=== PATIENT | female | born 1945 | race Caucasian/White ===

== ENCOUNTER 2017-01-10 06:51 | Inpatient (IN) ==
--- NOTE | 2017-01-10 08:32 | Emergency Department Note ---
Disposition Clinical Impression: Altered mental status, Hypoxia, Dyspnea Disposition: Admitted As Inpatient Condition: Fair General Adult HPI - General Chief complaint: ED General Medical Stated complaint: ECF RN sent pt back Source: patient, EMS Nursing Notes Reviewed: Yes Vital Signs Reviewed: Yes - History of Present Illness Pain Scale: 0 - Related Data Home Medications Medication Instructions Recorded Confirmed Albuterol Neb [Proventil Neb] 2.5 mg IH Q6H PRN 04/30/15 01/10/17 Atorvastatin [Lipitor] 10 mg PO HS 04/30/15 01/10/17 Docusate [Colace] 100 mg PO BID 04/30/15 01/10/17 Ferrous Sulfate 325 mg PO DAILY 04/30/15 01/10/17 Insulin ASPART [NovoLOG] 0 - 4 unit SQ QID 04/30/15 01/10/17 Loratadine [Claritin] 10 mg PO DAILY 04/30/15 01/10/17 Meclizine [Antivert] 25 mg PO BID 04/30/15 01/10/17 Montelukast [Singulair] 10 mg PO DAILY 04/30/15 01/10/17 Omeprazole [PriLOSEC] 20 mg PO BID 04/30/15 01/10/17 Potassium Chloride [K-Tab ER] 20 meq PO DAILY 04/30/15 01/10/17 Roflumilast [Daliresp] 500 mcg PO DAILY 04/30/15 01/10/17 Sodium Chloride [Shobha-128] 1 drop BOTH EYES BID 04/30/15 01/10/17 Furosemide [Lasix] 20 mg PO DAILY 09/15/15 01/10/17 Insulin DETEMIR [Levemir] 12 unit SQ DAILY 11/18/15 01/10/17 Alendronate Sodium [Fosamax] 70 mg PO QWEEK 10/27/16 01/10/17 Amiodarone HCl [Pacerone] 200 mg PO DAILY 10/27/16 01/10/17 Benzonatate [Tessalon] 100 mg PO TID 10/27/16 01/10/17 Ondansetron HCl [Zofran] 4 mg PO Q4H PRN 10/27/16 01/10/17 Sennosides [Senna] 8.6 mg PO BID PRN 10/27/16 01/10/17 Calcium Carbonate/Vitamin D3 1 each PO BID 11/17/16 01/10/17 [Calcium 600-Vit D3 400 Tablet] Metoprolol XL (24 HR) Succ [Toprol 75 mg PO DAILY 11/17/16 01/10/17 Xl] Umeclidinium Brm/Vilanterol Tr 1 each IH DAILY 11/17/16 01/10/17 [Anoro Ellipta 62.5-25 Mcg INH] DiphenhydraMINE [Benadryl] 25 mg PO Q6HR PRN 01/10/17 01/10/17 Melatonin 6 mg PO HS 01/10/17 01/10/17 Tobramycin/Dex Opth DROPS 2 drop RIGHT EYE Q6H 01/10/17 01/10/17 [Tobradex Opth Drops] Venlafaxine XR (24 HR) [Effexor XR] 75 mg PO DAILY 01/10/17 01/10/17 Warfarin [Coumadin] 4 mg PO DAILY 01/10/17 01/10/17 Previous Rx's Medication Instructions Recorded HYDROcodone/Acet 10/325 mg [[place] 1 tab PO Q6HR PRN #10 tablet 01/12/16 10-325 mg] Allergies Allergy/AdvReac Type Severity Reaction Status Date / Time codeine Allergy Hives Verified 01/10/17 06:58 latex Allergy Hives Verified 01/10/17 06:58 Penicillins Allergy Hives Verified 01/10/17 06:58 propoxyphene [From Darvon] Allergy Hives Verified 01/10/17 06:58 shellfish derived Allergy Hives Verified 01/10/17 06:58 Past Medical History - Past Medical History Medical history: Reports: asthma, atrial fibrillation, cancer, COPD, diabetes, hypertension Surgical history: Reports: appendectomy, cancer surgery, cholecystectomy, hysterectomy, knee replacement Psychiatric history: Reports: anxiety SUPERVISOR 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: Reports: no SUPERVISOR 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 - Social History Smoking Status: Former smoker Smokeless Tobacco Status: No Alcohol use: Reports: none Drug use: Reports: none Physical Exam - General General appearance: alert, in no apparent distress Course Vital Signs Temperature 98.3 F 01/10/17 06:53 Pulse Rate 91 01/10/17 06:53 Respiratory Rate 20 01/10/17 06:53 Blood Pressure 114/52 01/10/17 06:53 O2 Sat by Pulse Oximetry 97 01/10/17 06:53 Temperature 98.9 F 01/10/17 13:09 Pulse Rate 88 01/10/17 13:09 Respiratory Rate 18 01/10/17 13:09 Blood Pressure 124/71 01/10/17 13:09 O2 Sat by Pulse Oximetry 100 01/10/17 13:09 Oxygen Delivery Oxygen Delivery Nasal Cannula Medical Decision Making - MDM Narrative Medical decision making narrative: I examined this patient and my medical decision-making was reviewed with the Resident Physician. I agree with the documented findings, disposition and treatment plan as described except to the extent set forth below. Patient was seen and evaluated this evening and discharged home in good [place] status she had a normal head CT chest x-ray which showed the unremarkable number previous urinalysis was negative however her she did have an elevated white count 14,000 up from 10,000 that she had been 20s previously. She does have recurrent cervical her lung cancer by history. She has no complaints. She is alert to person place not to time she does state that she was preparing for her wedding then later tells me she is not getting . Read through her ER chart. group home was concerned because she has not altered mental status at hard to tell from them what her normal baseline is. In repeating labs this time. I am going to have social media campaign manager talk to the nursing facility since today shift to tearing what her baseline mental status is. And then reassess her. With her low sodium we may need to admit her if that mental status changes new. 0840 hrs.: She does have some crackles in the base of her lung has an aortic murmur. We checked her previous echo which shows that she had a EF of 57%. A BMP repeated chest x-ray and then admit her. 1030 hrs.: Patient's labs are back her BMP is elevated. She does have some crackles in the lungs. She is probably another echocardiogram and cardiology consult. Our social media marketing specialist followed up at the assisted and they sent her normal mental status is normal she is alert oriented and infiltrate which is not today. So we will go and bring her in the hospital impressions acute mental status change, hypokalemia, leukocytosis, elevated BNP rule out CHF. Patient admitted at this time. - Lab Data Lab Results 01/10/17 Range/Units 08:56 B-Natriuretic Peptide 979 H (0-100) pg/mL
--- NOTE | 2017-01-10 11:11 | Emergency Department Note ---
Disposition Clinical Impression: Hypoxia Altered mental status Qualifiers: Altered mental status type: unspecified Qualified Code(s): R41.82 - Altered mental status, unspecified Dyspnea Qualifiers: Dyspnea type: unspecified Qualified Code(s): R06.00 - Dyspnea, unspecified Disposition: Admitted As Inpatient Condition: Fair Referrals: Valente Rosa MD [Primary Care Provider] - Forms: ED Satisfaction Letter, Work/School Release General Adult HPI - General Chief complaint: ED General Medical Stated complaint: ECF RN sent pt back Time Seen by Provider: 01/10/17 08:32 Source: patient, EMS Limitations: no limitations Nursing Notes Reviewed: Yes Vital Signs Reviewed: Yes - History of Present Illness HPI Narrative: 71-year-old female who is currently living at a nursing facility due to difficulty controlling her diabetes. She is normally alert and oriented 3. She was evaluated last night in her emergency Department due to confusion and was sent back to the nursing facility. She was then sent back to our emergency department due to continued confusion. She states that she has some shortness of breath. She has a past medical history of right-sided lung cancer but most recent biopsy shows benign mass. This or been October of this year. She additionally has atrial fibrillation, COPD, hypertension, diabetes. She does not have a known history of CHF. In the emergency department her SPO2 was in the high 80s on room air. She does not usually wear oxygen. She additionally had some coarse rhonchi. Pain Scale: 0 Consistency: constant Improves with: nothing Worsens with: nothing Associated symptoms: Reports: denies other symptoms Treatments Prior to Arrival: none - Related Data Home Medications Medication Instructions Recorded Confirmed Albuterol Neb [Proventil Neb] 2.5 mg IH Q6H PRN 04/30/15 01/10/17 Atorvastatin [Lipitor] 10 mg PO HS 04/30/15 01/10/17 Docusate [Colace] 100 mg PO BID 04/30/15 01/10/17 Ferrous Sulfate 325 mg PO DAILY 04/30/15 01/10/17 Insulin ASPART [NovoLOG] 0 - 4 unit SQ QID 04/30/15 01/10/17 Loratadine [Claritin] 10 mg PO DAILY 04/30/15 01/10/17 Meclizine [Antivert] 25 mg PO BID 04/30/15 01/10/17 Montelukast [Singulair] 10 mg PO DAILY 04/30/15 01/10/17 Omeprazole [PriLOSEC] 20 mg PO BID 04/30/15 01/10/17 Potassium Chloride [K-Tab ER] 20 meq PO DAILY 04/30/15 01/10/17 Roflumilast [Daliresp] 500 mcg PO DAILY 04/30/15 01/10/17 Sodium Chloride [Shobha-128] 1 drop BOTH EYES BID 04/30/15 01/10/17 Furosemide [Lasix] 20 mg PO DAILY 09/15/15 01/10/17 Insulin DETEMIR [Levemir] 12 unit SQ DAILY 11/18/15 01/10/17 Alendronate Sodium [Fosamax] 70 mg PO QWEEK 10/27/16 01/10/17 Amiodarone HCl [Pacerone] 200 mg PO DAILY 10/27/16 01/10/17 Benzonatate [Tessalon] 100 mg PO TID 10/27/16 01/10/17 Ondansetron HCl [Zofran] 4 mg PO Q4H PRN 10/27/16 01/10/17 Sennosides [Senna] 8.6 mg PO BID PRN 10/27/16 01/10/17 Calcium Carbonate/Vitamin D3 1 each PO BID 11/17/16 01/10/17 [Calcium 600-Vit D3 400 Tablet] Metoprolol XL (24 HR) Succ [Toprol 75 mg PO DAILY 11/17/16 01/10/17 Xl] Umeclidinium Brm/Vilanterol Tr 1 each IH DAILY 11/17/16 01/10/17 [Anoro Ellipta 62.5-25 Mcg INH] DiphenhydraMINE [Benadryl] 25 mg PO Q6HR PRN 01/10/17 01/10/17 Melatonin 6 mg PO HS 01/10/17 01/10/17 Tobramycin/Dex Opth DROPS 2 drop RIGHT EYE Q6H 01/10/17 01/10/17 [Tobradex Opth Drops] Venlafaxine XR (24 HR) [Effexor XR] 75 mg PO DAILY 01/10/17 01/10/17 Warfarin [Coumadin] 4 mg PO DAILY 01/10/17 01/10/17 Previous Rx's Medication Instructions Recorded HYDROcodone/Acet 10/325 mg [[place] 1 tab PO Q6HR PRN #10 tablet 01/12/16 10-325 mg] Allergies Allergy/AdvReac Type Severity Reaction Status Date / Time codeine Allergy Hives Verified 01/10/17 06:58 latex Allergy Hives Verified 01/10/17 06:58 Penicillins Allergy Hives Verified 01/10/17 06:58 propoxyphene [From Darvon] Allergy Hives Verified 01/10/17 06:58 shellfish derived Allergy Hives Verified 01/10/17 06:58 All systems ED: reviewed and negative except as stated. Constitutional: Denies: fever ENT ED: Denies: throat pain Cardiovascular: Denies: chest pain Respiratory: Reports: dyspnea Gastrointestinal: Denies: abdominal pain Musculoskeletal: Denies: back pain Integumentary: Denies: rash Neurological: Denies: headache Endocrine: Denies: fatigue Past Medical History - Past Medical History Medical history: Reports: asthma, atrial fibrillation, cancer, COPD, diabetes, hypertension Surgical history: Reports: appendectomy, cancer surgery, cholecystectomy, hysterectomy, knee replacement Psychiatric history: Reports: anxiety PHYSICAL THERAPY MANAGER history: Reports: no PHYSICAL THERAPY MANAGER history - Social History Smoking Status: Former smoker Smokeless Tobacco Status: No Alcohol use: Reports: none Drug use: Reports: none Physical Exam - General Limitations: no limitations General appearance: alert, in no apparent distress - Head Head exam: atraumatic - Eye Eye exam: Present: normal appearance - ENT ENT exam: normal exam - Neck Neck exam: Present: normal inspection - Chest Chest inspection: Present: normal inspection - Respiratory Respiratory exam: Present: other (Course lung sounds throughout). Absent: respiratory distress - Cardiovascular Cardiovascular exam: Present: regular rate, normal rhythm - Abdominal Exam Abdominal exam: Present: soft, Non-Tender - Extremities Exam Extremities exam: Present: normal inspection - Neurological Exam Neurological exam: Present: alert, other - Skin Skin exam: Present: warm, dry Course Course Narrative: In the emergency department she did become mildly hypoxic with SPO2 in the high 80s on room air. In addition on my physical exam she has significant aortic ejection murmur which is concerning for aortic stenosis. She does not have lower extremity edema but I do have concern that she could possibly be developing congestive heart failure from the aortic stenosis. In reviewing past echocardiogram she does have aortic calcifications but they are unable to classify the amount of stenosis. In addition she has mild hyponatremia and continued confusion. I believe that she needs to be admitted for further workup for congestive heart failure namely for an echocardiogram. In addition she will likely need additional imaging of her head due to continued new-onset confusion. Vital Signs Temperature 98.3 F 01/10/17 06:53 Pulse Rate 91 01/10/17 06:53 Respiratory Rate 20 01/10/17 06:53 Blood Pressure 114/52 01/10/17 06:53 O2 Sat by Pulse Oximetry 97 01/10/17 06:53 Temperature 98.3 F 01/10/17 06:53 Pulse Rate 90 01/10/17 10:53 Respiratory Rate 16 01/10/17 10:53 Blood Pressure 141/69 01/10/17 10:53 O2 Sat by Pulse Oximetry 97 01/10/17 10:53 Oxygen Delivery Oxygen Delivery Room Air Medical Decision Making - Lab Data Lab Results 01/10/17 Range/Units 08:56 B-Natriuretic Peptide 979 H (0-100) pg/mL
--- NOTE | 2017-01-10 12:56 | Internal Med History&Physical ---
Date of Encounter: 01/10/17 Time of Encounter: 12:55 Assessment and Plan (1) Acute on chronic diastolic heart failure Current visit: Yes Status: Acute BNP is elevated from her baseline. On auscultation there are both wheezes and rales. Patient is hypoxic on room air and mid 80s. We will treat with slow diuresis with Lasix while assessing aortic valve for possible stenosis. We will avoid aggressive diuresis to prevent sudden drop in preload which could exacerbate the gradient of aortic stenosis. We will obtain echocardiogram to assess LVEF and aortic function. (2) Acute respiratory failure with hypoxia Current visit: Yes Status: Acute Secondary to COPD and CHF exacerbation. We will treat with oxygen by nasal cannula. We will obtain an ABG. (3) COPD exacerbation Current visit: Yes Status: Acute On exam she has expiratory wheezing and is tachypneic. We will treat with inhaled albuterol and Atrovent and IV Solu-Medrol. Check ABG to rule out CO2 retention as a possible cause for her confusion. (4) Type 2 diabetes mellitus treated with insulin Current visit: Yes Status: Acute Diabetic diet. Insulin sliding scale and Levemir. (5) Aortic stenosis Current visit: No Status: Acute We will obtain echocardiogram with contrast. Review of her prior echocardiograms there was demonstration of aortic valve calcification but there was no assessment of aortic stenosis. Qualifiers: Cardiac valve disease etiology: etiology unspecified Qualified Code(s): I35.0 - Nonrheumatic aortic (valve) stenosis Internal Medicine - H&P: HPI Chief complaint: altered menal statuss Admitted From: Emergency Dept Plans for Post Hospital Care: Home History of present illness: Ms. Baird is a 71 year old female with past medical history significant for type 2 diabetes, COPD, atrial fibrillation, lung cancer status post resection, essential hypertension who was brought to the hospital from the alf for evaluation of confusion. History is limited by confusion. Additionally a history obtained from the ED states that the patient was evaluated last night for same and initial workup was negative and she was sent back to the alf. This morning she was sent again for reevaluation. She was found to be hypoxic with oxygen saturation in the high 80s on room air. Her chest x-ray showed no acute findings. She was referred for admission and further care. Past medical history, family history social history and review of systems per review of records only. Patient cannot provide history due to confusion. Past Med Surg Social Fam HX - Past Medical History Medical history: asthma, atrial fibrillation, cancer, COPD, diabetes, hypertension Psychiatric history: anxiety - Past Surgical History Surgical History: appendectomy, cancer surgery, cholecystectomy, hysterectomy, knee replacement - Social History Smoking Status: Former smoker Smokeless Tobacco Status: No Alcohol use: none Drug use: none - Family History Mother Living Status: Hx Family Cardiac Disorders: Yes (HEART DISEASE) Hx Family Endocrine Disorder: Yes (DIABETES) Internal Medicine - H&P: Meds Albuterol Neb [Proventil Neb] 2.5 mg IH Q6H PRN 04/30/15 [History] Atorvastatin [Lipitor] 10 mg PO HS 04/30/15 [History] Docusate [Colace] 100 mg PO BID 04/30/15 [History] Ferrous Sulfate 325 mg PO DAILY 04/30/15 [History] Insulin ASPART [NovoLOG] 0 - 4 unit SQ QID 04/30/15 [History] Loratadine [Claritin] 10 mg PO DAILY 04/30/15 [History] Meclizine [Antivert] 25 mg PO BID 04/30/15 [History] Montelukast [Singulair] 10 mg PO DAILY 04/30/15 [History] Omeprazole [PriLOSEC] 20 mg PO BID 04/30/15 [History] Potassium Chloride [K-Tab ER] 20 meq PO DAILY 04/30/15 [History] Roflumilast [Daliresp] 500 mcg PO DAILY 04/30/15 [History] Sodium Chloride [Shobha-128] 1 drop BOTH EYES BID 04/30/15 [History] Furosemide [Lasix] 20 mg PO DAILY 09/15/15 [History] Insulin DETEMIR [Levemir] 12 unit SQ DAILY 11/18/15 [History] HYDROcodone/Acet 10/325 mg [[place] 10-325 mg] 1 tab PO Q6HR PRN #10 tablet [Rx] Alendronate Sodium [Fosamax] 70 mg PO QWEEK 10/27/16 [History] Amiodarone HCl [Pacerone] 200 mg PO DAILY 10/27/16 [History] Benzonatate [Tessalon] 100 mg PO TID 10/27/16 [History] Ondansetron HCl [Zofran] 4 mg PO Q4H PRN 10/27/16 [History] Sennosides [Senna] 8.6 mg PO BID PRN 10/27/16 [History] Calcium Carbonate/Vitamin D3 [Calcium 600-Vit D3 400 Tablet] 1 each PO BID 11/17 [History] Metoprolol XL (24 HR) Succ [Toprol Xl] 75 mg PO DAILY 11/17/16 [History] Umeclidinium Brm/Vilanterol Tr [Anoro Ellipta 62.5-25 Mcg INH] 1 each IH DAILY 11/17/16 [History] DiphenhydraMINE [Benadryl] 25 mg PO Q6HR PRN 01/10/17 [History] Melatonin 6 mg PO HS 01/10/17 [History] Tobramycin/Dex Opth DROPS [Tobradex Opth Drops] 2 drop RIGHT EYE Q6H 01/10/17 [ History] Venlafaxine XR (24 HR) [Effexor XR] 75 mg PO DAILY 01/10/17 [History] Warfarin [Coumadin] 4 mg PO DAILY 01/10/17 [History] 3 Allergy/AdvReac Type Severity Reaction Status Date / Time codeine Allergy Hives Verified 01/10/17 06:58 latex Allergy Hives Verified 01/10/17 06:58 Penicillins Allergy Hives Verified 01/10/17 06:58 propoxyphene [From Darvon] Allergy Hives Verified 01/10/17 06:58 shellfish derived Allergy Hives Verified 01/10/17 06:58 All Systems PM: A 10-system review of systems was performed and is negative for pertinent findings except as documented above in the HPI. - Constitutional Vitals: Temp Pulse Resp BP Pulse Ox 98.3 F 94 16 142/69 98 01/10/17 06:53 01/10/17 11:49 01/10/17 12:36 01/10/17 12:36 01/10/17 11:49 General appearance: Present: A&O X 1, no acute distress - Eye Eye exam: Present: PERRL, conjuntiva pink, sclera anicteric Pupils: Present: PERRL - Neck Neck exam general surgery: Present: supple, trachea midline. Absent: lymphadenopathy - Respiratory Respiratory exam: Present: CTAB, prolonged expiratory phase, rales, wheezes. Absent: accessory muscle use, rhonchi - Cardiovascular Cardiovascular exam: Present: RRR, +S1, +S2, systolic murmur (Loud systolic ejection murmur at the right upper sternal border). Absent: diastolic murmur, gallop, rubs - GI/Abdominal GI/Abdominal exam: Present: normal bowel sounds, soft, no peritoneal signs. Absent: distended, tenderness - Extremities Exam Extremities exam: Present: warm, radial pulses palpable and symmetrical. Absent : calf tenderness, cyanotic, pedal edema - Skin Skin exam: Present: dry, intact Internal Med - H&P Results - Labs Labs: Blood work from early this morning on a prior ED visit showed white blood cell count of 14.2, hemoglobin 11.7, platelets 269. INR 4.0 Sodium 129 potassium 3.9 BUN 12 creatinine 0.79, glucose 241. Urinalysis positive for glucose negative for nitrite and leukocyte esterase. BMP from this morning was 979. - EKG Data -: EKG Interpreted by Myself EKG shows normal: sinus rhythm - Impressions Chest x-ray shows stable right base opacities with no acute findings. EKG personally reviewed shows normal sinus rhythm 70 bpm, normal axis and intervals, no acute changes.
[2017-01-10] MEDS ORDERED: Sennosides 8.6 MG TABLET PO PRN (13:51)
[2017-01-10] MEDS ORDERED: NON-FORMULARY MEDICATION 1 EACH EACH (Insulin Detemir 12 UNIT) SQ SCH (14:00)
[2017-01-10] MEDS ORDERED: Dextrose Gel 15 GM PO PRN ×2 (14:00)
[2017-01-10] MEDS ORDERED: D5% in Water 1,000 ML IVC PRN (14:00)
[2017-01-10] MEDS ORDERED: *HR* Dextrose 50 % in Water (Syg) 50 ML SYRINGE IVP PRN (14:00)
[2017-01-10] MEDS ORDERED: Ondansetron 4 MG/2 ML VIAL IVP PRN (14:01)
[2017-01-10] MEDS ORDERED: Naloxone 0.4 MG/ML INJ IVP PRN (14:01)
[2017-01-10] MEDS ORDERED: Acetaminophen 325 MG TABLET PO PRN (14:01)
[2017-01-10] MEDS ORDERED: Albuterol 2.5 MG/3 ML NEBULIZER IH PRN (14:05)
[2017-01-10 14:22] LABS: Hemoglobin A1C 8.5 %
[2017-01-10] MEDS: Furosemide 20 MG/2 ML VIAL IVP SCH (14:39)
[2017-01-10] MEDS: Metoprolol XL (24 HR) Succ 25 MG TAB.ER.24H PO SCH (14:40)
[2017-01-10] MEDS: Tobramycin/Dex Opth DROPS 2.5 ML BOTTLE RIGHT EYE SCH ×2 (14:40→21:11)
[2017-01-10] MEDS: Ipratropium/Albuterol Neb 3 ML IH SCH ×3 (16:13→23:00)
[2017-01-10] MEDS: Insulin LISPRO 300 UNITS/3 ML VIAL SQ SCH ×2 (16:24→16:26)
[2017-01-10 16:47] LABS: ABG Base Excess -7 mEq/L (-2 to 3); ABG HCO3 16 mEq/L (21-27); ABG Oxygen Saturation 97 % (95-98); ABG PCO2 29 mmHg (35-45); ABG PH 7.37 pH Units (7.32-7.45); ABG PO2 92 mmHg (85-104); ABG TCO2 17 mEq/L (20-26)
[2017-01-10] MEDS: Insulin DETEMIR 100 UNIT/ML X5UNITS SQ SCH (17:21)
[2017-01-10] MEDS ORDERED: Warfarin perPT PO PRN (18:00)
[2017-01-10 18:37] LABS: Adenovirus Not Detected (Not Detect); Bordetella Pertussis Not Detected (Not Detect); Chlamydophila pneumoniae Not Detected (Not Detect); Coronavirus 229E Not Detected (Not Detect); Coronavirus HKU1 Not Detected (Not Detect); Coronavirus NL63 Not Detected (Not Detect); Coronavirus OC43 Not Detected (Not Detect); Human Metapneumovirus Not Detected (Not Detect); Human Rhinovirus/Enterovirus Not Detected (Not Detect); Influenza A Subtype 2009 H1 Not Detected (Not Detect); Influenza A Untypeable Not Detected (Not Detect); Influenza B Not Detected (Not Detect); Mycoplasma pneumoniae Not Detected (Not Detect); Parainfluenza Virus 1 Not Detected (Not Detect); Parainfluenza Virus 2 Not Detected (Not Detect); Parainfluenza Virus 3 Not Detected (Not Detect); Parainfluenza Virus 4 Not Detected (Not Detect); Respiratory Syncytial Virus Not Detected (Not Detect)
[2017-01-10] MEDS: methylPREDNISolone 125 MG/2 ML VIAL IVP SCH (18:52)
--- NOTE | 2017-01-10 19:51 | Event Note ---
Date of Encounter: 01/10/17 Time of Encounter: 19:49 CT of the chest with IV contrast shows no evidence of PE. However it does revealed multiple areas of consolidation, compatible with multifocal pneumonia. Viral swab PCR is negative for flu and common respiratory viruses. Patient was initially hypoxic and does have an elevated white blood cell count as well as bilateral areas of consolidation and therefore I suspect bilateral multifocal pneumonia for which we will start treatment with cefepime.
[2017-01-10] MEDS: Cefepime HCl 2,000 MG in D5% in Water (Mini-Bag+) 100 ML IVPB SCH (21:04)
[2017-01-10] MEDS: *HR* HYDROcodone/Acet 5/325 mg TABLET PO PRN (21:06)
[2017-01-10] MEDS: Melatonin 3 MG TABLET PO SCH (21:10)
[2017-01-10] MEDS: Artificial Tears SOLN 15 ML BOTTLE BOTH EYES SCH (21:11)
[2017-01-11] MEDS: methylPREDNISolone 125 MG/2 ML VIAL IVP SCH ×5 (00:50→23:31)
[2017-01-11] MEDS: Tobramycin/Dex Opth DROPS 2.5 ML BOTTLE RIGHT EYE SCH ×4 (01:57→20:46)
[2017-01-11 03:58] LABS: Basophils % 0.1 %; Hemoglobin 12.1 g/dL (11.5-15.4); Immature Granulocytes % 0.5 % (0-4); Lymphocytes # 0.5 K/mcL (0.6-4.6); Lymphocytes % 3.1 %; Mean Corpuscular HGB Conc 34.6 g/dL (31.6-35.5); Mean Corpuscular Hemoglobin 30.4 pg (28.0-33.3); Mean Corpuscular Volume 87.9 fL (83.0-100.0); Mean Platelet Volume 9.6 fL (9.4-12.4); Monocytes # 0.4 K/mcL (0.0-1.3); Monocytes % 2.4 %; Neutrophils # 13.6 K/mcL (1.6-8.9); Platelet Count 296 K/mcL (140-400); Red Blood Count 3.98 M/mcL (3.82-4.97); Red Cell Distribution Width 14.2 % (11.5-14.5); Segmented Neutrophils % 93.9 %
[2017-01-11] MEDS: Ipratropium/Albuterol Neb 3 ML IH SCH ×5 (04:04→20:53)
[2017-01-11 04:12] LABS: BUN/Creatinine Ratio 15 (6-26); Blood Urea Nitrogen 12 mg/dL (7-20); Calcium 9.3 mg/dL (8.6-10.8); Carbon Dioxide 21 mEq/L (19-29); Chloride 93 mEq/L (98-109); Glucose 250 mg/dL (70-99); Magnesium 1.5 mg/dL (1.6-2.6); Osmolality,Calculated 274 (280-300); Potassium 3.7 mEq/L (3.5-4.5); Sodium 128 mEq/L (136-145); eGFR For African Americans > 60 (> 60); eGFR For Non-African Americans > 60 (> 60)
[2017-01-11 04:14] LABS: Prothrombin Time 67.1 Seconds (9.4-12.1)
[2017-01-11] MEDS: Cefepime HCl 2,000 MG in D5% in Water (Mini-Bag+) 100 ML IVPB SCH ×2 (06:36→17:10)
[2017-01-11] MEDS: Metoprolol XL (24 HR) Succ 25 MG TAB.ER.24H PO SCH (08:10)
[2017-01-11] MEDS: Furosemide 20 MG/2 ML VIAL IVP SCH (08:11)
[2017-01-11] MEDS: Venlafaxine XR (24 HR) 75 MG CAP.ER.24H PO SCH (08:11)
[2017-01-11] MEDS: Loratadine 10 MG TABLET PO SCH (08:11)
[2017-01-11] MEDS: *HR* Amiodarone 200 MG TABLET PO SCH (08:11)
[2017-01-11] MEDS: Artificial Tears SOLN 15 ML BOTTLE BOTH EYES SCH ×2 (08:12→20:46)
[2017-01-11] MEDS: Insulin LISPRO 300 UNITS/3 ML VIAL SQ SCH ×6 (08:16→17:13)
[2017-01-11] MEDS: (Anoro Ellipta 62.5-2) IH SCH (09:11)
[2017-01-11] MEDS: (Roflumilast [Daliresp] 500 MCG) PO SCH (10:56)
[2017-01-11] MEDS: Insulin DETEMIR 100 UNIT/ML X5UNITS SQ SCH (11:19)
[2017-01-11] MEDS: *HR* HYDROcodone/Acet 5/325 mg TABLET PO PRN (15:37)
--- NOTE | 2017-01-11 19:22 | Internal Med Progress Note ---
Date of Encounter: 01/11/17 Time of Encounter: 08:55 - Assessment and plan (1) Aortic stenosis Current Visit: No Status: Acute Assessment and plan: Echocardiogram shows severe aortic stenosis. Patient has been seen for this before, she was referred to [facility] for TAVR, it appears that she did not follow-up. I spoke with cardiology [employer], she states that she will follow up with the office staff to see how the referral went and patient will also follow-up in the office for further recommendations and evaluation. Patient has 3/6 systolic murmur at left sternal border. She denies chest pain. Qualifiers: Cardiac valve disease etiology: etiology unspecified Qualified Code(s): I35.0 - Nonrheumatic aortic (valve) stenosis (2) DVT prophylaxis Current Visit: No Status: Acute Assessment and plan: Patient is on Coumadin. Pharmacy to dose. (3) Acute on chronic diastolic heart failure Current Visit: Yes Status: Acute Assessment and plan: BNP is elevated from her baseline. Today, lung sounds are diminished and clear. Patient is requiring 3 L instead of her normal 2 L. Room air sats are in the 80s. We will continue to diuresis slowly to avoid dropping preload and exacerbating aortic stenosis. Continue telemetry Continue daily weights Continue I&O. (4) Acute respiratory failure with hypoxia Current Visit: Yes Status: Acute Assessment and plan: Patient is requiring 3 L instead of her normal baseline 2 L to maintain her sats greater than 92%. Continue to titrate oxygen as needed to maintain sats above 92%. Pulse ox with vitals. Continuous pulse ox. (5) COPD exacerbation Current Visit: Yes Status: Acute Assessment and plan: Patient with sometimes productive cough. It does sound moist. No acute exacerbation at this time. Will continue with IV steroids and inhalers, as well as nebulizer treatments. Lungs are clear and diminished. Patient is requiring submental oxygen above her normal baseline need. Continue telemetry and pulse ox. - Time Spent With Patient less than 15 minutes - Subjective Interval history: Patient was seen and assessed the bedside at 8:55 AM. Patient is requiring additional oxygen above her normal knee. She is currently 3 L by nasal cannula here, normally wears 2 L at home. She does state that she feels as if her breathing is improved today. She also reports that she had lung cancer with a right sided lobectomy. She is a resident at [facility]. Patient has an obvious murmur and known aortic stenosis. She reports that sometimes she has a productive cough, cough does sound moist. She has no peripheral edema. - Constitutional Vitals: Temp Pulse Resp BP Pulse Ox 98.1 F 69 16 95/54 94 01/11/17 18:44 01/11/17 18:44 01/11/17 18:44 01/11/17 18:44 01/11/17 18:44 General appearance: Present: A&O X 1, mild distress, pleasant, no acute distress , answers questions appropriately - Head Head exam: Present: atraumatic, normal inspection, normocephalic - Eye Eye exam: Present: normal appearance, conjuntiva pink, sclera anicteric - Neck Neck exam general surgery: Present: supple, trachea midline. Absent: lymphadenopathy - Respiratory Respiratory exam: Present: decreased breath sounds, CTAB. Absent: accessory muscle use, chest wall tenderness, rales, respiratory distress, rhonchi, wheezes - Cardiovascular Cardiovascular exam: Present: RRR. Absent: gallop, rubs - Expanded Cardiovascular Exam Type of murmur: Present: systolic Location: Present: LUSB Intensity: 3/6 - GI/Abdominal GI/Abdominal exam: Present: normal bowel sounds, soft, no peritoneal signs. Absent: distended, tenderness - Extremities Exam Extremities exam: Present: warm, radial pulses palpable and symmetrical. Absent : calf tenderness, cyanotic, pedal edema - Neurological Exam Neurological exam: Present: alert, oriented X3, no focal deficits. Absent: facial droop, speech deficit - Skin Skin exam: Present: dry, intact, normal color, warm. Absent: rash Internal Medicine: Result - Labs CBC & Chem 7: 01/11/17 03:20 01/11/17 03:20 Labs: Short CBC 01/11/17 Range/Units 03:20 WBC 14.5 H (4.3-11.1) K/mcL Hgb 12.1 (11.5-15.4) g/dL Hct 35.0 L (35.3-44.9) % Plt Count 296 (140-400) K/mcL Neutrophils # 13.6 H (1.6-8.9) K/mcL BMP 01/11/17 03:20 Sodium 128 L Potassium 3.7 Chloride 93 L Carbon Dioxide 21 BUN 12 Creatinine 0.78 Glucose 250 H Calcium 9.3 Cardiac Enzymes 01/10/17 01/11/17 Range/Units 20:46 03:20 Troponin I 0.06 H* 0.05 H* (0-0.03) ng/mL - ABG Interpretation ABG results: ABG ABG pH 7.37 pH Units (7.32-7.45) 01/10/17 16:41 ABG pCO2 29 mmHg (35-45) L 01/10/17 16:41 ABG pO2 92 mmHg (85-104) 01/10/17 16:41 ABG O2 Saturation 97 % (95-98) 01/10/17 16:41 PT/INR, D-dimer PT 67.1 Seconds (9.4-12.1) H* D 01/11/17 03:20 D-Dimer 1218 ng/mLFEU (0-500) H 01/10/17 13:25 Consult Discharge Plan - Plan Referrals: Valente Rosa MD [Primary Care Provider] -
[2017-01-11] MEDS: Melatonin 3 MG TABLET PO SCH (20:46)
[2017-01-11] MEDS ORDERED: Insulin LISPRO 300 UNITS/3 ML VIAL SQ SCH (21:15)
[2017-01-12] MEDS: Ipratropium/Albuterol Neb 3 ML IH SCH ×7 (00:17→23:44)
[2017-01-12 04:15] LABS: Basophils % 0.2 %; Hematocrit 30.9 % (35.3-44.9); Hemoglobin 10.9 g/dL (11.5-15.4); Lymphocytes # 0.5 K/mcL (0.6-4.6); Lymphocytes % 2.9 %; Mean Corpuscular HGB Conc 35.3 g/dL (31.6-35.5); Mean Corpuscular Hemoglobin 30.2 pg (28.0-33.3); Mean Corpuscular Volume 85.6 fL (83.0-100.0); Mean Platelet Volume 9.6 fL (9.4-12.4); Monocytes # 0.5 K/mcL (0.0-1.3); Monocytes % 3.4 %; Neutrophils # 14.3 K/mcL (1.6-8.9); Platelet Count 295 K/mcL (140-400); Red Blood Count 3.61 M/mcL (3.82-4.97); Red Cell Distribution Width 14.5 % (11.5-14.5); Segmented Neutrophils % 92.5 %
[2017-01-12 04:17] LABS: INR 3.8; Prothrombin Time 42.3 Seconds (9.4-12.1)
[2017-01-12 04:28] LABS: BUN/Creatinine Ratio 27 (6-26); Calcium 8.7 mg/dL (8.6-10.8); Carbon Dioxide 22 mEq/L (19-29); Chloride 92 mEq/L (98-109); Glucose 407 mg/dL (70-99); Osmolality,Calculated 285 (280-300); Sodium 127 mEq/L (136-145); eGFR For African Americans > 60 (> 60); eGFR For Non-African Americans > 60 (> 60)
[2017-01-12 04:42] LABS: Blood Urea Nitrogen 23 mg/dL (7-20)
[2017-01-12 04:43] LABS: Potassium 3.6 mEq/L (3.5-4.5)
[2017-01-12] MEDS: Tobramycin/Dex Opth DROPS 2.5 ML BOTTLE RIGHT EYE SCH ×4 (05:38→21:12)
[2017-01-12] MEDS: Cefepime HCl 2,000 MG in D5% in Water (Mini-Bag+) 100 ML IVPB SCH ×2 (06:05→18:57)
[2017-01-12] MEDS: methylPREDNISolone 125 MG/2 ML VIAL IVP SCH ×3 (06:05→18:33)
[2017-01-12] MEDS: (Anoro Ellipta 62.5-2) IH SCH (07:58)
[2017-01-12] MEDS: Insulin LISPRO 300 UNITS/3 ML VIAL SQ SCH ×9 (08:55→23:21)
[2017-01-12] MEDS: Loratadine 10 MG TABLET PO SCH (08:57)
[2017-01-12] MEDS: Artificial Tears SOLN 15 ML BOTTLE BOTH EYES SCH ×2 (08:57→21:12)
[2017-01-12] MEDS: Venlafaxine XR (24 HR) 75 MG CAP.ER.24H PO SCH (08:59)
[2017-01-12] MEDS: Furosemide 20 MG/2 ML VIAL IVP SCH (09:11)
[2017-01-12] MEDS: Insulin DETEMIR 100 UNIT/ML X5UNITS SQ SCH (09:11)
[2017-01-12] MEDS: *HR* Amiodarone 200 MG TABLET PO SCH (09:11)
[2017-01-12] MEDS: (Roflumilast [Daliresp] 500 MCG) PO SCH (09:12)
[2017-01-12] MEDS: Metoprolol XL (24 HR) Succ 25 MG TAB.ER.24H PO SCH (11:10)
[2017-01-12] MEDS ORDERED: Insulin LISPRO 300 UNITS/3 ML VIAL SQ ONE (13:46)
[2017-01-12 15:02] LABS: Bilirubin,Urine Negative (Negative); Blood,Urine Negative (Negative); Clarity,Urine Clear (Clear); Color,Urine Yellow (Yellow); Glucose,Urine (UA) 500 mg/dL (Normal); Ketones,Urine 15 mg/dL (Negative); Leukocyte Esterase,Urine Negative (Negative); Nitrite,Urine Negative (Negative); PH,Urine 6.5 pH Units (5.0-8.0); Protein,Urine Negative (Neg-Trace); Specific Gravity,Urine 1.015 (1.010-1.025); Urobilinogen,Urine Normal (Normal)
[2017-01-12 15:11] LABS: Potassium 2.9 mEq/L (3.5-4.5)
[2017-01-12] MEDS: 0.9 % Sodium Chloride 1,000 ML IVC SCH ×2 (16:26→21:03)
--- NOTE | 2017-01-12 17:14 | Electrocardiograph Report ---
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
--- NOTE | 2017-01-12 17:40 | Oncology Inp Consult Note ---
Date of Encounter: 01/12/17 Time of Encounter: 12:00 Assessment and Plan (1) Lung cancer Status: Acute Assessment and plan: Squamous cell ca--s/p neoadj SENIOR TECHNICAL RECRUITER and surgery RULobectomy, pT3 N0, with imaging suspicious for recurrence. Reimaging 11/04 reviewed PET not able to be done due to hyperglycemia. CT guided bx---benign. Additional RUFINA nodule needs evaluation. Imaging from 01/04 reviewed consistent with multifocal pneumonia--on abx. She has had multiple episodes in the past So far she does not have clearly documented recurrence and some of the imaging findings are chronic. After treatment for pneumonia, she should be evaluated for cardiac procedure if she is symptomatic from and candidate for such procedure/valve surgery. DM uncontrolled. COPD/ O2 dependant. Multiple episodes of pneumonia in the past. Consider bronch procedure if patient does not improve clinically. She is a candidate for and should be able to receive SBRT to left apical nodule at later date after bx/immunotherapy if she has evidence of discease progression in lymph nodes or elsewhere that could keep her disease undercontrol hopefully for longer term. I will follow her up in clinic for evaluation after discharge from hospital stay. Plan was discussed bed side with patient who has stated understanding of above recommendations. Qualifiers: Laterality: right Lung location: unspecified part of lung Qualified Code( s): C34.91 - Malignant neoplasm of unspecified part of right bronchus or lung - Data of Consult Requesting Physician: Evelyn Escobar CNP Primary Care Provider: Valente Rosa MD - Consult Narrative Reason for consult: lung cancer, severe needing procedural intervention History of present illness: Bella Baird is a 71 year old female history of squamous cell carcinoma of the right upper lobe who had undergone neoadjuvant chemoradiation with weekly CarboTaxol and radiation therapy, status post right upper lobe resection at [facility] in October 2012. Hospitalized since then multiple times with pneumonia. She resides at [facility], O2 dependant, requiring some assistance with ADLs. Her final pathological staging was pT3 N0 fully resected right upper lobectomy, clear margins, less than 10% of viable tumor cells noted in the surgical specimen itself. () She had lost follow-up, was referred back to us from [facility] due to hx lung cancer from [facility] where she had been seen for atrial fibrillation, w/u with ? Ablative treatment/Ct angio and required valvular procedure in 09/04. CT imaging in June 2016 showed posterior right chest wall lesion involving soft tissues deep to the scapula measuring 5.0 x 3.6 x 3.3 cm concerning for malignant involvement of the chest wall. She underwent CT guided bx lung/soft tissue mass that showed benign tissue She underwent reimaging 11/04 that showed stable rt pleural based mass, new 1.3cm lt apical nodule, improvement in rt and left lung infectious/inflammatory findings. Patient was scheduled for PET imaging for further evaluation of the left apical nodule, patient could not completed due to uncontrolled sugars. She was discussed in multidisciplinary conference at that time follow-up imaging with PET scan was suggested. Due to inability to complete a PET scan, which short-term follow-up CT imaging was obtained and patient had a date 2016. Recent imaging findings discussed concerning for interval increase in size of irregular nodule in the left apex measuring 1.5-1.9 cm in size, groundglass attenuation has been stable nonspecific adenopathy. CTA 01/10/17-- multifocal areas of lung consolidation in the left and rt lower lobes concerning for multifocal pneumonia. Patient is slightly more SOB on exam today. She denies any pain She had had dizziness on and off. Rpt echo shows severe , nl EF CT abd negative for metastatic disease ON cefipime for multifocal pneumonia Past Med Surg Social Fam HX - Past Medical History Medical history: asthma, atrial fibrillation, cancer, COPD, diabetes, hypertension Psychiatric history: anxiety - Past Surgical History Surgical History: appendectomy, cancer surgery, cholecystectomy, hysterectomy, knee replacement - Social History Smoking Status: Former smoker Smokeless Tobacco Status: No Alcohol use: none Drug use: none - Family History Mother Living Status: Hx Family Cardiac Disorders: Yes (HEART DISEASE) Hx Family Endocrine Disorder: Yes (DIABETES) Medications and Allergies Albuterol Neb [Proventil Neb] 2.5 mg IH Q6H PRN 04/30/15 [History] Atorvastatin [Lipitor] 10 mg PO HS 04/30/15 [History] Docusate [Colace] 100 mg PO BID 04/30/15 [History] Ferrous Sulfate 325 mg PO DAILY 04/30/15 [History] Insulin ASPART [NovoLOG] 0 - 4 unit SQ QID 04/30/15 [History] Loratadine [Claritin] 10 mg PO DAILY 04/30/15 [History] Meclizine [Antivert] 25 mg PO BID 04/30/15 [History] Montelukast [Singulair] 10 mg PO DAILY 04/30/15 [History] Omeprazole [PriLOSEC] 20 mg PO BID 04/30/15 [History] Potassium Chloride [K-Tab ER] 20 meq PO DAILY 04/30/15 [History] Roflumilast [Daliresp] 500 mcg PO DAILY 04/30/15 [History] Sodium Chloride [Shobha-128] 1 drop BOTH EYES BID 04/30/15 [History] Furosemide [Lasix] 20 mg PO DAILY 09/15/15 [History] Insulin DETEMIR [Levemir] 12 unit SQ DAILY 11/18/15 [History] HYDROcodone/Acet 10/325 mg [Melvin 10-325 mg] 1 tab PO Q6HR PRN #10 tablet [Rx] Alendronate Sodium [Fosamax] 70 mg PO QWEEK 10/27/16 [History] Amiodarone HCl [Pacerone] 200 mg PO DAILY 10/27/16 [History] Benzonatate [Tessalon] 100 mg PO TID 10/27/16 [History] Ondansetron HCl [Zofran] 4 mg PO Q4H PRN 10/27/16 [History] Sennosides [Senna] 8.6 mg PO BID PRN 10/27/16 [History] Calcium Carbonate/Vitamin D3 [Calcium 600-Vit D3 400 Tablet] 1 each PO BID 11/17 [History] Metoprolol XL (24 HR) Succ [Toprol Xl] 75 mg PO DAILY 11/17/16 [History] Umeclidinium Brm/Vilanterol Tr [Anoro Ellipta 62.5-25 Mcg INH] 1 each IH DAILY 11/17/16 [History] DiphenhydraMINE [Benadryl] 25 mg PO Q6HR PRN 01/10/17 [History] Melatonin 6 mg PO HS 01/10/17 [History] Tobramycin/Dex Opth DROPS [Tobradex Opth Drops] 2 drop RIGHT EYE Q6H 01/10/17 [ History] Venlafaxine XR (24 HR) [Effexor XR] 75 mg PO DAILY 01/10/17 [History] Warfarin [Coumadin] 4 mg PO DAILY 01/10/17 [History] 3 Allergy/AdvReac Type Severity Reaction Status Date / Time codeine Allergy Hives Verified 01/10/17 06:58 latex Allergy Hives Verified 01/10/17 06:58 Penicillins Allergy Hives Verified 01/10/17 06:58 propoxyphene [From Darvon] Allergy Hives Verified 01/10/17 06:58 shellfish derived Allergy Hives Verified 01/10/17 06:58 Review of systems: as in HPI Oncology - Exam - Constitutional Vitals: Temp Pulse Resp BP Pulse Ox 98.0 F 76 16 97/62 95 01/12/17 15:33 01/12/17 15:33 01/12/17 15:33 01/12/17 15:33 01/12/17 15:33 General appearance: mild distress - Head Head exam: Present: atraumatic, normal inspection - Eye Eye exam: Present: EOMI - Neck Neck exam: Present: full ROM - Respiratory Respiratory exam: Present: decreased breath sounds - Cardiovascular Cardiovascular exam: Present: irregular rhythm, +S1, +S2 - Extremities Exam Extremities exam: Present: full ROM - Neurological Exam Neurological exam: Present: alert, CN II-XII intact, oriented X3, no focal deficits - Psychiatric Psychiatric exam: Present: normal mood Oncology - Results Labs: Short CBC 01/12/17 Range/Units 03:12 WBC 15.5 H (4.3-11.1) K/mcL Hgb 10.9 L (11.5-15.4) g/dL Hct 30.9 L (35.3-44.9) % Plt Count 295 (140-400) K/mcL Neutrophils # 14.3 H (1.6-8.9) K/mcL BMP 01/12/17 01/12/17 01/12/17 03:12 07:37 11:35 Sodium 127 L Potassium 3.6 Chloride 92 L Carbon Dioxide 22 BUN 23 H D Creatinine 0.85 Glucose 407 H 554 H* 624 H* Calcium 8.7 01/12/17 14:21 Sodium 129 L Potassium 2.9 L Chloride 92 L Carbon Dioxide 21 BUN 27 H Creatinine 1.13 H Glucose 355 H Calcium 9.0 Cardiac Enzymes 01/12/17 Range/Units 07:35 Troponin I 0.02 (0-0.03) ng/mL Urine 01/12/17 Range/Units 14:04 Urine Color Yellow (Yellow) Urine Clarity Clear (Clear) Urine pH 6.5 (5.0-8.0) pH Units Ur Specific [place] 1.015 (1.010-1.025) Urine Protein Negative (Neg-Trace) mg/dL Urine Glucose (UA) 500 H (Normal) mg/dL CT scans reviewed Consult Discharge Plan - Plan Referrals: Valente Rosa MD [Primary Care Provider] -
[2017-01-12 17:59] LABS: BUN/Creatinine Ratio 36 (6-26); Blood Urea Nitrogen 30 mg/dL (7-20); Calcium 8.8 mg/dL (8.6-10.8); Carbon Dioxide 24 mEq/L (19-29); Chloride 95 mEq/L (98-109); Glucose 53 mg/dL (70-99); Osmolality,Calculated 276 (280-300); Sodium 131 mEq/L (136-145); eGFR For African Americans > 60 (> 60); eGFR For Non-African Americans > 60 (> 60)
--- NOTE | 2017-01-12 19:02 | Internal Med Progress Note ---
Date of Encounter: 01/12/17 Time of Encounter: 08:30 - Assessment and plan (1) Aortic stenosis Current Visit: No Status: Acute Assessment and plan: Echocardiogram shows severe aortic stenosis. Patient has been seen for this before, she was referred to [facility] for TAVR, it appears that she did not follow-up. I spoke with cardiology [employer], she states that she will follow up with the office staff to see how the referral went and patient will also follow-up in the office for further recommendations and evaluation. Patient has 3/6 systolic murmur at left sternal border. She denies chest pain. Qualifiers: Cardiac valve disease etiology: etiology unspecified Qualified Code(s): I35.0 - Nonrheumatic aortic (valve) stenosis (2) DVT prophylaxis Current Visit: No Status: Acute Assessment and plan: Patient is on Coumadin. Pharmacy to dose. INR is supratherapeutic today at 3.8 , which is improved from 6.0 yesterday.. (3) Acute on chronic diastolic heart failure Current Visit: Yes Status: Acute Assessment and plan: BNP is elevated from her baseline. Lung sounds are diminished and clear. We will continue to diurese slowly to avoid dropping preload and exacerbating aortic stenosis. BNP has decreased by about 50%. According to daily weights, patient has gained almost 2 kg, although I feel strongly that these are not accurate weights and patent has had output of about 2400 mL's. Continue telemetry Continue daily weights Continue I&O. (4) Acute respiratory failure with hypoxia Current Visit: Yes Status: Acute Assessment and plan: Patient is requiring 2 L to maintain her sats greater than 92%. Continue to titrate oxygen as needed to maintain sats above 92%. Pulse ox with vitals. Continuous pulse ox. (5) COPD exacerbation Current Visit: Yes Status: Acute Assessment and plan: Patient with sometimes productive cough. No acute exacerbation at this time. Will continue inhalers, as well as nebulizer treatments. IV steroids and been held due to hyperglycemia. Lungs are clear and diminished. Patient is not requiring submental oxygen above her normal baseline need. Continue telemetry and pulse ox. (6) Hyperglycemia Current Visit: Yes Status: Acute Assessment and plan: Patient refused left Tita last night, due to steroids, patient's blood sugar was elevated today. She was treated with sliding scale insulin coverage as well as IV fluids. Initially patient's gap was 12 and her creatinine had risen to 1.31. After being treated with insulin and IV fluids, patient's labs have normalized. I am holding off on correcting hypokalemia at this time until blood sugars more normalized. At this time is 12. Creatinine has returned to baseline. Beta hydroxybutyric acid is 0.26. We will continue to monitor patient overnight, continue gentle IV fluid hydration. Labs and patient condition remained stable, patient will be discharged in the morning. - Subjective Interval history: Patient was seen and assessed the bedside at 8:30 AM. Patient is not requiring additional oxygen above her normal need. She does state that she feels as if her breathing is improved today and is ready to go home.. She is a resident at [facility] and will return there on discharge. Patient has an obvious murmur and known aortic stenosis. She reports that sometimes she has a productive cough, cough does sound moist. She has no peripheral edema. - Constitutional Vitals: Temp Pulse Resp BP Pulse Ox 99.3 F 75 16 119/53 94 01/12/17 18:33 01/12/17 18:33 01/12/17 18:33 01/12/17 18:33 01/12/17 18:33 General appearance: Present: A&O X 1, mild distress, pleasant, no acute distress , answers questions appropriately - Head Head exam: Present: atraumatic, normal inspection, normocephalic - Eye Eye exam: Present: normal appearance, conjuntiva pink, sclera anicteric - Neck Neck exam general surgery: Present: supple, trachea midline - Respiratory Respiratory exam: Present: decreased breath sounds, CTAB. Absent: accessory muscle use, chest wall tenderness, rales, respiratory distress, rhonchi, wheezes - Cardiovascular Cardiovascular exam: Absent: bradycardia, diastolic murmur, gallop, rubs, systolic murmur Additional comments: Murmur - GI/Abdominal GI/Abdominal exam: Present: normal bowel sounds, soft, no peritoneal signs. Absent: distended, hepatomegaly, tenderness - Extremities Exam Extremities exam: Present: normal capillary refill, normal inspection, warm, radial pulses palpable and symmetrical. Absent: calf tenderness, cyanotic, pedal edema - Neurological Exam Neurological exam: Present: alert, oriented X3, no focal deficits. Absent: facial droop, speech deficit - Skin Skin exam: Present: dry, intact, normal color, warm. Absent: rash Internal Medicine: Result - Labs CBC & Chem 7: 01/12/17 03:12 01/12/17 17:45 Labs: Short CBC 01/12/17 Range/Units 03:12 WBC 15.5 H (4.3-11.1) K/mcL Hgb 10.9 L (11.5-15.4) g/dL Hct 30.9 L (35.3-44.9) % Plt Count 295 (140-400) K/mcL Neutrophils # 14.3 H (1.6-8.9) K/mcL BMP 01/12/17 01/12/17 01/12/17 03:12 07:37 11:35 Sodium 127 L Potassium 3.6 Chloride 92 L Carbon Dioxide 22 BUN 23 H D Creatinine 0.85 Glucose 407 H 554 H* 624 H* Calcium 8.7 01/12/17 01/12/17 14:21 17:45 Sodium 129 L 131 L Potassium 2.9 L 3.0 L Chloride 92 L 95 L Carbon Dioxide 21 24 BUN 27 H 30 H Creatinine 1.13 H 0.83 Glucose 355 H 53 L Calcium 9.0 8.8 Cardiac Enzymes 01/12/17 Range/Units 07:35 Troponin I 0.02 (0-0.03) ng/mL Urine 01/12/17 Range/Units 14:04 Urine Color Yellow (Yellow) Urine Clarity Clear (Clear) Urine pH 6.5 (5.0-8.0) pH Units Ur Specific [place] 1.015 (1.010-1.025) Urine Protein Negative (Neg-Trace) mg/dL Urine Glucose (UA) 500 H (Normal) mg/dL - ABG Interpretation ABG results: ABG ABG pH 7.37 pH Units (7.32-7.45) 01/10/17 16:41 ABG pCO2 29 mmHg (35-45) L 01/10/17 16:41 ABG pO2 92 mmHg (85-104) 01/10/17 16:41 ABG O2 Saturation 97 % (95-98) 01/10/17 16:41 PT/INR, D-dimer PT 42.3 Seconds (9.4-12.1) H 01/12/17 03:12 D-Dimer 1218 ng/mLFEU (0-500) H 01/10/17 13:25 Consult Discharge Plan - Plan Referrals: Valente Rosa MD [Primary Care Provider] -
[2017-01-12] MEDS ORDERED: 0.9 % Sodium Chloride 1,000 ML IVC SCH (19:15)
[2017-01-12] MEDS ORDERED: Dextrose Gel 15 GM PO PRN ×2 (19:34)
[2017-01-12] MEDS ORDERED: Insulin LISPRO 300 UNITS/3 ML VIAL SQ SCH (21:00)
[2017-01-12] MEDS: Melatonin 3 MG TABLET PO SCH (21:13)
[2017-01-13] MEDS: Ipratropium/Albuterol Neb 3 ML IH SCH ×5 (04:11→20:07)
[2017-01-13] MEDS: Insulin LISPRO 300 UNITS/3 ML VIAL SQ SCH ×11 (04:23→23:55)
[2017-01-13] MEDS: Tobramycin/Dex Opth DROPS 2.5 ML BOTTLE RIGHT EYE SCH ×4 (04:24→20:52)
[2017-01-13] MEDS: Cefepime HCl 2,000 MG in D5% in Water (Mini-Bag+) 100 ML IVPB SCH ×2 (05:41→18:04)
[2017-01-13 05:56] LABS: INR 2.6; Prothrombin Time 28.3 Seconds (9.4-12.1)
[2017-01-13] MEDS: (Anoro Ellipta 62.5-2) IH SCH (08:09)
[2017-01-13 08:13] LABS: BUN/Creatinine Ratio 33 (6-26); Blood Urea Nitrogen 27 mg/dL (7-20); Calcium 8.6 mg/dL (8.6-10.8); Carbon Dioxide 25 mEq/L (19-29); Chloride 97 mEq/L (98-109); Glucose 214 mg/dL (70-99); Osmolality,Calculated 284 (280-300); Potassium 2.9 mEq/L (3.5-4.5); Sodium 131 mEq/L (136-145); eGFR For African Americans > 60 (> 60); eGFR For Non-African Americans > 60 (> 60)
[2017-01-13] MEDS: Metoprolol XL (24 HR) Succ 25 MG TAB.ER.24H PO SCH (09:27)
[2017-01-13] MEDS: Venlafaxine XR (24 HR) 75 MG CAP.ER.24H PO SCH (09:27)
[2017-01-13] MEDS: Artificial Tears SOLN 15 ML BOTTLE BOTH EYES SCH ×2 (09:28→20:53)
[2017-01-13] MEDS: Loratadine 10 MG TABLET PO SCH (09:28)
[2017-01-13] MEDS: *HR* Amiodarone 200 MG TABLET PO SCH (09:28)
[2017-01-13] MEDS: (Roflumilast [Daliresp] 500 MCG) PO SCH (09:29)
[2017-01-13] MEDS ORDERED: Furosemide 20 MG TABLET PO PRN (10:40)
[2017-01-13] MEDS ORDERED: hydrOXYzine pamoate 25 MG CAPSULE PO PRN (10:40)
[2017-01-13] MEDS: Acetylcysteine 10% 2 ML INHSOL IH SCH ×3 (15:21→20:07)
[2017-01-13] MEDS ORDERED: *HR* Warfarin 3 MG TABLET PO ONE (18:00)
--- NOTE | 2017-01-13 18:09 | Internal Med Progress Note ---
Date of Encounter: 01/13/17 Time of Encounter: 09:45 - Assessment and plan (1) Aortic stenosis Current Visit: No Status: Acute Assessment and plan: Echocardiogram shows severe aortic stenosis. Patient has been seen for this before, she was referred to [facility] for TAVR, it appears that she did not follow-up. 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 Today patient states she does not want to go to [facility], I will discuss this with cardiology, perhaps they can refer her to another facility. Patient has 3/6 systolic murmur at left sternal border. She denies chest pain. Qualifiers: Cardiac valve disease etiology: etiology unspecified Qualified Code(s): I35.0 - Nonrheumatic aortic (valve) stenosis (2) DVT prophylaxis Current Visit: No Status: Acute Assessment and plan: Patient is on Coumadin. Pharmacy to dose. INR is therapeutic at 2.6. Coumadin had been stopped, will be restarted tonight. (3) Acute on chronic diastolic heart failure Current Visit: Yes Status: Acute Assessment and plan: BNP is elevated from her baseline, though has decreased significantly since arrival. Today, patient has coarse rhonchi and moist sounding cough. We will continue to diurese slowly to avoid dropping preload and exacerbating aortic stenosis. BNP has decreased by about 50%. According to daily weights, patient has lost about 3.7 kg . Continue telemetry Continue daily weights Continue I&O. (4) Acute respiratory failure with hypoxia Current Visit: Yes Status: Acute Assessment and plan: Patient is requiring 2 L to maintain her sats greater than 92%. Continue to titrate oxygen as needed to maintain sats above 92%. Pulse ox with vitals. Continuous pulse ox. (5) COPD exacerbation Current Visit: Yes Status: Acute Assessment and plan: Patient with sometimes productive, moist sounding cough. No acute exacerbation at this time. Will continue inhalers, as well as nebulizer treatments. IV steroids and been held due to hyperglycemia. I added Mucomyst inhalers today, as well as Mucinex. Lungs with coarse rhonchi throughout post florian. Patient is not requiring supplemental oxygen above her normal baseline need. Continue telemetry and pulse ox. Consult to pulmonology. Patient states that she is not feeling any better and that her breathing has worsened today. (6) Hyperglycemia Current Visit: Yes Status: Acute Assessment and plan: Patient refused Levemir, had episodes of hyperglycemia. She was treated with sliding scale insulin coverage as well as IV fluids. Initially patient's gap was 12 and her creatinine had risen to 1.31. After being treated with insulin and IV fluids, patient's labs have normalized. I am holding off on correcting hypokalemia at this time until blood sugars more normalized. At this time is 12. Creatinine has returned to baseline. Beta hydroxybutyric acid is 0.26. We will continue to monitor patient overnight, continue gentle IV fluid hydration. - Time Spent With Patient less than 15 minutes - Subjective Interval history: Patient was seen and assessed the bedside at 0945 AM. Patient is not requiring additional oxygen above her normal need. She does state that she feels as if her breathing is worse today and had noticeable conversational dyspnea. She is a resident at [facility] and will return there on discharge. Patient has an obvious murmur and known aortic stenosis. She reports that sometimes she has a productive cough, cough does sound moist. She has no peripheral edema. I change breathing treatments and Mucomyst, gave patient Vistaril for anxiety, guaifenesin for cough. Pulmonology is consulted. Patient will be discharged tomorrow. - Constitutional Vitals: Temp Pulse Resp BP Pulse Ox 98.1 F 59 16 146/62 100 01/13/17 15:14 01/13/17 15:14 01/13/17 15:42 01/13/17 15:14 01/13/17 15:42 General appearance: Present: A&O X 1, mild distress, pleasant, no acute distress , answers questions appropriately - Head Head exam: Present: atraumatic, normal inspection, normocephalic - Eye Eye exam: Present: normal appearance, conjuntiva pink, sclera anicteric - Neck Neck exam general surgery: Present: supple, trachea midline - Respiratory Respiratory exam: Present: CTAB. Absent: accessory muscle use, chest wall tenderness, rales, rhonchi, wheezes - Cardiovascular Cardiovascular exam: Present: RRR, +S1, +S2. Absent: diastolic murmur, gallop, rubs, systolic murmur - GI/Abdominal GI/Abdominal exam: Present: normal bowel sounds, soft, no peritoneal signs. Absent: distended, hepatomegaly, tenderness - Extremities Exam Extremities exam: Present: normal capillary refill, normal inspection, warm, radial pulses palpable and symmetrical. Absent: calf tenderness, cyanotic, pedal edema, tenderness - Neurological Exam Neurological exam: Present: alert, oriented X3, no focal deficits. Absent: facial droop, speech deficit - Skin Skin exam: Present: dry, intact, normal color, warm. Absent: rash Internal Medicine: Result - Labs CBC & Chem 7: 01/12/17 03:12 01/13/17 07:44 Labs: BMP 01/13/17 07:44 Sodium 131 L Potassium 2.9 L Chloride 97 L Carbon Dioxide 25 BUN 27 H Creatinine 0.81 Glucose 214 H Calcium 8.6 - ABG Interpretation ABG results: ABG ABG pH 7.37 pH Units (7.32-7.45) 01/10/17 16:41 ABG pCO2 29 mmHg (35-45) L 01/10/17 16:41 ABG pO2 92 mmHg (85-104) 01/10/17 16:41 ABG O2 Saturation 97 % (95-98) 01/10/17 16:41 PT/INR, D-dimer PT 28.3 Seconds (9.4-12.1) H 01/13/17 05:30 D-Dimer 1218 ng/mLFEU (0-500) H 01/10/17 13:25 Consult Discharge Plan - Plan Referrals: Valente Rosa MD [Primary Care Provider] -
[2017-01-13] MEDS: Melatonin 3 MG TABLET PO SCH (20:52)
[2017-01-14] MEDS: Ipratropium/Albuterol Neb 3 ML IH SCH ×5 (00:03→15:41)
[2017-01-14] MEDS: Insulin LISPRO 300 UNITS/3 ML VIAL SQ SCH ×7 (02:00→15:06)
[2017-01-14] MEDS: Tobramycin/Dex Opth DROPS 2.5 ML BOTTLE RIGHT EYE SCH ×3 (02:01→16:00)
[2017-01-14 02:20] LABS: INR 2.4; Prothrombin Time 25.9 Seconds (9.4-12.1)
[2017-01-14] MEDS: Acetylcysteine 10% 2 ML INHSOL IH SCH ×3 (04:39→15:41)
[2017-01-14] MEDS: Cefepime HCl 2,000 MG in D5% in Water (Mini-Bag+) 100 ML IVPB SCH (05:57)
[2017-01-14] MEDS: (Anoro Ellipta 62.5-2) IH SCH (07:54)
--- NOTE | 2017-01-14 10:37 | Pulmonology Consult Note ---
<Pasquale Tamayo - Last Filed: 01/14/17 13:07> Date of Encounter: 01/14/17 Time of Encounter: 11:00 Assessment and Plan (1) COPD (chronic obstructive pulmonary disease) Current Visit: No Status: Chronic COPD with Acute exacerbation, Sensation of dyspnea Patient is on home O2 of 2-3L chronically, patient at [facility] Apparently failed oral steroids due to poorly controlled blood glucose Sensation of breathlessness not supported by clinical findings, likely anxiety is contributory Recommend de-escalating antibiotics to oral doxycycline Recommend starting QVAR 40mg BID, Start Theophylline 100mg daily Follow up in office Qualifiers: COPD type: emphysema Emphysema type: unspecified Qualified Code(s): J43.9 - Emphysema, unspecified History of Present Illness Consult date: 01/14/17 Requesting physician: Evelyn Escobar Reason for consult: COPD, pneumonia Chief complaint: Can't breathe History of present illness: Ms. Baird is a 71yo woman with history of COPD, AFib, IDDM2, Lung cancer s/p resection who presented to the ED from [facility] due to confusion and hypoxia. She was found by staff to be confused on Tuesday, and was brought to the ED for workup. She is incapable of giving detailed history due to mild confusion associated with poor memory, but she states that she's been having difficulty breathing for several years. She has an occasional productive cough, which she says is currently at baseline. On arrival she was treated for bibasilar pneumonias with cefepime. According to primary team, she has improved over her stay and appears to be at baseline. Medications and Allergies Albuterol Neb [Proventil Neb] 2.5 mg IH Q6H PRN 04/30/15 [History] Atorvastatin [Lipitor] 10 mg PO HS 04/30/15 [History] Docusate [Colace] 100 mg PO BID 04/30/15 [History] Ferrous Sulfate 325 mg PO DAILY 04/30/15 [History] Insulin ASPART [NovoLOG] 0 - 4 unit SQ QID 04/30/15 [History] Loratadine [Claritin] 10 mg PO DAILY 04/30/15 [History] Meclizine [Antivert] 25 mg PO BID 04/30/15 [History] Montelukast [Singulair] 10 mg PO DAILY 04/30/15 [History] Omeprazole [PriLOSEC] 20 mg PO BID 04/30/15 [History] Potassium Chloride [K-Tab ER] 20 meq PO DAILY 04/30/15 [History] Roflumilast [Daliresp] 500 mcg PO DAILY 04/30/15 [History] Sodium Chloride [Shobha-128] 1 drop BOTH EYES BID 04/30/15 [History] Furosemide [Lasix] 20 mg PO DAILY 09/15/15 [History] Insulin DETEMIR [Levemir] 12 unit SQ DAILY 11/18/15 [History] HYDROcodone/Acet 10/325 mg [Dubberly 10-325 mg] 1 tab PO Q6HR PRN #10 tablet [Rx] Alendronate Sodium [Fosamax] 70 mg PO QWEEK 10/27/16 [History] Amiodarone HCl [Pacerone] 200 mg PO DAILY 10/27/16 [History] Benzonatate [Tessalon] 100 mg PO TID 10/27/16 [History] Ondansetron HCl [Zofran] 4 mg PO Q4H PRN 10/27/16 [History] Sennosides [Senna] 8.6 mg PO BID PRN 10/27/16 [History] Calcium Carbonate/Vitamin D3 [Calcium 600-Vit D3 400 Tablet] 1 each PO BID 11/17 [History] Metoprolol XL (24 HR) Succ [Toprol Xl] 75 mg PO DAILY 11/17/16 [History] Umeclidinium Brm/Vilanterol Tr [Anoro Ellipta 62.5-25 Mcg INH] 1 each IH DAILY 11/17/16 [History] DiphenhydraMINE [Benadryl] 25 mg PO Q6HR PRN 01/10/17 [History] Melatonin 6 mg PO HS 01/10/17 [History] Tobramycin/Dex Opth DROPS [Tobradex Opth Drops] 2 drop RIGHT EYE Q6H 01/10/17 [ History] Venlafaxine XR (24 HR) [Effexor XR] 75 mg PO DAILY 01/10/17 [History] Warfarin [Coumadin] 4 mg PO DAILY 01/10/17 [History] 3 Allergy/AdvReac Type Severity Reaction Status Date / Time codeine Allergy Hives Verified 01/10/17 06:58 latex Allergy Hives Verified 01/10/17 06:58 Penicillins Allergy Hives Verified 01/10/17 06:58 propoxyphene [From Darvon] Allergy Hives Verified 01/10/17 06:58 shellfish derived Allergy Hives Verified 01/10/17 06:58 All Systems: A 10-system review of systems was performed and is negative for pertinent findings except as documented above in the HPI. - Constitutional Constitutional: fatigue, lethargy, weakness, no chills, no excessive sweating - EENT Eyes: no loss of vision Ears: no decreased hearing Nose, mouth and throat: no change in voice, no nasal congestion, no sinus pain - Cardiovascular Cardiovascular: no chest pain, no chest pain at rest, no edema, no rapid heart rate - Respiratory Respiratory: cough, dyspnea, chest congestion, change in phlegm color - Gastrointestinal Gastrointestinal: no hematemesis, no hematochezia - Musculoskeletal Musculoskeletal: myalgias, no arthralgias, no muscle weakness - Integumentary Integumentary: no erythema, no rash - Neurological Neurological: confusion, weakness - Psychiatric Psychiatric: anxiety - Endocrine Endocrine: no excessive sweating, no fatigue, no palpitations - Hematologic/Lymphatic Hematologic/Lymphatic: no lymphadenopathy Physical Examination Vital Signs: Vital Signs, Last 4 Hours Temp Pulse Resp BP Pulse Ox 01/14/17 11:21 18 97 01/14/17 08:08 98.2 F 68 18 128/60 97 01/14/17 07:52 16 94 General appearance: asleep, appears uncomfortable Eyes: nonicteric ENT: oropharynx moist Neck: supple Effort: normal Inspection: normal Auscultation: bilateral: diminished breath sounds (R>L), wheezes (Diffuse) Cardiovascular: regular rate and rhythm Gastrointestinal: normoactive bowel sounds, soft, non-tender, non-distended Integumentary: normal Extremities: no cyanosis, no edema, no clubbing Musculoskeletal: no deformities, ROM normal normal mental status, non-focal exam mood appropriate, anxious Results - Laboratory Findings CBC and BMP: 01/12/17 03:12 01/13/17 07:44 ABG ABG pH 7.37 pH Units (7.32-7.45) 01/10/17 16:41 ABG pCO2 29 mmHg (35-45) L 01/10/17 16:41 ABG pO2 92 mmHg (85-104) 01/10/17 16:41 ABG O2 Saturation 97 % (95-98) 01/10/17 16:41 PT/INR, D-dimer PT 25.9 Seconds (9.4-12.1) H 01/14/17 02:00 D-Dimer 1218 ng/mLFEU (0-500) H 01/10/17 13:25 Abnormal lab findings: Abnormal lab results WBC 15.5 K/mcL (4.3-11.1) H 01/12/17 03:12 RBC 3.61 M/mcL (3.82-4.97) L 01/12/17 03:12 Hgb 10.9 g/dL (11.5-15.4) L 01/12/17 03:12 Hct 30.9 % (35.3-44.9) L 01/12/17 03:12 Neutrophils # 14.3 K/mcL (1.6-8.9) H 01/12/17 03:12 Lymphocytes # 0.5 K/mcL (0.6-4.6) L 01/12/17 03:12 PT 25.9 Seconds (9.4-12.1) H 01/14/17 02:00 D-Dimer 1218 ng/mLFEU (0-500) H 01/10/17 13:25 ABG pCO2 29 mmHg (35-45) L 01/10/17 16:41 ABG HCO3 16 mEq/L (21-27) L 01/10/17 16:41 ABG Total CO2 17 mEq/L (20-26) L 01/10/17 16:41 ABG Base Excess -7 mEq/L (-2 to 3) L 01/10/17 16:41 Sodium 131 mEq/L (136-145) L 01/13/17 07:44 Potassium 2.9 mEq/L (3.5-4.5) L 01/13/17 07:44 Chloride 97 mEq/L (98-109) L 01/13/17 07:44 BUN 27 mg/dL (7-20) H 01/13/17 07:44 BUN/Creatinine Ratio 33 (6-26) H 01/13/17 07:44 Glucose 214 mg/dL (70-99) H 01/13/17 07:44 POC Glucose 190 (58-89) H 01/14/17 03:47 Hemoglobin A1c 8.5 % (-5.6) H 01/10/17 13:25 Magnesium 1.5 mg/dL (1.6-2.6) L 01/11/17 03:20 B-Natriuretic Peptide 492 pg/mL (0-100) H 01/12/17 07:35 Urine Glucose (UA) 500 mg/dL (Normal) H 01/12/17 14:04 Urine Ketones 15 mg/dL (Negative) H 01/12/17 14:04 Nasal Screen MRSA (PCR) Positive (Negative) A 01/13/17 19:30 - Clinical Findings Intake & Output: Intake & Output 01/13/17 01/14/17 01/14/17 23:59 07:59 15:59 Intake Total 100 / 100 100 / 100 Output Total 350 / 350 Balance 100 / 100 100 / 100 -350 / -350 Weight 63.957 kg Consult Discharge Plan - Plan Referrals: Valente Rosa MD [Primary Care Provider] - <Reina Garcia - Last Filed: 01/14/17 14:27> Date of Encounter: 01/14/17 Past Med Surg Social Fam HX - Past Medical History Medical history: asthma, atrial fibrillation, cancer, COPD, diabetes, hypertension Psychiatric history: anxiety - Past Surgical History Surgical History: appendectomy, cancer surgery, cholecystectomy, hysterectomy, knee replacement - Social History Smoking Status: Former smoker Smokeless Tobacco Status: No Alcohol use: none Drug use: none - Family History Mother Living Status: Hx Family Cardiac Disorders: Yes (HEART DISEASE) Hx Family Endocrine Disorder: Yes (DIABETES) All Systems: A 10-system review of systems was performed and is negative for pertinent findings except as documented above in the HPI. Physical Examination Vital Signs: Vital Signs, Last 4 Hours Temp Pulse Resp BP Pulse Ox 01/14/17 08:08 98.2 F 68 18 128/60 97 01/14/17 07:52 16 94 Results - Laboratory Findings CBC and BMP: 01/12/17 03:12 01/13/17 07:44 ABG ABG pH 7.37 pH Units (7.32-7.45) 01/10/17 16:41 ABG pCO2 29 mmHg (35-45) L 01/10/17 16:41 ABG pO2 92 mmHg (85-104) 01/10/17 16:41 ABG O2 Saturation 97 % (95-98) 01/10/17 16:41 PT/INR, D-dimer PT 25.9 Seconds (9.4-12.1) H 01/14/17 02:00 D-Dimer 1218 ng/mLFEU (0-500) H 01/10/17 13:25 Abnormal lab findings: Abnormal lab results WBC 15.5 K/mcL (4.3-11.1) H 01/12/17 03:12 RBC 3.61 M/mcL (3.82-4.97) L 01/12/17 03:12 Hgb 10.9 g/dL (11.5-15.4) L 01/12/17 03:12 Hct 30.9 % (35.3-44.9) L 01/12/17 03:12 Neutrophils # 14.3 K/mcL (1.6-8.9) H 01/12/17 03:12 Lymphocytes # 0.5 K/mcL (0.6-4.6) L 01/12/17 03:12 PT 25.9 Seconds (9.4-12.1) H 01/14/17 02:00 D-Dimer 1218 ng/mLFEU (0-500) H 01/10/17 13:25 ABG pCO2 29 mmHg (35-45) L 01/10/17 16:41 ABG HCO3 16 mEq/L (21-27) L 01/10/17 16:41 ABG Total CO2 17 mEq/L (20-26) L 01/10/17 16:41 ABG Base Excess -7 mEq/L (-2 to 3) L 01/10/17 16:41 Sodium 131 mEq/L (136-145) L 01/13/17 07:44 Potassium 2.9 mEq/L (3.5-4.5) L 01/13/17 07:44 Chloride 97 mEq/L (98-109) L 01/13/17 07:44 BUN 27 mg/dL (7-20) H 01/13/17 07:44 BUN/Creatinine Ratio 33 (6-26) H 01/13/17 07:44 Glucose 214 mg/dL (70-99) H 01/13/17 07:44 POC Glucose 190 (58-89) H 01/14/17 03:47 Hemoglobin A1c 8.5 % (-5.6) H 01/10/17 13:25 Magnesium 1.5 mg/dL (1.6-2.6) L 01/11/17 03:20 B-Natriuretic Peptide 492 pg/mL (0-100) H 01/12/17 07:35 Urine Glucose (UA) 500 mg/dL (Normal) H 01/12/17 14:04 Urine Ketones 15 mg/dL (Negative) H 01/12/17 14:04 Nasal Screen MRSA (PCR) Positive (Negative) A 01/13/17 19:30 - Clinical Findings Intake & Output: Intake & Output 01/13/17 01/14/17 01/14/17 23:59 07:59 15:59 Intake Total 100 / 100 100 / 100 Output Total 350 / 350 Balance 100 / 100 100 / 100 -350 / -350 Weight 63.957 kg - Attending Attestation I examined this patient and my medical decision-making was reviewed with the Resident Physician. I agree with the documented findings, disposition and treatment plan as described except to the extent set forth below. Patient seen and examined. Labs, radiology, chart personally reviewed. Agree with resident's history and physical, assessment, plan with following comments: SAND CARRIER: Patient follows commands, Pulmonary: Acceptable oxygenation and ventilation. Patient with COPD and suspect combination of pneumonia as well as progression of her underlying COPD is a reason for her feeling having dyspnea. Patient was seen while she was relaxed and sleep without any acute distress. I do not feel strongly COPD exacerbation is the diagnosis here. With the abnormal CT chest evaluation for aspiration is reasonable and with adenopathy possibly some reactive and adding low dose theophylline as well as oral antibiotics such as Levaquin or tetracycline is reasonable. Short-term interval CT chest in about 6-8 weeks and then follow-up as outpatient and if there is no improvement then she will need to bronchoscopy. Discussed with primary team and thank you for consultation. I will check sputum for microorganism. Cardiovascular: stable
[2017-01-14] MEDS: Loratadine 10 MG TABLET PO SCH (10:41)
[2017-01-14] MEDS: *HR* Amiodarone 200 MG TABLET PO SCH (10:41)
[2017-01-14] MEDS: Artificial Tears SOLN 15 ML BOTTLE BOTH EYES SCH (10:41)
[2017-01-14] MEDS: Venlafaxine XR (24 HR) 75 MG CAP.ER.24H PO SCH (10:41)
[2017-01-14] MEDS: (Roflumilast [Daliresp] 500 MCG) PO SCH (10:42)
[2017-01-14] MEDS: Metoprolol XL (24 HR) Succ 25 MG TAB.ER.24H PO SCH (10:42)
[2017-01-14] MEDS ORDERED: Beclomethasone 40mcg MDI IH SCH (11:45)
[2017-01-14 14:47] VITALS: BP 96/64
--- NOTE | 2017-01-14 14:54 | Discharge Summary ---
Date of Encounter: 01/14/17 Time of Encounter: 08:40 - Discharge Diagnosis (1) COPD exacerbation Priority: Primary Status: Acute Comments: Patient with sometimes productive, moist sounding cough. No acute exacerbation at this time. Will continue inhalers, as well as nebulizer treatments. Lungs with coarse rhonchi throughout post florian. Patient is not requiring supplemental oxygen above her normal baseline need. Pt was seen by pulmonology today, they added Qvar 40 mg twice a day, start theophylline 100 mg daily. Patient will be switched to oral doxycycline 100 mg. Patient will follow-up in the office with pulmonology. (2) Aortic stenosis Priority: Secondary Status: Chronic Comments: Echocardiogram shows severe aortic stenosis. Patient has been seen for this before, she was referred to [facility] for TAVR, it appears that she did not follow-up. 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 Today patient states she does not want to go to [facility], I will discuss this with cardiology, perhaps they can refer her to another facility. Patient has 3/6 systolic murmur at left sternal border. She denies chest pain. Follow up outpatient for evaluation and further testing. Qualifiers: Cardiac valve disease etiology: etiology unspecified Qualified Code(s): I35.0 - Nonrheumatic aortic (valve) stenosis (3) Acute on chronic diastolic heart failure Priority: Secondary Status: Chronic Comments: BNP is elevated from her baseline, though has decreased significantly since arrival. Today, patient has coarse rhonchi and moist sounding cough. We will continue to diurese slowly to avoid dropping preload and exacerbating aortic stenosis. BNP has decreased by about 50%. According to daily weights, patient has lost about 3.7 kg, diuresis about 4 L. Continue home dose of Lasix. (4) Acute respiratory failure with hypoxia Priority: Secondary Status: Chronic Comments: Continue home O2. (5) Hyperglycemia Priority: Secondary Status: Acute Comments: Patient refused Levemir, had episodes of hyperglycemia. She was treated with sliding scale insulin coverage as well as IV fluids. Initially patient's gap was 12 and her creatinine had risen to 1.31. After being treated with insulin and IV fluids, patient's labs normalized. Creatinine has returned to baseline. Beta hydroxybutyric acid was 0.26. Continue to treat hyperglycemia at [facility] with SSI, frequent accuchecks. (6) DVT prophylaxis Priority: Secondary Status: Acute Comments: Pt is on Coumadin. INR is therapeutic 2.4. Continue at home with frequent lab draws. - Discharge Medications Prescriptions: HYDROcodone/Acet 10/325 mg [Gaylord 10-325 mg] 1 tab PO Q6HR PRN #4 tablet PRN Reason: Pain Beclomethasone Diprop 40mcg [QVAR 40 mcg] 1 puff IH BIDR #1 puff Doxycycline 100 mg PO BID #14 capsule GuaiFENesin ER [Mucinex] 600 mg PO BID PRN #60 tbbp.12hr PRN Reason: Cough hydrOXYzine pamoate [HydrOXYzine Pamoate] 25 mg PO BID PRN #14 capsule PRN Reason: Anxiety Theophylline Anhydrous [Femi-24] 100 mg PO DAILY #30 cap.er.24h Home Medications: Albuterol Neb [Proventil Neb] 2.5 mg IH Q6H PRN 04/30/15 [History] Atorvastatin [Lipitor] 10 mg PO HS 04/30/15 [History] Docusate [Colace] 100 mg PO BID 04/30/15 [History] Ferrous Sulfate 325 mg PO DAILY 04/30/15 [History] Insulin ASPART [NovoLOG] 0 - 4 unit SQ QID 04/30/15 [History] Loratadine [Claritin] 10 mg PO DAILY 04/30/15 [History] Meclizine [Antivert] 25 mg PO BID 04/30/15 [History] Montelukast [Singulair] 10 mg PO DAILY 04/30/15 [History] Omeprazole [PriLOSEC] 20 mg PO BID 04/30/15 [History] Potassium Chloride [K-Tab ER] 20 meq PO DAILY 04/30/15 [History] Roflumilast [Daliresp] 500 mcg PO DAILY 04/30/15 [History] Sodium Chloride [Shobha-128] 1 drop BOTH EYES BID 04/30/15 [History] Furosemide [Lasix] 20 mg PO DAILY 09/15/15 [History] Insulin DETEMIR [Levemir] 12 unit SQ DAILY 11/18/15 [History] Alendronate Sodium [Fosamax] 70 mg PO QWEEK 10/27/16 [History] Amiodarone HCl [Pacerone] 200 mg PO DAILY 10/27/16 [History] Benzonatate [Tessalon] 100 mg PO TID 10/27/16 [History] Ondansetron HCl [Zofran] 4 mg PO Q4H PRN 10/27/16 [History] Sennosides [Senna] 8.6 mg PO BID PRN 10/27/16 [History] Calcium Carbonate/Vitamin D3 [Calcium 600-Vit D3 400 Tablet] 1 each PO BID 11/17 [History] Metoprolol XL (24 HR) Succ [Toprol Xl] 75 mg PO DAILY 11/17/16 [History] Umeclidinium Brm/Vilanterol Tr [Anoro Ellipta 62.5-25 Mcg INH] 1 each IH DAILY 11/17/16 [History] DiphenhydraMINE [Benadryl] 25 mg PO Q6HR PRN 01/10/17 [History] Melatonin 6 mg PO HS 01/10/17 [History] Tobramycin/Dex Opth DROPS [Tobradex Opth Drops] 2 drop RIGHT EYE Q6H 01/10/17 [ History] Venlafaxine XR (24 HR) [Effexor XR] 75 mg PO DAILY 01/10/17 [History] Warfarin [Coumadin] 4 mg PO DAILY 01/10/17 [History] Beclomethasone Diprop 40mcg [QVAR 40 mcg] 1 puff IH BIDR #1 puff 01/14/17 [Rx] Doxycycline 100 mg PO BID #14 capsule 01/14/17 [Rx] GuaiFENesin ER [Mucinex] 600 mg PO BID PRN #60 tbbp.12hr 01/14/17 [Rx] HYDROcodone/Acet 10/325 mg [Gaylord 10-325 mg] 1 tab PO Q6HR PRN #4 tablet [Rx] Theophylline Anhydrous [Femi-24] 100 mg PO DAILY #30 cap.er.24h 01/14/17 [Rx] hydrOXYzine pamoate [HydrOXYzine Pamoate] 25 mg PO BID PRN #14 capsule 01/14/17 [Rx] Allergies/Adverse Reactions: 3 Allergy/AdvReac Type Severity Reaction Status Date / Time codeine Allergy Hives Verified 01/10/17 06:58 latex Allergy Hives Verified 01/10/17 06:58 Penicillins Allergy Hives Verified 01/10/17 06:58 propoxyphene [From Darvon] Allergy Hives Verified 01/10/17 06:58 shellfish derived Allergy Hives Verified 01/10/17 06:58 Date of admission: 01/10/17 17:53 Primary care physician: Valente Rosa MD Consults: 01/12/17 16:22 Consult to Invasive Line Access Team [CONS] Routine Reason for Consult: Limited access Line Type: EPIV 01/13/17 18:06 Consult to Pulmonology [CONS] Routine Consulting Provider: [facility] Reason for Consult: diff breathing, worsening Time Notified: 18:06 Call Completed: No Discharging clinician: Evelyn Escobar Anticipated date of discharge: 01/14/17 - Patient Status Disposition: Home, Self-Care Condition: Good Functional capacity at discharge: independent ambulation Overall status at discharge: patient is progressing back to baseline - Discharge Instructions Follow Up With: Valente Rosa MD [Primary Care Provider] - - Diet and Activity Activity: resume usual activities as tolerated Diet: diabetic diet Hospital course: Pt is a resident at [facility]. See assessment and plan for hospital course. She has had flu vacccine and is UTD on pna vaccine. - Time Spent with Patient Total time spent providing and/or coordinating discharge services: Less than 30 minutes - Constitutional Vitals: Temp Pulse Resp BP Pulse Ox 97.8 F 69 17 96/64 96 01/14/17 14:46 01/14/17 14:46 01/14/17 14:46 01/14/17 14:46 01/14/17 14:46 General appearance: Present: A&O X 1, mild distress, pleasant, no acute distress , answers questions appropriately - Head Head exam: Present: atraumatic, normal inspection, normocephalic - Eye Eye exam: Present: normal appearance, conjuntiva pink, sclera anicteric - Neck Neck exam general surgery: Present: supple, trachea midline. Absent: lymphadenopathy - Respiratory Respiratory exam: Present: respiratory distress, rhonchi, wheezes. Absent: accessory muscle use, chest wall tenderness, rales - Cardiovascular Cardiovascular exam: Present: diastolic murmur, systolic murmur. Absent: gallop , rubs - Expanded Cardiovascular Exam Location: Present: LLSB, LUSB Intensity: 3/6 - GI/Abdominal GI/Abdominal exam: Present: normal bowel sounds, soft. Absent: distended, hepatomegaly, tenderness - Extremities Exam Extremities exam: Present: normal capillary refill, normal inspection, warm, radial pulses palpable and symmetrical. Absent: calf tenderness, cyanotic, pedal edema, tenderness - Neurological Exam Neurological exam: Present: alert, oriented X3, no focal deficits. Absent: facial droop, speech deficit - Skin Skin exam: Present: dry, intact, normal color, warm. Absent: rash
--- NOTE | 2017-01-14 15:23 | Physician Discharge Referral ---
ExtendedCare Referral Info Transfer To: [facility] Provider in Charge after Transfer: PCP Institutional Level of Care: Intermediate - Diagnosis (1) COPD exacerbation Priority: Primary Status: Acute (2) Aortic stenosis Priority: Secondary Status: Chronic (3) Acute on chronic diastolic heart failure Priority: Secondary Status: Chronic (4) Acute respiratory failure with hypoxia Priority: Secondary Status: Chronic (5) Hyperglycemia Priority: Secondary Status: Acute (6) DVT prophylaxis Priority: Secondary Status: Acute Prognosis: Fair Aware of Diagnosis: Patient Aware of Prognosis: Family - Transfer Medications Prescriptions: HYDROcodone/Acet 10/325 mg [Alto 10-325 mg] 1 tab PO Q6HR PRN #4 tablet PRN Reason: Pain Beclomethasone Diprop 40mcg [QVAR 40 mcg] 1 puff IH BIDR #1 puff Doxycycline 100 mg PO BID #14 capsule GuaiFENesin ER [Mucinex] 600 mg PO BID PRN #60 tbbp.12hr PRN Reason: Cough hydrOXYzine pamoate [HydrOXYzine Pamoate] 25 mg PO BID PRN #14 capsule PRN Reason: Anxiety Theophylline Anhydrous [Femi-24] 100 mg PO DAILY #30 cap.er.24h Home Medications: Albuterol Neb [Proventil Neb] 2.5 mg IH Q6H PRN 04/30/15 [History] Atorvastatin [Lipitor] 10 mg PO HS 04/30/15 [History] Docusate [Colace] 100 mg PO BID 04/30/15 [History] Ferrous Sulfate 325 mg PO DAILY 04/30/15 [History] Insulin ASPART [NovoLOG] 0 - 4 unit SQ QID 04/30/15 [History] Loratadine [Claritin] 10 mg PO DAILY 04/30/15 [History] Meclizine [Antivert] 25 mg PO BID 04/30/15 [History] Montelukast [Singulair] 10 mg PO DAILY 04/30/15 [History] Omeprazole [PriLOSEC] 20 mg PO BID 04/30/15 [History] Potassium Chloride [K-Tab ER] 20 meq PO DAILY 04/30/15 [History] Roflumilast [Daliresp] 500 mcg PO DAILY 04/30/15 [History] Sodium Chloride [Shobha-128] 1 drop BOTH EYES BID 04/30/15 [History] Furosemide [Lasix] 20 mg PO DAILY 09/15/15 [History] Insulin DETEMIR [Levemir] 12 unit SQ DAILY 11/18/15 [History] Alendronate Sodium [Fosamax] 70 mg PO QWEEK 10/27/16 [History] Amiodarone HCl [Pacerone] 200 mg PO DAILY 10/27/16 [History] Benzonatate [Tessalon] 100 mg PO TID 10/27/16 [History] Ondansetron HCl [Zofran] 4 mg PO Q4H PRN 10/27/16 [History] Sennosides [Senna] 8.6 mg PO BID PRN 10/27/16 [History] Calcium Carbonate/Vitamin D3 [Calcium 600-Vit D3 400 Tablet] 1 each PO BID 11/17 [History] Metoprolol XL (24 HR) Succ [Toprol Xl] 75 mg PO DAILY 11/17/16 [History] Umeclidinium Brm/Vilanterol Tr [Anoro Ellipta 62.5-25 Mcg INH] 1 each IH DAILY 11/17/16 [History] DiphenhydraMINE [Benadryl] 25 mg PO Q6HR PRN 01/10/17 [History] Melatonin 6 mg PO HS 01/10/17 [History] Tobramycin/Dex Opth DROPS [Tobradex Opth Drops] 2 drop RIGHT EYE Q6H 01/10/17 [ History] Venlafaxine XR (24 HR) [Effexor XR] 75 mg PO DAILY 01/10/17 [History] Warfarin [Coumadin] 4 mg PO DAILY 01/10/17 [History] Beclomethasone Diprop 40mcg [QVAR 40 mcg] 1 puff IH BIDR #1 puff 01/14/17 [Rx] Doxycycline 100 mg PO BID #14 capsule 01/14/17 [Rx] GuaiFENesin ER [Mucinex] 600 mg PO BID PRN #60 tbbp.12hr 01/14/17 [Rx] HYDROcodone/Acet 10/325 mg [Alto 10-325 mg] 1 tab PO Q6HR PRN #4 tablet [Rx] Theophylline Anhydrous [Femi-24] 100 mg PO DAILY #30 cap.er.24h 01/14/17 [Rx] hydrOXYzine pamoate [HydrOXYzine Pamoate] 25 mg PO BID PRN #14 capsule 01/14/17 [Rx] Allergies/Adverse Reactions: 3 Allergy/AdvReac Type Severity Reaction Status Date / Time codeine Allergy Hives Verified 01/10/17 06:58 latex Allergy Hives Verified 01/10/17 06:58 Penicillins Allergy Hives Verified 01/10/17 06:58 propoxyphene [From Darvon] Allergy Hives Verified 01/10/17 06:58 shellfish derived Allergy Hives Verified 01/10/17 06:58 - Respiratory Orders Oxygen / L per min (Titrate 02 to maintain sats > 92%) Smoking Cessation: Smoking cessation has been advised. For more information, call the [place] Tobacco Quit Line at 2-041-OTKJ-NOW. - Lab Orders Lab Orders: 2 Step Mantoux Test per State regulation, CBC, U/A, Myles 17, CXR yearly, Other (include drug levels w/frequency) (Theophylline level weekly for 4 weeks) - Advance Directives Code Status: Full Code - Rehabiliation Orders Rehab Orders: Sternal Precautions, ROM Exercises, Evaluation for Physical Therapy, Evaluation for Occupational Therapy - Treatments Skin tear care topically daily PRN per policy, May check for fecal impaction rectally daily PRN - Diet Orders No Concentrated Sweets CERTIFICATION: I certify that the transfer of the above named patient to an Extended Care Facility is necessary for the continuing treatment of the diagnosis listed. The above information is true and accurate reflection of patient's current condition. Confidential - Redisclosure prohibited without a patient's written consent.
[2017-01-14] MEDS ORDERED: *HR* Warfarin 3 MG TABLET PO ONE (18:00)
[2017-01-14] MEDS ORDERED: Cefepime HCl 2,000 MG in Water for inj. (sterile) 10 ML IVP SCH (18:00)
[2017-01-14] MEDS ORDERED: Doxycycline 100 MG CAPSULE PO SCH (21:00)
== END 2017-01-14 18:10 | DRG 291 ==
LOC: 3BNU 06:51 → EMEROO 06:51 → 3BNU 12:50
PROVIDERS: ADMIT Registered Nurse; ATTEND Registered Nurse

== ENCOUNTER 2017-03-22 15:09 | Inpatient (IN) ==
[~2017-03-22 15:09] MED LIST: *HR* Etomidate 40 MG/20 ML VIAL IVP ONE; *HR* Rocuronium Bromide 50 MG/5 ML VIAL IVC ONE
[2017-03-22] MEDS ORDERED: Ipratropium/Albuterol Neb 3 ML IH ONE (15:19)
[2017-03-22] MEDS ORDERED: methylPREDNISolone 125 MG/2 ML VIAL IVP ONE (15:19)
--- NOTE | 2017-03-22 15:22 | Emergency Department Note ---
Disposition Clinical Impression: Severe sepsis, Chronic hyponatremia, HCAP (healthcare-associated pneumonia), Elevated troponin, Abnormal EKG Hypotension Qualifiers: Hypotension type: unspecified hypotension type Qualified Code(s): I95.9 - Hypotension, unspecified Respiratory failure Qualifiers: Chronicity: acute Respiratory failure complication: unspecified whether with hypoxia or hypercapnia Qualified Code(s): J96.00 - Acute respiratory failure, unspecified whether with hypoxia or hypercapnia Acute congestive heart failure Qualifiers: Congestive heart failure type: unspecified congestive heart failure type Qualified Code(s): I50.9 - Heart failure, unspecified Disposition: Admitted As Inpatient Condition: Critical SOB HPI - General Chief Complaint: ED Shortness of Breath/Dyspnea Stated Complaint: difficulty in breathing Time Seen by Provider: 03/22/17 15:18 Source: patient, EMS Mode of arrival: EMS Limitations: no limitations Nursing Notes Reviewed: Yes Vital Signs Reviewed: Yes - History of Present Illness 71-year-old female history of COPD on 2 L home oxygen supplementation, atrial fibrillation on warfarin, and lung cancer s/p resection presents to the ED via EMS from [place] for difficulty in breathing. Symptoms started earlier this morning gradually worsened, reports hard time catching breath. She reports a productive cough. She was given a breathing treatment by squad with improvement. Oxygen saturation 97%. States she is on antibiotics for recently diagnosed pneumonia yesterday. She is unsure of what antibiotics she is on. She has been using her inhalers. She denies any chest pain. She is unsure if she has had any fevers. Denies any chills. She feels weak. Denies history of cardiac ischemic disease. Denies any other symptoms or complaints such as nausea, vomiting, abdominal pain. Denies history of DVT/PE. Pt Subjective Complaint: shortness of breath, cough - Related Data Home Medications Medication Instructions Recorded Confirmed Albuterol Neb [Proventil Neb] 2.5 mg IH Q6H PRN 04/30/15 03/22/17 Atorvastatin [Lipitor] 10 mg PO HS 04/30/15 03/22/17 Docusate [Colace] 100 mg PO BID 04/30/15 03/22/17 Ferrous Sulfate 325 mg PO DAILY 04/30/15 03/22/17 Insulin ASPART [NovoLOG] 0 - 5 unit SQ QID 04/30/15 03/22/17 Loratadine [Claritin] 10 mg PO DAILY 04/30/15 03/22/17 Meclizine [Antivert] 25 mg PO BID 04/30/15 03/22/17 Montelukast [Singulair] 10 mg PO DAILY 04/30/15 03/22/17 Omeprazole [PriLOSEC] 20 mg PO BID 04/30/15 03/22/17 Potassium Chloride [K-Tab ER] 20 meq PO DAILY 04/30/15 03/22/17 Roflumilast [Daliresp] 500 mcg PO DAILY 04/30/15 03/22/17 Furosemide [Lasix] 20 mg PO DAILY 09/15/15 03/22/17 Alendronate Sodium [Fosamax] 70 mg PO QWEEK 10/27/16 03/22/17 Amiodarone HCl [Pacerone] 200 mg PO DAILY 10/27/16 03/22/17 Ondansetron HCl [Zofran] 4 mg PO Q4H PRN 10/27/16 03/22/17 Sennosides [Senna] 8.6 mg PO BID PRN 10/27/16 03/22/17 Calcium Carbonate/Vitamin D3 1 each PO BID 11/17/16 03/22/17 [Calcium 600-Vit D3 400 Tablet] Metoprolol XL (24 HR) Succ [Toprol 75 mg PO DAILY 11/17/16 03/22/17 Xl] Umeclidinium Brm/Vilanterol Tr 1 each IH DAILY 11/17/16 03/22/17 [Anoro Ellipta 62.5-25 Mcg INH] Venlafaxine XR (24 HR) [Effexor XR] 75 mg PO DAILY 01/10/17 03/22/17 Warfarin [Coumadin] 4.5 mg PO DAILY 01/10/17 03/22/17 Beclomethasone Diprop 40mcg [Qvar 1 puff IH BID 02/21/17 03/22/17 40 mcg] Nitroglycerin [Nitrostat] 0.4 mg SL PRN PRN 02/21/17 03/22/17 Azelastine 0.1% Nasal [place] 2 spray NS BID 03/10/17 03/22/17 [Astelin] Previous Rx's Medication Instructions Recorded GuaiFENesin ER [Mucinex] 600 mg PO BID PRN #60 tbbp.12hr 01/14/17 HYDROcodone/Acet 10/325 mg [[place] 1 tab PO Q6HR PRN #4 tablet 01/14/17 10-325 mg] Theophylline Anhydrous [Femi-24] 100 mg PO DAILY #30 cap.er.24h 01/14/17 hydrOXYzine pamoate [HydrOXYzine 25 mg PO BID PRN #14 capsule 01/14/17 Pamoate] Allergies Allergy/AdvReac Type Severity Reaction Status Date / Time codeine Allergy Hives Verified 03/22/17 18:37 latex Allergy Hives Verified 03/22/17 18:37 Penicillins Allergy Hives Verified 03/22/17 18:37 propoxyphene [From Darvon] Allergy Hives Verified 03/22/17 18:37 shellfish derived Allergy Hives Verified 03/22/17 18:37 All systems ED: reviewed and negative except as stated. Review of Systems: As Per HPI Constitutional: Reports: weakness. Denies: fever, chills ENT ED: Reports: congestion. Denies: throat pain Cardiovascular: Reports: dyspnea on exertion. Denies: chest pain Respiratory: Reports: cough, dyspnea Gastrointestinal: Denies: abdominal pain, nausea, vomiting Genitourinary: Denies: urgency, dysuria Musculoskeletal: Denies: back pain, neck pain Integumentary: Denies: rash, abrasion Neurological: Denies: headache Past Medical History - Past Medical History Attestation: Yes The following information was validated with the patient. Source: patient Medical history: Reports: asthma, atrial fibrillation, cancer, COPD, diabetes, hypertension Surgical history: Reports: appendectomy, cancer surgery, cholecystectomy, hysterectomy, knee replacement Psychiatric history: Reports: anxiety GRISTMILL OPERATOR history: Reports: no GRISTMILL OPERATOR history - Social History Smoking Status: Former smoker Smokeless Tobacco Status: No Alcohol use: Reports: none Drug use: Reports: none Physical Exam - General Limitations: no limitations General appearance: alert, in no apparent distress, other (APPEARS WEAK AND ILL) - Head Head exam: atraumatic, normocephalic, normal inspection - Eye Eye exam: Present: normal appearance, PERRL, EOMI. Absent: scleral icterus - ENT ENT exam: normal exam, normal oropharynx, mucous membranes moist - Neck Neck exam: Present: normal inspection, full ROM, trachea midline. Absent: tenderness - Chest Chest inspection: Present: normal inspection, symmetric chest wall rise. Absent : tenderness - Expanded Chest Exam Trauma: Present: surgical incision (prior lobe resection), other (chest wall deformity) - Respiratory Respiratory exam: Absent: respiratory distress - Expanded Respiratory Exam Location: wheezes: Right, Left, rales: Lower, rhonchi: Lower - Cardiovascular Cardiovascular exam: Present: regular rate, normal rhythm, normal heart sounds, systolic murmur (aortic stenosis, known) - Abdominal Exam Abdominal exam: Present: soft, Non-Tender. Absent: tenderness, distention, guarding, rebound, rigidity - Extremities Exam Extremities exam: Present: normal inspection, full ROM, normal capillary refill. Absent: tenderness, pedal edema, calf tenderness - Back Exam Back exam: Present: normal inspection, full ROM. Absent: tenderness - Neurological Exam Neurological exam: Present: alert, oriented X3 - Psychiatric Psychiatric exam: Present: normal affect, normal mood - Skin Skin exam: Present: warm, dry, intact, normal color. Absent: rash, cyanosis, diaphoresis Course Course Narrative: 71-year-old female history of COPD presents with difficulty breathing. Recent diagnosis of pneumonia per patient report. She appears in no respiratory distress. Wheezes and rhonchi bilaterally. She is tachycardic and tachypneic meeting 2 of 4 SIRS, sepsis workup initiated. She reports history of congestive heart failure, she is not hypotensive and does not require aggressive fluid resuscitation at this time. Suspect likely COPD exacerbation versus pneumonia. Breathing treatment ordered and steroids. Disposition pending workup. Patient may require admission for failed outpatient therapy. - Reevaluation(s) Reevaluation #1: Leukocytosis of 16. Patient will be treated with cefepime and vancomycin for suspected pneumonia. She is improved with breathing treatments. CT of the chess to evaluate for possible pulmonary embolism. She is now low hypotensive systolic 80. Will cautiously fluid resuscitate 30 mL/kg as she has history of CHF. Rhonchi on lung auscultation suspect pneumonia. Time: 16:19 Reevaluation #2: Patient has a significant elevation troponin 0.78. Higher than prior. She denies any chest pain. Repeat EKG ordered. Will speak with the supervisor asphalt paving pending workup. Her INR is 3.4. Patient has been ordered 324 mg aspirin. Review for prior echo performed December 2016 shows EF of 65% with severe aortic stenosis. Time: 16:50 Reevaluation #3: Patient was more tachypneic with labored breathing. More rhonchorous than prior on lung auscultation. Acute respiratory failure likely secondary to her pneumonia and severe sepsis. Small contribution from fluid resuscitation for her elevated lactate and sepsis, suspect in acute heart failure. Not amendable to BiPAP, discussed intubation give patient's code status of [id number]. She is agreeable to intubation. RSI 20 mg Etomidate and 50 mg Jeevan. Successful intubation on first attempt with 7.5 ETT. Her blood pressure continues to the elevated them prior likely from a catecholamine surge. Suspect she could benefit from diuresis but given her current state will defer to inpatient team regarding fluid balance. Fentanyl drip and versed as needed for sedation. Time: 18:46 Additional Reevaluation(s): Repeat ABG reveals respiratory acidosis 7.2 with CO2 50s, O2 is 254, will increase rate and keep low lung protective tidal volume 450 cc. repeat lactate continues to be elevated 2.8. However given her respiratory status at this time fluid balances difficult. Her blood pressure to remain high, placed on small amount of Nitro for preload reduction. Fentanyl drip for sedation and Versed as needed. 2100 REPEAT TROP 0.84, as discussed with supervisor asphalt paving, no further intervention, suspected due to clinical condition and sepsis. - Consultations Consultation #1: Repeat EKG performed [address] elevations still in V1 and now in V3 that appears new. Spoke with Shank Skinner Dr. Nieto, recommend to contact interventionalist. Spoke with interventionalist Dr. Campbell regarding elevated trop and ST elevations in V1 which appears same to prior but now ST elevation in V3. EKG images sent and reviewed by supervisor asphalt paving. No further intervention at this time. Do not recommend heart cath at this time. Repeat troponin, suspect likely contributed to sepsis for demand ischemia. Patient is in on warfarin, INR 3.4, no heparin. Ok with nitro for suspected acute pulm edema from heart failure. Time: 18:50 Consultation #2: Spoke with on-call hospitalist Dr. Callaway, ok to admit to intensive care unit for respiratory failure, CHF exacerbation, dyspnea, HCAP, elevated trop, severe sepsis, hypotension.. No further orders at this time Chest X-Ray 03/22/17 18:54 IMPRESSION: Stable chest. Left pulmonary infiltrate may be related to CHF or pneumonia. Satisfactory position of endotracheal tube. D/ / Joseph Albarran MD / Joseph Albarran MD Interpreting Provider: Joseph Albarran MD Time: 20:11 Vital Signs Temperature 97.6 F 03/22/17 15:10 Pulse Rate 106 03/22/17 15:10 Respiratory Rate 22 03/22/17 15:10 Blood Pressure 127/62 03/22/17 15:10 O2 Sat by Pulse Oximetry 99 03/22/17 15:10 Temperature 97.6 F 03/22/17 15:10 Pulse Rate 103 03/22/17 20:29 Respiratory Rate 15 03/22/17 21:15 Blood Pressure 178/85 03/22/17 20:29 O2 Sat by Pulse Oximetry 100 03/22/17 21:15 Oxygen Delivery Oxygen Delivery Ventilator Procedures - Intubation Time out performed: Yes sedative: Etomidate Mg Given: 20 paralytic: Rocuronium Mg Given: 50 Laryngoscope: Ut ET Tube Size: 7.5 ET Tube Uncuffed: No Tube Secured Depth (cm): 22 Tube Secured Location: lips Tube Placement Confirmation: visualized tube passing through cords, equal breath sounds bilaterally, no breath sounds over epigastrium, confirmation by capnometry Patient Tolerated Procedure: well, no complications Intubation Complications: none Shortness of Breath/Dyspnea - MDM Narrative Medical decision making narrative: Patient was discussed with my attending physician who agrees with ED management and final disposition. They independently evaluated the patient. Please refer to their attestation to this encounter for additional information. This note was generated by Eve voice recognition software and as a result grammatical or spelling errors may occur using this program. - Medical Records Medical records reviewed: Yes I reviewed the patient's medical records. - Lab Data Lab results reviewed: Yes I reviewed the patient's lab results. Result diagrams: 03/22/17 15:52 03/22/17 15:52 Lab Results 03/22/17 03/22/17 03/22/17 Range/Units 15:52 15:52 15:52 WBC 16.0 H (4.3-11.1) K/mcL RBC 3.89 (3.82-4.97) M/mcL Hgb 11.8 (11.5-15.4) g/dL Hct 35.4 (35.3-44.9) % MCV 91.0 (83.0-100.0) fL MCH 30.3 (28.0-33.3) pg MCHC 33.3 (31.6-35.5) g/dL RDW 15.0 H (11.5-14.5) % Plt Count 313 (140-400) K/mcL MPV 9.6 (9.4-12.4) fL Seg Neutrophils % 84.0 % Band Neutrophils % 10.0 H (0-4) % Lymphocytes % 4.0 % Monocytes % 2.0 % Neutrophils # 15.0 H (1.6-8.9) K/mcL Lymphocytes # 0.6 (0.6-4.6) K/mcL Monocytes # 0.3 (0.0-1.3) K/mcL Platelet Estimate Normal (Normal) Immature Plt Fraction 3.3 (1.1-6.1) % PT (9.4-12.1) Seconds INR APTT (26.0-36.0) Seconds Sample Site ABG pH (7.32-7.45) pH Units ABG pCO2 (35-45) mmHg ABG pO2 (85-104) mmHg ABG HCO3 (21-27) mEq/L ABG Total CO2 (20-26) mEq/L ABG O2 Saturation (95-98) % ABG Base Excess (-2 to 3) mEq/L Howie Test O2 Delivery Device Blood Gas Modality Inspired O2 (1-15=lpm [id number]=%) PEEP cm H2O Sodium 129 L (136-145) mEq/L Potassium 3.5 (3.5-5.1) mEq/L Chloride 90 L (98-107) mEq/L Carbon Dioxide 22 L (23-29) mEq/L BUN 24 H (8-23) mg/dL Creatinine 1.03 (0.60-1.20) mg/dL Est GFR ( Amer) > 60 (> 60) Est GFR (Non-Af Amer) 53 L (> 60) BUN/Creatinine Ratio 23 (6-26) Glucose 463 H (70-105) mg/dL Calculated Osmolality 292 (280-300) Lactic Acid 2.9 H (0.5-2.2) mmol/L Calcium 9.2 (8.6-10.3) mg/dL Troponin I (< 0.04) ng/mL B-Natriuretic Peptide (Less than 100) pg/mL 03/22/17 03/22/17 03/22/17 Range/Units 15:52 15:52 15:52 WBC (4.3-11.1) K/mcL RBC (3.82-4.97) M/mcL Hgb (11.5-15.4) g/dL Hct (35.3-44.9) % MCV (83.0-100.0) fL MCH (28.0-33.3) pg MCHC (31.6-35.5) g/dL RDW (11.5-14.5) % Plt Count (140-400) K/mcL MPV (9.4-12.4) fL Seg Neutrophils % % Band Neutrophils % (0-4) % Lymphocytes % % Monocytes % % Neutrophils # (1.6-8.9) K/mcL Lymphocytes # (0.6-4.6) K/mcL Monocytes # (0.0-1.3) K/mcL Platelet Estimate (Normal) Immature Plt Fraction (1.1-6.1) % PT 38.1 H (9.4-12.1) Seconds INR 3.4 APTT 38.3 H (26.0-36.0) Seconds Sample Site ABG pH (7.32-7.45) pH Units ABG pCO2 (35-45) mmHg ABG pO2 (85-104) mmHg ABG HCO3 (21-27) mEq/L ABG Total CO2 (20-26) mEq/L ABG O2 Saturation (95-98) % ABG Base Excess (-2 to 3) mEq/L Howie Test O2 Delivery Device Blood Gas Modality Inspired O2 (1-15=lpm os62-135=%) PEEP cm H2O Sodium (136-145) mEq/L Potassium (3.5-5.1) mEq/L Chloride (98-107) mEq/L Carbon Dioxide (23-29) mEq/L BUN (8-23) mg/dL Creatinine (0.60-1.20) mg/dL Est GFR ( Amer) (> 60) Est GFR (Non-Af Amer) (> 60) BUN/Creatinine Ratio (6-26) Glucose (70-105) mg/dL Calculated Osmolality (280-300) Lactic Acid (0.5-2.2) mmol/L Calcium (8.6-10.3) mg/dL Troponin I 0.78 H* (< 0.04) ng/mL B-Natriuretic Peptide 789 H (Less than 100) pg/mL 03/22/17 03/22/17 03/22/17 Range/Units 17:33 17:54 19:23 WBC (4.3-11.1) K/mcL RBC (3.82-4.97) M/mcL Hgb (11.5-15.4) g/dL Hct (35.3-44.9) % MCV (83.0-100.0) fL MCH (28.0-33.3) pg MCHC (31.6-35.5) g/dL RDW (11.5-14.5) % Plt Count (140-400) K/mcL MPV (9.4-12.4) fL Seg Neutrophils % % Band Neutrophils % (0-4) % Lymphocytes % % Monocytes % % Neutrophils # (1.6-8.9) K/mcL Lymphocytes # (0.6-4.6) K/mcL Monocytes # (0.0-1.3) K/mcL Platelet Estimate (Normal) Immature Plt Fraction (1.1-6.1) % PT (9.4-12.1) Seconds INR APTT (26.0-36.0) Seconds Sample Site ABG pH 7.42 (7.32-7.45) pH Units ABG pCO2 33 L (35-45) mmHg ABG pO2 81 L (85-104) mmHg ABG HCO3 22 (21-27) mEq/L ABG Total CO2 23 (20-26) mEq/L ABG O2 Saturation 96 (95-98) % ABG Base Excess -2 (-2 to 3) mEq/L Howie Test O2 Delivery Device Cannula Blood Gas Modality Inspired O2 28.0 (1-15=lpm da92-496=%) PEEP cm H2O Sodium (136-145) mEq/L Potassium (3.5-5.1) mEq/L Chloride (98-107) mEq/L Carbon Dioxide (23-29) mEq/L BUN (8-23) mg/dL Creatinine (0.60-1.20) mg/dL Est GFR ( Amer) (> 60) Est GFR (Non-Af Amer) (> 60) BUN/Creatinine Ratio (6-26) Glucose (70-105) mg/dL Calculated Osmolality (280-300) Lactic Acid 2.8 H (0.5-2.2) mmol/L Calcium (8.6-10.3) mg/dL Troponin I 0.84 H* (< 0.04) ng/mL B-Natriuretic Peptide (Less than 100) pg/mL 03/22/17 Range/Units 19:24 WBC (4.3-11.1) K/mcL RBC (3.82-4.97) M/mcL Hgb (11.5-15.4) g/dL Hct (35.3-44.9) % MCV (83.0-100.0) fL MCH (28.0-33.3) pg MCHC (31.6-35.5) g/dL RDW (11.5-14.5) % Plt Count (140-400) K/mcL MPV (9.4-12.4) fL Seg Neutrophils % % Band Neutrophils % (0-4) % Lymphocytes % % Monocytes % % Neutrophils # (1.6-8.9) K/mcL Lymphocytes # (0.6-4.6) K/mcL Monocytes # (0.0-1.3) K/mcL Platelet Estimate (Normal) Immature Plt Fraction (1.1-6.1) % PT (9.4-12.1) Seconds INR APTT (26.0-36.0) Seconds Sample Site R Radial ABG pH 7.21 L D (7.32-7.45) pH Units ABG pCO2 58 H D (35-45) mmHg ABG pO2 254 H D (85-104) mmHg ABG HCO3 23 (21-27) mEq/L ABG Total CO2 25 (20-26) mEq/L ABG O2 Saturation 100 H (95-98) % ABG Base Excess -6 L (-2 to 3) mEq/L Howie Test N/A O2 Delivery Device Adult Vent Blood Gas Modality PRVC Inspired O2 100.0 (1-15=lpm [id number]=%) PEEP 5 cm H2O Sodium (136-145) mEq/L Potassium (3.5-5.1) mEq/L Chloride (98-107) mEq/L Carbon Dioxide (23-29) mEq/L BUN (8-23) mg/dL Creatinine (0.60-1.20) mg/dL Est GFR ( Amer) (> 60) Est GFR (Non-Af Amer) (> 60) BUN/Creatinine Ratio (6-26) Glucose (70-105) mg/dL Calculated Osmolality (280-300) Lactic Acid (0.5-2.2) mmol/L Calcium (8.6-10.3) mg/dL Troponin I (< 0.04) ng/mL B-Natriuretic Peptide (Less than 100) pg/mL - Radiology Data Radiology results reviewed: Yes I reviewed the patient's radiology results. Chest CTA 03/22/17 16:12 IMPRESSION: 1. No evidence of pulmonary embolism or aortic dissection. 2. Continued evidence of a left apical mass which is increased in size when compared to the previous exam. 3. Continued evidence of mediastinal and hilar lymphadenopathy, similar when compared to the previous exam. 4. Patchy alveolar consolidation and ground-glass opacity noted within the lungs bilaterally, greatest in the left lower lung, compatible with multifocal pneumonia. 5. Continued bronchial wall thickening, compatible with acute and/or chronic bronchitis. 6. Continued chronic deformity of the right chest wall. D/ / Hitesh Tan MD / Hitesh Tan MD Interpreting Provider: Hitesh Tan MD Chest X-Ray 03/22/17 18:54 IMPRESSION: Stable chest. Left pulmonary infiltrate may be related to CHF or pneumonia. Satisfactory position of endotracheal tube. D/ / Joseph Albarran MD / Joseph Albarran MD Interpreting Provider: Joseph Albarran MD - EKG Data EKG attestation: Yes I reviewed and interpreted this EKG. EKG results narrative: EKG performed 1528, interpreted by myself without cardiology assistance, normal sinus rhythm 99 beats per minute left atrial enlargement, minimal ST depression in lead II and lead V5, appears changed from prior EKG 01/10/2017, ST elevations seen in V1 and aVR similar to prior EKG, not in contiguous leads. Patient denies any chest pain. This is an abnormal EKG. Attestation Statement - Attestation Attestation: I examined this patient and my medical decision-making was reviewed with the Resident Physician. I agree with the documented findings, disposition and treatment plan as described except to the extent set forth below. 71-year-old female presents with concern for dyspnea. She did have findings of systemic inflammatory response syndrome. She was started on broad-spectrum antibiotics. She did have episodes of hypotension and responded to intravenous fluids. After 1 L of fluid she had complete respiratory failure requiring emergent intubation. She was not amendable to BiPAP as her respiratory status was too poor to attempt BiPAP. She was intubated with first pass excess. She did respond to positive pressure ventilations. Repeat EKG shows ST segment elevation in V1 and V3. I discussed with the on-call interventional S Dr. Campbell who believes this is rate induced change. She also has evidence of elevated cardiac biomarkers. This is likely a component of pulmonary edema. She is therapeutic with her Coumadin. She was given aspirin therapy. She is now having hypertension which is possibly related to a sympathetic surge following intubation but also could be a component of pulmonary edema. She will be started on low-dose nitroglycerin infusion. Propofol and Mirela for sedation. She is improving with positive pressure ventilation. Patient be admitted to intensive carrying her for ongoing monitoring. Discussed case with on-call hospitalist. I spent greater than 120 minutes of critical care time resuscitating this acutely ill patient requiring intubation and management of multiple drips due to pulmonary edema, pneumonia. This was excluding billable procedures.
[2017-03-22 16:02] LABS: Hematocrit 35.4 % (35.3-44.9); Hemoglobin 11.8 g/dL (11.5-15.4); Immature Platelets 3.3 % (1.1-6.1); Mean Corpuscular HGB Conc 33.3 g/dL (31.6-35.5); Mean Corpuscular Hemoglobin 30.3 pg (28.0-33.3); Mean Platelet Volume 9.6 fL (9.4-12.4); Platelet Count 313 K/mcL (140-400); Red Blood Count 3.89 M/mcL (3.82-4.97)
[2017-03-22 16:09] LABS: INR 3.4; Prothrombin Time 38.1 Seconds (9.4-12.1)
[2017-03-22] MEDS ORDERED: 0.9 % Sodium Chloride 1,000 ML IVC ONE ×2 (16:11→16:21)
[2017-03-22 16:12] LABS: Activated Partial Thrombo Time 38.3 Seconds (26.0-36.0)
[2017-03-22] MEDS ORDERED: Cefepime HCl 2,000 MG in Water for inj. (sterile) 20 ML IVP ONE ×2 (16:18→22:18)
[2017-03-22] MEDS ORDERED: Vancomycin 1,000 MG in D5% in Water 250 ML IVPB ONE (16:18)
[2017-03-22 16:30] LABS: BUN/Creatinine Ratio 23 (6-26); Blood Urea Nitrogen 24 mg/dL (8-23); Calcium 9.2 mg/dL (8.6-10.3); Carbon Dioxide 22 mEq/L (23-29); Chloride 90 mEq/L (98-107); Glucose 463 mg/dL (70-105); Osmolality,Calculated 292 (280-300); Potassium 3.5 mEq/L (3.5-5.1); Sodium 129 mEq/L (136-145); eGFR For African Americans > 60 (> 60); eGFR For Non-African Americans 53 (> 60)
[2017-03-22 16:47] LABS: Lymphocytes # 0.6 K/mcL (0.6-4.6); Monocytes # 0.3 K/mcL (0.0-1.3); Platelet Estimate Normal (Normal)
[2017-03-22] MEDS ORDERED: Aspirin 81 MG TAB.CHEW PO STA (16:47)
[2017-03-22 17:38] LABS: ABG Base Excess -2 mEq/L (-2 to 3); ABG HCO3 22 mEq/L (21-27); ABG Oxygen Saturation 96 % (95-98); ABG PCO2 33 mmHg (35-45); ABG PH 7.42 pH Units (7.32-7.45); ABG PO2 81 mmHg (85-104); ABG TCO2 23 mEq/L (20-26)
[2017-03-22] MEDS ORDERED: *HR* Rocuronium Bromide 50 MG/5 ML VIAL IVP ONE (18:25)
[2017-03-22] MEDS ORDERED: *HR* Etomidate 20 MG/10 ML AMPUL IVP ONE (18:25)
[2017-03-22] MEDS ORDERED: Lacri-Lube 3.5 GM TUBE BOTH EYES PRN (18:52)
[2017-03-22 19:36] LABS: ABG Base Excess -6 mEq/L (-2 to 3); ABG HCO3 23 mEq/L (21-27); ABG Oxygen Saturation 100 % (95-98); ABG PCO2 58 mmHg (35-45); ABG PH 7.21 pH Units (7.32-7.45); ABG PO2 254 mmHg (85-104); ABG TCO2 25 mEq/L (20-26); Blood Gas Modality PRVC; Blood Gas PEEP 5 cm H2O
[2017-03-22] MEDS: FentaNYL (PF) 1,000 MCG in 0.9 % Sodium Chloride 80 ML IVC SCH (19:59)
[2017-03-22] MEDS ORDERED: Propofol 500 MG/50 ML INFUS..BTL ONE (21:57)
[2017-03-22] MEDS ORDERED: Cefepime HCl 2,000 MG in Water for inj. (sterile) 20 ML 10 ML IVP ONE (23:00)
[2017-03-22] MEDS: Lacri-Lube 3.5 GM TUBE BOTH EYES SCH (23:36)
[2017-03-22] MEDS: Chlorhexidine Rinse 15 ML MOUTHWASH MM SCH (23:36)
[2017-03-23 00:19] LABS: ABG Base Excess -8 mEq/L (-2 to 3); ABG HCO3 18 mEq/L (21-27); ABG Oxygen Saturation 98 % (95-98); ABG PCO2 35 mmHg (35-45); ABG PH 7.31 pH Units (7.32-7.45); ABG PO2 123 mmHg (85-104); ABG TCO2 19 mEq/L (20-26); Blood Gas Modality ASSIST CONTROL; Blood Gas PEEP 5 cm H2O; Blood Gas Respiration Rate 14; Blood Gas VT 450 cc
[2017-03-23] MEDS ORDERED: *HR* Dextrose 50 % in Water (Syg) 50 ML SYRINGE IVP PRN ×3 (01:03→11:46)
[2017-03-23] MEDS ORDERED: Insulin Human Regular 100 UNIT in 0.9 % Sodium Chloride 100 ML IVC SCH (01:15)
[2017-03-23] MEDS ORDERED: Insulin Regular, Human 100 UNIT/ML IV PRN (01:22)
[2017-03-23] MEDS ORDERED: 0.45 % Sodium Chloride w/KCl 20 MEQ/1,000 ML MLS IVC SCH (01:30)
[2017-03-23] MEDS ORDERED: Acetaminophen 325 MG TABLET PO PRN (01:34)
--- NOTE | 2017-03-23 01:47 | Internal Med History&Physical ---
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 in the past CT scan shows multifocal groundglass opacities Continue vancomycin and cefepime started in the ER, at [facility] Consider colistin if Acinetobacter grows in sputum culture, order blood cultures Continue Solu-Medrol, mechanical intubation Consider Carl-Synephrine for hypotension (2) Acute exacerbation of chronic obstructive pulmonary disease (COPD) Current visit: Yes Status: Acute CT scan shows multifocal groundglass opacities Continue vancomycin and cefepime started in the ER, at [facility] Consider colistin if Acinetobacter grows in sputum culture, order blood cultures Continue Solu-Medrol, mechanical intubation Consider Carl-Synephrine for hypotension (3) Acute and chronic respiratory failure ([id number]) Current visit: Yes Status: Acute Continue vancomycin and cefepime started in the ER, at [facility] Consider colistin if Acinetobacter grows in sputum culture, order blood cultures Continue Solu-Medrol, mechanical intubation Consider Carl-Synephrine for hypotension Qualifiers: Qualified Code(s): J96.20 - Acute and chronic respiratory failure, unspecified whether with hypoxia or hypercapnia (4) DKA (diabetic ketoacidoses) Current visit: Yes Status: Acute Possible DKA with an anion gap of 17 Start insulin drip, IV fluids with caution, add half normal saline with 20 male : Some potassium at 75 mL/h May switch to D5 and half-normal saline with potassium once glucose goes below 300 Check Hydroxy B acid Qualifiers: Diabetes mellitus type: type 2 Diabetes mellitus complication detail: without coma Qualified Code(s): E13.10 - Other specified diabetes mellitus with ketoacidosis without coma (5) A-fib Current visit: No Status: Acute A. fib on Coumadin Protonix 40 GI prophylaxes including for DVT prophylaxis. The patient will be admitted as inpatient, expected to stay more than 2 midnights. Full code. Time spent in this critical care assessment 45 minutes. 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 in the past CT scan shows multifocal groundglass opacities Continue vancomycin and cefepime started in the ER, at [facility] Consider colistin if Acinetobacter grows in sputum culture, order blood cultures Continue Solu-Medrol, mechanical intubation Consider Carl-Synephrine for hypotension (8) Severe sepsis Current visit: Yes Status: Acute Hypotension likely secondary to severe sepsis Start IV fluids with caution due to history of severe aortic stenosis (9) Chronic hyponatremia Current visit: Yes Status: Acute (10) Elevated troponin Current visit: Yes Status: Acute Elevated troponins, possible demand ischemia, consider non-STEMI Cartilage was consulted, continue aspirin, no heparin as the INR is 3.4 Hold metoprolol due to hypotension Internal Medicine - H&P: HPI Chief complaint: difficulty in breathing Admitted From: Emergency Dept History of present illness: Ms. Baird is a 71 year old female with a PMHx of COPD, Afib, lung cancer, CHF , HTN, and DM who presented to the ED for difficulty breathing. Per ER note, the patient has a history of COPD and is on 2L of oxygen at home. Patient stated that she began having difficulty in breathing that started this morning and gradually worsened throughout the day. She admits productive cough but denied any fever. Per note, the patient was diagnosed with pneumonia yesterday and was started on antibiotics. She is unsure of the name of antibiotics. Patient denies any chest pain, headaches, vision changes, abdominal pain, numbness or tingling, or any weaknesses. Past Med Surg Social Fam HX - Past Medical History Medical history: asthma, atrial fibrillation, cancer, COPD, diabetes, hypertension Psychiatric history: anxiety - Past Surgical History Surgical History: appendectomy, cancer surgery, cholecystectomy, hysterectomy, knee replacement - Social History Smoking Status: Former smoker Smokeless Tobacco Status: No Alcohol use: none Drug use: none - Family History Mother Living Status: Hx Family Cardiac Disorders: Yes (HEART DISEASE) Hx Family Endocrine Disorder: Yes (DIABETES) Internal Medicine - H&P: Meds Albuterol Neb [Proventil Neb] 2.5 mg IH Q6H PRN 04/30/15 [History] Atorvastatin [Lipitor] 10 mg PO HS 04/30/15 [History] Docusate [Colace] 100 mg PO BID 04/30/15 [History] Ferrous Sulfate 325 mg PO DAILY 04/30/15 [History] Insulin ASPART [NovoLOG] 0 - 5 unit SQ QID 04/30/15 [History] Loratadine [Claritin] 10 mg PO DAILY 04/30/15 [History] Meclizine [Antivert] 25 mg PO BID 04/30/15 [History] Montelukast [Singulair] 10 mg PO DAILY 04/30/15 [History] Omeprazole [PriLOSEC] 20 mg PO BID 04/30/15 [History] Potassium Chloride [K-Tab ER] 20 meq PO DAILY 04/30/15 [History] Roflumilast [Daliresp] 500 mcg PO DAILY 04/30/15 [History] Furosemide [Lasix] 20 mg PO DAILY 09/15/15 [History] Alendronate Sodium [Fosamax] 70 mg PO QWEEK 10/27/16 [History] Amiodarone HCl [Pacerone] 200 mg PO DAILY 10/27/16 [History] Ondansetron HCl [Zofran] 4 mg PO Q4H PRN 10/27/16 [History] Sennosides [Senna] 8.6 mg PO BID PRN 10/27/16 [History] Calcium Carbonate/Vitamin D3 [Calcium 600-Vit D3 400 Tablet] 1 each PO BID 11/17 [History] Metoprolol XL (24 HR) Succ [Toprol Xl] 75 mg PO DAILY 11/17/16 [History] Umeclidinium Brm/Vilanterol Tr [Anoro Ellipta 62.5-25 Mcg INH] 1 each IH DAILY 11/17/16 [History] Venlafaxine XR (24 HR) [Effexor XR] 75 mg PO DAILY 01/10/17 [History] Warfarin [Coumadin] 4.5 mg PO DAILY 01/10/17 [History] GuaiFENesin ER [Mucinex] 600 mg PO BID PRN #60 tbbp.12hr 01/14/17 [Rx] HYDROcodone/Acet 10/325 mg [[place] 10-325 mg] 1 tab PO Q6HR PRN #4 tablet [Rx] Theophylline Anhydrous [Femi-24] 100 mg PO DAILY #30 cap.er.24h 01/14/17 [Rx] hydrOXYzine pamoate [HydrOXYzine Pamoate] 25 mg PO BID PRN #14 capsule 01/14/17 [Rx] Beclomethasone Diprop 40mcg [Qvar 40 mcg] 1 puff IH BID 02/21/17 [History] Nitroglycerin [Nitrostat] 0.4 mg SL PRN PRN 02/21/17 [History] Azelastine 0.1% Nasal Momence [Astelin] 2 spray NS BID 03/10/17 [History] 3 Allergy/AdvReac Type Severity Reaction Status Date / Time codeine Allergy Hives Verified 03/22/17 18:37 latex Allergy Hives Verified 03/22/17 18:37 Penicillins Allergy Hives Verified 03/22/17 18:37 propoxyphene [From Darvon] Allergy Hives Verified 03/22/17 18:37 shellfish derived Allergy Hives Verified 03/22/17 18:37 All Systems PM: A 10-system review of systems was performed and is negative for pertinent findings except as documented above in the HPI. - Constitutional Vitals: Temp Pulse Resp BP Pulse Ox 98.5 F 114 26 103/58 99 03/22/17 23:00 03/23/17 01:00 03/23/17 01:26 03/23/17 01:00 03/23/17 01:26 Exam: Patient is intubated. - Head Head exam: Present: atraumatic, normocephalic - Eye Eye exam: Present: PERRL, conjuntiva pink, sclera anicteric Pupils: Present: PERRL - Neck Neck exam general surgery: Present: supple, trachea midline. Absent: lymphadenopathy - Respiratory Respiratory exam: Present: decreased breath sounds, CTAB, rhonchi, wheezes. Absent: rales - Expanded Respiratory Exam Location: decreased breath sounds: Right, Lower, rales: Left, Right, Lower, rhonchi: Left, Right, Upper, Lower, wheezes: Left, Right, Upper, Lower - Cardiovascular Cardiovascular exam: Present: +S1, +S2, tachycardia. Absent: diastolic murmur, gallop, rubs, systolic murmur - GI/Abdominal GI/Abdominal exam: Present: normal bowel sounds, soft, no peritoneal signs. Absent: distended, tenderness - Extremities Exam Extremities exam: Present: warm, radial pulses palpable and symmetrical. Absent : calf tenderness, cyanotic, pedal edema - Neurological Exam Neurological exam: Present: altered, no focal deficits. Absent: pronater drift , facial droop, speech deficit - Skin Skin exam: Present: dry, intact Internal Med - H&P Results - Labs CBC & Chem 7: 03/22/17 15:52 03/22/17 15:52 - ABG Interpretation ABG results: 03/23/17 00:14 ABG pH 7.31 L ABG pCO2 35 D ABG pO2 123 H D ABG HCO3 18 L ABG Total CO2 19 L ABG O2 Saturation 98 ABG Base Excess -8 L <Rolando Butler H - Last Filed: 03/23/17 02:10> Date of Encounter: 03/23/17 Internal Medicine - H&P: HPI History of present illness: Ms. Baird is a 71 year old female All Systems PM: A 10-system review of systems was performed and is negative for pertinent findings except as documented above in the HPI. - Constitutional Vitals: Temp Pulse Resp BP Pulse Ox 98.5 F 114 26 103/58 99 03/22/17 23:00 03/23/17 01:00 03/23/17 01:26 03/23/17 01:00 03/23/17 01:26 Internal Med - H&P Results - Labs CBC & Chem 7: 03/23/17 01:50 03/22/17 15:52 Labs: Short CBC 03/23/17 Range/Units 01:50 WBC 18.8 H (4.3-11.1) K/mcL Hgb 11.9 (11.5-15.4) g/dL Hct 35.9 (35.3-44.9) % Plt Count 322 (140-400) K/mcL Neutrophils # 17.4 H (1.6-8.9) K/mcL - ABG Interpretation ABG results: 03/23/17 00:14 ABG pH 7.31 L ABG pCO2 35 D ABG pO2 123 H D ABG HCO3 18 L ABG Total CO2 19 L ABG O2 Saturation 98 ABG Base Excess -8 L - Attending Attestation additional PMH: Chronic hyponatremia, , depression COPD O 2 dep, GERD, DM Insulin dep, , osteoporosis, a fib on coumadin, lung cancer s/p right lobectomy , diastolic CHF, asevere aortic stenosis DAY 0.7 1. 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 Hypotension likely secondary to severe sepsis Start IV fluids with caution due to history of severe aortic stenosis 3. Elevated troponins, possible demand ischemia, consider non-STEMI Cartilage was consulted, continue aspirin, no heparin as the INR is 3.4 Hold metoprolol due to hypotension 4. Possible DKA with an anion gap of 17 Start insulin drip, IV fluids with caution, add half normal saline with 20 male : Some potassium at 75 mL/h May switch to D5 and half-normal saline with potassium once glucose goes below 300 Check Hydroxy B acid 5. Chronic hyponatremia 6. A. fib on Coumadin Protonix 40 GI prophylaxes including for DVT prophylaxis. The patient will be admitted as inpatient, expected to stay more than 2 midnights. Full code. Time spent in this critical care assessment 45 minutes. High risk patient I examined this patient and my medical decision-making was reviewed with the Resident Physician. I agree with the documented findings, disposition and treatment plan as described except to the extent set forth below.
[2017-03-23] MEDS ORDERED: Ondansetron 4 MG/2 ML VIAL IVP PRN (01:49)
[2017-03-23] MEDS ORDERED: *HR* Morphine 2 MG/ML SYRINGE IVP PRN (01:49)
[2017-03-23] MEDS ORDERED: Naloxone 0.4 MG/ML INJ IVP PRN (01:49)
[2017-03-23] MEDS ORDERED: Vancomycin 1,000 MG in D5% in Water 250 ML IVPB SCH (02:00)
[2017-03-23 02:02] LABS: Basophils % 0.2 %; Hematocrit 35.9 % (35.3-44.9); Hemoglobin 11.9 g/dL (11.5-15.4); Immature Granulocytes % 0.6 % (0-4); Immature Platelets 3.7 % (1.1-6.1); Lymphocytes # 0.3 K/mcL (0.6-4.6); Lymphocytes % 1.4 %; Mean Corpuscular HGB Conc 33.1 g/dL (31.6-35.5); Mean Corpuscular Hemoglobin 30.7 pg (28.0-33.3); Mean Corpuscular Volume 92.5 fL (83.0-100.0); Mean Platelet Volume 9.7 fL (9.4-12.4); Monocytes % 5.3 %; Neutrophils # 17.4 K/mcL (1.6-8.9); Platelet Count 322 K/mcL (140-400); Red Blood Count 3.88 M/mcL (3.82-4.97); Red Cell Distribution Width 15.1 % (11.5-14.5); Segmented Neutrophils % 92.5 %
[2017-03-23 02:28] LABS: BUN/Creatinine Ratio 26 (6-26); Blood Urea Nitrogen 26 mg/dL (8-23); Calcium 9.2 mg/dL (8.6-10.3); Carbon Dioxide 15 mEq/L (23-29); Chloride 93 mEq/L (98-107); Chol/HDL Ratio 2.4 (0-4.9); Cholesterol 234 mg/dL (< 200); Glucose 574 mg/dL (70-105); HDL Cholesterol 97 mg/dL (40-59); LDL Cholesterol,Calculated 114 mg/dL (0-99); Osmolality,Calculated 301 (280-300); Potassium 4.5 mEq/L (3.5-5.1); Sodium 130 mEq/L (136-145); Triglycerides 117 mg/dL (< 150); eGFR For African Americans > 60 (> 60); eGFR For Non-African Americans 54 (> 60)
[2017-03-23] MEDS: Lacri-Lube 3.5 GM TUBE BOTH EYES SCH ×7 (02:46→23:24)
[2017-03-23] MEDS: Levofloxacin 750 MG/150 ML 750 MG/150 ML BAG IVPB SCH (02:48)
[2017-03-23 05:02] LABS: ABG Base Excess -6 mEq/L (-2 to 3); ABG HCO3 18 mEq/L (21-27); ABG Oxygen Saturation 95 % (95-98); ABG PCO2 31 mmHg (35-45); ABG PH 7.38 pH Units (7.32-7.45); ABG PO2 78 mmHg (85-104); ABG TCO2 19 mEq/L (20-26); Blood Gas Modality VC; Blood Gas PEEP 5 cm H2O; Blood Gas Respiration Rate 14; Blood Gas VT 450 cc
[2017-03-23 05:31] LABS: Beta-Hydroxybutyric Acid > 2.00 mmol/L (0.02-0.27)
[2017-03-23] MEDS: Pantoprazole 40 MG VIAL IVP SCH (06:20)
[2017-03-23 08:00] LABS: BUN/Creatinine Ratio 27 (6-26); Blood Urea Nitrogen 26 mg/dL (8-23); Calcium 7.9 mg/dL (8.6-10.3); Carbon Dioxide 16 mEq/L (23-29); Chloride 98 mEq/L (98-107); Glucose 313 mg/dL (70-105); Osmolality,Calculated 285 (280-300); Sodium 129 mEq/L (136-145); eGFR For African Americans > 60 (> 60); eGFR For Non-African Americans 57 (> 60)
[2017-03-23] MEDS ORDERED: Potassium Chloride 40 MEQ in D5% in 0.45% NACL 1,000 ML IVC SCH (08:00)
[2017-03-23] MEDS ORDERED: MethylPREDNISolone 40 MG/ML VIAL IVP SCH (08:00)
[2017-03-23] MEDS ORDERED: D5% in 0.45% NACL 1,000 ML IVC SCH (08:00)
[2017-03-23] MEDS ORDERED: D5% in 0.45% NACL w KCl 20 MEQ/1,000 ML MLS IVC ONE (08:01)
[2017-03-23] MEDS: Nitroglycerin 25 MG/250 ML INFUS..BTL IVC SCH ×2 (08:15→20:41)
[2017-03-23] MEDS ORDERED: D5% in 0.45% NACL w KCl 20 MEQ/1,000 ML MLS IVC SCH (08:15)
[2017-03-23] MEDS ORDERED: Levofloxacin 750 MG/150 ML 750 MG/150 ML BAG IVPB SCH (09:00)
--- NOTE | 2017-03-23 09:11 | Pulmonology Consult Note ---
<Kelton Guardado - Last Filed: 03/23/17 13:04> Date of Encounter: 03/23/17 Time of Encounter: 08:00 Assessment and Plan (1) Acute and chronic respiratory failure ([id number]) Current Visit: Yes Status: Acute Pt with Hx of COPD on home O2 patient refused BiPAP and prefered intubation instead due to worsenign respiratory status Patient started on Q8H solumedrol patient started on vanc, cefepime, and levaquin Plan: reduced steroids to BID continue abx added duonebs and symbicort continue mechanical ventilation ween as able. Qualifiers: Respiratory failure complication: hypercapnia Qualified Code(s): J96.22 - Acute and chronic respiratory failure with hypercapnia (2) Acute exacerbation of chronic obstructive pulmonary disease (COPD) Current Visit: Yes Status: Acute Pt with Hx of COPD patient reported change in sputum productiona nd increased SOB Patient started on Q8H solumedrol patient started on abx Plan: reduced steroids to BID continue abx added duonebs and symbicort continue mechanical ventilation ween as able. (3) DKA (diabetic ketoacidoses) Current Visit: Yes Status: Acute Patient with Hx of DM Patient presented with Glucose of 584 Gap of 17 Gap widened up to 22 then closed to 15 followed by 10 DKA protocol initiated with alteration in fluid resucitation to limit fluid overload Plan: switch to SSI turn off insulin drip Continue to monitor given 15 of levemir continue accuchecks nutrition consulted for tube feeds to properly do DKA protocol with patietn intubated. Qualifiers: Diabetes mellitus type: type 2 Diabetes mellitus complication detail: without coma Qualified Code(s): E11.10 - Type 2 diabetes mellitus with ketoacidosis without coma (4) Severe sepsis Current Visit: Yes Status: Acute Pt met criteria for severe sepsis 2/2 to LA 2.9, WBC 16, tacycardia, tachypnea, hypotension Likely 2/2 to PNA and respiratory failure Started on Steroids, vanc, cefepime, and levaquin bcx pending Plan: continue to monitor checking viral respiratory panel continue abx (5) HCAP (healthcare-associated pneumonia) Current Visit: Yes Status: Acute Patient Dx with PNA and started on abx at an outside facilty per chart review Pt a senior care patient. 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 (7) Aortic stenosis Current Visit: No Status: Chronic Hx of Patient received limited fluid resuscitation as a result. Plan: continue to be conscious with giving any fluids. Qualifiers: Cardiac valve disease etiology: etiology unspecified Qualified Code(s): I35.0 - Nonrheumatic aortic (valve) stenosis (8) Chronic hyponatremia Current Visit: Yes Status: Acute Based on chart review patient has hx of hyponatremia based on prior admissions. Plan: continue to monitor daily BMP after DKA protocol complete. (9) A-fib Current Visit: No Status: Acute Patient on door framer coumadin use for a fib holding while super therapeutic. Plan: Started Coumadin dosed by pharmacy. continue to monitor pt/inr Qualifiers: Atrial fibrillation type: chronic Qualified Code(s): I48.2 - Chronic atrial fibrillation (10) DM2 (diabetes mellitus, type 2) Current Visit: Yes Status: Chronic Hx of DM on door framer insulin use. See DKA for management. Qualifiers: Diabetes mellitus complication status: with unspecified complications Diabetes mellitus group home insulin use: unspecified door framer insulin use status Qualified Code(s): E11.8 - Type 2 diabetes mellitus with unspecified complications (11) Lung cancer Current Visit: No Status: Acute Hx of Lung CA s/p resection Qualifiers: Laterality: right Lung location: unspecified part of lung Qualified Code( s): C34.91 - Malignant neoplasm of unspecified part of right bronchus or lung (12) Diastolic heart failure Current Visit: Yes Status: Acute Patient with hx of d CHF plan: exercise caution with fluid resuscitation. Qualifiers: Heart failure chronicity: chronic Qualified Code(s): I50.32 - Chronic diastolic (congestive) heart failure (13) DVT prophylaxis Current Visit: No Status: Acute Holding DVT PPx secondary to elevated INR 3.4 Plan: ordered coumadin pharmacy to dose. Will start once INR no longer super therapeutic. History of Present Illness Consult date: 03/23/17 Requesting physician: Clara Brennan Reason for consult: COPD Chief complaint: Acute on chronic respiratory failure 2/2 COPD exacerbation 2/2 PNA History of present illness: 71 yo F c PMHx of COPD on 2L home O2, Lung CA s/p resection, CHF, HTN, Afib, DM , Aortic Stenosis reports to [facility] c/o SOB x 1 day. Per chart review patient was diagnosed with Pneumonia yesterday at an outside facility and started on antibiotics. Patient had productive cough but no fever. In the ED patient became progressively more short of breath. Patient was offered BiPAP but refused and was offered intubation instead which she consented to. Patient was also found to be in DKA and was started on a modified DKA protocol. Patient's fluid resuscitation was modified by the hospitalist team due to her severs and CHF. Patient was admitted to the ICU for further management. Past Med Surg Social Fam HX - Past Medical History Medical history: asthma, atrial fibrillation, cancer, COPD, diabetes, hypertension Psychiatric history: anxiety - Past Surgical History Surgical History: appendectomy, cancer surgery, cholecystectomy, hysterectomy, knee replacement - Social History Smoking Status: Former smoker Smokeless Tobacco Status: No Alcohol use: none Drug use: none - Family History Mother Living Status: Hx Family Cardiac Disorders: Yes (HEART DISEASE) Hx Family Endocrine Disorder: Yes (DIABETES) Medications and Allergies Albuterol Neb [Proventil Neb] 2.5 mg IH Q6H PRN 04/30/15 [History] Atorvastatin [Lipitor] 10 mg PO HS 04/30/15 [History] Docusate [Colace] 100 mg PO BID 04/30/15 [History] Ferrous Sulfate 325 mg PO DAILY 04/30/15 [History] Insulin ASPART [NovoLOG] 0 - 5 unit SQ QID 04/30/15 [History] Loratadine [Claritin] 10 mg PO DAILY 04/30/15 [History] Meclizine [Antivert] 25 mg PO BID 04/30/15 [History] Montelukast [Singulair] 10 mg PO DAILY 04/30/15 [History] Omeprazole [PriLOSEC] 20 mg PO BID 04/30/15 [History] Potassium Chloride [K-Tab ER] 20 meq PO DAILY 04/30/15 [History] Roflumilast [Daliresp] 500 mcg PO DAILY 04/30/15 [History] Furosemide [Lasix] 20 mg PO DAILY 09/15/15 [History] Alendronate Sodium [Fosamax] 70 mg PO QWEEK 10/27/16 [History] Amiodarone HCl [Pacerone] 200 mg PO DAILY 10/27/16 [History] Ondansetron HCl [Zofran] 4 mg PO Q4H PRN 10/27/16 [History] Sennosides [Senna] 8.6 mg PO BID PRN 10/27/16 [History] Calcium Carbonate/Vitamin D3 [Calcium 600-Vit D3 400 Tablet] 1 each PO BID 11/17 [History] Metoprolol XL (24 HR) Succ [Toprol Xl] 75 mg PO DAILY 11/17/16 [History] Umeclidinium Brm/Vilanterol Tr [Anoro Ellipta 62.5-25 Mcg INH] 1 each IH DAILY 11/17/16 [History] Venlafaxine XR (24 HR) [Effexor XR] 75 mg PO DAILY 01/10/17 [History] Warfarin [Coumadin] 4.5 mg PO DAILY 01/10/17 [History] GuaiFENesin ER [Mucinex] 600 mg PO BID PRN #60 tbbp.12hr 01/14/17 [Rx] HYDROcodone/Acet 10/325 mg [Convent 10-325 mg] 1 tab PO Q6HR PRN #4 tablet [Rx] Theophylline Anhydrous [Femi-24] 100 mg PO DAILY #30 cap.er.24h 01/14/17 [Rx] hydrOXYzine pamoate [HydrOXYzine Pamoate] 25 mg PO BID PRN #14 capsule 01/14/17 [Rx] Beclomethasone Diprop 40mcg [Qvar 40 mcg] 1 puff IH BID 02/21/17 [History] Nitroglycerin [Nitrostat] 0.4 mg SL PRN PRN 02/21/17 [History] Azelastine 0.1% Nasal [place] [Astelin] 2 spray NS BID 03/10/17 [History] 3 Allergy/AdvReac Type Severity Reaction Status Date / Time codeine Allergy Hives Verified 03/22/17 18:37 latex Allergy Hives Verified 03/22/17 18:37 Penicillins Allergy Hives Verified 03/22/17 18:37 propoxyphene [From Darvon] Allergy Hives Verified 03/22/17 18:37 shellfish derived Allergy Hives Verified 03/22/17 18:37 ROS unobtainable: due to endotracheal tube All Systems: A 10-system review of systems was performed and is negative for pertinent findings except as documented above in the HPI. Physical Examination Vital Signs: Vital Signs, Last 4 Hours Temp Pulse Resp BP Pulse Ox 03/23/17 08:00 98.2 F 103 21 94/54 98 03/23/17 07:00 98.2 F 103 22 81/49 96 03/23/17 06:07 20 99 03/23/17 06:00 98 20 74/45 99 General appearance: other (sedated on vent. ) Eyes: nonicteric ENT: oropharynx moist Neck: supple Effort: mildly labored Auscultation: bilateral: wheezes, rhonchi Cardiovascular: other (sinus tachycardia) Gastrointestinal: hypoactive bowel sounds, soft, non-distended Integumentary: normal Extremities: no cyanosis Musculoskeletal: no deformities unable to assess due to mental status Ventilator Settings Ventilator Settings: Ventilator Settings, Last 8 Hours Ventilator Mode VC+ Ventilator Mode VC+ Ventilator Mode VC+ Ventilator Mode VC+ Ventilator Mode VC+ Ventilator Mode VC+ Ventilator Mode VC+ Ventilator Mode VC+ Ventilator Mode VC+ Ventilator Tidal Volume 450 Setting Ventilator Tidal Volume 450 Setting Ventilator Tidal Volume 450 Setting Ventilator Tidal Volume 450 Setting Ventilator Tidal Volume 450 Setting Ventilator Tidal Volume 450 Setting Ventilator Tidal Volume 450 Setting Ventilator Tidal Volume 450 Setting Ventilator Tidal Volume 450 Setting Ventilator Respiratory Rate 14 Setting Ventilator Respiratory Rate 14 Setting Ventilator Respiratory Rate 14 Setting Ventilator Respiratory Rate 14 Setting Ventilator Respiratory Rate 14 Setting Ventilator Respiratory Rate 14 Setting Ventilator Respiratory Rate 14 Setting Ventilator Respiratory Rate 14 Setting Ventilator Respiratory Rate 14 Setting Actual Respiratory Rate 22 Actual Respiratory Rate 22 Actual Respiratory Rate 19 Actual Respiratory Rate 25 Actual Respiratory Rate 25 Actual Respiratory Rate 26 Actual Respiratory Rate 26 Actual Respiratory Rate 26 Positive End Expiratory 5 Pressure Positive End Expiratory 5 Pressure Positive End Expiratory 5 Pressure Positive End Expiratory 5 Pressure Positive End Expiratory 5 Pressure Positive End Expiratory 5 Pressure Positive End Expiratory 5 Pressure Positive End Expiratory 5 Pressure Positive End Expiratory 5 Pressure Positive End Expiratory 5 Pressure Positive End Expiratory 5 Pressure Peak Inspiratory Airway 12 Pressure Peak Inspiratory Airway 12 Pressure Peak Inspiratory Airway 13 Pressure Peak Inspiratory Airway 11 Pressure Peak Inspiratory Airway 12 Pressure Peak Inspiratory Airway 14 Pressure Peak Inspiratory Airway 14 Pressure Peak Inspiratory Airway 16 Pressure Peak Inspiratory Airway 16 Pressure Peak Inspiratory Airway 16 Pressure Results - Laboratory Findings CBC and BMP: 03/23/17 01:50 03/23/17 10:54 ABG ABG pH 7.38 pH Units (7.32-7.45) 03/23/17 04:58 ABG pCO2 31 mmHg (35-45) L 03/23/17 04:58 ABG pO2 78 mmHg (85-104) L D 03/23/17 04:58 ABG O2 Saturation 95 % (95-98) 03/23/17 04:58 PT/INR, D-dimer PT 38.1 Seconds (9.4-12.1) H 03/22/17 15:52 Abnormal lab findings: Abnormal lab results WBC 18.8 K/mcL (4.3-11.1) H 03/23/17 01:50 RDW 15.1 % (11.5-14.5) H 03/23/17 01:50 Band Neutrophils % 10.0 % (0-4) H 03/22/17 15:52 Neutrophils # 17.4 K/mcL (1.6-8.9) H 03/23/17 01:50 Lymphocytes # 0.3 K/mcL (0.6-4.6) L 03/23/17 01:50 PT 38.1 Seconds (9.4-12.1) H 03/22/17 15:52 APTT 38.3 Seconds (26.0-36.0) H 03/22/17 15:52 ABG pCO2 31 mmHg (35-45) L 03/23/17 04:58 ABG pO2 78 mmHg (85-104) L D 03/23/17 04:58 ABG HCO3 18 mEq/L (21-27) L 03/23/17 04:58 ABG Total CO2 19 mEq/L (20-26) L 03/23/17 04:58 ABG Base Excess -6 mEq/L (-2 to 3) L 03/23/17 04:58 Sodium 129 mEq/L (136-145) L 03/23/17 05:18 Carbon Dioxide 16 mEq/L (23-29) L 03/23/17 05:18 BUN 26 mg/dL (8-23) H 03/23/17 05:18 Est GFR (Non-Af Amer) 57 (> 60) L 03/23/17 05:18 BUN/Creatinine Ratio 27 (6-26) H 03/23/17 05:18 Glucose 313 mg/dL (70-105) H 03/23/17 05:18 POC Glucose 118 (58-89) H 03/23/17 09:04 Hemoglobin A1c 10.0 % (-5.6) H 03/23/17 01:50 Lactic Acid 2.8 mmol/L (0.5-2.2) H 03/22/17 17:54 Calcium 7.9 mg/dL (8.6-10.3) L 03/23/17 05:18 Troponin I 0.97 ng/mL (< 0.04) H* 03/23/17 05:18 B-Natriuretic Peptide 789 pg/mL (Less than 100) H 03/22/17 15:52 Cholesterol 234 mg/dL (< 200) H 03/23/17 01:50 LDL Cholesterol, Calc 114 mg/dL (0-99) H 03/23/17 01:50 HDL Cholesterol 97 mg/dL (40-59) H 03/23/17 01:50 Beta-Hydroxybutyric Acd > 2.00 mmol/L (0.02-0.27) H 03/23/17 05:18 - Microbiology Findings Microbiology Findings: Microbiology, Last 48 Hours 03/23/17 03:00 Legionella Antigen - Final Urine,[place] Streptococcus pneumoniae Antigen (M - Final - Clinical Findings Intake & Output: Intake & Output 03/22/17 03/23/17 03/23/17 23:59 07:59 15:59 Intake Total 75.7 / 1325.7 95 / 95 Output Total 600 / 600 775 / 775 Balance -524.3 / 725.7 -680 / -680 Consult Discharge Plan - Plan Referrals: Valente Rosa MD [Primary Care Provider] - <Reina Garcia M - Last Filed: 03/23/17 16:19> Date of Encounter: 03/23/17 All Systems: A 10-system review of systems was performed and is negative for pertinent findings except as documented above in the HPI. Physical Examination Vital Signs: Vital Signs, Last 4 Hours Temp Pulse Resp BP Pulse Ox 03/23/17 15:22 100.0 F H 03/23/17 14:00 123 25 85/54 95 03/23/17 13:30 26 92/65 96 03/23/17 13:00 112 23 102/64 96 Ventilator Settings Ventilator Settings: Ventilator Settings, Last 8 Hours Ventilator Mode VC+ Ventilator Mode VC+ Ventilator Mode VC+ Ventilator Mode VC+ Ventilator Tidal Volume 450 Setting Ventilator Tidal Volume 450 Setting Ventilator Tidal Volume 450 Setting Ventilator Tidal Volume 450 Setting Ventilator Respiratory Rate 14 Setting Ventilator Respiratory Rate 14 Setting Ventilator Respiratory Rate 14 Setting Ventilator Respiratory Rate 14 Setting Actual Respiratory Rate 25 Actual Respiratory Rate 26 Actual Respiratory Rate 27 Actual Respiratory Rate 25 Actual Respiratory Rate 22 Actual Respiratory Rate 20 Actual Respiratory Rate 21 Actual Respiratory Rate 20 Actual Respiratory Rate 19 Actual Respiratory Rate 22 Positive End Expiratory 5 Pressure Positive End Expiratory 5 Pressure Positive End Expiratory 5 Pressure Positive End Expiratory 5 Pressure Positive End Expiratory 5 Pressure Positive End Expiratory 5 Pressure Positive End Expiratory 5 Pressure Peak Inspiratory Airway 15 Pressure Peak Inspiratory Airway 12 Pressure Peak Inspiratory Airway 15 Pressure Peak Inspiratory Airway 19 Pressure Peak Inspiratory Airway 13 Pressure Results - Laboratory Findings CBC and BMP: 03/23/17 01:50 03/23/17 13:46 ABG ABG pH 7.38 pH Units (7.32-7.45) 03/23/17 04:58 ABG pCO2 31 mmHg (35-45) L 03/23/17 04:58 ABG pO2 78 mmHg (85-104) L D 03/23/17 04:58 ABG O2 Saturation 95 % (95-98) 03/23/17 04:58 PT/INR, D-dimer PT 38.1 Seconds (9.4-12.1) H 03/23/17 14:25 Abnormal lab findings: Abnormal lab results WBC 18.8 K/mcL (4.3-11.1) H 03/23/17 01:50 RDW 15.1 % (11.5-14.5) H 03/23/17 01:50 Band Neutrophils % 10.0 % (0-4) H 03/22/17 15:52 Neutrophils # 17.4 K/mcL (1.6-8.9) H 03/23/17 01:50 Lymphocytes # 0.3 K/mcL (0.6-4.6) L 03/23/17 01:50 PT 38.1 Seconds (9.4-12.1) H 03/23/17 14:25 APTT 38.3 Seconds (26.0-36.0) H 03/22/17 15:52 ABG pCO2 31 mmHg (35-45) L 03/23/17 04:58 ABG pO2 78 mmHg (85-104) L D 03/23/17 04:58 ABG HCO3 18 mEq/L (21-27) L 03/23/17 04:58 ABG Total CO2 19 mEq/L (20-26) L 03/23/17 04:58 ABG Base Excess -6 mEq/L (-2 to 3) L 03/23/17 04:58 Sodium 132 mEq/L (136-145) L 03/23/17 13:46 Carbon Dioxide 18 mEq/L (23-29) L 03/23/17 13:46 BUN 26 mg/dL (8-23) H 03/23/17 13:46 Est GFR (Non-Af Amer) 59 (> 60) L 03/23/17 13:46 BUN/Creatinine Ratio 28 (6-26) H 03/23/17 13:46 Glucose 298 mg/dL (70-105) H 03/23/17 13:46 POC Glucose 240 (58-89) H 03/23/17 14:57 Hemoglobin A1c 10.0 % (-5.6) H 03/23/17 01:50 Lactic Acid 2.8 mmol/L (0.5-2.2) H 03/22/17 17:54 Troponin I 0.97 ng/mL (< 0.04) H* 03/23/17 05:18 B-Natriuretic Peptide 789 pg/mL (Less than 100) H 03/22/17 15:52 Cholesterol 234 mg/dL (< 200) H 03/23/17 01:50 LDL Cholesterol, Calc 114 mg/dL (0-99) H 03/23/17 01:50 HDL Cholesterol 97 mg/dL (40-59) H 03/23/17 01:50 Beta-Hydroxybutyric Acd > 2.00 mmol/L (0.02-0.27) H 03/23/17 05:18 - Microbiology Findings Microbiology Findings: Microbiology, Last 48 Hours 03/23/17 14:35 Sputum Culture - Preliminary Sputum 03/23/17 03:00 Legionella Antigen - Final Urine,[place] Streptococcus pneumoniae Antigen (M - Final - Clinical Findings Intake & Output: Intake & Output 03/23/17 03/23/17 03/23/17 07:59 15:59 23:59 Intake Total 95 / 95 Output Total 775 / 775 350 / 350 Balance -680 / -680 -350 / -350 - Attending Attestation I examined this patient and my medical decision-making was reviewed with the Resident Physician. I agree with the documented findings, disposition and treatment plan as described except to the extent set forth below. Patient seen and examined. Labs, radiology, chart personally reviewed. Agree with resident's history and physical, assessment, plan with following comments: OPTOMETRY ASSISTANT: Patient follows simple commands, patient is on sedation for the vent synchrony and comfort. Pulmonary: Patient with significant underlying COPD with history of recurrent pneumonia and presenting with acute on chronic respiratory failure and patient is on broad-spectrum antibiotics with evidence of pulmonary edema. Patient needs to be on a ventilator for now. Will adjust her ventilator setting based on her oxygen saturation and ABG result. Cardiovascular: This is a very complicated situation with evidence of pulmonary edema on the chest x-ray and patient has evidence of diabetic ketoacidosis which requires fluid treatment and we will carefully treat both conditions and appreciate the laborer aquatic life's input. GI: Nutrition per dietary and GI prophylaxis per routine. Once DKA under control to start to feed. Heme: DVT prophylaxis per routine. Patient already has a therapeutic INR for her underlying cardiac disease. ID: Continue antibiotics and plan to de-escalation Renal; urine out put and renal funtion reviewed Endorcine: blood glucose is monitored. Patient to be treated according to DKA protocol. Lines: all lines checked and no evidence of infections Skin: skin care to prevent pressure ulcers per nursing routine care Prognosis is poor. I spent 35 min of Critical Care time with this patient. It involved decision making of high complexity to assess, manipulate, and support vital organ system failure and/or to prevent further life threatening deterioration of the patient' s condition. The time involved in the performance of separately reportable procedures was not counted toward critical care time.
[2017-03-23] MEDS: *HR* Amiodarone 200 MG TABLET PO SCH (09:27)
[2017-03-23] MEDS: Aspirin Enteric Coated 81 MG Tablet PO SCH (09:27)
[2017-03-23] MEDS: Chlorhexidine Rinse 15 ML MOUTHWASH MM SCH ×2 (09:27→20:45)
--- NOTE | 2017-03-23 09:27 | Cardiology Consult Note ---
Date of Encounter: 03/23/17 Time of Encounter: 09:30 Assessment and Plan (1) Elevated troponin Current Visit: Yes Status: Acute Troponin levels were as follows; 0.78, 0.84, 0.97. Patient was not started on heparin; patient is on warfarin with an INR of 3.4. Plan: -Continuous cardiac monitoring. -ASA 81 mg PO QD -Lipitor 10 mg PO HS -Obtain ECHO Discussion w patient/family: The assessment and plan as outlined above was discussed with the patient and/or family members who expressed understanding and agreement. All questions were answered. Thank you for involving us in the care of your patient. Please call with any questions. History of Present Illness Consult date: 03/23/17 Chief complaint: shortness of breath History of present illness: Ms. Baird is a 71 year old female with a PMHx of COPD, Afib, lung cancer, CHF , HTN, and DM who presented to the ED for difficulty breathing. Known history of COPD and is on 2L of oxygen at home. Patient stated that she began having difficulty with breathing that started in the morning and gradually worsened throughout the day. Had productive cough without fever. Patient had previously been diagnosed with pneumonia; was started on antibiotics. Patient denied any chest pain, headaches, vision changes, abdominal pain, numbness or tingling, or weakness. Laboratory examination demonstrated leukocytosis with 16. Started on cefepime and vancomycin for suspected pneumonia. Patient's troponin level was elevated at 0.78. Patient denied having any chest pains. EKG demonstrated ST elevations in V1 and V3. Patient's CODE STATUS is DNR CCA. Heparin was not started; patient is already on warfarin, INR 3.4. Patient was intubated due to tachypnea with labored breathing. Acute respiratory failure was likely secondary to pneumonia and severe sepsis. Patient was seen and examined at bedside this morning; unable to obtain history , as patient is currently intubated and sedated. Past Med Surg Social Fam HX - Past Medical History Medical history: asthma, atrial fibrillation, cancer, COPD, diabetes, hypertension Psychiatric history: anxiety - Past Surgical History Surgical History: appendectomy, cancer surgery, cholecystectomy, hysterectomy, knee replacement - Social History Smoking Status: Former smoker Smokeless Tobacco Status: No Alcohol use: none Drug use: none - Family History Mother Living Status: Hx Family Cardiac Disorders: Yes (HEART DISEASE) Hx Family Endocrine Disorder: Yes (DIABETES) Medications and Allergies Albuterol Neb [Proventil Neb] 2.5 mg IH Q6H PRN 04/30/15 [History] Atorvastatin [Lipitor] 10 mg PO HS 04/30/15 [History] Docusate [Colace] 100 mg PO BID 04/30/15 [History] Ferrous Sulfate 325 mg PO DAILY 04/30/15 [History] Insulin ASPART [NovoLOG] 0 - 5 unit SQ QID 04/30/15 [History] Loratadine [Claritin] 10 mg PO DAILY 04/30/15 [History] Meclizine [Antivert] 25 mg PO BID 04/30/15 [History] Montelukast [Singulair] 10 mg PO DAILY 04/30/15 [History] Omeprazole [PriLOSEC] 20 mg PO BID 04/30/15 [History] Potassium Chloride [K-Tab ER] 20 meq PO DAILY 04/30/15 [History] Roflumilast [Daliresp] 500 mcg PO DAILY 04/30/15 [History] Furosemide [Lasix] 20 mg PO DAILY 09/15/15 [History] Alendronate Sodium [Fosamax] 70 mg PO QWEEK 10/27/16 [History] Amiodarone HCl [Pacerone] 200 mg PO DAILY 10/27/16 [History] Ondansetron HCl [Zofran] 4 mg PO Q4H PRN 10/27/16 [History] Sennosides [Senna] 8.6 mg PO BID PRN 10/27/16 [History] Calcium Carbonate/Vitamin D3 [Calcium 600-Vit D3 400 Tablet] 1 each PO BID 11/17 [History] Metoprolol XL (24 HR) Succ [Toprol Xl] 75 mg PO DAILY 11/17/16 [History] Umeclidinium Brm/Vilanterol Tr [Anoro Ellipta 62.5-25 Mcg INH] 1 each IH DAILY 11/17/16 [History] Venlafaxine XR (24 HR) [Effexor XR] 75 mg PO DAILY 01/10/17 [History] Warfarin [Coumadin] 4.5 mg PO DAILY 01/10/17 [History] GuaiFENesin ER [Mucinex] 600 mg PO BID PRN #60 tbbp.12hr 01/14/17 [Rx] HYDROcodone/Acet 10/325 mg [[place] 10-325 mg] 1 tab PO Q6HR PRN #4 tablet [Rx] Theophylline Anhydrous [Femi-24] 100 mg PO DAILY #30 cap.er.24h 01/14/17 [Rx] hydrOXYzine pamoate [HydrOXYzine Pamoate] 25 mg PO BID PRN #14 capsule 01/14/17 [Rx] Beclomethasone Diprop 40mcg [Qvar 40 mcg] 1 puff IH BID 02/21/17 [History] Nitroglycerin [Nitrostat] 0.4 mg SL PRN PRN 02/21/17 [History] Azelastine 0.1% Nasal [place] [Astelin] 2 spray NS BID 03/10/17 [History] 3 Allergy/AdvReac Type Severity Reaction Status Date / Time codeine Allergy Hives Verified 03/22/17 18:37 latex Allergy Hives Verified 03/22/17 18:37 Penicillins Allergy Hives Verified 03/22/17 18:37 propoxyphene [From Darvon] Allergy Hives Verified 03/22/17 18:37 shellfish derived Allergy Hives Verified 03/22/17 18:37 ROS unobtainable: due to endotracheal tube, due to mental status All Systems Review: A 10-system review of systems was performed and is negative for pertinent findings except as documented above in the HPI. Physical Examination Vital Signs, Last 4 Hours Temp Pulse Resp BP Pulse Ox 03/23/17 08:00 98.2 F 103 21 94/54 98 03/23/17 07:00 98.2 F 103 22 81/49 96 03/23/17 06:07 20 99 03/23/17 06:00 98 20 74/45 99 General: Other (intubated and sedated) Cardiac: Reg Rate and Rhythm, Normal S1 and S2, No Murmur Lungs: Other (diffuse crackles) Extremities: No Clubbing, No Edema, Normal Pulses Results 03/23/17 01:50 03/23/17 10:54 Lab Results 03/23/17 03/23/17 03/23/17 01:50 01:50 05:18 WBC 18.8 H Hgb 11.9 Hct 35.9 Plt Count 322 Sodium 130 L Potassium 4.5 D Chloride 93 L Carbon Dioxide 15 L BUN 26 H Creatinine 1.00 Glucose 574 H* Calcium 9.2 Troponin I 0.97 H* 03/23/17 05:18 WBC Hgb Hct Plt Count Sodium 129 L Potassium 5.0 Chloride 98 Carbon Dioxide 16 L BUN 26 H Creatinine 0.96 Glucose 313 H Calcium 7.9 L Troponin I Consult Discharge Plan - Plan Referrals: Valente Rosa MD [Primary Care Provider] -
[2017-03-23] MEDS: Budesonide/Formoterol 160/4.5 MDI IH SCH ×2 (09:45→21:44)
[2017-03-23] MEDS: Ipratropium/Albuterol Neb 3 ML IH SCH ×3 (09:45→21:44)
[2017-03-23 11:30] LABS: BUN/Creatinine Ratio 27 (6-26); Blood Urea Nitrogen 26 mg/dL (8-23); Calcium 8.9 mg/dL (8.6-10.3); Carbon Dioxide 24 mEq/L (23-29); Chloride 100 mEq/L (98-107); Glucose 168 mg/dL (70-105); Osmolality,Calculated 287 (280-300); Potassium 3.8 mEq/L (3.5-5.1); Sodium 134 mEq/L (136-145); eGFR For African Americans > 60 (> 60); eGFR For Non-African Americans 56 (> 60)
[2017-03-23] MEDS ORDERED: Potassium Chloride Elixir 20 MEQ/15 ML UDC GTUBE ONE (11:45)
[2017-03-23] MEDS ORDERED: Dextrose Gel 15 GM/37.5 ML TUBE PO PRN ×2 (11:46)
[2017-03-23] MEDS ORDERED: D5% in Water 1,000 ML IVC PRN (11:46)
[2017-03-23] MEDS: Cefepime HCl 1,000 MG in Water for inj. (sterile) 20 ML 10 ML IVPB SCH ×2 (12:07→23:24)
[2017-03-23] MEDS: Vancomycin 1,000 MG in D5% in Water 250 ML IVPB SCH (12:08)
[2017-03-23] MEDS: Insulin LISPRO 300 UNITS/3 ML VIAL SQ SCH ×4 (13:02→23:23)
[2017-03-23] MEDS: Insulin DETEMIR 100 UNIT/ML X5UNITS SQ SCH (13:30)
[2017-03-23 14:39] LABS: INR 3.4; Prothrombin Time 38.1 Seconds (9.4-12.1)
[2017-03-23 14:43] LABS: BUN/Creatinine Ratio 28 (6-26); Blood Urea Nitrogen 26 mg/dL (8-23); Calcium 8.9 mg/dL (8.6-10.3); Carbon Dioxide 18 mEq/L (23-29); Chloride 98 mEq/L (98-107); Glucose 298 mg/dL (70-105); Osmolality,Calculated 290 (280-300); Potassium 3.8 mEq/L (3.5-5.1); Sodium 132 mEq/L (136-145); eGFR For African Americans > 60 (> 60); eGFR For Non-African Americans 59 (> 60)
[2017-03-23] MEDS ORDERED: Vancomycin 750 MG in D5% in Water 250 ML IVPB SCH (16:00)
--- NOTE | 2017-03-23 16:27 | Electrocardiograph Report ---
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
--- NOTE | 2017-03-23 16:39 | Electrocardiograph Report ---
[place] [address] Test Date: 2017-03-22 Pat Name: Bella Baird Department: 104 Room: 11 Gender: F Tooth Clerk: : 1945 Requested By: Jose R Kee Order Number: [id number] Reading MD: Kira Nieto Measurements Intervals [place] Rate: 99 P: 54 HI: 204 QRS: 3 QRSD: 102 T: 48 QT: 362 QTc: 419 Interpretive Statements SINUS RHYTHM LEFT ATRIAL ENLARGEMENT [-0.15mV P WAVE IN V1/V2] INCOMPLETE RIGHT BUNDLE BRANCH BLOCK [90+ ms QRS DURATION, TERMINAL R IN V1/V2, 40+ ms S IN I/aVL/V4/V5/V6] POSSIBLE OLD SEPTAL ND NONSPECIFIC ST & T-WAVE ABNORMALITY Electronically Signed On 03-23-2017 16:37:22 EST by Kira Nieto
[2017-03-23] MEDS: MethylPREDNISolone 40 MG/ML VIAL IVP SCH (16:54)
[2017-03-23] MEDS ORDERED: Warfarin perPT PO PRN (18:00)
[2017-03-23 18:28] LABS: BUN/Creatinine Ratio 26 (6-26); Blood Urea Nitrogen 24 mg/dL (8-23); Carbon Dioxide 26 mEq/L (23-29); Chloride 100 mEq/L (98-107); Glucose 202 mg/dL (70-105); Osmolality,Calculated 288 (280-300); Potassium 3.9 mEq/L (3.5-5.1); Sodium 134 mEq/L (136-145); eGFR For African Americans > 60 (> 60); eGFR For Non-African Americans 59 (> 60)
[2017-03-23] MEDS: FentaNYL (PF) 1,000 MCG in 0.9 % Sodium Chloride 80 ML IVC SCH (20:41)
[2017-03-23 21:43] LABS: BUN/Creatinine Ratio 27 (6-26); Blood Urea Nitrogen 25 mg/dL (8-23); Calcium 8.9 mg/dL (8.6-10.3); Carbon Dioxide 24 mEq/L (23-29); Chloride 103 mEq/L (98-107); Glucose 144 mg/dL (70-105); Osmolality,Calculated 285 (280-300); Potassium 4.1 mEq/L (3.5-5.1); Sodium 134 mEq/L (136-145); eGFR For African Americans > 60 (> 60); eGFR For Non-African Americans > 60 (> 60)
[2017-03-23] MEDS ORDERED: 0.9 % Sodium Chloride 250 ML IVC ONE (22:18)
[2017-03-23] MEDS ORDERED: 0.9 % Sodium Chloride 250 ML ONE (22:20)
[2017-03-24] MEDS: Levofloxacin 750 MG/150 ML 750 MG/150 ML BAG IVPB SCH (02:11)
[2017-03-24] MEDS: Ipratropium/Albuterol Neb 3 ML IH SCH ×4 (03:51→22:04)
[2017-03-24] MEDS: Insulin LISPRO 300 UNITS/3 ML VIAL SQ SCH ×6 (03:57→23:42)
[2017-03-24] MEDS: Lacri-Lube 3.5 GM TUBE BOTH EYES SCH ×6 (03:57→23:26)
[2017-03-24 04:12] LABS: Basophils % 0.2 %; Hematocrit 33.2 % (35.3-44.9); Hemoglobin 10.9 g/dL (11.5-15.4); Immature Granulocytes % 1.1 % (0-4); Lymphocytes # 0.3 K/mcL (0.6-4.6); Lymphocytes % 2.6 %; Mean Corpuscular HGB Conc 32.8 g/dL (31.6-35.5); Mean Corpuscular Hemoglobin 29.9 pg (28.0-33.3); Mean Corpuscular Volume 91.2 fL (83.0-100.0); Mean Platelet Volume 9.7 fL (9.4-12.4); Monocytes # 0.4 K/mcL (0.0-1.3); Monocytes % 3.4 %; Neutrophils # 11.4 K/mcL (1.6-8.9); Platelet Count 244 K/mcL (140-400); Red Blood Count 3.64 M/mcL (3.82-4.97); Red Cell Distribution Width 15.4 % (11.5-14.5); Segmented Neutrophils % 92.7 %
[2017-03-24 04:27] LABS: BUN/Creatinine Ratio 31 (6-26); Blood Urea Nitrogen 26 mg/dL (8-23); Calcium 8.7 mg/dL (8.6-10.3); Carbon Dioxide 25 mEq/L (23-29); Chloride 103 mEq/L (98-107); Glucose 199 mg/dL (70-105); Osmolality,Calculated 290 (280-300); Potassium 4.1 mEq/L (3.5-5.1); Sodium 135 mEq/L (136-145); eGFR For African Americans > 60 (> 60); eGFR For Non-African Americans > 60 (> 60)
[2017-03-24 04:30] LABS: INR 5.5
[2017-03-24] MEDS: MethylPREDNISolone 40 MG/ML VIAL IVP SCH ×2 (04:49→17:06)
[2017-03-24] MEDS: Pantoprazole 40 MG VIAL IVP SCH (04:49)
[2017-03-24 05:21] LABS: ABG Base Excess 1 mEq/L (-2 to 3); ABG HCO3 23 mEq/L (21-27); ABG Oxygen Saturation 99 % (95-98); ABG PCO2 29 mmHg (35-45); ABG PH 7.51 pH Units (7.32-7.45); ABG PO2 105 mmHg (85-104); ABG TCO2 24 mEq/L (20-26); Blood Gas Modality PRVC; Blood Gas PEEP 5 cm H2O; Blood Gas Respiration Rate 14; Blood Gas VT 450 cc
[2017-03-24] MEDS: Chlorhexidine Rinse 15 ML MOUTHWASH MM SCH ×2 (08:43→19:48)
[2017-03-24] MEDS: Aspirin Enteric Coated 81 MG Tablet PO SCH (08:43)
[2017-03-24] MEDS: *HR* Amiodarone 200 MG TABLET PO SCH (08:44)
[2017-03-24] MEDS: Insulin DETEMIR 100 UNIT/ML X5UNITS SQ SCH (08:48)
--- NOTE | 2017-03-24 09:32 | Pulmonology Progress Note ---
<Kelton Guardado - Last Filed: 03/24/17 11:49> Date of Encounter: 03/24/17 Time of Encounter: 09:32 Assessment and Plan (1) Acute and chronic respiratory failure ([id number]) Current Visit: Yes Status: Acute Pt with Hx of COPD on home O2 patient refused BiPAP and prefered intubation instead due to worsenign respiratory status Patient started on Q8H solumedrol reduced steroids to BID patient started on vanc, cefepime, and levaquin added duonebs and symbicort Patient successfully extubated this morning. Transitioned to bipap and then to NC. Plan: Stop levaquin continue other abx continue duonebs and symbicort continue NC Qualifiers: Respiratory failure complication: hypercapnia Qualified Code(s): J96.22 - Acute and chronic respiratory failure with hypercapnia (2) Acute exacerbation of chronic obstructive pulmonary disease (COPD) Current Visit: Yes Status: Acute Pt with Hx of COPD patient reported change in sputum productiona nd increased SOB Patient started on Q8H solumedrol patient started on vanc, cefepime, levaquin reduced steroids to BID added duonebs and symbicort Plan: Stopped levaquin continue abx continue O2 supplementation (3) DKA (diabetic ketoacidoses) Current Visit: Yes Status: Acute Patient with Hx of DM Patient presented with Glucose of 584 Gap of 17 DKA protocol initiated with alteration in fluid resucitation to limit fluid overload Gap widened up to 22 then closed to 15 followed by 10 switch to SSI turn off insulin drip started on 15 of levemir yesterday Plan: Continue to monitor continue accuchecks clear liquid diet started, will progress as tolerated. Qualifiers: Diabetes mellitus type: type 2 Diabetes mellitus complication detail: without coma Qualified Code(s): E11.10 - Type 2 diabetes mellitus with ketoacidosis without coma (4) Severe sepsis Current Visit: Yes Status: Acute Pt met criteria for severe sepsis 2/2 to LA 2.9, WBC 16, tacycardia, tachypnea, hypotension Likely 2/2 to PNA and respiratory failure Started on Steroids, vanc, cefepime, and levaquin bcx pending Plan: continue to monitor checking viral respiratory panel continue abx as above (5) HCAP (healthcare-associated pneumonia) Current Visit: Yes Status: Acute Patient Dx with PNA and started on abx at an outside facilty per chart review Pt a alf patient. 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 Sinus tachycardia. LVEF >70%. Normal LV chamber size and function. Moderate concentric left ventricular hypertrophy. Mild left ventricular diastolic dysfunction. Grossly, normal right ventricular structure and function. Grossly, moderately dilated left atrium. Severe mitral annular calcification as well as calcification of the subvalvular apparatus. Mildly thickened and calcified mitral valve leaflets. Severe mitral stenosis. Mean gradient 12 mmHg (HR 119 bpm). Moderate pulmonary hypertension. Estimated RVSP is 49 mmHg." Plan: rechecking top to make sure has peaked continue to monitor cardiology on board will appreciate any recs. (7) Aortic stenosis Current Visit: No Status: Chronic Hx of Patient received limited fluid resuscitation as a result. per recordas and Echo also has Mitral Stenosis as well Plan: continue to be conscious with giving any fluids Qualifiers: Cardiac valve disease etiology: etiology unspecified Qualified Code(s): I35.0 - Nonrheumatic aortic (valve) stenosis (8) Chronic hyponatremia Current Visit: Yes Status: Acute Based on chart review patient has hx of hyponatremia based on prior admissions. Plan: continue to monitor daily BMP (9) A-fib Current Visit: No Status: Acute Patient on middle or intermediate [employer] principal coumadin use for a fib holding while super therapeutic. INR went up to 5.5 despite not receiveing any doses likely 2/2 to levaquin and steroids Plan: Started Coumadin dosed by pharmacy. continue to monitor pt/inr stopped levaquin Qualifiers: Atrial fibrillation type: chronic Qualified Code(s): I48.2 - Chronic atrial fibrillation (10) DM2 (diabetes mellitus, type 2) Current Visit: Yes Status: Chronic Hx of DM on correction insulin use. See DKA for management. Qualifiers: Diabetes mellitus complication status: with unspecified complications Diabetes mellitus correction insulin use: unspecified middle or intermediate school principal insulin use status Qualified Code(s): E11.8 - Type 2 diabetes mellitus with unspecified complications (11) Lung cancer Current Visit: No Status: Acute Hx of Lung CA s/p resection Qualifiers: Laterality: right Lung location: unspecified part of lung Qualified Code( s): C34.91 - Malignant neoplasm of unspecified part of right bronchus or lung (12) Diastolic heart failure Current Visit: Yes Status: Acute Patient with hx of d CHF plan: exercise caution with fluid resuscitation. Qualifiers: Heart failure chronicity: chronic Qualified Code(s): I50.32 - Chronic diastolic (congestive) heart failure (13) DVT prophylaxis Current Visit: No Status: Acute Holding DVT PPx secondary to elevated INR 5.5 Plan: ordered coumadin pharmacy to dose. Will start once INR no longer super therapeutic. Subjective Principal diagnosis: Acute Respiratory Failure 2/2 COPD exacerbation 2/2 PNA Interval history: Patient extubated successfully today. Patient sating well on NC. Objective PUL Vital signs: Last Vital Signs Temp 99.8 F H 03/24/17 08:25 Pulse 104 03/24/17 08:00 Resp 20 03/24/17 08:00 BP 77/45 03/24/17 08:00 Pulse Ox 98 03/24/17 08:00 General appearance: no acute distress, lethargic Eyes: nonicteric ENT: oropharynx moist Neck: supple Effort: mildly labored Auscultation: bilateral: wheezes Cardiovascular: regular rate and rhythm Gastrointestinal: normoactive bowel sounds, soft, non-tender, non-distended Integumentary: normal Extremities: no cyanosis Musculoskeletal: no deformities non-focal exam Ventilator Settings Ventilator Settings: Ventilator Settings, Last 8 Hours Ventilator Mode VC+ Ventilator Mode VC+ Ventilator Mode VC+ Ventilator Mode VC+ Ventilator Mode VC+ Ventilator Mode VC+ Ventilator Mode VC+ Ventilator Mode VC+ Ventilator Mode VC+ Ventilator Mode VC+ Ventilator Tidal Volume 450 Setting Ventilator Tidal Volume 450 Setting Ventilator Tidal Volume 450 Setting Ventilator Tidal Volume 450 Setting Ventilator Tidal Volume 450 Setting Ventilator Tidal Volume 450 Setting Ventilator Tidal Volume 450 Setting Ventilator Tidal Volume 450 Setting Ventilator Tidal Volume 450 Setting Ventilator Tidal Volume 450 Setting Ventilator Respiratory Rate 14 Setting Ventilator Respiratory Rate 14 Setting Ventilator Respiratory Rate 14 Setting Ventilator Respiratory Rate 14 Setting Ventilator Respiratory Rate 14 Setting Ventilator Respiratory Rate 14 Setting Ventilator Respiratory Rate 14 Setting Ventilator Respiratory Rate 14 Setting Ventilator Respiratory Rate 14 Setting Ventilator Respiratory Rate 14 Setting Actual Respiratory Rate 20 Actual Respiratory Rate 20 Actual Respiratory Rate 25 Actual Respiratory Rate 20 Actual Respiratory Rate 22 Actual Respiratory Rate 18 Actual Respiratory Rate 22 Actual Respiratory Rate 19 Actual Respiratory Rate 18 Positive End Expiratory 0 Pressure Positive End Expiratory 0 Pressure Positive End Expiratory 0 Pressure Positive End Expiratory 0 Pressure Positive End Expiratory 5 Pressure Positive End Expiratory 0 Pressure Positive End Expiratory 0 Pressure Positive End Expiratory 0 Pressure Positive End Expiratory 0 Pressure Positive End Expiratory 0 Pressure Peak Inspiratory Airway 17 Pressure Peak Inspiratory Airway 8.5 Pressure Peak Inspiratory Airway 14 Pressure Peak Inspiratory Airway 23 Pressure Peak Inspiratory Airway 10 Pressure Peak Inspiratory Airway 8.2 Pressure Peak Inspiratory Airway 14 Pressure Results - Laboratory Findings CBC and BMP: 03/24/17 03:55 03/24/17 03:55 ABG ABG pH 7.51 pH Units (7.32-7.45) H 03/24/17 05:17 ABG pCO2 29 mmHg (35-45) L 03/24/17 05:17 ABG pO2 105 mmHg (85-104) H 03/24/17 05:17 ABG O2 Saturation 99 % (95-98) H 03/24/17 05:17 PT/INR, D-dimer PT 61.0 Seconds (9.4-12.1) H* D 03/24/17 03:55 Abnormal lab findings: Abnormal lab results WBC 12.3 K/mcL (4.3-11.1) H 03/24/17 03:55 RBC 3.64 M/mcL (3.82-4.97) L 03/24/17 03:55 Hgb 10.9 g/dL (11.5-15.4) L 03/24/17 03:55 Hct 33.2 % (35.3-44.9) L 03/24/17 03:55 RDW 15.4 % (11.5-14.5) H 03/24/17 03:55 Band Neutrophils % 10.0 % (0-4) H 03/22/17 15:52 Neutrophils # 11.4 K/mcL (1.6-8.9) H 03/24/17 03:55 Lymphocytes # 0.3 K/mcL (0.6-4.6) L 03/24/17 03:55 PT 61.0 Seconds (9.4-12.1) H* D 03/24/17 03:55 INR 5.5 H* D 03/24/17 03:55 APTT 38.3 Seconds (26.0-36.0) H 03/22/17 15:52 ABG pH 7.51 pH Units (7.32-7.45) H 03/24/17 05:17 ABG pCO2 29 mmHg (35-45) L 03/24/17 05:17 ABG pO2 105 mmHg (85-104) H 03/24/17 05:17 ABG O2 Saturation 99 % (95-98) H 03/24/17 05:17 Sodium 135 mEq/L (136-145) L 03/24/17 03:55 BUN 26 mg/dL (8-23) H 03/24/17 03:55 BUN/Creatinine Ratio 31 (6-26) H 03/24/17 03:55 Glucose 199 mg/dL (70-105) H 03/24/17 03:55 POC Glucose 208 (58-89) H 03/24/17 08:14 Hemoglobin A1c 10.0 % (-5.6) H 03/23/17 01:50 Troponin I 0.97 ng/mL (< 0.04) H* 03/23/17 05:18 B-Natriuretic Peptide 789 pg/mL (Less than 100) H 03/22/17 15:52 Cholesterol 234 mg/dL (< 200) H 03/23/17 01:50 LDL Cholesterol, Calc 114 mg/dL (0-99) H 03/23/17 01:50 HDL Cholesterol 97 mg/dL (40-59) H 03/23/17 01:50 Beta-Hydroxybutyric Acd > 2.00 mmol/L (0.02-0.27) H 03/23/17 05:18 - Microbiology Findings Microbiology Findings: Microbiology, Last 48 Hours 03/23/17 05:18 Blood Culture - Preliminary Peripheral Venipuncture No growth. 03/23/17 14:35 Sputum Culture - Preliminary Sputum 03/23/17 03:00 Legionella Antigen - Final Urine,[place] Streptococcus pneumoniae Antigen (M - Final - Clinical Findings Intake & Output: Intake & Output 03/23/17 03/24/17 03/24/17 23:59 07:59 15:59 Intake Total 448 / 448 252.2 / 252.2 Output Total 275 / 275 100 / 100 150 / 150 Balance 173 / 173 152.2 / 152.2 -150 / -150 Weight 60.6 kg Consult Discharge Plan - Plan Referrals: Valente Rosa MD [Primary Care Provider] - <Reina Garcia - Last Filed: 03/24/17 17:20> Date of Encounter: 03/24/17 Objective PUL Vital signs: Last Vital Signs Temp 98.3 F 03/24/17 15:48 Pulse 89 03/24/17 17:00 Resp 18 03/24/17 17:00 BP 81/52 03/24/17 17:00 Pulse Ox 98 03/24/17 17:00 Results - Laboratory Findings CBC and BMP: 03/24/17 03:55 03/24/17 03:55 ABG ABG pH 7.51 pH Units (7.32-7.45) H 03/24/17 05:17 ABG pCO2 29 mmHg (35-45) L 03/24/17 05:17 ABG pO2 105 mmHg (85-104) H 03/24/17 05:17 ABG O2 Saturation 99 % (95-98) H 03/24/17 05:17 PT/INR, D-dimer PT 61.0 Seconds (9.4-12.1) H* D 03/24/17 03:55 Abnormal lab findings: Abnormal lab results WBC 12.3 K/mcL (4.3-11.1) H 03/24/17 03:55 RBC 3.64 M/mcL (3.82-4.97) L 03/24/17 03:55 Hgb 10.9 g/dL (11.5-15.4) L 03/24/17 03:55 Hct 33.2 % (35.3-44.9) L 03/24/17 03:55 RDW 15.4 % (11.5-14.5) H 03/24/17 03:55 Band Neutrophils % 10.0 % (0-4) H 03/22/17 15:52 Neutrophils # 11.4 K/mcL (1.6-8.9) H 03/24/17 03:55 Lymphocytes # 0.3 K/mcL (0.6-4.6) L 03/24/17 03:55 PT 61.0 Seconds (9.4-12.1) H* D 03/24/17 03:55 INR 5.5 H* D 03/24/17 03:55 APTT 38.3 Seconds (26.0-36.0) H 03/22/17 15:52 ABG pH 7.51 pH Units (7.32-7.45) H 03/24/17 05:17 ABG pCO2 29 mmHg (35-45) L 03/24/17 05:17 ABG pO2 105 mmHg (85-104) H 03/24/17 05:17 ABG O2 Saturation 99 % (95-98) H 03/24/17 05:17 Sodium 135 mEq/L (136-145) L 03/24/17 03:55 BUN 26 mg/dL (8-23) H 03/24/17 03:55 BUN/Creatinine Ratio 31 (6-26) H 03/24/17 03:55 Glucose 199 mg/dL (70-105) H 03/24/17 03:55 POC Glucose 91 (58-89) H 03/24/17 15:26 Hemoglobin A1c 10.0 % (-5.6) H 03/23/17 01:50 Troponin I 0.97 ng/mL (< 0.04) H* 03/24/17 14:30 B-Natriuretic Peptide 789 pg/mL (Less than 100) H 03/22/17 15:52 Cholesterol 234 mg/dL (< 200) H 03/23/17 01:50 LDL Cholesterol, Calc 114 mg/dL (0-99) H 03/23/17 01:50 HDL Cholesterol 97 mg/dL (40-59) H 03/23/17 01:50 Beta-Hydroxybutyric Acd > 2.00 mmol/L (0.02-0.27) H 03/23/17 05:18 - Microbiology Findings Microbiology Findings: Microbiology, Last 48 Hours 03/23/17 14:35 Sputum Culture - Preliminary Sputum 03/23/17 05:18 Blood Culture - Preliminary Peripheral Venipuncture No growth. 03/23/17 03:00 Legionella Antigen - Final Urine,[place] [place] Streptococcus pneumoniae Antigen (M - Final - Clinical Findings Intake & Output: Intake & Output 03/24/17 03/24/17 03/24/17 07:59 15:59 23:59 Intake Total 252.2 / 252.2 416 / 416 260 / 260 Output Total 100 / 100 400 / 400 Balance 152.2 / 152.2 16 / 16 260 / 260 Weight 60.6 kg - Attending Attestation I examined this patient and my medical decision-making was reviewed with the Resident Physician. I agree with the documented findings, disposition and treatment plan as described except to the extent set forth below. Patient seen and examined. Labs, radiology, chart personally reviewed. Agree with resident's history and physical, assessment, plan with following comments: EXPLOSIVE EXPERT: Patient follows commands, Pulmonary: Acceptable oxygenation and ventilation and she passed her spontaneous breathing trial and successfully was extubated Cardiovascular: stable after extubation GI: Nutrition per dietary and GI prophylaxis per routine Heme: DVT prophylaxis per routine ID: Continue antibiotics and plan to de-escalation Renal; urine out put and renal funtion reviewed Endorcine: blood glucose is monitored Lines: all lines checked and no evidence of infections Skin: skin care to prevent pressure ulcers per nursing routine care Patient currently stable and possible transfer to the floor in the next 1-2 days.
[2017-03-24] MEDS: Budesonide/Formoterol 160/4.5 MDI IH SCH ×2 (10:00→22:04)
--- NOTE | 2017-03-24 10:54 | Cardiology Progress Note ---
Date of Encounter: 03/24/17 Time of Encounter: 09:45 Assessment and Plan (1) Elevated troponin Current Visit: Yes Status: Acute Troponin levels were as follows; 0.78, 0.84, 0.97. Patient was not started on heparin; patient is on warfarin with an INR of 3.4. Plan: -Continue to trend troponin until it peaks. -Start heparin or lovenox once INR <3 for possible ACS if hemoglobin stable. -Continuous cardiac monitoring. -ASA 81 mg PO QD -Lipitor 10 mg PO HS -TTE Pending Discussion w patient/family: The assessment and plan as outlined above was discussed with the patient and/or family members who expressed understanding and agreement. All questions were answered. Thank you for involving us in the care of your patient. Please call with any questions. Subjective Interval history: Patient seen and examined at bedside this morning. Patient is currently on BiPAP; no longer sedated. Reports some respiratory distress bur denies having any chest discomfort. Has no additional complaints at this time. Objective Vital Signs, Last 4 Hours Temp Pulse Resp BP Pulse Ox 03/24/17 10:02 20 100 03/24/17 09:00 101 23 96/58 99 03/24/17 08:34 19 100 03/24/17 08:30 100 03/24/17 08:29 24 97 03/24/17 08:25 99.8 F H 03/24/17 08:15 104 03/24/17 08:00 104 20 77/45 98 03/24/17 07:00 105 20 83/55 98 Results 03/24/17 03:55 03/24/17 03:55 Lab Results 03/23/17 03/23/17 03/23/17 10:54 13:46 14:25 WBC Hgb Hct Plt Count INR 3.4 Sodium 134 L 132 L Potassium 3.8 3.8 Chloride 100 98 Carbon Dioxide 24 18 L BUN 26 H 26 H Creatinine 0.97 0.93 Glucose 168 H 298 H Calcium 8.9 8.9 03/23/17 03/23/17 03/24/17 17:45 21:18 03:55 WBC Hgb Hct Plt Count INR 5.5 H* D Sodium 134 L 134 L Potassium 3.9 4.1 Chloride 100 103 Carbon Dioxide 26 24 BUN 24 H 25 H Creatinine 0.93 0.91 Glucose 202 H 144 H Calcium 9.0 8.9 03/24/17 03/24/17 03:55 03:55 WBC 12.3 H Hgb 10.9 L Hct 33.2 L Plt Count 244 INR Sodium 135 L Potassium 4.1 Chloride 103 Carbon Dioxide 25 BUN 26 H Creatinine 0.83 Glucose 199 H Calcium 8.7 Consult Discharge Plan - Plan Referrals: Valente Rosa MD [Primary Care Provider] -
[2017-03-24] MEDS: Vancomycin 1,000 MG in D5% in Water 250 ML IVPB SCH (11:23)
[2017-03-24] MEDS: Cefepime HCl 1,000 MG in Water for inj. (sterile) 20 ML 10 ML IVPB SCH ×2 (11:23→23:25)
[2017-03-24] MEDS: Nitroglycerin 25 MG/250 ML INFUS..BTL IVC SCH (19:48)
[2017-03-24] MEDS: FentaNYL (PF) 1,000 MCG in 0.9 % Sodium Chloride 80 ML IVC SCH (19:48)
[2017-03-25] MEDS: Ipratropium/Albuterol Neb 3 ML IH SCH ×4 (03:37→22:49)
[2017-03-25 03:46] LABS: Basophils % 0.2 %; Hematocrit 32.2 % (35.3-44.9); Hemoglobin 10.9 g/dL (11.5-15.4); Lymphocytes # 0.4 K/mcL (0.6-4.6); Lymphocytes % 3.8 %; Mean Corpuscular HGB Conc 33.9 g/dL (31.6-35.5); Mean Corpuscular Hemoglobin 30.3 pg (28.0-33.3); Mean Corpuscular Volume 89.4 fL (83.0-100.0); Mean Platelet Volume 10.3 fL (9.4-12.4); Monocytes # 0.4 K/mcL (0.0-1.3); Monocytes % 3.2 %; Neutrophils # 10.1 K/mcL (1.6-8.9); Platelet Count 247 K/mcL (140-400); Red Cell Distribution Width 15.9 % (11.5-14.5); Segmented Neutrophils % 91.8 %
[2017-03-25 03:53] LABS: Prothrombin Time 25.4 Seconds (9.4-12.1)
[2017-03-25 03:54] LABS: INR 2.3
[2017-03-25 04:30] LABS: BUN/Creatinine Ratio 35 (6-26); Blood Urea Nitrogen 22 mg/dL (8-23); Calcium 8.3 mg/dL (8.6-10.3); Carbon Dioxide 26 mEq/L (23-29); Chloride 102 mEq/L (98-107); Glucose 243 mg/dL (70-105); Osmolality,Calculated 289 (280-300); Potassium 4.7 mEq/L (3.5-5.1); Sodium 134 mEq/L (136-145); eGFR For African Americans > 60 (> 60); eGFR For Non-African Americans > 60 (> 60)
[2017-03-25] MEDS: MethylPREDNISolone 40 MG/ML VIAL IVP SCH (04:53)
[2017-03-25] MEDS: Pantoprazole 40 MG VIAL IVP SCH (04:54)
[2017-03-25] MEDS: Lacri-Lube 3.5 GM TUBE BOTH EYES SCH ×2 (04:54→07:33)
[2017-03-25] MEDS: Insulin LISPRO 300 UNITS/3 ML VIAL SQ SCH ×6 (04:56→23:44)
[2017-03-25] MEDS: Chlorhexidine Rinse 15 ML MOUTHWASH MM SCH (07:33)
--- NOTE | 2017-03-25 07:36 | Pulmonology Progress Note ---
<Kelton Guardado - Last Filed: 03/25/17 10:55> Date of Encounter: 03/25/17 Time of Encounter: 07:36 Assessment and Plan (1) Acute and chronic respiratory failure ([id number]) Current Visit: Yes Status: Acute Pt with Hx of COPD on home O2 patient refused BiPAP and prefered intubation instead due to worsenign respiratory status Patient started on Q8H solumedrol reduced steroids to BID patient started on vanc, cefepime, and levaquin added duonebs and symbicort Patient successfully extubated this morning. Transitioned to bipap and then to NC. Stopped levaquin Plan: continue abx continue duonebs and symbicort continue NC Qualifiers: Respiratory failure complication: hypercapnia Qualified Code(s): J96.22 - Acute and chronic respiratory failure with hypercapnia (2) Acute exacerbation of chronic obstructive pulmonary disease (COPD) Current Visit: Yes Status: Acute Pt with Hx of COPD patient reported change in sputum productiona nd increased SOB Patient started on Q8H solumedrol patient started on vanc, cefepime, levaquin reduced steroids to BID added duonebs and symbicort Stopped levaquin Plan: continue abx switch steroids to prednisone oral continue duonebs and symbicort continue O2 supplementation (3) DKA (diabetic ketoacidoses) Current Visit: Yes Status: Acute Patient with Hx of DM Patient presented with Glucose of 584 Gap of 17 DKA protocol initiated with alteration in fluid resucitation to limit fluid overload Gap widened up to 22 then closed to 15 followed by 10 switched to SSI turned off insulin drip started on 15 of levemir yesterday progressed to diabetic diet Plan: Patient refused levemir today otherwise would have increased Continue to monitor continue accuchecks continue high SSI Qualifiers: Diabetes mellitus type: type 2 Diabetes mellitus complication detail: without coma Qualified Code(s): E11.10 - Type 2 diabetes mellitus with ketoacidosis without coma (4) Severe sepsis Current Visit: Yes Status: Acute Pt met criteria for severe sepsis 2/2 to LA 2.9, WBC 16, tacycardia, tachypnea, hypotension Likely 2/2 to PNA and respiratory failure Started on Steroids, vanc, cefepime, and levaquin bcx NGTD levaquin stopped Plan: continue to monitor checking viral respiratory panel continue abx (5) HCAP (healthcare-associated pneumonia) Current Visit: Yes Status: Acute Patient Dx with PNA and started on abx at an outside facilty per chart review Pt a alf patient. 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 Sinus tachycardia. LVEF >70%. Normal LV chamber size and function. Moderate concentric left ventricular hypertrophy. Mild left ventricular diastolic dysfunction. Grossly, normal right ventricular structure and function. Grossly, moderately dilated left atrium. Severe mitral annular calcification as well as calcification of the subvalvular apparatus. Mildly thickened and calcified mitral valve leaflets. Severe mitral stenosis. Mean gradient 12 mmHg (HR 119 bpm). Moderate pulmonary hypertension. Estimated RVSP is 49 mmHg." Plan: continue to monitor cardiology on board will appreciate any recs. restart patient's home coumadin (7) Aortic stenosis Current Visit: No Status: Chronic Hx of Patient received limited fluid resuscitation as a result. per records and Echo also has Mitral Stenosis as well Plan: continue to be conscious with giving any fluids cardiology will evaluated for possible replacements as an out patient. Qualifiers: Cardiac valve disease etiology: etiology unspecified Qualified Code(s): I35.0 - Nonrheumatic aortic (valve) stenosis (8) Chronic hyponatremia Current Visit: Yes Status: Acute Based on chart review patient has hx of hyponatremia based on prior admissions. Plan: continue to monitor daily BMP (9) A-fib Current Visit: No Status: Acute Patient on fci coumadin use for a fib holding while super therapeutic. INR went up to 5.5 despite not receiveing any doses likely 2/2 to levaquin and steroids levaquin stopped INR 2.3 today Plan: continue Coumadin dosed by pharmacy. continue to monitor pt/inr Qualifiers: Atrial fibrillation type: chronic Qualified Code(s): I48.2 - Chronic atrial fibrillation (10) DM2 (diabetes mellitus, type 2) Current Visit: Yes Status: Chronic Hx of DM on buttermaker insulin use. See DKA for management. Qualifiers: Diabetes mellitus complication status: with unspecified complications Diabetes mellitus fci insulin use: unspecified fci insulin use status Qualified Code(s): E11.8 - Type 2 diabetes mellitus with unspecified complications (11) Lung cancer Current Visit: No Status: Acute Hx of Lung CA s/p resection Qualifiers: Laterality: right Lung location: unspecified part of lung Qualified Code( s): C34.91 - Malignant neoplasm of unspecified part of right bronchus or lung (12) Diastolic heart failure Current Visit: Yes Status: Acute Patient with hx of d CHF plan: exercise caution with fluid resuscitation. Qualifiers: Heart failure chronicity: chronic Qualified Code(s): I50.32 - Chronic diastolic (congestive) heart failure (13) DVT prophylaxis Current Visit: No Status: Acute Were Holding DVT PPx secondary to elevated INR Will start once INR no longer super therapeutic. Plan: ordered coumadin pharmacy to dose. Subjective Principal diagnosis: Acute Respiratory Failure 2/2 COPD exacerbation 2/2 PNA Interval history: Patient extubated successfully yesterday. Patient sating well on NC. patient reports feeling much better and having no complaints at this time. Objective PUL Vital signs: Last Vital Signs Temp 97.6 F 03/25/17 03:20 Pulse 98 03/25/17 07:00 Resp 20 03/25/17 07:00 BP 102/56 03/25/17 07:00 Pulse Ox 99 03/25/17 07:00 General appearance: no acute distress Eyes: nonicteric ENT: oropharynx moist Neck: supple Effort: normal Auscultation: bilateral: clear Cardiovascular: regular rate and rhythm Gastrointestinal: normoactive bowel sounds Integumentary: normal Extremities: no cyanosis Musculoskeletal: no deformities normal mental status, non-focal exam mood appropriate, affect normal Results - Laboratory Findings CBC and BMP: 03/25/17 03:35 03/25/17 03:35 ABG ABG pH 7.51 pH Units (7.32-7.45) H 03/24/17 05:17 ABG pCO2 29 mmHg (35-45) L 03/24/17 05:17 ABG pO2 105 mmHg (85-104) H 03/24/17 05:17 ABG O2 Saturation 99 % (95-98) H 03/24/17 05:17 PT/INR, D-dimer PT 25.4 Seconds (9.4-12.1) H D 03/25/17 03:35 Abnormal lab findings: Abnormal lab results RBC 3.60 M/mcL (3.82-4.97) L 03/25/17 03:35 Hgb 10.9 g/dL (11.5-15.4) L 03/25/17 03:35 Hct 32.2 % (35.3-44.9) L 03/25/17 03:35 RDW 15.9 % (11.5-14.5) H 03/25/17 03:35 Band Neutrophils % 10.0 % (0-4) H 03/22/17 15:52 Neutrophils # 10.1 K/mcL (1.6-8.9) H 03/25/17 03:35 Lymphocytes # 0.4 K/mcL (0.6-4.6) L 03/25/17 03:35 PT 25.4 Seconds (9.4-12.1) H D 03/25/17 03:35 APTT 38.3 Seconds (26.0-36.0) H 03/22/17 15:52 ABG pH 7.51 pH Units (7.32-7.45) H 03/24/17 05:17 ABG pCO2 29 mmHg (35-45) L 03/24/17 05:17 ABG pO2 105 mmHg (85-104) H 03/24/17 05:17 ABG O2 Saturation 99 % (95-98) H 03/24/17 05:17 Sodium 134 mEq/L (136-145) L 03/25/17 03:35 BUN/Creatinine Ratio 35 (6-26) H 03/25/17 03:35 Glucose 243 mg/dL (70-105) H 03/25/17 03:35 POC Glucose 266 (58-89) H 03/25/17 07:11 Hemoglobin A1c 10.0 % (-5.6) H 03/23/17 01:50 Calcium 8.3 mg/dL (8.6-10.3) L 03/25/17 03:35 Troponin I 0.97 ng/mL (< 0.04) H* 03/24/17 14:30 B-Natriuretic Peptide 789 pg/mL (Less than 100) H 03/22/17 15:52 Cholesterol 234 mg/dL (< 200) H 03/23/17 01:50 LDL Cholesterol, Calc 114 mg/dL (0-99) H 03/23/17 01:50 HDL Cholesterol 97 mg/dL (40-59) H 03/23/17 01:50 Beta-Hydroxybutyric Acd > 2.00 mmol/L (0.02-0.27) H 03/23/17 05:18 - Microbiology Findings Microbiology Findings: Microbiology, Last 48 Hours 03/23/17 14:35 Sputum Culture - Preliminary Sputum 03/23/17 05:18 Blood Culture - Preliminary Peripheral Venipuncture No growth. 03/23/17 03:00 Legionella Antigen - Final Urine,[place] Streptococcus pneumoniae Antigen (M - Final - Clinical Findings Intake & Output: Intake & Output 03/24/17 03/24/17 03/25/17 15:59 23:59 07:59 Intake Total 416 / 416 270 / 270 Output Total 400 / 400 200 / 200 100 / 100 Balance 70 / 70 -100 / -100 Weight 60.5 kg Consult Discharge Plan - Plan Referrals: Valente Rosa MD [Primary Care Provider] - <Reina Garcia M - Last Filed: 03/25/17 17:21> Date of Encounter: 03/25/17 Objective PUL Vital signs: Last Vital Signs Temp 97.9 F 03/25/17 16:55 Pulse 108 03/25/17 17:00 Resp 18 03/25/17 17:00 BP 115/62 03/25/17 17:00 Pulse Ox 98 03/25/17 17:00 Results - Laboratory Findings CBC and BMP: 03/25/17 03:35 03/25/17 03:35 ABG ABG pH 7.51 pH Units (7.32-7.45) H 03/24/17 05:17 ABG pCO2 29 mmHg (35-45) L 03/24/17 05:17 ABG pO2 105 mmHg (85-104) H 03/24/17 05:17 ABG O2 Saturation 99 % (95-98) H 03/24/17 05:17 PT/INR, D-dimer PT 25.4 Seconds (9.4-12.1) H D 03/25/17 03:35 Abnormal lab findings: Abnormal lab results RBC 3.60 M/mcL (3.82-4.97) L 03/25/17 03:35 Hgb 10.9 g/dL (11.5-15.4) L 03/25/17 03:35 Hct 32.2 % (35.3-44.9) L 03/25/17 03:35 RDW 15.9 % (11.5-14.5) H 03/25/17 03:35 Band Neutrophils % 10.0 % (0-4) H 03/22/17 15:52 Neutrophils # 10.1 K/mcL (1.6-8.9) H 03/25/17 03:35 Lymphocytes # 0.4 K/mcL (0.6-4.6) L 03/25/17 03:35 PT 25.4 Seconds (9.4-12.1) H D 03/25/17 03:35 APTT 38.3 Seconds (26.0-36.0) H 03/22/17 15:52 ABG pH 7.51 pH Units (7.32-7.45) H 03/24/17 05:17 ABG pCO2 29 mmHg (35-45) L 03/24/17 05:17 ABG pO2 105 mmHg (85-104) H 03/24/17 05:17 ABG O2 Saturation 99 % (95-98) H 03/24/17 05:17 Sodium 134 mEq/L (136-145) L 03/25/17 03:35 BUN/Creatinine Ratio 35 (6-26) H 03/25/17 03:35 Glucose 243 mg/dL (70-105) H 03/25/17 03:35 POC Glucose 309 (58-89) H 03/25/17 15:30 Hemoglobin A1c 10.0 % (-5.6) H 03/23/17 01:50 Calcium 8.3 mg/dL (8.6-10.3) L 03/25/17 03:35 Troponin I 0.97 ng/mL (< 0.04) H* 03/24/17 14:30 B-Natriuretic Peptide 789 pg/mL (Less than 100) H 03/22/17 15:52 Cholesterol 234 mg/dL (< 200) H 03/23/17 01:50 LDL Cholesterol, Calc 114 mg/dL (0-99) H 03/23/17 01:50 HDL Cholesterol 97 mg/dL (40-59) H 03/23/17 01:50 Beta-Hydroxybutyric Acd > 2.00 mmol/L (0.02-0.27) H 03/23/17 05:18 - Microbiology Findings Microbiology Findings: Microbiology, Last 48 Hours 03/23/17 14:35 Sputum Culture - Preliminary Sputum Yeast Species Staphylococcus aureus 03/23/17 05:18 Blood Culture - Preliminary Peripheral Venipuncture No growth. - Clinical Findings Intake & Output: Intake & Output 03/25/17 03/25/17 03/25/17 07:59 15:59 23:59 Intake Total 660 / 660 Output Total 100 / 100 250 / 250 100 / 100 Balance -100 / -100 410 / 410 -100 / -100 - Attending Attestation I examined this patient and my medical decision-making was reviewed with the Resident Physician. I agree with the documented findings, disposition and treatment plan as described except to the extent set forth below. Patient seen and examined. Labs, radiology, chart personally reviewed. Agree with resident's history and physical, assessment, plan with following comments: CLIENT CONSULTANT: Patient follows commands, Pulmonary: Acceptable oxygenation and ventilation. Patient is feeling better to continue bronchodilators and systemic steroid to be tapered. And transferred to the floor when bed is available. Cardiovascular: stable GI: Nutrition per dietary and GI prophylaxis per routine Heme: DVT prophylaxis per routine ID: Continue antibiotics and plan to de-escalation Renal; urine out put and renal funtion reviewed Endorcine: blood glucose is monitored Lines: all lines checked and no evidence of infections Skin: skin care to prevent pressure ulcers per nursing routine care
[2017-03-25] MEDS: *HR* Amiodarone 200 MG TABLET PO SCH ×2 (07:48→08:30)
[2017-03-25] MEDS: Aspirin Enteric Coated 81 MG Tablet PO SCH ×2 (07:48→08:30)
[2017-03-25] MEDS: Insulin DETEMIR 100 UNIT/ML X5UNITS SQ SCH ×2 (07:56→08:30)
[2017-03-25] MEDS ORDERED: D5% in Water 1,000 ML IVC PRN (08:01)
[2017-03-25] MEDS ORDERED: Dextrose Gel 15 GM/37.5 ML TUBE PO PRN ×2 (08:01)
[2017-03-25] MEDS ORDERED: Ondansetron 4 MG/2 ML VIAL IVP PRN (08:01)
[2017-03-25] MEDS ORDERED: Naloxone 0.4 MG/ML INJ IVP PRN (08:01)
[2017-03-25] MEDS ORDERED: Warfarin perPT PO PRN (08:01)
[2017-03-25] MEDS ORDERED: Acetaminophen 325 MG TABLET PO PRN (08:01)
[2017-03-25] MEDS ORDERED: *HR* Dextrose 50 % in Water (Syg) 50 ML SYRINGE IVP PRN ×3 (08:01)
[2017-03-25] MEDS ORDERED: *HR* Morphine 2 MG/ML SYRINGE IVP PRN (08:01)
[2017-03-25] MEDS: Budesonide/Formoterol 160/4.5 MDI IH SCH ×2 (09:37→22:49)
[2017-03-25] MEDS ORDERED: PrednisoLONE Oral Soln 15 MG/5 ML UDC PO SCH (10:30)
--- NOTE | 2017-03-25 11:33 | Cardiology Progress Note ---
Date of Encounter: 03/25/17 Time of Encounter: 10:30 Assessment and Plan (1) Elevated troponin Current Visit: Yes Status: Acute Troponin levels were as follows; 0.78, 0.84, 0.97. Patient was not started on heparin; patient is on warfarin with an INR of 3.4. ECHO demonstrated mitral stenosis. Plan: -ASA 81 mg PO QD -Lipitor 10 mg PO HS -Recommend rate control and coumadin dosed per pharmacy Discussion w patient/family: The assessment and plan as outlined above was discussed with the patient and/or family members who expressed understanding and agreement. All questions were answered. Thank you for involving us in the care of your patient. Please call with any questions. Subjective Principal diagnosis: Acute Respiratory Failure 2/2 COPD exacerbation 2/2 PNA Interval history: Patient seen and examined at bedside this morning. Reports that she is feeling much better today. Denies having any chest pain or shortness of breath. Patient is resting comfortably in bed and has no complaints at this time. Objective Vital Signs, Last 4 Hours Temp Pulse Resp BP Pulse Ox 03/25/17 10:00 106 18 94/60 99 03/25/17 09:39 16 99 03/25/17 09:00 102 18 122/65 99 03/25/17 08:23 97.8 F 03/25/17 08:00 107 18 115/78 93 03/25/17 07:45 100 General: Conversant, No Apparent Distress HEENT: Atraumatic, Normocephaly, Mucus Membranes Moist Neck: No JVD, Normal carotid pulses Cardiac: Other (Afib, mitral stenosis) Lungs: Normal Breath Sounds, No Wheeze, Rales, Rhonchi Neuro: Alert and responsive, No focal deficits noted Skin: No rashes noted on visualized skin Musculoskeletal: No Chest Wall Tenderness Extremities: No Clubbing, No Cyanosis, No Edema, Normal Pulses Results 03/25/17 03:35 03/25/17 03:35 Lab Results 03/24/17 03/25/17 03/25/17 14:30 03:35 03:35 WBC 11.0 Hgb 10.9 L Hct 32.2 L Plt Count 247 INR Sodium 134 L Potassium 4.7 Chloride 102 Carbon Dioxide 26 BUN 22 Creatinine 0.62 Glucose 243 H Calcium 8.3 L Troponin I 0.97 H* 03/25/17 03:35 WBC Hgb Hct Plt Count INR 2.3 D Sodium Potassium Chloride Carbon Dioxide BUN Creatinine Glucose Calcium Troponin I Consult Discharge Plan - Plan Referrals: Valente Rosa MD [Primary Care Provider] -
[2017-03-25] MEDS: Sennosides/Docusate Sodium TABLET PO SCH ×2 (12:51→21:10)
[2017-03-25] MEDS: Vancomycin 1,000 MG in D5% in Water 250 ML IVPB SCH (12:51)
[2017-03-25] MEDS: Cefepime HCl 1,000 MG in Water for inj. (sterile) 20 ML 10 ML IVPB SCH (12:51)
[2017-03-25] MEDS: predniSONE 20 MG TABLET PO SCH (16:40)
[2017-03-25] MEDS ORDERED: MethylPREDNISolone 40 MG/ML VIAL IVP SCH (18:00)
[2017-03-25] MEDS ORDERED: *HR* Warfarin 5 MG TABLET PO ONE (18:00)
[2017-03-26] MEDS: Cefepime HCl 1,000 MG in Water for inj. (sterile) 20 ML 10 ML IVPB SCH ×2 (00:56→12:03)
[2017-03-26] MEDS: Ipratropium/Albuterol Neb 3 ML IH SCH ×4 (04:09→21:56)
[2017-03-26] MEDS: Insulin LISPRO 300 UNITS/3 ML VIAL SQ SCH ×5 (05:42→21:31)
[2017-03-26 05:54] LABS: Basophils # 0.1 K/mcL (0.0-0.2); Basophils % 0.5 %; Hematocrit 31.2 % (35.3-44.9); Hemoglobin 10.4 g/dL (11.5-15.4); Immature Granulocytes % 2.4 % (0-4); Lymphocytes # 0.8 K/mcL (0.6-4.6); Lymphocytes % 7.2 %; Mean Corpuscular HGB Conc 33.3 g/dL (31.6-35.5); Mean Corpuscular Hemoglobin 29.7 pg (28.0-33.3); Mean Corpuscular Volume 89.1 fL (83.0-100.0); Mean Platelet Volume 9.5 fL (9.4-12.4); Monocytes # 0.6 K/mcL (0.0-1.3); Monocytes % 5.9 %; Neutrophils # 8.8 K/mcL (1.6-8.9); Nucleated Red Blood Cells 0.2 /100 WBC (0); Platelet Count 286 K/mcL (140-400); Red Cell Distribution Width 15.6 % (11.5-14.5)
[2017-03-26 05:59] LABS: INR 1.7; Prothrombin Time 18.3 Seconds (9.4-12.1)
[2017-03-26] MEDS ORDERED: Pantoprazole 40 MG VIAL IVP SCH (06:30)
[2017-03-26 06:43] LABS: BUN/Creatinine Ratio 44 (6-26); Blood Urea Nitrogen 24 mg/dL (8-23); Calcium 8.7 mg/dL (8.6-10.3); Carbon Dioxide 25 mEq/L (23-29); Chloride 102 mEq/L (98-107); Glucose 122 mg/dL (70-105); Osmolality,Calculated 287 (280-300); Potassium 4.3 mEq/L (3.5-5.1); Sodium 136 mEq/L (136-145); eGFR For African Americans > 60 (> 60); eGFR For Non-African Americans > 60 (> 60)
[2017-03-26 06:50] LABS: Toxic Granulation Present (Not Present)
[2017-03-26 06:51] LABS: Platelet Estimate Normal (Normal)
[2017-03-26] MEDS: predniSONE 20 MG TABLET PO SCH ×2 (09:04→16:11)
[2017-03-26] MEDS: Sennosides/Docusate Sodium TABLET PO SCH ×2 (09:05→21:32)
[2017-03-26] MEDS: Insulin DETEMIR 100 UNIT/ML X5UNITS SQ SCH (09:05)
[2017-03-26] MEDS: *HR* Amiodarone 200 MG TABLET PO SCH (09:05)
[2017-03-26] MEDS: Aspirin Enteric Coated 81 MG Tablet PO SCH (09:05)
[2017-03-26] MEDS: Budesonide/Formoterol 160/4.5 MDI IH SCH ×2 (10:03→21:57)
[2017-03-26] MEDS: Vancomycin 1,000 MG in D5% in Water 250 ML IVPB SCH (12:04)
--- NOTE | 2017-03-26 17:08 | Internal Med Progress Note ---
Date of Encounter: 03/26/17 Time of Encounter: 17:04 - Assessment and plan (1) Acute and chronic respiratory failure ([id number]) Current Visit: Yes Status: Acute Assessment and plan: Pt with Hx of COPD on home O2 patient refused BiPAP and prefered intubation instead due to worsenign respiratory status Patient started on Q8H solumedrol reduced steroids to BID patient started on vanc, cefepime, and levaquin added duonebs and symbicort Patient successfully extubated, Transitioned to bipap and then to NC. Stopped levaquin Plan: Continue vancomycin and cefepime, duo nebs, symbicort, supp O2 as needed. 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 03/26: INR 1.7, okay to resume coumadin Plan: continue Coumadin daily pt/inr Qualifiers: Atrial fibrillation type: chronic Qualified Code(s): I48.2 - Chronic atrial fibrillation (3) Acute exacerbation of chronic obstructive pulmonary disease (COPD) Current Visit: Yes Status: Acute Assessment and plan: On Q8H solumedrol patient started on vanc, cefepime, levaquin reduced steroids to BID added duonebs and symbicort Stopped levaquin Plan: continue abx switch steroids to prednisone oral continue duonebs and symbicort continue O2 supplementation (4) Aortic stenosis Current Visit: No Status: Chronic Assessment and plan: Hx of Patient received limited fluid resuscitation as a result. Plan: continue to be conscious with giving any fluids cardiology evaluated possible replacements as an out patient. Qualifiers: Cardiac valve disease etiology: etiology unspecified Qualified Code(s): I35.0 - Nonrheumatic aortic (valve) stenosis (5) Chronic hyponatremia Current Visit: Yes Status: Acute Assessment and plan: Based on chart review patient has hx of hyponatremia based on prior admissions. (6) Diastolic heart failure Current Visit: Yes Status: Acute Assessment and plan: Patient with hx of d CHF plan: exercise caution with fluid resuscitation. Qualifiers: Heart failure chronicity: chronic Qualified Code(s): I50.32 - Chronic diastolic (congestive) heart failure (7) DKA (diabetic ketoacidoses) Current Visit: Yes Status: Acute Assessment and plan: Patient with Hx of DM Patient presented with Glucose of 584 Gap of 17 DKA protocol initiated with alteration in fluid resucitation to limit fluid overload Gap widened up to 22 then closed to 15 followed by 10 switched to SSI turned off insulin drip started on 15 of levemir progressed to diabetic diet Plan: continue accuchecks continue high SSI Qualifiers: Diabetes mellitus type: type 2 Diabetes mellitus complication detail: without coma Qualified Code(s): E11.10 - Type 2 diabetes mellitus with ketoacidosis without coma (8) DM2 (diabetes mellitus, type 2) Current Visit: Yes Status: Chronic Assessment and plan: On Levemire 15 units HS and humalog sliding scale Qualifiers: Diabetes mellitus complication status: with unspecified complications Diabetes mellitus jail insulin use: unspecified jail insulin use status Qualified Code(s): E11.8 - Type 2 diabetes mellitus with unspecified complications (9) Elevated troponin Current Visit: Yes Status: Acute Assessment and plan: Trops 0.78, 0.89, 0.97, 0.97 likely 2/2 to demand ischemia Echo Showed: "Technically sub-optimal due to clinical status. Sinus tachycardia. LVEF >70%. Normal LV chamber size and function. Moderate concentric left ventricular hypertrophy. Mild left ventricular diastolic dysfunction. Grossly, normal right ventricular structure and function. Grossly, moderately dilated left atrium. Severe mitral annular calcification as well as calcification of the subvalvular apparatus. Mildly thickened and calcified mitral valve leaflets. Severe mitral stenosis. Mean gradient 12 mmHg (HR 119 bpm). Moderate pulmonary hypertension. Estimated RVSP is 49 mmHg." Plan: continue to monitor cardiology on board will appreciate any recs. restart patient's home coumadin (10) HCAP (healthcare-associated pneumonia) Current Visit: Yes Status: Acute Assessment and plan: Patient Dx with PNA and started on abx at an outside facilty per chart review Pt a intermediate patient. 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 Patient started on Vanc, Cefepime, and levaquin Bcx NGTD pt started on Solumedrol 40 Q8H reduced steroids to 40 BID reduced steroids to prednisone levaquin stopped Plan: contact precautions Continue abx continue to monitor (11) Lung cancer Current Visit: No Status: Acute Assessment and plan: Hx of Lung CA s/p resection Qualifiers: Laterality: right Lung location: unspecified part of lung Qualified Code( s): C34.91 - Malignant neoplasm of unspecified part of right bronchus or lung (12) Severe sepsis Current Visit: Yes Status: Acute Assessment and plan: Pt met criteria for severe sepsis 2/2 to LA 2.9, WBC 16, tacycardia, tachypnea, hypotension Likely 2/2 to PNA and respiratory failure Started on Steroids, vanc, cefepime, and levaquin bcx NGTD levaquin stopped Plan: continue to monitor checking viral respiratory panel continue abx (13) DVT prophylaxis Current Visit: No Status: Acute Assessment and plan: On coumadin - Subjective Interval history: Patient feels okay, states she is always short of breath. - Constitutional Vitals: Temp Pulse Resp BP Pulse Ox 97.8 F 80 18 99/58 99 03/26/17 15:50 03/26/17 15:50 03/26/17 16:23 03/26/17 15:50 03/26/17 16:23 Exam: General: Conversant, No Apparent Distress HEENT: Atraumatic, Normocephaly, Mucus Membranes Moist Neck: No JVD, Normal carotid pulses Cardiac: Other (Afib, mitral stenosis) Lungs: Normal Breath Sounds, No Wheeze, Rales, Rhonchi Neuro: Alert and responsive, No focal deficits noted Skin: No rashes noted on visualized skin Musculoskeletal: No Chest Wall Tenderness Extremities: No Clubbing, No Cyanosis, No Edema, Normal Pulses Internal Medicine: Result - Labs CBC & Chem 7: 03/26/17 05:18 03/26/17 05:18 Labs: Short CBC 03/26/17 Range/Units 05:18 WBC 10.5 (4.3-11.1) K/mcL Hgb 10.4 L (11.5-15.4) g/dL Hct 31.2 L (35.3-44.9) % Plt Count 286 (140-400) K/mcL Neutrophils # 8.8 (1.6-8.9) K/mcL BMP 03/26/17 05:18 Sodium 136 Potassium 4.3 Chloride 102 Carbon Dioxide 25 BUN 24 H Creatinine 0.55 L Glucose 122 H Calcium 8.7 - ABG Interpretation ABG results: ABG ABG pH 7.51 pH Units (7.32-7.45) H 03/24/17 05:17 ABG pCO2 29 mmHg (35-45) L 03/24/17 05:17 ABG pO2 105 mmHg (85-104) H 03/24/17 05:17 ABG O2 Saturation 99 % (95-98) H 03/24/17 05:17 PT/INR, D-dimer PT 18.3 Seconds (9.4-12.1) H 03/26/17 05:18 Consult Discharge Plan - Plan Referrals: Valente Rosa MD [Primary Care Provider] -
[2017-03-26] MEDS ORDERED: Warfarin 2.5 MG, Warfarin 2 MG PO ONE (18:00)
[2017-03-27] MEDS: Cefepime HCl 1,000 MG in Water for inj. (sterile) 20 ML 10 ML IVPB SCH ×2 (00:38→12:50)
[2017-03-27] MEDS: Insulin LISPRO 300 UNITS/3 ML VIAL SQ SCH ×6 (00:39→21:04)
[2017-03-27] MEDS: Vancomycin 750 MG in D5% in Water 250 ML IVPB SCH ×2 (00:39→12:49)
[2017-03-27] MEDS: Ipratropium/Albuterol Neb 3 ML IH SCH ×4 (03:46→21:42)
[2017-03-27 06:04] LABS: Basophils # 0.1 K/mcL (0.0-0.2); Basophils % 0.6 %; Hematocrit 31.3 % (35.3-44.9); Hemoglobin 10.4 g/dL (11.5-15.4); Lymphocytes # 1.2 K/mcL (0.6-4.6); Lymphocytes % 12.8 %; Mean Corpuscular HGB Conc 33.2 g/dL (31.6-35.5); Mean Corpuscular Hemoglobin 29.8 pg (28.0-33.3); Mean Corpuscular Volume 89.7 fL (83.0-100.0); Mean Platelet Volume 9.5 fL (9.4-12.4); Monocytes # 1.1 K/mcL (0.0-1.3); Monocytes % 11.5 %; Neutrophils # 6.8 K/mcL (1.6-8.9); Nucleated Red Blood Cells 0.6 /100 WBC (0); Platelet Count 289 K/mcL (140-400); Red Blood Count 3.49 M/mcL (3.82-4.97); Red Cell Distribution Width 15.4 % (11.5-14.5); Segmented Neutrophils % 71.1 %
[2017-03-27 06:20] LABS: INR 1.7
[2017-03-27 06:32] LABS: Reactive Lymphocytes Present (Not Present)
[2017-03-27 06:33] LABS: BUN/Creatinine Ratio 40 (6-26); Blood Urea Nitrogen 21 mg/dL (8-23); Calcium 8.9 mg/dL (8.6-10.3); Carbon Dioxide 26 mEq/L (23-29); Chloride 102 mEq/L (98-107); Glucose 88 mg/dL (70-105); Osmolality,Calculated 284 (280-300); Potassium 3.9 mEq/L (3.5-5.1); Sodium 136 mEq/L (136-145); eGFR For African Americans > 60 (> 60); eGFR For Non-African Americans > 60 (> 60)
[2017-03-27] MEDS: *HR* Amiodarone 200 MG TABLET PO SCH (08:37)
[2017-03-27] MEDS: Aspirin Enteric Coated 81 MG Tablet PO SCH (08:37)
[2017-03-27] MEDS: Sennosides/Docusate Sodium TABLET PO SCH ×2 (08:38→21:05)
[2017-03-27] MEDS: predniSONE 20 MG TABLET PO SCH ×2 (08:38→17:08)
[2017-03-27] MEDS: Budesonide/Formoterol 160/4.5 MDI IH SCH ×2 (10:11→21:43)
[2017-03-27] MEDS: Insulin DETEMIR 100 UNIT/ML X5UNITS SQ SCH (11:03)
--- NOTE | 2017-03-27 15:56 | Internal Med Progress Note ---
Date of Encounter: 03/27/17 Time of Encounter: 15:54 - Assessment and plan (1) Acute and chronic respiratory failure ([id number]) Current Visit: Yes Status: Acute Assessment and plan: Pt with Hx of COPD on home O2 patient refused BiPAP and prefered intubation instead due to worsenign respiratory status Patient started on Q8H solumedrol reduced steroids to BID patient started on vanc, cefepime, and levaquin added duonebs and symbicort Patient successfully extubated, Transitioned to bipap and then to NC. Stopped levaquin Plan: Continue vancomycin and cefepime, duo nebs, symbicort, supp O2 as needed. 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 03/26: INR 1.7, okay to resume coumadin Plan: continue Coumadin daily pt/inr Qualifiers: Atrial fibrillation type: chronic Qualified Code(s): I48.2 - Chronic atrial fibrillation (3) Acute exacerbation of chronic obstructive pulmonary disease (COPD) Current Visit: Yes Status: Acute Assessment and plan: On Q8H solumedrol patient started on vanc, cefepime, levaquin reduced steroids to BID added duonebs and symbicort Stopped levaquin Plan: continue abx switch steroids to prednisone oral continue duonebs and symbicort continue O2 supplementation (4) Aortic stenosis Current Visit: No Status: Chronic Assessment and plan: Hx of Patient received limited fluid resuscitation as a result. Plan: continue to be conscious with giving any fluids cardiology evaluated possible replacements as an out patient. Qualifiers: Cardiac valve disease etiology: etiology unspecified Qualified Code(s): I35.0 - Nonrheumatic aortic (valve) stenosis (5) Chronic hyponatremia Current Visit: Yes Status: Acute Assessment and plan: Based on chart review patient has hx of hyponatremia based on prior admissions. (6) Diastolic heart failure Current Visit: Yes Status: Acute Assessment and plan: Patient with hx of d CHF plan: exercise caution with fluid resuscitation. Qualifiers: Heart failure chronicity: chronic Qualified Code(s): I50.32 - Chronic diastolic (congestive) heart failure (7) DKA (diabetic ketoacidoses) Current Visit: Yes Status: Acute Assessment and plan: Patient with Hx of DM Patient presented with Glucose of 584 Gap of 17 DKA protocol initiated with alteration in fluid resucitation to limit fluid overload Gap widened up to 22 then closed to 15 followed by 10 switched to SSI turned off insulin drip started on 15 of levemir progressed to diabetic diet Plan: continue accuchecks continue high SSI Qualifiers: Diabetes mellitus type: type 2 Diabetes mellitus complication detail: without coma Qualified Code(s): E11.10 - Type 2 diabetes mellitus with ketoacidosis without coma (8) DM2 (diabetes mellitus, type 2) Current Visit: Yes Status: Chronic Assessment and plan: On Leve[place] 15 units HS and humalog sliding scale Qualifiers: Diabetes mellitus complication status: with unspecified complications 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 Sinus tachycardia. LVEF >70%. Normal LV chamber size and function. Moderate concentric left ventricular hypertrophy. Mild left ventricular diastolic dysfunction. Grossly, normal right ventricular structure and function. Grossly, moderately dilated left atrium. Severe mitral annular calcification as well as calcification of the subvalvular apparatus. Mildly thickened and calcified mitral valve leaflets. Severe mitral stenosis. Mean gradient 12 mmHg (HR 119 bpm). Moderate pulmonary hypertension. Estimated RVSP is 49 mmHg." Plan: continue to monitor cardiology on board will appreciate any recs. restart patient's home coumadin (10) HCAP (healthcare-associated pneumonia) Current Visit: Yes Status: Acute Assessment and plan: Patient Dx with PNA and started on abx at an outside facilty per chart review Pt a [facility] patient. 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 Patient started on Vanc, Cefepime, and levaquin Bcx NGTD pt started on Solumedrol 40 Q8H reduced steroids to 40 BID reduced steroids to prednisone levaquin stopped Plan: contact precautions Continue abx continue to monitor (11) Lung cancer Current Visit: No Status: Acute Assessment and plan: Hx of Lung CA s/p resection Qualifiers: Laterality: right Lung location: unspecified part of lung Qualified Code( s): C34.91 - Malignant neoplasm of unspecified part of right bronchus or lung (12) Severe sepsis Current Visit: Yes Status: Acute Assessment and plan: Pt met criteria for severe sepsis 2/2 to LA 2.9, WBC 16, tacycardia, tachypnea, hypotension Likely 2/2 to PNA and respiratory failure Started on Steroids, vanc, cefepime, and levaquin bcx NGTD levaquin stopped Plan: continue to monitor checking viral respiratory panel continue abx (13) DVT prophylaxis Current Visit: No Status: Acute Assessment and plan: On coumadin - Subjective Interval history: Patient has episode of shortness of breath briefly, scared of having repeat exacerbation. Denies fevers/chills, CP, n/v, diaphoresis, cough. - Constitutional Vitals: Temp Pulse Resp BP Pulse Ox 97.5 F L 92 20 98/61 99 03/27/17 14:22 03/27/17 14:22 03/27/17 14:22 03/27/17 14:22 03/27/17 14:22 Exam: General: Conversant, No Apparent Distress HEENT: Atraumatic, Normocephaly, Mucus Membranes Moist Neck: No JVD, Normal carotid pulses Cardiac: Other (Afib, mitral stenosis) Lungs: Normal Breath Sounds, No Wheeze, Rales, Rhonchi Neuro: Alert and responsive, No focal deficits noted Skin: No rashes noted on visualized skin Musculoskeletal: No Chest Wall Tenderness Extremities: No Clubbing, No Cyanosis, No Edema, Normal Pulses Internal Medicine: Result - Labs CBC & Chem 7: 03/27/17 05:35 03/27/17 05:35 Labs: Short CBC 03/27/17 Range/Units 05:35 WBC 9.6 (4.3-11.1) K/mcL Hgb 10.4 L (11.5-15.4) g/dL Hct 31.3 L (35.3-44.9) % Plt Count 289 (140-400) K/mcL Neutrophils # 6.8 (1.6-8.9) K/mcL BMP 03/27/17 05:35 Sodium 136 Potassium 3.9 Chloride 102 Carbon Dioxide 26 BUN 21 Creatinine 0.52 L Glucose 88 Calcium 8.9 - ABG Interpretation ABG results: ABG ABG pH 7.51 pH Units (7.32-7.45) H 03/24/17 05:17 ABG pCO2 29 mmHg (35-45) L 03/24/17 05:17 ABG pO2 105 mmHg (85-104) H 03/24/17 05:17 ABG O2 Saturation 99 % (95-98) H 03/24/17 05:17 PT/INR, D-dimer PT 18.0 Seconds (9.4-12.1) H 03/27/17 05:35 - Impressions Impressions Chest X-Ray 03/26/17 19:58 IMPRESSION: Limited exam due to patient positioning There is a suggestion of interval developing airspace disease along the right hemidiaphragm with probable developing pleural effusion There is a background of diffuse interstitial prominence. D/ / Alexei Linn / Alexei Linn Interpreting Provider: Alexei Linn Consult Discharge Plan - Plan Referrals: Valente Rosa MD [Primary Care Provider] -
[2017-03-27] MEDS: Warfarin 2.5 MG, Warfarin 2 MG PO SCH (17:08)
[2017-03-27] MEDS ORDERED: *HR* Warfarin 4 MG TABLET PO SCH (18:00)
[2017-03-28] MEDS: Insulin LISPRO 300 UNITS/3 ML VIAL SQ SCH ×5 (00:21→16:32)
[2017-03-28] MEDS: Vancomycin 750 MG in D5% in Water 250 ML IVPB SCH ×2 (00:22→13:11)
[2017-03-28] MEDS: Cefepime HCl 1,000 MG in Water for inj. (sterile) 20 ML 10 ML IVPB SCH ×2 (00:22→13:12)
[2017-03-28] MEDS: Ipratropium/Albuterol Neb 3 ML IH SCH ×4 (03:49→21:38)
[2017-03-28 04:31] LABS: BUN/Creatinine Ratio 40 (6-26); Blood Urea Nitrogen 22 mg/dL (8-23); Calcium 8.8 mg/dL (8.6-10.3); Carbon Dioxide 30 mEq/L (23-29); Chloride 98 mEq/L (98-107); Glucose 191 mg/dL (70-105); Osmolality,Calculated 282 (280-300); Potassium 4.1 mEq/L (3.5-5.1); Sodium 132 mEq/L (136-145); eGFR For African Americans > 60 (> 60); eGFR For Non-African Americans > 60 (> 60)
[2017-03-28 04:52] LABS: Basophils % 0.4 %; Hematocrit 31.8 % (35.3-44.9); Hemoglobin 10.6 g/dL (11.5-15.4); Immature Granulocytes % 3.2 % (0-4); Lymphocytes # 0.8 K/mcL (0.6-4.6); Lymphocytes % 8.9 %; Mean Corpuscular HGB Conc 33.3 g/dL (31.6-35.5); Mean Corpuscular Hemoglobin 30.1 pg (28.0-33.3); Mean Corpuscular Volume 90.3 fL (83.0-100.0); Mean Platelet Volume 9.6 fL (9.4-12.4); Monocytes # 0.8 K/mcL (0.0-1.3); Monocytes % 8.5 %; Neutrophils # 7.1 K/mcL (1.6-8.9); Platelet Count 328 K/mcL (140-400); Red Blood Count 3.52 M/mcL (3.82-4.97); Red Cell Distribution Width 15.4 % (11.5-14.5)
[2017-03-28 04:56] LABS: INR 1.9; Prothrombin Time 20.4 Seconds (9.4-12.1)
[2017-03-28] MEDS: *HR* Amiodarone 200 MG TABLET PO SCH (09:11)
[2017-03-28] MEDS: Sennosides/Docusate Sodium TABLET PO SCH ×2 (09:11→21:05)
[2017-03-28] MEDS: predniSONE 20 MG TABLET PO SCH ×2 (09:11→16:33)
[2017-03-28] MEDS: Aspirin Enteric Coated 81 MG Tablet PO SCH (09:11)
[2017-03-28] MEDS: Insulin DETEMIR 100 UNIT/ML X5UNITS SQ SCH (09:14)
[2017-03-28] MEDS: Budesonide/Formoterol 160/4.5 MDI IH SCH ×2 (10:56→21:38)
[2017-03-28] MEDS ORDERED: *HR* Dextrose 50 % in Water (Syg) 50 ML SYRINGE IVP PRN (15:11)
--- NOTE | 2017-03-28 18:10 | Internal Med Progress Note ---
Date of Encounter: 03/28/17 Time of Encounter: 18:07 - Assessment and plan (1) Acute and chronic respiratory failure ([id number]) Current Visit: Yes Status: Acute Assessment and plan: Pt with Hx of COPD on home O2 patient refused BiPAP and prefered intubation instead due to worsenign respiratory status Patient started on Q8H solumedrol reduced steroids to BID patient started on vanc, cefepime, and levaquin added duonebs and symbicort Patient successfully extubated, Transitioned to bipap and then to NC. Stopped levaquin Plan: Continue vancomycin and cefepime, duo nebs, symbicort, supp O2 as needed. Has worsening dyspnea, required bipap during day. 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 03/26: INR 1.7, okay to resume coumadin Plan: continue Coumadin daily pt/inr Qualifiers: Atrial fibrillation type: chronic Qualified Code(s): I48.2 - Chronic atrial fibrillation (3) Acute exacerbation of chronic obstructive pulmonary disease (COPD) Current Visit: Yes Status: Acute Assessment and plan: On Q8H solumedrol patient started on vanc, cefepime, levaquin reduced steroids to BID added duonebs and symbicort Stopped levaquin Plan: continue abx switch steroids to prednisone oral continue duonebs and symbicort continue O2 supplementation (4) Aortic stenosis Current Visit: No Status: Chronic Assessment and plan: Hx of Patient received limited fluid resuscitation as a result. Plan: continue to be conscious with giving any fluids cardiology evaluated possible replacements as an out patient. Qualifiers: Cardiac valve disease etiology: etiology unspecified Qualified Code(s): I35.0 - Nonrheumatic aortic (valve) stenosis (5) Chronic hyponatremia Current Visit: Yes Status: Acute Assessment and plan: Based on chart review patient has hx of hyponatremia based on prior admissions. (6) Diastolic heart failure Current Visit: Yes Status: Acute Assessment and plan: Patient with hx of d CHF plan: exercise caution with fluid resuscitation. Qualifiers: Heart failure chronicity: chronic Qualified Code(s): I50.32 - Chronic diastolic (congestive) heart failure (7) DKA (diabetic ketoacidoses) Current Visit: Yes Status: Acute Assessment and plan: Patient with Hx of DM Patient presented with Glucose of 584 Gap of 17 DKA protocol initiated with alteration in fluid resucitation to limit fluid overload Gap widened up to 22 then closed to 15 followed by 10 switched to SSI turned off insulin drip started on 15 of levemir progressed to diabetic diet Plan: continue accuchecks continue high SSI Qualifiers: Diabetes mellitus type: type 2 Diabetes mellitus complication detail: without coma Qualified Code(s): E11.10 - Type 2 diabetes mellitus with ketoacidosis without coma (8) DM2 (diabetes mellitus, type 2) Current Visit: Yes Status: Chronic Assessment and plan: On [place] 15 units HS and humalog sliding scale Qualifiers: Diabetes mellitus complication status: with unspecified complications 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 Sinus tachycardia. LVEF >70%. Normal LV chamber size and function. Moderate concentric left ventricular hypertrophy. Mild left ventricular diastolic dysfunction. Grossly, normal right ventricular structure and function. Grossly, moderately dilated left atrium. Severe mitral annular calcification as well as calcification of the subvalvular apparatus. Mildly thickened and calcified mitral valve leaflets. Severe mitral stenosis. Mean gradient 12 mmHg (HR 119 bpm). Moderate pulmonary hypertension. Estimated RVSP is 49 mmHg." Plan: continue to monitor cardiology on board will appreciate any recs. restart patient's home coumadin (10) HCAP (healthcare-associated pneumonia) Current Visit: Yes Status: Acute Assessment and plan: Patient Dx with PNA and started on abx at an outside facilty per chart review Pt a group home patient. 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 Patient started on Vanc, Cefepime, and levaquin Bcx NGTD pt started on Solumedrol 40 Q8H reduced steroids to 40 BID reduced steroids to prednisone levaquin stopped Plan: contact precautions Continue abx continue to monitor (11) Lung cancer Current Visit: No Status: Acute Assessment and plan: Hx of Lung CA s/p resection Qualifiers: Laterality: right Lung location: unspecified part of lung Qualified Code( s): C34.91 - Malignant neoplasm of unspecified part of right bronchus or lung (12) Severe sepsis Current Visit: Yes Status: Acute Assessment and plan: Pt met criteria for severe sepsis 2/2 to LA 2.9, WBC 16, tacycardia, tachypnea, hypotension Likely 2/2 to PNA and respiratory failure Started on Steroids, vanc, cefepime, and levaquin bcx NGTD levaquin stopped Plan: continue to monitor checking viral respiratory panel continue abx (13) DVT prophylaxis Current Visit: No Status: Acute Assessment and plan: On coumadin - Subjective Interval history: Patient had worsening dyspnea this AM. She was somnolent and at times lethargic appearing. She required bipap and then became more alert. She is complaining of poor appetite and fatigue. - Constitutional Vitals: Temp Pulse Resp BP Pulse Ox 97.8 F 87 16 112/62 99 03/28/17 16:07 03/28/17 16:07 03/28/17 16:22 03/28/17 16:07 03/28/17 16:22 Exam: General: more somnolent than yesterday exam HEENT: Atraumatic, Normocephaly, Mucus Membranes Moist Cardiac: RRR Lungs: Normal Breath Sounds, No Wheeze, Rales, Rhonchi Neuro: Alert and responsive after bipap, No focal deficits noted Skin: No rashes noted on visualized skin Extremities: No Clubbing, No Cyanosis, No Edema, Normal Pulses Internal Medicine: Result - Labs CBC & Chem 7: 03/28/17 03:55 03/28/17 03:55 Labs: Short CBC 03/28/17 Range/Units 03:55 WBC 9.0 (4.3-11.1) K/mcL Hgb 10.6 L (11.5-15.4) g/dL Hct 31.8 L (35.3-44.9) % Plt Count 328 (140-400) K/mcL Neutrophils # 7.1 (1.6-8.9) K/mcL BMP 03/28/17 03:55 Sodium 132 L Potassium 4.1 Chloride 98 Carbon Dioxide 30 H BUN 22 Creatinine 0.55 L Glucose 191 H Calcium 8.8 - ABG Interpretation ABG results: ABG ABG pH 7.51 pH Units (7.32-7.45) H 03/24/17 05:17 ABG pCO2 29 mmHg (35-45) L 03/24/17 05:17 ABG pO2 105 mmHg (85-104) H 03/24/17 05:17 ABG O2 Saturation 99 % (95-98) H 03/24/17 05:17 PT/INR, D-dimer PT 20.4 Seconds (9.4-12.1) H 03/28/17 03:55 Consult Discharge Plan - Plan Referrals: Valente Rosa MD [Primary Care Provider] -
[2017-03-28] MEDS: Warfarin 2.5 MG, Warfarin 2 MG PO SCH (19:33)
[2017-03-28] MEDS ORDERED: Insulin LISPRO 300 UNITS/3 ML VIAL SQ SCH (21:00)
[2017-03-29] MEDS: Cefepime HCl 1,000 MG in Water for inj. (sterile) 20 ML 10 ML IVPB SCH ×2 (00:15→14:41)
[2017-03-29] MEDS: Vancomycin 750 MG in D5% in Water 250 ML IVPB SCH (00:16)
[2017-03-29 05:00] LABS: Prothrombin Time 21.9 Seconds (9.4-12.1)
[2017-03-29] MEDS: Ipratropium/Albuterol Neb 3 ML IH SCH ×3 (05:12→16:26)
[2017-03-29] MEDS: Sennosides/Docusate Sodium TABLET PO SCH ×2 (10:53→20:57)
[2017-03-29] MEDS: *HR* Amiodarone 200 MG TABLET PO SCH (10:54)
[2017-03-29] MEDS: Aspirin Enteric Coated 81 MG Tablet PO SCH (10:54)
[2017-03-29] MEDS: Budesonide/Formoterol 160/4.5 MDI IH SCH (11:02)
[2017-03-29] MEDS: Insulin DETEMIR 100 UNIT/ML X5UNITS SQ SCH (11:10)
[2017-03-29] MEDS: predniSONE 20 MG TABLET PO SCH ×2 (11:10→18:14)
--- NOTE | 2017-03-29 13:47 | Discharge Summary ---
Date of Encounter: 03/29/17 Time of Encounter: 13:44 - Discharge Diagnosis (1) Acute and chronic respiratory failure ([id number]) Priority: Primary Status: Acute Qualifiers: Respiratory failure complication: hypercapnia Qualified Code(s): J96.22 - Acute and chronic respiratory failure with hypercapnia (2) Severe sepsis Priority: Secondary Status: Acute (3) Pneumonia Priority: Secondary Status: Acute Qualifiers: Pneumonia type: due to methicillin-resistant Staphylococcus aureus (MRSA) Laterality: left Lung location: upper lobe of lung Qualified Code(s): J15.212 - Pneumonia due to Methicillin resistant Staphylococcus aureus (4) A-fib Priority: Secondary Status: Acute Qualifiers: Atrial fibrillation type: chronic Qualified Code(s): I48.2 - Chronic atrial fibrillation (5) Acute exacerbation of chronic obstructive pulmonary disease (COPD) Priority: Secondary Status: Acute (6) Aortic stenosis Priority: Secondary Status: Chronic Qualifiers: Cardiac valve disease etiology: etiology unspecified Qualified Code(s): I35.0 - Nonrheumatic aortic (valve) stenosis (7) Chronic hyponatremia Priority: Secondary Status: Chronic (8) Diastolic heart failure Priority: Secondary Status: Chronic Qualifiers: Heart failure chronicity: chronic Qualified Code(s): I50.32 - Chronic diastolic (congestive) heart failure (9) DKA (diabetic ketoacidoses) Priority: Secondary Status: Acute Qualifiers: Diabetes mellitus type: type 2 Diabetes mellitus complication detail: without coma Qualified Code(s): E11.10 - Type 2 diabetes mellitus with ketoacidosis without coma (10) DM2 (diabetes mellitus, type 2) Priority: Secondary Status: Chronic Qualifiers: Diabetes mellitus complication status: with hyperglycemia Diabetes mellitus intermodal customer service insulin use: with care home use Qualified Code(s): E11.65 - Type 2 diabetes mellitus with hyperglycemia; Z79.4 - long term care administrator (current) use of insulin; Z79.4 - long term care administrator (current) use of insulin; Z79.4 - [facility] ( current) use of insulin; Z79.4 - [facility] (current) use of insulin (11) Elevated troponin Priority: Secondary Status: Acute (12) HCAP (healthcare-associated pneumonia) Priority: Secondary Status: Acute (13) Lung cancer Priority: Secondary Status: Acute Qualifiers: Laterality: right Lung location: unspecified part of lung Qualified Code( s): C34.91 - Malignant neoplasm of unspecified part of right bronchus or lung - Discharge Medications Prescriptions: predniSONE [PredniSONE] 40 mg PO DAILY 12 Days tablet Home Medications: Albuterol Neb [Proventil Neb] 2.5 mg IH Q6H PRN 04/30/15 [History] Atorvastatin [Lipitor] 10 mg PO HS 04/30/15 [History] Ferrous Sulfate 325 mg PO DAILY 04/30/15 [History] Insulin ASPART [NovoLOG] 0 - 5 unit SQ QID 04/30/15 [History] Loratadine [Claritin] 10 mg PO DAILY 04/30/15 [History] Meclizine [Antivert] 25 mg PO BID 04/30/15 [History] Montelukast [Singulair] 10 mg PO DAILY 04/30/15 [History] Omeprazole [PriLOSEC] 20 mg PO BID 04/30/15 [History] Potassium Chloride [K-Tab ER] 20 meq PO DAILY 04/30/15 [History] Roflumilast [Daliresp] 500 mcg PO DAILY 04/30/15 [History] Furosemide [Lasix] 20 mg PO DAILY 09/15/15 [History] Alendronate Sodium [Fosamax] 70 mg PO QWEEK 10/27/16 [History] Amiodarone HCl [Pacerone] 200 mg PO DAILY 10/27/16 [History] Ondansetron HCl [Zofran] 4 mg PO Q4H PRN 10/27/16 [History] Sennosides [Senna] 8.6 mg PO BID PRN 10/27/16 [History] Calcium Carbonate/Vitamin D3 [Calcium 600-Vit D3 400 Tablet] 1 each PO BID 11/17 [History] Umeclidinium Brm/Vilanterol Tr [Anoro Ellipta 62.5-25 Mcg INH] 1 each IH DAILY 11/17/16 [History] Venlafaxine XR (24 HR) [Effexor XR] 75 mg PO DAILY 01/10/17 [History] Warfarin [Coumadin] 4.5 mg PO DAILY 01/10/17 [History] GuaiFENesin ER [Mucinex] 600 mg PO BID PRN #60 tbbp.12hr 01/14/17 [Rx] hydrOXYzine pamoate [HydrOXYzine Pamoate] 25 mg PO BID PRN #14 capsule 01/14/17 [Rx] Beclomethasone Diprop 40mcg [QVAR 40 mcg] 1 puff IH BID 02/21/17 [History] Nitroglycerin [Nitrostat] 0.4 mg SL PRN PRN 02/21/17 [History] Azelastine 0.1% Nasal Goldvein [Astelin] 2 spray NS BID 03/10/17 [History] Aspirin Enteric Coated [Aspirin EC] 81 mg PO DAILY tablet. 03/29/17 [Rx] Diltiazem [Cardizem] 15 mg PO Q8HR tablet 03/29/17 [Rx] Insulin DETEMIR [Levemir] 10 unit SQ DAILY [id number] 03/29/17 [Rx] Sennosides/Docusate Sodium [Senna Plus] 1 each PO BID PRN tablet 03/29/17 [Rx] predniSONE [PredniSONE] 40 mg PO DAILY 12 Days tablet 03/29/17 [Rx] Allergies/Adverse Reactions: 3 Allergy/AdvReac Type Severity Reaction Status Date / Time codeine Allergy Hives Verified 03/22/17 18:37 latex Allergy Hives Verified 03/22/17 18:37 Penicillins Allergy Hives Verified 03/22/17 18:37 propoxyphene [From Darvon] Allergy Hives Verified 03/22/17 18:37 shellfish derived Allergy Hives Verified 03/22/17 18:37 Date of admission: 03/22/17 21:36 Primary care physician: Valente Rosa MD Consults: 03/23/17 01:06 Consult to Pulmonology [CONS] Routine Consulting Provider: [facility] Reason for Consult: COPD exacerbation Call Completed: Yes Discharging clinician: Thomas Villalba Anticipated date of discharge: 03/29/17 - Patient Status Disposition: Transfer SNF Condition: Good Functional capacity at discharge: uses cane/walker Overall status at discharge: patient is not back to baseline - Discharge Instructions Instructions: Acute Respiratory Distress Syndrome (DC), Diabetes Mellitus Type 2 in Adults (DC), Chronic Obstructive Pulmonary Disease (DC), Pneumonia (DC) Follow Up With: Valente Rosa MD [Primary Care Provider] - (in 1-2 weeks) - Diet and Activity Activity: increase activity as tolerated Diet: diabetic diet, low fat, low cholesterol, low salt diet Hospital course: Ms. Baird is a 71 year old female patient with history of COPD, atrial fibrillation, lung cancer, CHF, hypertension and diabetes who was hospitalized here with severe sepsis, acute metabolic encephalopathy along with acute exacerbation of COPD and acute on chronic respiratory failure. She also had possible DKA with anion gap of 17 on initial presentation. She was treated with IV hydration and IV insulin. Her sepsis was suspected to be related to possible healthcare associated pneumonia. She was started on treatment for aggressive broad-spectrum antibiotics. Blood and urine cultures along with sputum cultures were sent. Patient has slowly recovered with aggressive treatment. Her blood cultures have been negative. Her sputum culture was positive for MRSA. She has completed 7 days of IV antibiotic therapy with vancomycin. She does not require any further antibiotics at this time. Patient also had elevation in troponin to a peak of 0.97. She was not side on heparin but cardiology was consulted. They evaluated the patient and believed that the elevated troponin was most likely due to demand ischemia. They did not recommend any further cardiac work up at this time as she was being evaluated for cancer as outpatient. Patient also has severe aortic stenosis. She was recommended and deemed a poor candidate for open heart surgery before. She had also declined left heart catheterization and TAVR because of metastatic cancer. They do recommend proceeding with left heart catheterization once her evaluation for recurrent cancer is completed. For her A. fib, they do recommend continuing amiodarone 200 mg by mouth daily. Patient is also on anticoagulation with Coumadin and her INR is therapeutic. Presently she is doing much better clinically. She is on nasal cannula and has not required BiPAP since yesterday. She is on 3 L nasal cannula which she will continue to use at the longterm. Given her overall poor functional status and severity of her COPD and chronic respiratory failure, I do recommend that she use BiPAP as needed and when lying down . She was evaluated by physical therapy and recommended placement to skilled rehabilitation. She will be discharged to skilled rehabilitation today. She will complete a prednisone taper after discharge. She will continue her usual inhalers. She will also continue to take Lasix 20 mg daily. Patient's CODE STATUS has been clarified as being DNR comfort care arrest. - Time Spent with Patient Total time spent providing and/or coordinating discharge services: Greater than 30 minutes (45 min) - Constitutional Vitals: Temp Pulse Resp BP Pulse Ox 97.3 F L 90 18 119/64 97 03/29/17 10:29 03/29/17 10:29 03/29/17 11:03 03/29/17 10:29 03/29/17 11:03 General appearance: Present: cooperative, pleasant, answers questions appropriately - Respiratory Respiratory exam: Present: prolonged expiratory phase. Absent: accessory muscle use, rales, rhonchi, wheezes - Cardiovascular Cardiovascular exam: Present: RRR, +S1, +S2. Absent: diastolic murmur, gallop, rubs, systolic murmur - GI/Abdominal GI/Abdominal exam: Present: normal bowel sounds, soft, no peritoneal signs. Absent: distended, tenderness - Extremities Exam Extremities exam: Present: warm, radial pulses palpable and symmetrical. Absent : calf tenderness, cyanotic, pedal edema - Neurological Exam Neurological exam: Present: alert, no focal deficits. Absent: facial droop, speech deficit - Skin Skin exam: Present: dry, intact
--- NOTE | 2017-03-29 14:07 | Physician Discharge Referral ---
ExtendedCare Referral Info Transfer To: [facility] Provider in Charge after Transfer: PCP Institutional Level of Care: Skilled - Diagnosis (1) Acute and chronic respiratory failure ([id number]) Priority: Primary Status: Acute (2) Severe sepsis Priority: Secondary Status: Acute (3) Pneumonia Priority: Secondary Status: Acute (4) A-fib Priority: Secondary Status: Acute (5) Acute exacerbation of chronic obstructive pulmonary disease (COPD) Priority: Secondary Status: Acute (6) Aortic stenosis Priority: Secondary Status: Chronic (7) Chronic hyponatremia Priority: Secondary Status: Chronic (8) Diastolic heart failure Priority: Secondary Status: Chronic (9) DKA (diabetic ketoacidoses) Priority: Secondary Status: Acute (10) DM2 (diabetes mellitus, type 2) Priority: Secondary Status: Chronic (11) Elevated troponin Priority: Secondary Status: Acute (12) HCAP (healthcare-associated pneumonia) Priority: Secondary Status: Acute (13) Lung cancer Priority: Secondary Status: Acute Prognosis: Fair Aware of Diagnosis: Patient, Family Aware of Prognosis: Patient, Family - Transfer Medications Prescriptions: predniSONE [PredniSONE] 40 mg PO DAILY 12 Days tablet Home Medications: Albuterol Neb [Proventil Neb] 2.5 mg IH Q6H PRN 04/30/15 [History] Atorvastatin [Lipitor] 10 mg PO HS 04/30/15 [History] Ferrous Sulfate 325 mg PO DAILY 04/30/15 [History] Insulin ASPART [NovoLOG] 0 - 5 unit SQ QID 04/30/15 [History] Loratadine [Claritin] 10 mg PO DAILY 04/30/15 [History] Meclizine [Antivert] 25 mg PO BID 04/30/15 [History] Montelukast [Singulair] 10 mg PO DAILY 04/30/15 [History] Omeprazole [PriLOSEC] 20 mg PO BID 04/30/15 [History] Potassium Chloride [K-Tab ER] 20 meq PO DAILY 04/30/15 [History] Roflumilast [Daliresp] 500 mcg PO DAILY 04/30/15 [History] Furosemide [Lasix] 20 mg PO DAILY 09/15/15 [History] Alendronate Sodium [Fosamax] 70 mg PO QWEEK 10/27/16 [History] Amiodarone HCl [Pacerone] 200 mg PO DAILY 10/27/16 [History] Ondansetron HCl [Zofran] 4 mg PO Q4H PRN 10/27/16 [History] Sennosides [Senna] 8.6 mg PO BID PRN 10/27/16 [History] Calcium Carbonate/Vitamin D3 [Calcium 600-Vit D3 400 Tablet] 1 each PO BID 11/17 [History] Umeclidinium Brm/Vilanterol Tr [Anoro Ellipta 62.5-25 Mcg INH] 1 each IH DAILY 11/17/16 [History] Venlafaxine XR (24 HR) [Effexor XR] 75 mg PO DAILY 01/10/17 [History] Warfarin [Coumadin] 4.5 mg PO DAILY 01/10/17 [History] GuaiFENesin ER [Mucinex] 600 mg PO BID PRN #60 tbbp.12hr 01/14/17 [Rx] hydrOXYzine pamoate [HydrOXYzine Pamoate] 25 mg PO BID PRN #14 capsule 01/14/17 [Rx] Beclomethasone Diprop 40mcg [QVAR 40 mcg] 1 puff IH BID 02/21/17 [History] Nitroglycerin [Nitrostat] 0.4 mg SL PRN PRN 02/21/17 [History] Azelastine 0.1% Nasal [place] [Astelin] 2 spray NS BID 03/10/17 [History] Aspirin Enteric Coated [Aspirin EC] 81 mg PO DAILY tablet. 03/29/17 [Rx] Diltiazem [Cardizem] 15 mg PO Q8HR tablet 03/29/17 [Rx] Insulin DETEMIR [Levemir] 10 unit SQ DAILY [id number] 03/29/17 [Rx] Sennosides/Docusate Sodium [Senna Plus] 1 each PO BID PRN tablet 03/29/17 [Rx] predniSONE [PredniSONE] 40 mg PO DAILY 12 Days tablet 03/29/17 [Rx] Allergies/Adverse Reactions: 3 Allergy/AdvReac Type Severity Reaction Status Date / Time codeine Allergy Hives Verified 03/22/17 18:37 latex Allergy Hives Verified 03/22/17 18:37 Penicillins Allergy Hives Verified 03/22/17 18:37 propoxyphene [From Darvon] Allergy Hives Verified 03/22/17 18:37 shellfish derived Allergy Hives Verified 03/22/17 18:37 - Respiratory Orders Oxygen / L per min (3), Other (Bipap PRN) Smoking Cessation: Smoking cessation has been advised. For more information, call the [place] Tobacco Quit Line at 3-074-FXMC-NOW. - Advance Directives Code Status: DNR-Comfort Care (DNR CC Arrest) - Mobility Orders Other (per PT eval) - Rehabiliation Orders Rehab Potential: Fair Rehab Orders: Evaluation for Physical Therapy, Evaluation for Occupational Therapy - Diet Orders Cardiac CERTIFICATION: I certify that the transfer of the above named patient to an Extended Care Facility is necessary for the continuing treatment of the diagnosis listed. The above information is true and accurate reflection of patient's current condition. Confidential - Redisclosure prohibited without a patient's written consent.
[2017-03-29 14:24] VITALS: BP 112/66
[2017-03-29] MEDS: Insulin LISPRO 300 UNITS/3 ML VIAL SQ SCH ×3 (14:32→18:14)
[2017-03-29] MEDS: Warfarin 2.5 MG, Warfarin 2 MG PO SCH (18:14)
[2017-03-29] MEDS ORDERED: Aminoglycoside Consult 1 EACH MC ONE (21:14)
== END 2017-03-29 21:15 | DRG 871 ==
LOC: EMEROO 15:09 → SUATTDRO 21:36 → ICNU 21:36 → 3ANU 03-25 20:18
PROVIDERS: ADMIT Internal Medicine; ATTEND Internal Medicine

== ENCOUNTER 2017-06-14 02:14 | Inpatient (IN) ==
[2017-06-14] MEDS ORDERED: *HR* OxyCODONE Immed Rel 5 MG TABLET PO ONE (03:30)
--- NOTE | 2017-06-14 04:02 | Emergency Department Note ---
Disposition Clinical Impression: Urinary retention with incomplete bladder emptying Disposition: Admitted As Inpatient Condition: Undetermined Female Urogenital HPI - General Chief complaint: ED Urogenital-Female Stated complaint: Unable to urinate Time Seen by Provider: 06/14/17 03:07 Source: patient, EMS Mode of arrival: EMS Limitations: physical limitation Nursing Notes Reviewed: Yes Vital Signs Reviewed: Yes - History of Present Illness HPI Narrative: A 71-year-old patient with a history of AKA I, COPD, A. fib, hyponatremia, hyperkalemia, lung cancer with recent chemotherapy, diabetes type 2, Coumadin use presents emergency department for evaluation after being unable to urinate since Tuesday. Patient states that since Tuesday she has been unable to fully urinate only able to urinate little bits at a time and only a couple times since then. She is complaining of suprapubic pain, abdominal pain, nausea. She is denying any other complaints. Denies fever, chills, shortness of breath, dyspnea, chest pain, diarrhea, constipation. She states this is never happened to her before. She has never had any kidney or renal issues. Patient is really started chemotherapy, she has had a little bit of issues with retention since then but nothing this severe. Pt Subjective Complaint: pelvic pain Onset (ago): day(s) Location: suprapubic Radiation: non-radiating Severity: moderate, severe Severity scale (1-10): 7 Quality: sharp, stabbing Duration: constant, intermittent Improves with: none Worsens with: none Urinary Symptoms: other (Inability to urinate) Sexual activity: no : no Associated symptoms: Reports: denies other symptoms - Related Data Home Medications Medication Instructions Recorded Confirmed Albuterol Neb [Proventil Neb] 2.5 mg IH Q6H PRN 04/30/15 05/23/17 Atorvastatin [Lipitor] 10 mg PO HS 04/30/15 06/14/17 Ferrous Sulfate 325 mg PO DAILY 04/30/15 06/14/17 Loratadine [Claritin] 10 mg PO DAILY 04/30/15 06/14/17 Meclizine [Antivert] 25 mg PO BID 04/30/15 06/14/17 Montelukast [Singulair] 10 mg PO DAILY 04/30/15 05/23/17 Omeprazole [PriLOSEC] 20 mg PO BID 04/30/15 06/14/17 Potassium Chloride [K-Tab ER] 20 meq PO DAILY 04/30/15 06/14/17 Roflumilast [Daliresp] 500 mcg PO DAILY 04/30/15 06/14/17 Furosemide [Lasix] 20 mg PO DAILY 09/15/15 06/14/17 Alendronate Sodium [Fosamax] 70 mg PO WE 10/27/16 06/14/17 Ondansetron HCl [Zofran] 4 mg PO Q4H PRN 10/27/16 06/14/17 Sennosides [Senna] 8.6 mg PO BID PRN 10/27/16 06/14/17 Calcium Carbonate/Vitamin D3 1 each PO BID 11/17/16 06/14/17 [Calcium 600-Vit D3 400 Tablet] Umeclidinium Brm/Vilanterol Tr 1 puff IH DAILY 11/17/16 06/14/17 [Anoro Ellipta 62.5-25 Mcg INH] Venlafaxine XR (24 HR) [Effexor XR] 75 mg PO DAILY 01/10/17 06/14/17 Beclomethasone Diprop 40mcg [QVAR 1 puff IH BID 02/21/17 06/14/17 40 mcg] Nitroglycerin [Nitrostat] 0.4 mg SL PRN PRN 02/21/17 06/14/17 Azelastine 0.1% Nasal [place] 2 spray NS BID 03/10/17 06/14/17 [Astelin] Amiodarone [Cordarone] 200 mg PO DAILY 04/20/17 06/14/17 Diltiazem 15mg/Ml 15 mg PO Q8H 04/20/17 06/14/17 HYDROcodone/Acet 10/325 mg [Ogema 1 tab PO Q6HR PRN 04/20/17 06/14/17 10-325 mg] Insulin Glargine,Hum.rec.anlog 10 unit SQ DAILY 04/20/17 06/14/17 [Basaglar Kwikpen U-100] Melatonin [Melatin] 3 mg PO HS 04/20/17 06/14/17 Sennosides/Docusate Sodium 1 each PO BID PRN 04/29/17 06/14/17 [Senna-Docusate Sodium Tablet] Warfarin [Coumadin] 3 mg PO 1800 04/29/17 06/14/17 Insulin LISPRO [Humalog] 100 unit SQ AD PRN 05/23/17 06/14/17 Megestrol Acetate [Megace] 400 mg PO DAILY 06/14/17 06/14/17 Metamucil 2 cap PO DAILY 06/14/17 06/14/17 Previous Rx's Medication Instructions Recorded GuaiFENesin ER [Mucinex] 600 mg PO BID PRN #60 tbbp.12hr 01/14/17 hydrOXYzine pamoate [HydrOXYzine 25 mg PO BID PRN #14 capsule 01/14/17 Pamoate] Aspirin Enteric Coated [Aspirin EC] 81 mg PO DAILY tablet. 03/29/17 Ciprofloxacin [Cipro] 500 mg PO BID #10 tablet 05/23/17 Dexamethasone [Decadron] 4 mg PO BID PRN #24 tab 05/23/17 Ondansetron HCl 4 mg PO Q8H PRN #60 tablet 05/23/17 Prochlorperazine Maleate 10 mg PO Q6HR PRN #90 tablet 05/23/17 [Compazine] Allergies Allergy/AdvReac Type Severity Reaction Status Date / Time codeine Allergy Hives Verified 06/14/17 02:24 latex Allergy Hives Verified 06/14/17 02:24 Penicillins Allergy Hives Verified 06/14/17 02:24 propoxyphene [From Darvon] Allergy Hives Verified 06/14/17 02:24 shellfish derived Allergy Hives Verified 06/14/17 02:24 Review of Systems: See HPI All systems ED: reviewed and negative except as stated. Review of Systems: As Per HPI Past Medical History - Past Medical History Attestation: Yes The following information was validated with the patient. Source: patient Medical history: Reports: asthma, atrial fibrillation, cancer, COPD, diabetes, hypertension Surgical history: Reports: appendectomy, cancer surgery, cholecystectomy, hysterectomy, knee replacement Psychiatric history: Reports: anxiety FLIGHT INFORMATION EXPEDITER history: Reports: no FLIGHT INFORMATION EXPEDITER history - Social History Smoking Status: Former smoker Smokeless Tobacco Status: No Alcohol use: Reports: none Drug use: Reports: none Physical Exam - General Limitations: no limitations General appearance: alert, in distress - Head Head exam: atraumatic, normocephalic, normal inspection - Eye Eye exam: Present: normal appearance, PERRL, EOMI - ENT ENT exam: normal exam, mucous membranes moist - Neck Neck exam: Present: normal inspection, full ROM, trachea midline - Chest Chest inspection: Present: normal inspection, symmetric chest wall rise - Respiratory Respiratory exam: Present: normal lung sounds bilaterally - Cardiovascular Cardiovascular exam: Present: regular rate, normal rhythm, normal heart sounds - Abdominal Exam Abdominal exam: Present: soft, Non-Tender, tenderness, distention, normal bowel sounds. Absent: guarding, rebound, rigidity Abdominal tenderness: Present: suprapubic - Extremities Exam Extremities exam: Present: normal inspection, full ROM. Absent: tenderness, pedal edema - Expanded Lower Extremity Exam Neurovascular/Tendon exam: Present: normal capillary refill - Back Exam Back exam: Present: normal inspection. Absent: CVA tenderness (R), CVA tenderness (L) - Neurological Exam Neurological exam: Present: alert, oriented X3, CN II-XII intact - Psychiatric Psychiatric exam: Present: normal affect, normal mood - Skin Skin exam: Present: warm, dry, intact, normal color Course Course Narrative: A 71-year-old patient with a history of AKA I, COPD, A. fib, hyponatremia, hyperkalemia, lung cancer with recent chemotherapy, diabetes type 2 presents emergency department for evaluation after being unable to urinate since Tuesday. Patient states that since Tuesday she has been unable to fully urinate only able to urinate little bits at a time and only a couple times since then. She is complaining of suprapubic pain, abdominal pain, nausea. She is denying any other complaints. Denies fever, chills, shortness of breath , dyspnea, chest pain, diarrhea, constipation. She states this is never happened to her before. She has never had any kidney or renal issues. Patient is really started chemotherapy, she has had a little bit of issues with retention since then but nothing this severe. Elderly lady, well-hydrated, well-nourished in mild distress. She appears to be in a moderate amount of pain, slightly writhing on the bed. She is alert and oriented 3 and does remain in good spirits despite the pain. Patient with healing ecchymotic areas as I released from previous injury, respirations are easy and even, heart rate regular, abdomen with suprapubic distention, pain with palpation. Bladder scan with greater than 1200 mL urine. Attempted to catheter patient unsuccessful with a DELIVERY PERSON,RN, and SHAREPOINT APPLICATION DEVELOPER. Phoned Dr. Bob Hampton from urology, he states he will come in and place Erazo catheter. We will treat pain and urologicall consult. - Reevaluation(s) Reevaluation #1: Dr. Hampton and patient remained able to use an introducer and place a Erazo catheter this catheter is a urological only with 1500 mL urine immediately returned. At this point Dr. Hampton spoke about any patient to Hospital services to monitor for catheter diuresis, hematuria, as patient is on Coumadin. Hospitalist paged and was accepted. Patient is resting quietly at this time catheter draining to gravity without issues No longer distended, pain to suprapubic area much better. Time: 05:12 Vital Signs Temperature 98.3 F 06/14/17 02:16 Pulse Rate 92 06/14/17 02:16 Respiratory Rate 16 06/14/17 02:16 Blood Pressure 168/82 06/14/17 02:16 O2 Sat by Pulse Oximetry 99 06/14/17 02:16 Temperature 98.3 F 06/14/17 02:16 Pulse Rate 92 06/14/17 02:16 Respiratory Rate 16 06/14/17 02:16 Blood Pressure 168/82 06/14/17 02:16 O2 Sat by Pulse Oximetry 99 06/14/17 02:16 Oxygen Delivery Oxygen Delivery Room Air Urogenital-Female - Lab Data Lab Results 06/14/17 Range/Units 05:17 Urine Color Yellow (Yellow) Urine Clarity Clear (Clear) Urine pH 6.5 (5.0-8.0) pH Units Ur Specific [place] > 1.030 H (1.010-1.025) Urine Protein Negative (Neg-Trace) mg/dL Urine Glucose (UA) >=1000 H (Normal) mg/dL Urine Ketones Trace H (Negative) mg/dL Urine Blood Large H (Negative) Urine Nitrite Negative (Negative) Urine Bilirubin Negative (Negative) Urine Urobilinogen Normal (Normal) mg/dL Ur Leukocyte Esterase Negative (Negative) Urine Microscopic RBC TNTC H (0-3) per hpf Urine Microscopic WBC 5-15 H (0-3) per hpf Ur Squamous Epith Cells Few (None-Few) per lpf Urine Bacteria None Seen (None-Few) per hpf Hyaline Casts None Seen (None-Few) per lpf Ur Culture Indicated? NO (NO)
--- NOTE | 2017-06-14 04:42 | Urology - Consult Note ---
Date of Encounter: 06/14/17 Time of Encounter: 04:40 - Assessment and Plan (1) Urinary retention Current Visit: Yes Status: Acute Assessment and plan: see procedure note. 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 able to place cath with return of 1600 cc urine. discussed with ER staff and will observe in hospital. pt at risk for post obstructive diuresis. pt has multiple comorbidities. pt needs to keep cath for at least one week before attempting a voiding trial. Urology [id number] Consult date: 06/14/17 Reason for consult Urology: Difficult Erazo History of present illness: pt seen in ER. called as unable to place cath. pt reports difficulty urinating for 4 days. severe pain tonight. no previous difficulty urinating. Past Med Surg Social Fam HX - Past Medical History Medical history: asthma, atrial fibrillation, cancer, COPD, diabetes, hypertension Psychiatric history: anxiety - Past Surgical History Surgical History: appendectomy, cancer surgery, cholecystectomy, hysterectomy, knee replacement - Social History Smoking Status: Former smoker Smokeless Tobacco Status: No Alcohol use: none Drug use: none - Family History Mother Living Status: Hx Family Cardiac Disorders: Yes (HEART DISEASE) Hx Family Endocrine Disorder: Yes (DIABETES) Medications and Allergies Albuterol Neb [Proventil Neb] 2.5 mg IH Q6H PRN 04/30/15 [History] Atorvastatin [Lipitor] 10 mg PO HS 04/30/15 [History] Ferrous Sulfate 325 mg PO DAILY 04/30/15 [History] Loratadine [Claritin] 10 mg PO DAILY 04/30/15 [History] Meclizine [Antivert] 25 mg PO BID 04/30/15 [History] Montelukast [Singulair] 10 mg PO DAILY 04/30/15 [History] Omeprazole [PriLOSEC] 20 mg PO BID 04/30/15 [History] Potassium Chloride [K-Tab ER] 20 meq PO DAILY 04/30/15 [History] Roflumilast [Daliresp] 500 mcg PO DAILY 04/30/15 [History] Furosemide [Lasix] 20 mg PO DAILY 09/15/15 [History] Alendronate Sodium [Fosamax] 70 mg PO WE 10/27/16 [History] Ondansetron HCl [Zofran] 4 mg PO Q4H PRN 10/27/16 [History] Sennosides [Senna] 8.6 mg PO BID PRN 10/27/16 [History] Calcium Carbonate/Vitamin D3 [Calcium 600-Vit D3 400 Tablet] 1 each PO BID 11/17 [History] Umeclidinium Brm/Vilanterol Tr [Anoro Ellipta 62.5-25 Mcg INH] 1 puff IH DAILY 11/17/16 [History] Venlafaxine XR (24 HR) [Effexor XR] 75 mg PO DAILY 01/10/17 [History] GuaiFENesin ER [Mucinex] 600 mg PO BID PRN #60 tbbp.12hr 01/14/17 [Rx] hydrOXYzine pamoate [HydrOXYzine Pamoate] 25 mg PO BID PRN #14 capsule 01/14/17 [Rx] Beclomethasone Diprop 40mcg [QVAR 40 mcg] 1 puff IH BID 02/21/17 [History] Nitroglycerin [Nitrostat] 0.4 mg SL PRN PRN 02/21/17 [History] Azelastine 0.1% Nasal [place] [Astelin] 2 spray NS BID 03/10/17 [History] Aspirin Enteric Coated [Aspirin EC] 81 mg PO DAILY tablet. 03/29/17 [Rx] Amiodarone [Cordarone] 200 mg PO DAILY 04/20/17 [History] Diltiazem 15mg/Ml 15 mg PO Q8H 04/20/17 [History] HYDROcodone/Acet 10/325 mg [[place] 10-325 mg] 1 tab PO Q6HR PRN 04/20/17 [History ] Insulin Glargine,Hum.rec.anlog [Basaglar Kwikpen U-100] 10 unit SQ DAILY [History] Melatonin [Melatin] 3 mg PO HS 04/20/17 [History] Sennosides/Docusate Sodium [Senna-Docusate Sodium Tablet] 1 each PO BID PRN 12/06 [History] Warfarin [Coumadin] 3 mg PO 1800 04/29/17 [History] Ciprofloxacin [Cipro] 500 mg PO BID #10 tablet 05/23/17 [Rx] Dexamethasone [Decadron] 4 mg PO BID PRN #24 tab 05/23/17 [Rx] Insulin LISPRO [Humalog] 100 unit SQ AD PRN 05/23/17 [History] Ondansetron HCl 4 mg PO Q8H PRN #60 tablet 05/23/17 [Rx] Prochlorperazine Maleate [Compazine] 10 mg PO Q6HR PRN #90 tablet 05/23/17 [Rx] 3 Allergy/AdvReac Type Severity Reaction Status Date / Time codeine Allergy Hives Verified 06/14/17 02:24 latex Allergy Hives Verified 06/14/17 02:24 Penicillins Allergy Hives Verified 06/14/17 02:24 propoxyphene [From Darvon] Allergy Hives Verified 06/14/17 02:24 shellfish derived Allergy Hives Verified 06/14/17 02:24 Review of Systems - Constitutional fatigue, weakness, no fever(s) - EENT Nose, mouth and throat: no dizziness - Cardiovascular no chest pain - Respiratory no cough - Gastrointestinal abdominal pain, nausea - Genitourinary Genitourinary: difficulty urinating, difficulty voiding - Musculoskeletal back pain - Integumentary no erythema - Neurological no confusion - Psychiatric no anxiety - Hematologic/Lymphatic easy bleeding, easy bruising - Allergic/Immunologic no throat swelling Exam Initial Vital Signs Temp Pulse Resp BP Pulse Ox 98.3 F 92 16 168/82 99 06/14/17 02:16 06/14/17 02:16 06/14/17 02:16 06/14/17 02:16 06/14/17 02:16 - General physical appearance Present: no distress, moderate pain - Eyes Present: PERRL, conjunctiva is clear - ENT Present: normal nares - Neck Present: no masses - Respiratory Present: normal respiratory effort - Abdomen Abdomen: Present: soft, distended, suprapubic tenderness - Genitourinary Present: other (narrow introitus. unable to visualize meatus. no mass) - Neurologic Present: normal coordination. Absent: disoriented, confused Urology Results - Labs All other labs normal. Procedures:Urology - Catheter Insertion (Urinary) Prophylactic antibiotics given: No Bladder Scan/Ultrasound used before catheterization: Yes (>1000cc) Preparation: Povidone-Iodine Type of catheter inserted: 2 way Catheter Japanese Size: 16 Topical anesthesia used: No Results: successfully catheterized-immediate flow Urine Appearance: Clear Patient tolerated procedure: well Complications: none Additional comments: unable to visualize the meatus. able to place introducer from a zip wire in what appeared to be a meatus. return of small amount of urine. passed zipwire. dilated with 10 [place] haymen dilator. then able to place 16 [place]alan cath over the wire. 1600 cc of urine returned. no hematuria. Consult Discharge Plan - Plan Referrals: Valente Rosa MD [Primary Care Provider] -
[2017-06-14 05:26] LABS: Bilirubin,Urine Negative (Negative); Blood,Urine Large (Negative); Clarity,Urine Clear (Clear); Color,Urine Yellow (Yellow); Glucose,Urine (UA) >=1000 mg/dL (Normal); Ketones,Urine Trace mg/dL (Negative); Leukocyte Esterase,Urine Negative (Negative); Nitrite,Urine Negative (Negative); PH,Urine 6.5 pH Units (5.0-8.0); Protein,Urine Negative (Neg-Trace); Specific Gravity,Urine > 1.030 (1.010-1.025); Urobilinogen,Urine Normal (Normal)
[2017-06-14 05:29] LABS: Bacteria,Urine None Seen per hpf (None-Few); Hyaline Casts,Urine None Seen per lpf (None-Few); RBC,Urine TNTC per hpf (0-3); Squamous Epithelial Cell,Urine Few per lpf (None-Few)
--- NOTE | 2017-06-14 05:56 | Internal Med History&Physical ---
Date of Encounter: 06/14/17 Time of Encounter: 05:54 Assessment and Plan (1) Urinary retention Current visit: Yes Status: Acute seen by urol in the ED with placement of mathew cath this morning Per urol rec "pt had very narrow vaginal introitus and urethral stenosis. able to place cath with return of 1600 cc urine. discussed with ER staff and will observe in hospital. pt at risk for post obstructive diuresis. pt needs to keep cath for at least one week before attempting a voiding trial" (2) Constipation Current visit: Yes Status: Acute schedule anti-constipative medications trial enema Qualifiers: Constipation type: slow transit constipation Qualified Code(s): K59.01 - Slow transit constipation (3) A-fib Current visit: No Status: Acute on coumadin she is unclear of dose as it flutuates (she report 4-5). Will start low at 3 mg , trend INR and adjust accordingly trend INR and dose accordingly Qualifiers: Atrial fibrillation type: chronic Qualified Code(s): I48.2 - Chronic atrial fibrillation (4) Lung cancer Current visit: No Status: Acute SCLC visits with oncology getting carbo/etoposide Qualifiers: Laterality: right Lung location: unspecified part of lung Qualified Code( s): C34.91 - Malignant neoplasm of unspecified part of right bronchus or lung (5) COPD (chronic obstructive pulmonary disease) Current visit: No Status: Chronic on 2 L NC prn Qualifiers: COPD type: emphysema Emphysema type: unspecified Qualified Code(s): J43.9 - Emphysema, unspecified (6) DM2 (diabetes mellitus, type 2) Current visit: No Status: Chronic reported brittle DM will start ISS for now, monitor and adjust accordingly Qualifiers: Diabetes mellitus long-term insulin use: with long-term use Diabetes mellitus complication status: with hyperglycemia Qualified Code(s): E11.65 - Type 2 diabetes mellitus with hyperglycemia; Z79.4 - residential (current) use of insulin; Z79.4 - residential (current) use of insulin; Z79.4 - residential (current ) use of insulin; 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 Baird is a 71 year old female with a history of atrial fibrillation on Coumadin, COPD, lung cancer recently with small cell lung cancer on chemotherapy , who currently resides in [facility] who presents with one-week history of urinary retention. On review she also had been constipated for last 2 weeks. She tells me that she has not been able to urinate for the past week with bladder distention and discomfort in the suprapubic area. She is only able to dribble a little bit "like the end of the tap" per her description. Symptoms did not improve with time leading to hospital admission today. On review she has also noted history of severe constipation and not having bowel movement for the past 2 weeks. She only noted having some "christina". Review she has noted having brittle diabetes and is unsure of the amount of insulin she takes. At baseline she has COPD and uses 2 L oxygen as per needed. Past Med Surg Social Fam HX - Past Medical History Medical history: asthma, atrial fibrillation, cancer, COPD, diabetes, hypertension Psychiatric history: anxiety - Past Surgical History Surgical History: appendectomy, cancer surgery, cholecystectomy, hysterectomy, knee replacement - Social History Smoking Status: Former smoker Smokeless Tobacco Status: No Alcohol use: none Drug use: none - Family History Mother Living Status: Hx Family Cardiac Disorders: Yes (HEART DISEASE) Hx Family Endocrine Disorder: Yes (DIABETES) Internal Medicine - H&P: Meds Albuterol Neb [Proventil Neb] 2.5 mg IH Q6H PRN 04/30/15 [History] Atorvastatin [Lipitor] 10 mg PO HS 04/30/15 [History] Ferrous Sulfate 325 mg PO DAILY 04/30/15 [History] Loratadine [Claritin] 10 mg PO DAILY 04/30/15 [History] Meclizine [Antivert] 25 mg PO BID 04/30/15 [History] Montelukast [Singulair] 10 mg PO DAILY 04/30/15 [History] Omeprazole [PriLOSEC] 20 mg PO BID 04/30/15 [History] Potassium Chloride [K-Tab ER] 20 meq PO DAILY 04/30/15 [History] Roflumilast [Daliresp] 500 mcg PO DAILY 04/30/15 [History] Furosemide [Lasix] 20 mg PO DAILY 09/15/15 [History] Alendronate Sodium [Fosamax] 70 mg PO WE 10/27/16 [History] Ondansetron HCl [Zofran] 4 mg PO Q4H PRN 10/27/16 [History] Sennosides [Senna] 8.6 mg PO BID PRN 10/27/16 [History] Calcium Carbonate/Vitamin D3 [Calcium 600-Vit D3 400 Tablet] 1 each PO BID 11/17 [History] Umeclidinium Brm/Vilanterol Tr [Anoro Ellipta 62.5-25 Mcg INH] 1 puff IH DAILY 11/17/16 [History] Venlafaxine XR (24 HR) [Effexor XR] 75 mg PO DAILY 01/10/17 [History] GuaiFENesin ER [Mucinex] 600 mg PO BID PRN #60 tbbp.12hr 01/14/17 [Rx] hydrOXYzine pamoate [HydrOXYzine Pamoate] 25 mg PO BID PRN #14 capsule 01/14/17 [Rx] Beclomethasone Diprop 40mcg [QVAR 40 mcg] 1 puff IH BID 02/21/17 [History] Nitroglycerin [Nitrostat] 0.4 mg SL PRN PRN 02/21/17 [History] Azelastine 0.1% Nasal [place] [Astelin] 2 spray NS BID 03/10/17 [History] Aspirin Enteric Coated [Aspirin EC] 81 mg PO DAILY tablet. 03/29/17 [Rx] Amiodarone [Cordarone] 200 mg PO DAILY 04/20/17 [History] Diltiazem 15mg/Ml 15 mg PO Q8H 04/20/17 [History] HYDROcodone/Acet 10/325 mg [[place] 10-325 mg] 1 tab PO Q6HR PRN 04/20/17 [History ] Insulin Glargine,Hum.rec.anlog [Basaglar Kwikpen U-100] 10 unit SQ DAILY [History] Melatonin [Melatin] 3 mg PO HS 04/20/17 [History] Sennosides/Docusate Sodium [Senna-Docusate Sodium Tablet] 1 each PO BID PRN 12/06 [History] Warfarin [Coumadin] 3 mg PO 1800 04/29/17 [History] Ciprofloxacin [Cipro] 500 mg PO BID #10 tablet 05/23/17 [Rx] Dexamethasone [Decadron] 4 mg PO BID PRN #24 tab 05/23/17 [Rx] Insulin LISPRO [Humalog] 100 unit SQ AD PRN 05/23/17 [History] Ondansetron HCl 4 mg PO Q8H PRN #60 tablet 05/23/17 [Rx] Prochlorperazine Maleate [Compazine] 10 mg PO Q6HR PRN #90 tablet 05/23/17 [Rx] Megestrol Acetate [Megace] 400 mg PO DAILY 06/14/17 [History] Metamucil 2 cap PO DAILY 06/14/17 [History] 3 Allergy/AdvReac Type Severity Reaction Status Date / Time codeine Allergy Hives Verified 06/14/17 02:24 latex Allergy Hives Verified 06/14/17 02:24 Penicillins Allergy Hives Verified 06/14/17 02:24 propoxyphene [From [place]] Allergy Hives Verified 06/14/17 02:24 shellfish derived Allergy Hives Verified 06/14/17 02:24 All Systems PM: A 10-system review of systems was performed and is negative for pertinent findings except as documented above in the HPI. Review of systems: ROS 14 point review of systems reviewed as best as possible given presentation. Pertinent positive or negative as per HPI or otherwise reviewed as negative - Constitutional Vitals: Temp Pulse Resp BP Pulse Ox 98.3 F 92 16 168/82 99 06/14/17 02:16 06/14/17 02:16 06/14/17 02:16 06/14/17 02:16 06/14/17 02:16 Exam: General - AAO x 3 Psych - Appropriate affect/speech. No agitation Eyes - KERRI. Eye lids intact. No scleral icterus Neuro - No gross peripheral or central neuro deficits on inspection Heart - Sinus. RRR. S1 and S2 present. No added HS/murmurs appreciated. No elevated JVD appreciated. Lung - Adequate air entry b/l, No crackles. Scant wheezes appreciated GI - Soft, non-tender. No hepatosplenomegaly/ascites. BS+ - No CVA/suprapubic tenderness or palpable bladder distension. Mathew catheter placement Skin - Intact. No rash/petechiae/ecchymosis. Warm extremities MSK - Joints with normal ROM. No joint swellings
[2017-06-14] MEDS ORDERED: hydrOXYzine pamoate 25 MG CAPSULE PO PRN (06:03)
[2017-06-14] MEDS ORDERED: Ondansetron ODT 4 MG TAB.RAPDIS PO PRN (06:11)
[2017-06-14] MEDS ORDERED: Naloxone 0.4 MG/ML INJ IVP PRN (06:15)
--- NOTE | 2017-06-14 06:42 | Emergency Department Note ---
Disposition Clinical Impression: Urinary retention with incomplete bladder emptying Disposition: Admitted As Inpatient Condition: Undetermined General Adult HPI - General Chief complaint: ED Urogenital-Female Stated complaint: Unable to urinate Time Seen by Provider: 06/14/17 03:07 Source: patient, EMS Mode of arrival: EMS Limitations: no limitations Nursing Notes Reviewed: Yes Vital Signs Reviewed: Yes - History of Present Illness Pain Scale: 7 - Related Data Home Medications Medication Instructions Recorded Confirmed Albuterol Neb [Proventil Neb] 2.5 mg IH Q6H PRN 04/30/15 05/23/17 Atorvastatin [Lipitor] 10 mg PO HS 04/30/15 06/14/17 Ferrous Sulfate 325 mg PO DAILY 04/30/15 06/14/17 Loratadine [Claritin] 10 mg PO DAILY 04/30/15 06/14/17 Meclizine [Antivert] 25 mg PO BID 04/30/15 06/14/17 Montelukast [Singulair] 10 mg PO DAILY 04/30/15 05/23/17 Omeprazole [PriLOSEC] 20 mg PO BID 04/30/15 06/14/17 Potassium Chloride [K-Tab ER] 20 meq PO DAILY 04/30/15 06/14/17 Roflumilast [Daliresp] 500 mcg PO DAILY 04/30/15 06/14/17 Furosemide [Lasix] 20 mg PO DAILY 09/15/15 06/14/17 Alendronate Sodium [Fosamax] 70 mg PO WE 10/27/16 06/14/17 Ondansetron HCl [Zofran] 4 mg PO Q4H PRN 10/27/16 06/14/17 Sennosides [Senna] 8.6 mg PO BID PRN 10/27/16 06/14/17 Calcium Carbonate/Vitamin D3 1 each PO BID 11/17/16 06/14/17 [Calcium 600-Vit D3 400 Tablet] Umeclidinium Brm/Vilanterol Tr 1 puff IH DAILY 11/17/16 06/14/17 [Anoro Ellipta 62.5-25 Mcg INH] Venlafaxine XR (24 HR) [Effexor XR] 75 mg PO DAILY 01/10/17 06/14/17 Beclomethasone Diprop 40mcg [QVAR 1 puff IH BID 02/21/17 06/14/17 40 mcg] Nitroglycerin [Nitrostat] 0.4 mg SL PRN PRN 02/21/17 06/14/17 Azelastine 0.1% Nasal [place] 2 spray NS BID 03/10/17 06/14/17 [Astelin] Amiodarone [Cordarone] 200 mg PO DAILY 04/20/17 06/14/17 Diltiazem 15mg/Ml 15 mg PO Q8H 04/20/17 06/14/17 HYDROcodone/Acet 10/325 mg [[place] 1 tab PO Q6HR PRN 04/20/17 06/14/17 10-325 mg] Insulin Glargine,Hum.rec.anlog 10 unit SQ DAILY 04/20/17 06/14/17 [Basaglar Kwikpen U-100] Melatonin [Melatin] 3 mg PO HS 04/20/17 06/14/17 Sennosides/Docusate Sodium 1 each PO BID PRN 04/29/17 06/14/17 [Senna-Docusate Sodium Tablet] Warfarin [Coumadin] 3 mg PO 1800 04/29/17 06/14/17 Insulin LISPRO [Humalog] 100 unit SQ AD PRN 05/23/17 06/14/17 Megestrol Acetate [Megace] 400 mg PO DAILY 06/14/17 06/14/17 Metamucil 2 cap PO DAILY 06/14/17 06/14/17 Previous Rx's Medication Instructions Recorded GuaiFENesin ER [Mucinex] 600 mg PO BID PRN #60 tbbp.12hr 01/14/17 hydrOXYzine pamoate [HydrOXYzine 25 mg PO BID PRN #14 capsule 01/14/17 Pamoate] Aspirin Enteric Coated [Aspirin EC] 81 mg PO DAILY tablet. 03/29/17 Ciprofloxacin [Cipro] 500 mg PO BID #10 tablet 05/23/17 Dexamethasone [Decadron] 4 mg PO BID PRN #24 tab 05/23/17 Ondansetron HCl 4 mg PO Q8H PRN #60 tablet 05/23/17 Prochlorperazine Maleate 10 mg PO Q6HR PRN #90 tablet 05/23/17 [Compazine] Allergies Allergy/AdvReac Type Severity Reaction Status Date / Time codeine Allergy Hives Verified 06/14/17 02:24 latex Allergy Hives Verified 06/14/17 02:24 Penicillins Allergy Hives Verified 06/14/17 02:24 propoxyphene [From Darvon] Allergy Hives Verified 06/14/17 02:24 shellfish derived Allergy Hives Verified 06/14/17 02:24 Past Medical History - Past Medical History Medical history: Reports: asthma, atrial fibrillation, cancer, COPD, diabetes, hypertension Surgical history: Reports: appendectomy, cancer surgery, cholecystectomy, hysterectomy, knee replacement Psychiatric history: Reports: anxiety 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 - Social History Smoking Status: Former smoker Smokeless Tobacco Status: No Alcohol use: Reports: none Drug use: Reports: none Physical Exam - General Limitations: no limitations General appearance: alert, in distress Course Vital Signs Temperature 98.3 F 06/14/17 02:16 Pulse Rate 92 06/14/17 02:16 Respiratory Rate 16 06/14/17 02:16 Blood Pressure 168/82 06/14/17 02:16 O2 Sat by Pulse Oximetry 99 06/14/17 02:16 Temperature 98.3 F 06/14/17 02:16 Pulse Rate 92 06/14/17 02:16 Respiratory Rate 16 06/14/17 02:16 Blood Pressure 168/82 06/14/17 02:16 O2 Sat by Pulse Oximetry 99 06/14/17 02:16 Oxygen Delivery Oxygen Delivery Room Air Medical Decision Making - Lab Data Lab Results 06/14/17 Range/Units 05:17 Urine Color Yellow (Yellow) Urine Clarity Clear (Clear) Urine pH 6.5 (5.0-8.0) pH Units Ur Specific [place] > 1.030 H (1.010-1.025) Urine Protein Negative (Neg-Trace) mg/dL Urine Glucose (UA) >=1000 H (Normal) mg/dL Urine Ketones Trace H (Negative) mg/dL Urine Blood Large H (Negative) Urine Nitrite Negative (Negative) Urine Bilirubin Negative (Negative) Urine Urobilinogen Normal (Normal) mg/dL Ur Leukocyte Esterase Negative (Negative) Urine Microscopic RBC TNTC H (0-3) per hpf Urine Microscopic WBC 5-15 H (0-3) per hpf Ur Squamous Epith Cells Few (None-Few) per lpf Urine Bacteria None Seen (None-Few) per hpf Hyaline Casts None Seen (None-Few) per lpf Ur Culture Indicated? NO (NO) Attestation Statement - Attestation Attestation: I, Elan Herrera, examined this patient and my medical decision-making was reviewed with the CLASSIFIED COPY CONTROL CLERK/PA/Advanced Practice Nurse/Resident Physician. I agree with the documented findings, disposition and treatment plan as described except to the extent set forth below. 71-year-old female brought to the emergency department for concerns of difficulty with urination. This occurred multiple times the patient has that she follows urology and the [facility]. Patient had a Erazo placed with a large amount of urine returned. Patient now feels significantly improved and no longer has abdominal pain. Patient will be admitted to the hospitalist for further care and evaluation and evaluation by urology.
[2017-06-14 06:52] LABS: Hematocrit 29.7 % (35.3-44.9); Hemoglobin 9.8 g/dL (11.5-15.4); Immature Platelets 4.3 % (1.1-6.1); Mean Corpuscular Hemoglobin 29.8 pg (28.0-33.3); Mean Corpuscular Volume 90.3 fL (83.0-100.0); Mean Platelet Volume 9.8 fL (9.4-12.4); Nucleated Red Blood Cells 0.2 /100 WBC (0); Platelet Count 253 K/mcL (140-400); Red Blood Count 3.29 M/mcL (3.82-4.97); Red Cell Distribution Width 16.8 % (11.5-14.5)
[2017-06-14 07:02] LABS: INR 1.3; Prothrombin Time 14.4 Seconds (9.4-12.1)
[2017-06-14 07:05] LABS: Activated Partial Thrombo Time 27.4 Seconds (26.0-36.0)
[2017-06-14 07:10] LABS: BUN/Creatinine Ratio 18 (6-26); Blood Urea Nitrogen 10 mg/dL (8-23); Calcium 8.7 mg/dL (8.6-10.3); Carbon Dioxide 24 mEq/L (23-29); Chloride 99 mEq/L (98-107); Glucose 356 mg/dL (70-105); Magnesium 1.7 mg/dL (1.6-2.6); Osmolality,Calculated 285 (280-300); Phosphorous 2.9 mg/dL (2.7-4.5); Potassium 3.7 mEq/L (3.5-5.1); Sodium 131 mEq/L (136-145); eGFR For African Americans > 60 (> 60); eGFR For Non-African Americans > 60 (> 60)
[2017-06-14 07:56] LABS: Lymphocytes # 0.7 K/mcL (0.6-4.6); Monocytes # 1.5 K/mcL (0.0-1.3); Neutrophils # 34.9 K/mcL (1.6-8.9); Polychromasia 2+ (Not Present)
[2017-06-14 07:57] LABS: Platelet Estimate Normal (Normal)
[2017-06-14] MEDS: Sennosides 8.6 MG TABLET PO SCH ×2 (09:37→20:39)
[2017-06-14] MEDS: *HR* Amiodarone 200 MG TABLET PO SCH (09:37)
[2017-06-14] MEDS: Aspirin Enteric Coated 81 MG Tablet PO SCH (09:38)
[2017-06-14] MEDS: Venlafaxine XR (24 HR) 75 MG CAP.ER.24H PO SCH (09:40)
[2017-06-14] MEDS: Roflumilast [Daliresp] 500 MCG PO SCH (09:41)
[2017-06-14] MEDS ORDERED: Dextrose Gel 15 GM/37.5 ML TUBE PO PRN (10:49)
[2017-06-14] MEDS ORDERED: *HR* Dextrose 50 % in Water (Syg) 50 ML SYRINGE IVP PRN (10:49)
[2017-06-14] MEDS ORDERED: D5% in Water 1,000 ML IVC PRN (10:49)
[2017-06-14] MEDS: Insulin LISPRO 300 UNITS/3 ML VIAL SQ SCH ×3 (12:51→20:53)
--- NOTE | 2017-06-14 15:04 | Event Note ---
Date of Encounter: 06/14/17 Time of Encounter: 14:43 (1) Urinary retention presented from [facility] with inability to void. Seen by Urology in ED with placement of mathew catheter. Will need to keep catheter in place cath for at least one week before attempting a voiding trial (2) Constipation last BM over 1 week ago. Continue aggressive bowel regimen. ABD CT pending. (3) A-fib Rate controlled. Cont amiodarone, coumadin (4) Lung cancer SCLC visits with oncology getting carbo/etoposide (5) COPD (chronic obstructive pulmonary disease) on 2 L NC prn (6) DM2 (diabetes mellitus, type 2) per hx.
[2017-06-14] MEDS ORDERED: Warfarin perPT PO PRN (18:00)
[2017-06-14] MEDS ORDERED: *HR* Warfarin 5 MG TABLET PO ONE (18:00)
[2017-06-14] MEDS ORDERED: *HR* Warfarin 3 MG TABLET PO SCH (18:00)
[2017-06-14] MEDS: Melatonin 3 MG TABLET PO SCH (20:47)
[2017-06-15] MEDS: Aspirin Enteric Coated 81 MG Tablet PO SCH (08:06)
[2017-06-15] MEDS: Sennosides 8.6 MG TABLET PO SCH ×2 (08:07→20:28)
[2017-06-15] MEDS: *HR* Amiodarone 200 MG TABLET PO SCH (08:07)
[2017-06-15] MEDS: Venlafaxine XR (24 HR) 75 MG CAP.ER.24H PO SCH (08:07)
[2017-06-15] MEDS: Insulin LISPRO 300 UNITS/3 ML VIAL SQ SCH ×4 (08:09→20:34)
[2017-06-15] MEDS: Roflumilast [Daliresp] 500 MCG PO SCH (08:10)
[2017-06-15 08:47] LABS: INR 1.9; Prothrombin Time 20.7 Seconds (9.4-12.1)
[2017-06-15 08:59] LABS: BUN/Creatinine Ratio 18 (6-26); Blood Urea Nitrogen 7 mg/dL (8-23); Carbon Dioxide 23 mEq/L (23-29); Chloride 100 mEq/L (98-107); Glucose 209 mg/dL (70-105); Osmolality,Calculated 280 (280-300); Potassium 3.3 mEq/L (3.5-5.1); Sodium 133 mEq/L (136-145); eGFR For African Americans > 60 (> 60); eGFR For Non-African Americans > 60 (> 60)
[2017-06-15] MEDS: *HR* HYDROcodone/Acet 10/325 mg TABLET PO PRN (09:41)
[2017-06-15 09:50] LABS: Hematocrit 30.8 % (35.3-44.9); Hemoglobin 10.3 g/dL (11.5-15.4); Mean Corpuscular HGB Conc 33.4 g/dL (31.6-35.5); Mean Corpuscular Hemoglobin 30.4 pg (28.0-33.3); Mean Corpuscular Volume 90.9 fL (83.0-100.0); Platelet Count 266 K/mcL (140-400); Red Blood Count 3.39 M/mcL (3.82-4.97); Red Cell Distribution Width 17.4 % (11.5-14.5)
[2017-06-15] MEDS ORDERED: Milk and Molasses Enema 200 ML RC ONE ×2 (12:14→14:04)
--- NOTE | 2017-06-15 13:59 | Internal Med Progress Note ---
Date of Encounter: 06/15/17 Time of Encounter: 11:00 - Assessment and plan (1) Constipation Current Visit: Yes Status: Acute Assessment and plan: presented with ABD pain and reported constipation. ABD CT with dilated stool filled rectum up to 10 cm, smooth wall thickening and perirectal edema concerning for stercoral proctitis and fecal impaction. ABVD exam significantly improved on 06/15; moderate BM recorded. Discussed with nursing staff, will give milk of molasses enema and continue aggressive bowel regimen. Repeat KUB 06/16. Consult general surgery if no improvement Qualifiers: Constipation type: slow transit constipation Qualified Code(s): K59.01 - Slow transit constipation (2) Urinary retention Current Visit: Yes Status: Acute Assessment and plan: presented from [facility] with inability to void. Seen by Urology in ED with placement of mathew catheter. Will need to keep catheter in place cath for at least one week before attempting a voiding trial (3) COPD (chronic obstructive pulmonary disease) Current Visit: No Status: Chronic Assessment and plan: per hx. No evidence of exacerbation. Qualifiers: COPD type: emphysema Emphysema type: unspecified Qualified Code(s): J43.9 - Emphysema, unspecified (4) DM2 (diabetes mellitus, type 2) Current Visit: No Status: Chronic Assessment and plan: per hx. Blood sugars variable but acceptable. SSI. Monitor blood sugar and titrate PRN Qualifiers: Diabetes mellitus snf insulin use: with rn long term care use Diabetes mellitus complication status: with hyperglycemia Qualified Code(s): E11.65 - Type 2 diabetes mellitus with hyperglycemia; Z79.4 - skilled nursing (current) use of insulin; Z79.4 - skilled nursing (current) use of insulin; Z79.4 - skilled nursing (current ) use of insulin; Z79.4 - skilled nursing (current) use of insulin (5) Lung cancer Current Visit: No Status: Acute Assessment and plan: per hx. CXR with known left apical pulmonary mass. Qualifiers: Laterality: right Lung location: unspecified part of lung Qualified Code( s): C34.91 - Malignant neoplasm of unspecified part of right bronchus or lung (6) A-fib Current Visit: No Status: Acute Assessment and plan: Per history. Rate controlled. Continue home amiodarone, Coumadin. Qualifiers: Atrial fibrillation type: chronic Qualified Code(s): I48.2 - Chronic atrial fibrillation (7) Leukocytosis Current Visit: Yes Status: Acute Assessment and plan: WBC 37K, no tachycardia or hypertension. Lactic acid normal. UA not indicative of UTI, no evidence of pneumonia on CXR. ABVD CT with constipation as noted above, no obvious infectious process. Of note patient is on PRN Decadron per medication list. This could likely be the source. Hold on ATB at this time. Monitor repeat CBC. Qualifiers: Leukocytosis type: unspecified Qualified Code(s): D72.829 - Elevated white blood cell count, unspecified (8) DVT prophylaxis Current Visit: No Status: Acute Assessment and plan: Coumadin - Subjective Interval history: Seen and examined at bedside; says she feels a little better but still having some abdominal pain. Had a bowel movement earlier in the shift per chart review. No nausea or vomiting. ABB soft, round, overall improved from yesterday's exam. - Constitutional Vitals: Temp Pulse Resp BP Pulse Ox 97.3 F L 85 15 108/63 99 06/15/17 11:13 06/15/17 11:13 06/15/17 11:13 06/15/17 11:13 06/15/17 11:13 General appearance: Present: A&O X 3 - Head Head exam: Present: atraumatic, normocephalic - Eye Eye exam: Present: PERRL, conjuntiva pink, sclera anicteric Pupils: Present: PERRL - Neck Neck exam general surgery: Present: supple, trachea midline. Absent: lymphadenopathy - Respiratory Respiratory exam: Present: CTAB. Absent: accessory muscle use, rales, rhonchi, wheezes - Cardiovascular Cardiovascular exam: Present: RRR, +S1, +S2. Absent: diastolic murmur, gallop, rubs, systolic murmur - GI/Abdominal GI/Abdominal exam: Present: normal bowel sounds, soft, no peritoneal signs. Absent: distended, tenderness - Extremities Exam Extremities exam: Present: warm, radial pulses palpable and symmetrical. Absent : calf tenderness, cyanotic, pedal edema - Neurological Exam Neurological exam: Present: CN II-XII intact, oriented X3, no focal deficits. Absent: pronater drift, facial droop, speech deficit - Skin Skin exam: Present: dry, intact Internal Medicine: Result - Labs CBC & Chem 7: 06/15/17 07:41 06/15/17 07:41 Labs: Short CBC 06/15/17 Range/Units 07:41 WBC 21.6 H (4.3-11.1) K/mcL Hgb 10.3 L (11.5-15.4) g/dL Hct 30.8 L (35.3-44.9) % Plt Count 266 (140-400) K/mcL BMP 06/15/17 07:41 Sodium 133 L Potassium 3.3 L Chloride 100 Carbon Dioxide 23 BUN 7 L Creatinine 0.39 L Glucose 209 H Calcium 8.0 L - ABG Interpretation ABG results: PT/INR, D-dimer PT 20.7 Seconds (9.4-12.1) H 06/15/17 07:41 - Impressions Impressions Chest X-Ray 06/14/17 11:38 IMPRESSION: 1. Chronic postsurgical volume loss within the right hemithorax. 2. Suboptimal visualization of the patient's known left apical pulmonary mass. 3. No acute cardiopulmonary process evident. D/ / 06/14/2017 12:23:29 Jacobo Schulz MD / radu Interpreting Provider: Jacobo Schulz MD Abdomen/Pelvis CT 06/14/17 13:30 IMPRESSION: Dilated stool-filled rectum up to 10 cm in diameter. Circumferential smooth wall thickening of the rectum and perirectal edema in the pelvis. Findings are concerning for stercoral proctitis and fecal impaction. No other dilated loops of bowel in the abdomen or pelvis. No other acute abnormality identified. D/ / 06/14/2017 15:08:57 Wenceslao Murphy MD / Ana María Martinez Interpreting Provider: Wenceslao Murphy MD Consult Discharge Plan - Plan Referrals: Valente Rosa MD [Primary Care Provider] -
[2017-06-15] MEDS: Bisacodyl 10 MG RECTAL SUPPOSITORY RC SCH (15:00)
[2017-06-15] MEDS ORDERED: *HR* Warfarin 2.5 MG TABLET PO ONE (18:00)
[2017-06-15] MEDS: Melatonin 3 MG TABLET PO SCH (20:28)
[2017-06-16 05:15] LABS: INR 2.9; Prothrombin Time 31.7 Seconds (9.4-12.1)
[2017-06-16 06:57] LABS: Hematocrit 30.2 % (35.3-44.9); Hemoglobin 10.1 g/dL (11.5-15.4); Mean Corpuscular HGB Conc 33.4 g/dL (31.6-35.5); Mean Corpuscular Hemoglobin 30.1 pg (28.0-33.3); Mean Corpuscular Volume 90.1 fL (83.0-100.0); Mean Platelet Volume 9.7 fL (9.4-12.4); Platelet Count 268 K/mcL (140-400); Red Blood Count 3.35 M/mcL (3.82-4.97); Red Cell Distribution Width 17.7 % (11.5-14.5)
--- NOTE | 2017-06-16 07:04 | Urology - Consult Note ---
Date of Encounter: 06/16/17 Time of Encounter: 07:02 - Assessment and Plan (1) Urinary retention Current Visit: Yes Status: Acute Assessment and plan: Patient had 500 mL of residual on catheter placement in the ER. Urine began to clear after that. I am not sure this was true clot retention. Patient reports the catheter is not bothering her. Leave catheter in place at this time as it may provide increased quality of life and decreased risk of bleeding. Can be removed as an outpatient within 4 weeks (2) Gross hematuria Current Visit: Yes Status: Acute Assessment and plan: Unknown etiology for gross hematuria. She was exacerbated by anticoagulation. Urine clear now. I do not recommend imaging or further intervention at this time. Okay to reintroduce anticoagulation if necessary now that her urine is clear. Need to watch urine closely to verify that it remains clear. Urology CN:[email or web address] Consult date: 06/16/17 Reason for consult Urology: Gross Hematuria History of present illness: Patient with a multitude of health issues including a large DVT. Presented to the emergency room with gross hematuria and difficulty voiding. This was after starting xarelto. Patient states she remembers the blood but does not remember starting a blood thinner. Does not recall other urinary issues. Past Med Surg Social Fam HX - Past Medical History Medical history: asthma, atrial fibrillation, cancer, COPD, diabetes, hypertension Psychiatric history: anxiety - Past Surgical History Surgical History: appendectomy, cancer surgery, cholecystectomy, hysterectomy, knee replacement - Social History Smoking Status: Former smoker Smokeless Tobacco Status: No Alcohol use: none Drug use: none - Family History Mother Living Status: Hx Family Cardiac Disorders: Yes (HEART DISEASE) Hx Family Endocrine Disorder: Yes (DIABETES) Medications and Allergies Albuterol Neb [Proventil Neb] 2.5 mg IH Q6H PRN 04/30/15 [History] Atorvastatin [Lipitor] 10 mg PO HS 04/30/15 [History] Loratadine [Claritin] 10 mg PO DAILY 04/30/15 [History] Meclizine [Antivert] 25 mg PO BID 04/30/15 [History] Montelukast [Singulair] 10 mg PO DAILY 04/30/15 [History] Omeprazole [PriLOSEC] 20 mg PO BID 04/30/15 [History] Potassium Chloride [K-Tab ER] 20 meq PO DAILY 04/30/15 [History] Roflumilast [Daliresp] 500 mcg PO DAILY 04/30/15 [History] Furosemide [Lasix] 20 mg PO DAILY 09/15/15 [History] Alendronate Sodium [Fosamax] 70 mg PO WE 10/27/16 [History] Calcium Carbonate/Vitamin D3 [Calcium 600-Vit D3 400 Tablet] 1 each PO BID 11/17 [History] Umeclidinium Brm/Vilanterol Tr [Anoro Ellipta 62.5-25 Mcg INH] 1 puff IH DAILY 11/17/16 [History] Venlafaxine XR (24 HR) [Effexor XR] 75 mg PO DAILY 01/10/17 [History] Beclomethasone Diprop 40mcg [QVAR 40 mcg] 1 puff IH BID 02/21/17 [History] Nitroglycerin [Nitrostat] 0.4 mg SL PRN PRN 02/21/17 [History] Azelastine 0.1% Nasal [place] [Astelin] 2 spray NS BID 03/10/17 [History] Aspirin Enteric Coated [Aspirin EC] 81 mg PO DAILY tablet. 03/29/17 [Rx] Amiodarone [Cordarone] 200 mg PO DAILY 04/20/17 [History] Insulin Glargine,Hum.rec.anlog [Basaglar Kwikpen U-100] 10 unit SQ DAILY [History] Sennosides/Docusate Sodium [Senna-Docusate Sodium Tablet] 1 each PO BID PRN 12/06 [History] Warfarin [Coumadin] 3 mg PO 1800 04/29/17 [History] Dexamethasone [Decadron] 4 mg PO BID PRN #24 tab 05/23/17 [Rx] Insulin LISPRO [Humalog] 100 unit SQ AD PRN 05/23/17 [History] Ondansetron HCl 4 mg PO Q8H PRN #60 tablet 05/23/17 [Rx] Prochlorperazine Maleate [Compazine] 10 mg PO Q6HR PRN #90 tablet 05/23/17 [Rx] Megestrol Acetate [Megace] 400 mg PO DAILY 06/14/17 [History] 3 Allergy/AdvReac Type Severity Reaction Status Date / Time codeine Allergy Hives Verified 06/14/17 08:30 latex Allergy Hives Verified 06/14/17 08:30 Penicillins Allergy Hives Verified 06/14/17 08:30 propoxyphene [From Darvon] Allergy Hives Verified 06/14/17 08:30 shellfish derived Allergy Hives Verified 06/14/17 08:30 Review of Systems - Constitutional fatigue, weakness, no chills, no fever(s) - EENT Nose, mouth and throat: dry mouth - Cardiovascular dyspnea, no chest pain - Respiratory no cough - Gastrointestinal abdominal pain, nausea - Genitourinary Genitourinary: hematuria - Musculoskeletal back pain - Integumentary lesions, unusual bruising - Neurological confusion - Psychiatric depression - Hematologic/Lymphatic easy bleeding Exam Initial Vital Signs Temp Pulse Resp BP Pulse Ox 98.3 F 92 16 168/82 99 06/14/17 02:16 06/14/17 02:16 06/14/17 02:16 06/14/17 02:16 06/14/17 02:16 - General physical appearance Present: no distress, chronically ill - Eyes Present: PERRL, conjunctiva is clear. Absent: icteric - ENT Present: normal nares, no hearing loss - Neck Present: no masses, no lymphadenopathy - Respiratory Present: normal respiratory effort - Cardiovascular Cardiovascular exam IM: RRR - Abdomen Abdomen: Present: soft, suprapubic tenderness - Integumentary Present: no rash - Neurologic Present: normal coordination. Absent: disoriented, confused - Additional Findings Patient does not seem to be the most reliable historian as she does not recall the events leading to the hospitalization Erazo catheter currently in place draining clear urine. No CBI Urology Results - Labs 06/15/17 07:41 06/15/17 07:41 Abnormal lab results WBC 21.6 K/mcL (4.3-11.1) H 06/15/17 07:41 RBC 3.39 M/mcL (3.82-4.97) L 06/15/17 07:41 Hgb 10.3 g/dL (11.5-15.4) L 06/15/17 07:41 Hct 30.8 % (35.3-44.9) L 06/15/17 07:41 RDW 17.4 % (11.5-14.5) H 06/15/17 07:41 Band Neutrophils % 36.0 % (0-4) H 06/14/17 Unknown Neutrophils # 34.9 K/mcL (1.6-8.9) H 06/14/17 Unknown Monocytes # 1.5 K/mcL (0.0-1.3) H 06/14/17 Unknown Nucleated RBCs/100 WBC 0.2 /100 WBC (0) H 06/14/17 Unknown Polychromasia 2+ (Not Present) A 06/14/17 Unknown PT 31.7 Seconds (9.4-12.1) H D 06/16/17 04:44 Sodium 133 mEq/L (136-145) L 06/15/17 07:41 Potassium 3.3 mEq/L (3.5-5.1) L 06/15/17 07:41 BUN 7 mg/dL (8-23) L 06/15/17 07:41 Creatinine 0.39 mg/dL (0.60-1.20) L 06/15/17 07:41 Glucose 209 mg/dL (70-105) H 06/15/17 07:41 POC Glucose 163 (58-89) H 06/15/17 20:32 Calcium 8.0 mg/dL (8.6-10.3) L 06/15/17 07:41 Ur Specific Gray > 1.030 (1.010-1.025) H 06/14/17 05:17 Urine Glucose (UA) >=1000 mg/dL (Normal) H 06/14/17 05:17 Urine Ketones Trace mg/dL (Negative) H 06/14/17 05:17 Urine Blood Large (Negative) H 06/14/17 05:17 Urine Microscopic RBC TNTC per hpf (0-3) H 06/14/17 05:17 Urine Microscopic WBC 5-15 per hpf (0-3) H 06/14/17 05:17 Diabetes panel 06/15/17 Range/Units 07:41 Sodium 133 L (136-145) mEq/L Potassium 3.3 L (3.5-5.1) mEq/L Chloride 100 (98-107) mEq/L Carbon Dioxide 23 (23-29) mEq/L BUN 7 L (8-23) mg/dL Creatinine 0.39 L (0.60-1.20) mg/dL Glucose 209 H (70-105) mg/dL Calcium 8.0 L (8.6-10.3) mg/dL Calcium panel 06/15/17 Range/Units 07:41 Calcium 8.0 L (8.6-10.3) mg/dL Pituitary panel 06/15/17 Range/Units 07:41 Sodium 133 L (136-145) mEq/L Potassium 3.3 L (3.5-5.1) mEq/L Chloride 100 (98-107) mEq/L Carbon Dioxide 23 (23-29) mEq/L BUN 7 L (8-23) mg/dL Creatinine 0.39 L (0.60-1.20) mg/dL Glucose 209 H (70-105) mg/dL Calcium 8.0 L (8.6-10.3) mg/dL Adrenal panel 06/15/17 Range/Units 07:41 Sodium 133 L (136-145) mEq/L Potassium 3.3 L (3.5-5.1) mEq/L Chloride 100 (98-107) mEq/L Carbon Dioxide 23 (23-29) mEq/L BUN 7 L (8-23) mg/dL Creatinine 0.39 L (0.60-1.20) mg/dL Glucose 209 H (70-105) mg/dL Calcium 8.0 L (8.6-10.3) mg/dL All other labs normal. Consult Discharge Plan - Plan Referrals: Valente Rosa MD [Primary Care Provider] -
[2017-06-16 07:13] LABS: BUN/Creatinine Ratio 19 (6-26); Blood Urea Nitrogen 8 mg/dL (8-23); Carbon Dioxide 22 mEq/L (23-29); Chloride 99 mEq/L (98-107); Glucose 247 mg/dL (70-105); Osmolality,Calculated 279 (280-300); Potassium 3.5 mEq/L (3.5-5.1); Sodium 131 mEq/L (136-145); eGFR For African Americans > 60 (> 60); eGFR For Non-African Americans > 60 (> 60)
[2017-06-16] MEDS: Insulin LISPRO 300 UNITS/3 ML VIAL SQ SCH ×4 (08:59→20:08)
[2017-06-16] MEDS: *HR* HYDROcodone/Acet 10/325 mg TABLET PO PRN (08:59)
[2017-06-16] MEDS: Bisacodyl 10 MG RECTAL SUPPOSITORY RC SCH (09:01)
[2017-06-16] MEDS: *HR* Amiodarone 200 MG TABLET PO SCH (09:01)
[2017-06-16] MEDS: Sennosides 8.6 MG TABLET PO SCH ×2 (09:01→20:08)
[2017-06-16] MEDS: Venlafaxine XR (24 HR) 75 MG CAP.ER.24H PO SCH (09:01)
[2017-06-16] MEDS: Aspirin Enteric Coated 81 MG Tablet PO SCH (09:01)
[2017-06-16] MEDS: Roflumilast [Daliresp] 500 MCG PO SCH (09:02)
[2017-06-16] MEDS: 0.9 % Sodium Chloride 1,000 ML IVC SCH (16:27)
--- NOTE | 2017-06-16 17:22 | Internal Med Progress Note ---
Date of Encounter: 06/16/17 Time of Encounter: 17:17 - Assessment and plan (1) Constipation Current Visit: Yes Status: Acute Assessment and plan: presented with ABD pain and reported constipation. ABD CT with dilated stool filled rectum up to 10 cm, smooth wall thickening and perirectal edema concerning for stercoral proctitis and fecal impaction. Has had multiple, large bowel movements on 06/16. Continue aggressive bowel regimen, repeat KUB in a.m. Qualifiers: Constipation type: slow transit constipation Qualified Code(s): K59.01 - Slow transit constipation (2) Urinary retention Current Visit: Yes Status: Acute Assessment and plan: presented from [facility] with inability to void. Seen by Urology in ED with placement of mathew catheter. Suspect multifactorial with constipation and urethral stenosis. Plan was to keep catheter in place cath for at least one week before attempting a voiding trial however catheter seal integrity was compromise and catheter was contaminated with fecal matter therefore nursing removed catheter. Discussed with urology on 06/16 and will leave catheter out for now. If unable to void after 12 hours will need to have catheter replaced. Monitor urinary retention with PVR and bladder scans if no void. (3) COPD (chronic obstructive pulmonary disease) Current Visit: No Status: Chronic Assessment and plan: per hx. No evidence of exacerbation. Qualifiers: COPD type: emphysema Emphysema type: unspecified Qualified Code(s): J43.9 - Emphysema, unspecified (4) DM2 (diabetes mellitus, type 2) Current Visit: No Status: Chronic Assessment and plan: per hx. Blood sugars variable but acceptable. SSI. Monitor blood sugar and titrate PRN Qualifiers: Diabetes mellitus termite control servicer insulin use: with termite control servicer use Diabetes mellitus complication status: with hyperglycemia Qualified Code(s): E11.65 - Type 2 diabetes mellitus with hyperglycemia; Z79.4 - FPC (current) use of insulin; Z79.4 - FPC (current) use of insulin; Z79.4 - FPC (current ) use of insulin; Z79.4 - FPC (current) use of insulin (5) Lung cancer Current Visit: No Status: Acute Assessment and plan: per hx. CXR with known left apical pulmonary mass. Follow-up with oncology as previously planned Qualifiers: Laterality: right Lung location: unspecified part of lung Qualified Code( s): C34.91 - Malignant neoplasm of unspecified part of right bronchus or lung (6) A-fib Current Visit: No Status: Acute Assessment and plan: Per history. Rate controlled. Continue home amiodarone, Coumadin. Qualifiers: Atrial fibrillation type: chronic Qualified Code(s): I48.2 - Chronic atrial fibrillation (7) Leukocytosis Current Visit: Yes Status: Acute Assessment and plan: WBC 37K, no tachycardia or hypertension. Lactic acid normal. UA not indicative of UTI, no evidence of pneumonia on CXR. ABD CT with constipation as noted above, no obvious infectious process. Chart reviewed and patient received Nulasta 06/06/2017. This is likely the cause of leukocytosis. No further workup indicated at this time, no indication for ATB. Monitor repeat CBC. Qualifiers: Leukocytosis type: unspecified Qualified Code(s): D72.829 - Elevated white blood cell count, unspecified (8) DVT prophylaxis Current Visit: No Status: Acute Assessment and plan: Coumadin - Subjective Interval history: Seen and examined at bedside; says she feels a little better but still having some abdominal pain. Had a bowel movement earlier in the shift per chart review. No nausea or vomiting. ABB soft, round, overall improved from yesterday's exam. - Constitutional Vitals: Temp Pulse Resp BP Pulse Ox 98.2 F 80 16 105/68 100 06/16/17 16:01 06/16/17 16:01 06/16/17 10:20 06/16/17 16:01 06/16/17 16:01 General appearance: Present: A&O X 3 Internal Medicine: Result - Labs CBC & Chem 7: 06/16/17 06:07 06/16/17 06:07 Labs: Short CBC 06/16/17 Range/Units 06:07 WBC 33.2 H* D (4.3-11.1) K/mcL Hgb 10.1 L (11.5-15.4) g/dL Hct 30.2 L (35.3-44.9) % Plt Count 268 (140-400) K/mcL BMP 06/16/17 06:07 Sodium 131 L Potassium 3.5 Chloride 99 Carbon Dioxide 22 L BUN 8 Creatinine 0.43 L Glucose 247 H Calcium 8.0 L - ABG Interpretation ABG results: PT/INR, D-dimer PT 31.7 Seconds (9.4-12.1) H D 06/16/17 04:44 - Impressions Impressions KUB X-Ray 06/16/17 08:00 IMPRESSION: Findings suggestive of severe constipation. D/ / Vickey Reyez MD / Vickey Reyez MD Interpreting Provider: Vickey Reyez MD Consult Discharge Plan - Plan Referrals: Valente Rosa MD [Primary Care Provider] -
[2017-06-16] MEDS: Melatonin 3 MG TABLET PO SCH (20:08)
[2017-06-17 06:57] LABS: INR 2.6; Prothrombin Time 28.6 Seconds (9.4-12.1)
[2017-06-17 07:03] LABS: Mean Corpuscular HGB Conc 32.9 g/dL (31.6-35.5); Mean Platelet Volume 9.6 fL (9.4-12.4)
[2017-06-17 07:04] LABS: Hematocrit 29.2 % (35.3-44.9); Hemoglobin 9.6 g/dL (11.5-15.4); Mean Corpuscular Volume 91.3 fL (83.0-100.0); Platelet Count 304 K/mcL (140-400)
[2017-06-17 07:06] LABS: BUN/Creatinine Ratio 20 (6-26); Blood Urea Nitrogen 9 mg/dL (8-23); Calcium 7.8 mg/dL (8.6-10.3); Carbon Dioxide 22 mEq/L (23-29); Chloride 100 mEq/L (98-107); Glucose 191 mg/dL (70-105); Osmolality,Calculated 276 (280-300); Potassium 3.7 mEq/L (3.5-5.1); Sodium 131 mEq/L (136-145); eGFR For African Americans > 60 (> 60); eGFR For Non-African Americans > 60 (> 60)
[2017-06-17] MEDS: Insulin LISPRO 300 UNITS/3 ML VIAL SQ SCH ×4 (07:20→21:44)
[2017-06-17] MEDS ORDERED: Bisacodyl 10 MG RECTAL SUPPOSITORY RC PRN (10:17)
[2017-06-17] MEDS: Sennosides 8.6 MG TABLET PO SCH ×2 (10:22→21:44)
[2017-06-17] MEDS: *HR* Amiodarone 200 MG TABLET PO SCH (10:22)
[2017-06-17] MEDS: Aspirin Enteric Coated 81 MG Tablet PO SCH (10:23)
[2017-06-17] MEDS: Roflumilast [Daliresp] 500 MCG PO SCH (10:23)
[2017-06-17] MEDS: Venlafaxine XR (24 HR) 75 MG CAP.ER.24H PO SCH (10:23)
[2017-06-17] MEDS: 0.9 % Sodium Chloride 1,000 ML IVC SCH ×2 (11:31→11:32)
--- NOTE | 2017-06-17 16:08 | Urology Progress Note ---
Date of Encounter: 06/17/17 Time of Encounter: 16:06 - Assessment and Plan (1) Urinary retention Current Visit: Yes Status: Acute Assessment and plan: pt has voided multiple times since the cath was removed. ct scan shows expected bladder thickening (after recent retention) but bladder not overly distended. ok to observe without replacing cath. (2) Gross hematuria Current Visit: Yes Status: Acute Progress Note Narrative: pt has voided multiple times Objective Initial Vital Signs Temp Pulse Resp BP Pulse Ox 98.3 F 92 16 168/82 99 06/14/17 02:16 06/14/17 02:16 06/14/17 02:16 06/14/17 02:16 06/14/17 02:16 - Labs 06/17/17 06:15 06/17/17 06:15 Diabetes panel 06/17/17 Range/Units 06:15 Sodium 131 L (136-145) mEq/L Potassium 3.7 (3.5-5.1) mEq/L Chloride 100 (98-107) mEq/L Carbon Dioxide 22 L (23-29) mEq/L BUN 9 (8-23) mg/dL Creatinine 0.45 L (0.60-1.20) mg/dL Glucose 191 H (70-105) mg/dL Calcium 7.8 L (8.6-10.3) mg/dL Calcium panel 06/17/17 Range/Units 06:15 Calcium 7.8 L (8.6-10.3) mg/dL Pituitary panel 06/17/17 Range/Units 06:15 Sodium 131 L (136-145) mEq/L Potassium 3.7 (3.5-5.1) mEq/L Chloride 100 (98-107) mEq/L Carbon Dioxide 22 L (23-29) mEq/L BUN 9 (8-23) mg/dL Creatinine 0.45 L (0.60-1.20) mg/dL Glucose 191 H (70-105) mg/dL Calcium 7.8 L (8.6-10.3) mg/dL Adrenal panel 06/17/17 Range/Units 06:15 Sodium 131 L (136-145) mEq/L Potassium 3.7 (3.5-5.1) mEq/L Chloride 100 (98-107) mEq/L Carbon Dioxide 22 L (23-29) mEq/L BUN 9 (8-23) mg/dL Creatinine 0.45 L (0.60-1.20) mg/dL Glucose 191 H (70-105) mg/dL Calcium 7.8 L (8.6-10.3) mg/dL Consult Discharge Plan - Plan Referrals: Valente Rosa MD [Primary Care Provider] -
[2017-06-17] MEDS: Ipratropium/Albuterol Neb 3 ML IH SCH ×2 (16:11→22:15)
[2017-06-17] MEDS ORDERED: *HR* Warfarin 3 MG TABLET PO ONE (18:00)
--- NOTE | 2017-06-17 18:35 | Internal Med Progress Note ---
Date of Encounter: 06/17/17 Time of Encounter: 14:38 - Assessment and plan (1) Constipation Current Visit: Yes Status: Acute Assessment and plan: Presented with ABD pain and reported constipation. ABD CT 06/14 showed dilated stool filled rectum up to 10 cm, smooth wall thickening and perirectal edema concerning for stercoral proctitis and fecal impaction. Has had multiple, large bowel movements on 06/16. Continue aggressive bowel regimen. - Today patient states she feels better than she did yesterday. However abdomen is asphalt still operator on my exam, and with her leukocytosis and old CT noting a possible proctitis - will get repeat CT with contrast. Will start Cipro/ Flagyl. Ideally would prefer Zosyn since patient is on amiodarone (prolonged QT interaction ) and coumadin but she has a listed pencillin allergy. - Will re evaluate, possibly consult Surgery if no improvement. Qualifiers: Constipation type: slow transit constipation Qualified Code(s): K59.01 - Slow transit constipation (2) Leukocytosis Current Visit: Yes Status: Acute Qualifiers: Leukocytosis type: unspecified Qualified Code(s): D72.829 - Elevated white blood cell count, unspecified (3) Urinary retention Current Visit: Yes Status: Acute Assessment and plan: Urology following, recommendations apprecaited. (4) A-fib Current Visit: No Status: Acute Qualifiers: Atrial fibrillation type: chronic Qualified Code(s): I48.2 - Chronic atrial fibrillation (5) COPD exacerbation Current Visit: No Status: Acute (6) Lung cancer Current Visit: No Status: Acute Qualifiers: Laterality: right Lung location: unspecified part of lung Qualified Code( s): C34.91 - Malignant neoplasm of unspecified part of right bronchus or lung (7) DM2 (diabetes mellitus, type 2) Current Visit: No Status: Chronic Qualifiers: Diabetes mellitus terminal clerk insulin use: with terminal clerk use Diabetes mellitus complication status: with hyperglycemia Qualified Code(s): E11.65 - Type 2 diabetes mellitus with hyperglycemia; Z79.4 - terminal operator (current) use of insulin; Z79.4 - assisted (current) use of insulin; Z79.4 - assisted (current ) use of insulin; Z79.4 - terminal operator (current) use of insulin - Subjective Interval history: Patient feels relief from constipation, however she is still feeling abdominal pain if she moves. She denies fevers/chills, n/v. - Constitutional Vitals: Temp Pulse Resp BP Pulse Ox 98.6 F 75 16 113/71 95 06/17/17 15:53 06/17/17 15:53 06/17/17 16:11 06/17/17 15:53 06/17/17 16:11 General appearance: Present: mild distress, A&O X 3 - Head Head exam: Present: atraumatic, normocephalic - Eye Eye exam: Present: PERRL, conjuntiva pink, sclera anicteric Pupils: Present: PERRL - Neck Neck exam general surgery: Present: supple, trachea midline. Absent: lymphadenopathy - Respiratory Respiratory exam: Present: CTAB. Absent: accessory muscle use, rales, rhonchi, wheezes - Cardiovascular Cardiovascular exam: Present: RRR, +S1, +S2. Absent: diastolic murmur, gallop, rubs, systolic murmur - GI/Abdominal GI/Abdominal exam: Present: normal bowel sounds, soft, tenderness, no peritoneal signs. Absent: distended - Extremities Exam Extremities exam: Present: warm, radial pulses palpable and symmetrical. Absent : calf tenderness, cyanotic, pedal edema - Neurological Exam Neurological exam: Present: CN II-XII intact, oriented X3, no focal deficits. Absent: pronater drift, facial droop, speech deficit - Skin Skin exam: Present: dry, intact Internal Medicine: Result - Labs CBC & Chem 7: 06/17/17 06:15 06/17/17 06:15 Labs: Short CBC 06/17/17 Range/Units 06:15 WBC 27.5 H (4.3-11.1) K/mcL Hgb 9.6 L (11.5-15.4) g/dL Hct 29.2 L (35.3-44.9) % Plt Count 304 (140-400) K/mcL BMP 06/17/17 06:15 Sodium 131 L Potassium 3.7 Chloride 100 Carbon Dioxide 22 L BUN 9 Creatinine 0.45 L Glucose 191 H Calcium 7.8 L - ABG Interpretation ABG results: PT/INR, D-dimer PT 28.6 Seconds (9.4-12.1) H 06/17/17 06:15 - Impressions Impressions Abdomen/Pelvis CT 06/17/17 14:38 IMPRESSION: Significant interval improvement to degree of stool material within large bowel, especially to the rectum. However, interval worsening of low-attenuation circumferential wall thickening to the rectum and to a lesser extent rectosigmoid junction along with mucosal hyperemia concerning for worsening proctocolitis, nonspecific. There is also worsened diffuse fatty infiltration/fluid in the extraperitoneal spaces about the rectum without focal fluid collection noted or soft tissue gas, likely reactive relating to the rectal abnormality. No evidence for obstruction. Interval removal of Erazo catheter. There appears to be worsened low-attenuation circumferential wall thickening to the urinary bladder along with hyperemia of the mucosa concerning for nonspecific cystitis. Small amount of air present within the urinary bladder may relate to prior presence or removal of Erazo catheter but air relating to infectious process not excluded. There is also worsened diffuse fatty infiltration/fluid in the extraperitoneal spaces about the urinary bladder without focal fluid collection or soft tissue gas, likely reactive relating to the urinary bladder pathology. Remainder of the exam is stable without additional acute intra-abdominal or intrapelvic abnormality. D/ / 06/17/2017 16:11:11 Jose R Sanderson MD / mabel Interpreting Provider: Jose R Sanderson MD Consult Discharge Plan - Plan Referrals: Valente Rosa MD [Primary Care Provider] -
[2017-06-17] MEDS: Melatonin 3 MG TABLET PO SCH (21:44)
[2017-06-17] MEDS: Beclomethasone 40mcg MDI IH SCH (22:15)
[2017-06-17] MEDS: MetroNIDAZOLE 500 MG/100 ML 500 MG/100 ML BAG IVPB SCH (23:34)
[2017-06-18 04:13] LABS: Hematocrit 27.9 % (35.3-44.9); Hemoglobin 9.2 g/dL (11.5-15.4); Mean Corpuscular Hemoglobin 30.2 pg (28.0-33.3); Mean Corpuscular Volume 91.5 fL (83.0-100.0); Mean Platelet Volume 9.2 fL (9.4-12.4); Platelet Count 336 K/mcL (140-400); Red Blood Count 3.05 M/mcL (3.82-4.97); Red Cell Distribution Width 17.9 % (11.5-14.5)
[2017-06-18 04:18] LABS: INR 2.4; Prothrombin Time 25.9 Seconds (9.4-12.1)
[2017-06-18] MEDS: Ipratropium/Albuterol Neb 3 ML IH SCH ×4 (04:20→21:53)
[2017-06-18 04:32] LABS: BUN/Creatinine Ratio 17 (6-26); Blood Urea Nitrogen 8 mg/dL (8-23); Calcium 7.9 mg/dL (8.6-10.3); Carbon Dioxide 22 mEq/L (23-29); Chloride 101 mEq/L (98-107); Glucose 256 mg/dL (70-105); Osmolality,Calculated 281 (280-300); Potassium 3.3 mEq/L (3.5-5.1); Sodium 132 mEq/L (136-145); eGFR For African Americans > 60 (> 60); eGFR For Non-African Americans > 60 (> 60)
[2017-06-18] MEDS: Venlafaxine XR (24 HR) 75 MG CAP.ER.24H PO SCH (09:04)
[2017-06-18] MEDS: *HR* Amiodarone 200 MG TABLET PO SCH (09:04)
[2017-06-18] MEDS: Sennosides 8.6 MG TABLET PO SCH ×2 (09:05→20:43)
[2017-06-18] MEDS: Aspirin Enteric Coated 81 MG Tablet PO SCH (09:05)
[2017-06-18] MEDS: Insulin LISPRO 300 UNITS/3 ML VIAL SQ SCH ×4 (09:05→21:32)
[2017-06-18] MEDS: MetroNIDAZOLE 500 MG/100 ML 500 MG/100 ML BAG IVPB SCH ×3 (09:06→23:14)
[2017-06-18] MEDS ORDERED: OXYCODONE Oral CONC 10 MG/0.5 ML ORAL.SYG SL PRN (09:31)
--- NOTE | 2017-06-18 09:35 | Internal Med Progress Note ---
Date of Encounter: 06/18/17 Time of Encounter: 09:32 - Assessment and plan (1) Proctocolitis Current Visit: Yes Status: Acute Assessment and plan: Cipro/Flagyl started on 06/17 at evening time. Diet poor Pain relatively unchanged though she has not received many doses of either antibiotic If no improvement, then consult Surgery. (2) Constipation Current Visit: Yes Status: Acute Assessment and plan: - Likely from chronic opiate and iron supplementation. Presented with ABD pain and reported constipation. ABD CT 06/14 showed dilated stool filled rectum up to 10 cm, smooth wall thickening and perirectal edema concerning for stercoral proctitis and fecal impaction. Has had multiple, large bowel movements on 06/17: A repeat CT showed worsening proctocolitis, improved stool burden. She was started on Cipro/Flagyl 06/18: Pain in abdomen unchanged. She has not received a full day worth of antibiotic treatment. Continue - Colace 100 m BID - Senna 8.6 mg BID - Bisacodyl 10 mg daily prn. Qualifiers: Constipation type: slow transit constipation Qualified Code(s): K59.01 - Slow transit constipation (3) Urinary retention Current Visit: Yes Status: Acute Assessment and plan: Likely from multiple co morbidities, anticholinergic medications, constipation. Urology following, recommendations apprecaited. (4) A-fib Current Visit: No Status: Acute Assessment and plan: Continue coumadin - currently INR is therapeutic Continue Amiodarone, Qualifiers: Atrial fibrillation type: chronic Qualified Code(s): I48.2 - Chronic atrial fibrillation (5) DM2 (diabetes mellitus, type 2) Current Visit: No Status: Chronic Assessment and plan: Cardiac/Diabetic diet, Insulin sliding scale Qualifiers: Diabetes mellitus [facility] insulin use: with termite exterminator helper use Diabetes mellitus complication status: with hyperglycemia Qualified Code(s): E11.65 - Type 2 diabetes mellitus with hyperglycemia; Z79.4 - 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 CT abdomen/pelvis showed proctocolitis, started on Cipro/Flagyl in the evening 06/18: In early AM, no significant relief in pain - Constitutional Vitals: Temp Pulse Resp BP Pulse Ox 98.4 F 85 14 140/61 97 06/18/17 07:07 06/18/17 07:07 06/18/17 07:07 06/18/17 07:07 06/18/17 07:07 General appearance: Present: mild distress, A&O X 3 - Head Head exam: Present: atraumatic, normocephalic - Eye Eye exam: Present: PERRL, conjuntiva pink, sclera anicteric Pupils: Present: PERRL - Neck Neck exam general surgery: Present: supple, trachea midline. Absent: lymphadenopathy - Respiratory Respiratory exam: Present: CTAB. Absent: accessory muscle use, rales, rhonchi, wheezes - Cardiovascular Cardiovascular exam: Present: RRR, +S1, +S2. Absent: diastolic murmur, gallop, rubs, systolic murmur - GI/Abdominal GI/Abdominal exam: Present: normal bowel sounds, soft, tenderness, no peritoneal signs. Absent: distended Additional comments: Voluntary guarding but abdomen is soft. She is non-toxic appearing. - Extremities Exam Extremities exam: Present: warm, radial pulses palpable and symmetrical. Absent : calf tenderness, cyanotic, pedal edema - Neurological Exam Neurological exam: Present: CN II-XII intact, oriented X3, no focal deficits. Absent: pronater drift, facial droop, speech deficit - Skin Skin exam: Present: dry, intact Internal Medicine: Result - Labs CBC & Chem 7: 06/18/17 03:27 06/18/17 03:27 Labs: Short CBC 06/18/17 Range/Units : WBC 25.7 H (4.3-11.1) K/mcL Hgb 9.2 L (11.5-15.4) g/dL Hct 27.9 L (35.3-44.9) % Plt Count 336 (140-400) K/mcL BMP 06/18/17 03:27 Sodium 132 L Potassium 3.3 L Chloride 101 Carbon Dioxide 22 L BUN 8 Creatinine 0.46 L Glucose 256 H Calcium 7.9 L - ABG Interpretation ABG results: PT/INR, D-dimer PT 25.9 Seconds (9.4-12.1) H 06/18/17 03:27 - Impressions Impressions Abdomen/Pelvis CT 06/17/17 14:38 IMPRESSION: Significant interval improvement to degree of stool material within large bowel, especially to the rectum. However, interval worsening of low-attenuation circumferential wall thickening to the rectum and to a lesser extent rectosigmoid junction along with mucosal hyperemia concerning for worsening proctocolitis, nonspecific. There is also worsened diffuse fatty infiltration/fluid in the extraperitoneal spaces about the rectum without focal fluid collection noted or soft tissue gas, likely reactive relating to the rectal abnormality. No evidence for obstruction. Interval removal of Erazo catheter. There appears to be worsened low-attenuation circumferential wall thickening to the urinary bladder along with hyperemia of the mucosa concerning for nonspecific cystitis. Small amount of air present within the urinary bladder may relate to prior presence or removal of Erazo catheter but air relating to infectious process not excluded. There is also worsened diffuse fatty infiltration/fluid in the extraperitoneal spaces about the urinary bladder without focal fluid collection or soft tissue gas, likely reactive relating to the urinary bladder pathology. Remainder of the exam is stable without additional acute intra-abdominal or intrapelvic abnormality. D/ / 06/17/2017 16:11:11 Jose R Sanderson MD / mabel Interpreting Provider: Jose R Sanderson MD Consult Discharge Plan - Plan Referrals: Valente Rosa MD [Primary Care Provider] -
[2017-06-18] MEDS: Beclomethasone 40mcg MDI IH SCH ×2 (10:38→21:52)
[2017-06-18] MEDS ORDERED: *HR* Warfarin 2.5 MG TABLET PO ONE (18:00)
[2017-06-18] MEDS: Melatonin 3 MG TABLET PO SCH (20:43)
[2017-06-19] MEDS: Albuterol 2.5 MG/3 ML NEBULIZER IH PRN ×2 (01:49→05:44)
[2017-06-19] MEDS: Ipratropium/Albuterol Neb 3 ML IH SCH ×4 (03:58→21:21)
[2017-06-19] MEDS: Venlafaxine XR (24 HR) 75 MG CAP.ER.24H PO SCH (08:11)
[2017-06-19] MEDS: MetroNIDAZOLE 500 MG/100 ML 500 MG/100 ML BAG IVPB SCH ×2 (08:12→18:05)
[2017-06-19] MEDS: *HR* Amiodarone 200 MG TABLET PO SCH (08:12)
[2017-06-19] MEDS: Sennosides 8.6 MG TABLET PO SCH (08:12)
[2017-06-19] MEDS: Aspirin Enteric Coated 81 MG Tablet PO SCH (08:12)
[2017-06-19 08:21] LABS: Mean Platelet Volume 9.5 fL (9.4-12.4)
[2017-06-19 08:22] LABS: Hematocrit 29.3 % (35.3-44.9); Hemoglobin 9.5 g/dL (11.5-15.4); Mean Corpuscular HGB Conc 32.4 g/dL (31.6-35.5); Mean Corpuscular Volume 92.4 fL (83.0-100.0); Platelet Count 395 K/mcL (140-400); Red Blood Count 3.17 M/mcL (3.82-4.97); Red Cell Distribution Width 18.1 % (11.5-14.5)
[2017-06-19] MEDS: Insulin LISPRO 300 UNITS/3 ML VIAL SQ SCH ×4 (08:35→18:10)
[2017-06-19 08:50] LABS: INR 2.5; Prothrombin Time 27.1 Seconds (9.4-12.1)
[2017-06-19 08:53] LABS: BUN/Creatinine Ratio 16 (6-26); Blood Urea Nitrogen 8 mg/dL (8-23); Calcium 8.6 mg/dL (8.6-10.3); Carbon Dioxide 19 mEq/L (23-29); Chloride 98 mEq/L (98-107); Glucose 317 mg/dL (70-105); Osmolality,Calculated 282 (280-300); Potassium 3.3 mEq/L (3.5-5.1); Sodium 131 mEq/L (136-145); eGFR For African Americans > 60 (> 60); eGFR For Non-African Americans > 60 (> 60)
[2017-06-19] MEDS: Beclomethasone 40mcg MDI IH SCH ×2 (10:35→21:21)
--- NOTE | 2017-06-19 11:39 | Internal Med Progress Note ---
Date of Encounter: 06/19/17 Time of Encounter: 11:37 - Assessment and plan (1) Proctocolitis Current Visit: Yes Status: Acute Assessment and plan: Cipro/Flagyl started on 06/17 at evening time. Diet poor Pain relatively unchanged, WBC did not improve today. CRP yesterday 45 - Make NPO - Consult Surgery if no improvement after 48 hrs of antibiotics (4/2 in AM). - Recheck 48 hr CRP, tomorrow AM (2) Constipation Current Visit: Yes Status: Acute Assessment and plan: - Likely from chronic opiate and iron supplementation. Presented with ABD pain and reported constipation. ABD CT 06/14 showed dilated stool filled rectum up to 10 cm, smooth wall thickening and perirectal edema concerning for stercoral proctitis and fecal impaction. Has had multiple, large bowel movements on 06/17: A repeat CT showed worsening proctocolitis, improved stool burden. She was started on Cipro/Flagyl 06/18: Pain in abdomen unchanged. She has not received a full day worth of antibiotic treatment. Continue - Colace 100 m BID - Senna 8.6 mg BID - Bisacodyl 10 mg daily prn. 06/19: having some loose diarrhea - will change senna to once daily. She is on iron and oxycodone Qualifiers: Constipation type: slow transit constipation Qualified Code(s): K59.01 - Slow transit constipation (3) Urinary retention Current Visit: Yes Status: Acute Assessment and plan: Likely from multiple co morbidities, anticholinergic medications, constipation. Urology following, recommendations apprecaited. (4) A-fib Current Visit: No Status: Acute Assessment and plan: Continue coumadin - currently INR is therapeutic Continue Amiodarone, Qualifiers: Atrial fibrillation type: chronic Qualified Code(s): I48.2 - Chronic atrial fibrillation (5) DM2 (diabetes mellitus, type 2) Current Visit: No Status: Chronic Assessment and plan: Cardiac/Diabetic diet, Insulin sliding scale Qualifiers: Diabetes mellitus longterm insulin use: with dedicated intermodal truck driver use Diabetes mellitus complication status: with hyperglycemia Qualified Code(s): E11.65 - Type 2 diabetes mellitus with hyperglycemia; Z79.4 - termite treater helper (current) use of insulin; Z79.4 - termite treater helper (current) use of insulin; Z79.4 - termite treater helper (current ) use of insulin; Z79.4 - termite treater helper (current) use of insulin (6) COPD exacerbation Current Visit: No Status: Acute (7) Lung cancer Current Visit: No Status: Acute Qualifiers: Laterality: right Lung location: unspecified part of lung Qualified Code( s): C34.91 - Malignant neoplasm of unspecified part of right bronchus or lung - Subjective Interval history: Patient feels relief from constipation 06/17: Had some relief from constipation but was having abdominal pain despite relief. 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 Denies fevers/ chills, n/v. She is now having stool of catie-like, loose appearance. 4 BMs overnight and this AM. - Constitutional Vitals: Temp Pulse Resp BP Pulse Ox 98.2 F 96 15 94/57 94 06/19/17 11:20 06/19/17 11:20 06/19/17 11:20 06/19/17 11:20 06/19/17 11:20 General appearance: Present: mild distress, A&O X 3 - Head Head exam: Present: atraumatic, normocephalic - Eye Eye exam: Present: PERRL, conjuntiva pink, sclera anicteric Pupils: Present: PERRL - Neck Neck exam general surgery: Present: supple, trachea midline. Absent: lymphadenopathy - Respiratory Respiratory exam: Present: CTAB. Absent: accessory muscle use, rales, rhonchi, wheezes - Cardiovascular Cardiovascular exam: Present: RRR, +S1, +S2. Absent: diastolic murmur, gallop, rubs, systolic murmur - GI/Abdominal GI/Abdominal exam: Present: normal bowel sounds, soft, tenderness, no peritoneal signs. Absent: distended, rebound, rigid - Extremities Exam Extremities exam: Present: warm, radial pulses palpable and symmetrical. Absent : calf tenderness, cyanotic, pedal edema - Neurological Exam Neurological exam: Present: CN II-XII intact, oriented X3, no focal deficits. Absent: pronater drift, facial droop, speech deficit - Skin Skin exam: Present: dry, intact Internal Medicine: Result - Labs CBC & Chem 7: 06/19/17 06:30 04/01/18 06:30 Labs: Short CBC 06/19/17 Range/Units 06:30 WBC 26.8 H (4.3-11.1) K/mcL Hgb 9.5 L (11.5-15.4) g/dL Hct 29.3 L (35.3-44.9) % Plt Count 395 (140-400) K/mcL BMP 06/19/17 06:30 Sodium 131 L Potassium 3.3 L Chloride 98 Carbon Dioxide 19 L BUN 8 Creatinine 0.49 L Glucose 317 H Calcium 8.6 - ABG Interpretation ABG results: PT/INR, D-dimer PT 27.1 Seconds (9.4-12.1) H 06/19/17 06:30 Consult Discharge Plan - Plan Referrals: Valente Rosa MD [Primary Care Provider] -
[2017-06-19] MEDS: *HR* HYDROcodone/Acet 10/325 mg TABLET PO PRN (11:54)
[2017-06-19] MEDS ORDERED: Sennosides 8.6 MG TABLET PO PRN (12:03)
[2017-06-19] MEDS ORDERED: Insulin DETEMIR 100 UNIT/ML X5UNITS SQ ONE (12:11)
[2017-06-19] MEDS ORDERED: *HR* Warfarin 2.5 MG TABLET PO ONE (18:00)
[2017-06-19] MEDS: 0.9 % Sodium Chloride 1,000 ML IVC SCH (18:10)
[2017-06-19] MEDS: Melatonin 3 MG TABLET PO SCH (21:40)
[2017-06-20] MEDS: Insulin LISPRO 300 UNITS/3 ML VIAL SQ SCH ×6 (00:23→17:44)
[2017-06-20] MEDS: MetroNIDAZOLE 500 MG/100 ML 500 MG/100 ML BAG IVPB SCH ×3 (00:27→20:10)
[2017-06-20] MEDS: Ipratropium/Albuterol Neb 3 ML IH SCH ×4 (04:36→20:28)
[2017-06-20 07:24] LABS: Hematocrit 30.2 % (35.3-44.9); Hemoglobin 9.7 g/dL (11.5-15.4); Immature Platelets 2.1 % (1.1-6.1); Mean Corpuscular HGB Conc 32.1 g/dL (31.6-35.5); Mean Corpuscular Hemoglobin 30.6 pg (28.0-33.3); Mean Corpuscular Volume 95.3 fL (83.0-100.0); Mean Platelet Volume 9.2 fL (9.4-12.4); Platelet Count 448 K/mcL (140-400); Red Blood Count 3.17 M/mcL (3.82-4.97); Red Cell Distribution Width 18.5 % (11.5-14.5)
[2017-06-20 07:42] LABS: INR 2.6; Prothrombin Time 29.1 Seconds (9.4-12.1)
[2017-06-20 07:43] LABS: BUN/Creatinine Ratio 13 (6-26); Blood Urea Nitrogen 6 mg/dL (8-23); Calcium 8.4 mg/dL (8.6-10.3); Carbon Dioxide 22 mEq/L (23-29); Chloride 103 mEq/L (98-107); Glucose 82 mg/dL (70-105); Osmolality,Calculated 275 (280-300); Potassium 3.2 mEq/L (3.5-5.1); Sodium 134 mEq/L (136-145); eGFR For African Americans > 60 (> 60); eGFR For Non-African Americans > 60 (> 60)
[2017-06-20] MEDS: Venlafaxine XR (24 HR) 75 MG CAP.ER.24H PO SCH (08:21)
[2017-06-20] MEDS: Aspirin Enteric Coated 81 MG Tablet PO SCH (08:22)
[2017-06-20] MEDS: *HR* Amiodarone 200 MG TABLET PO SCH (08:22)
--- NOTE | 2017-06-20 08:52 | Internal Med Progress Note ---
Date of Encounter: 06/20/17 Time of Encounter: 08:49 - Assessment and plan (1) Proctocolitis Current Visit: Yes Status: Acute Assessment and plan: Cipro/Flagyl started on 06/17 at evening time. Diet poor Pain relatively unchanged , WBC did not improve today. CRP from 45 to 44 after 2 days of abx treatment CBC needs to be with diff to evaluate infectious status, will repeat Continue NPO diet (2) Leukocytosis Current Visit: Yes Status: Acute Assessment and plan: Most likely from proctocolitis. Lactic acid wnl. Of note, patient has received a dose of Nulasta 06/06/2017, may contribute - Continue to monitor while trating with Cipro/Flagyl. - Peaked at 37k and has fluctuated. Currently 22.3k - Recheck CBC w diff today. - Note that pt will receive Solu Medrol today for COPD exacerbation and may increase leukocytosis further. await stool studies. Qualifiers: Leukocytosis type: unspecified Qualified Code(s): D72.829 - Elevated white blood cell count, unspecified (3) Constipation Current Visit: Yes Status: Acute Assessment and plan: - Likely from chronic opiate and iron supplementation. Presented with ABD pain and reported constipation. ABD CT 06/14 showed dilated stool filled rectum up to 10 cm, smooth wall thickening and perirectal edema concerning for stercoral proctitis and fecal impaction. Has had multiple, large bowel movements on 06/17: A repeat CT showed worsening proctocolitis, improved stool burden. She was started on Cipro/Flagyl 06/18: Pain in abdomen unchanged. She has not received a full day worth of antibiotic treatment. 06/19: having some loose diarrhea - will change senna to once daily. She is on iron and oxycodone 06/20: 2 BM overnight, doing better Continue - Colace 100 m BID - Senna 8.6 mg BID - Bisacodyl 10 mg daily prn. Qualifiers: Constipation type: slow transit constipation Qualified Code(s): K59.01 - Slow transit constipation (4) Urinary retention Current Visit: Yes Status: Acute Assessment and plan: Likely from multiple co morbidities, anticholinergic medications, constipation. - Improved per patient Urology following, recommendations apprecaited. (5) A-fib Current Visit: No Status: Acute Assessment and plan: Continue coumadin - currently INR is therapeutic Continue Amiodarone, Qualifiers: Atrial fibrillation type: chronic Qualified Code(s): I48.2 - Chronic atrial fibrillation (6) DM2 (diabetes mellitus, type 2) Current Visit: No Status: Chronic Assessment and plan: Cardiac/Diabetic diet, Insulin sliding scale Qualifiers: Diabetes mellitus nursing home insulin use: with nursing home use Diabetes mellitus complication status: with hyperglycemia Qualified Code(s): E11.65 - Type 2 diabetes mellitus with hyperglycemia; Z79.4 - detention (current) use of insulin; Z79.4 - detention (current) use of insulin; Z79.4 - roasterman (current ) use of insulin; Z79.4 - roasterman (current) use of insulin (7) COPD exacerbation Current Visit: No Status: Acute Assessment and plan: Start Solu Medrol Continue Duo Neb treatment. (8) Lung cancer Current Visit: No Status: Acute Qualifiers: Laterality: right Lung location: unspecified part of lung Qualified Code( s): C34.91 - Malignant neoplasm of unspecified part of right bronchus or lung (9) DVT prophylaxis Current Visit: No Status: Acute - Subjective Interval history: Patient feels relief from constipation 06/17: Had some relief from constipation but was having abdominal pain despite relief. 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 Pain rated 7/10. Denies fevers/chills, n/v. She is now having stool of catie-like, loose appearance. 4 BMs overnight. She was placed NPO 06/20: Patient has been NPO. Pain is 6/10 slight improvement. Had 2 BM overnight. States no difficulty with urinating. She is having some SOB from COPD. Solu Medrol started. - Constitutional Vitals: Temp Pulse Resp BP Pulse Ox 98.4 F 86 14 173/75 98 06/20/17 06:46 06/20/17 06:46 06/20/17 06:46 06/20/17 06:46 06/20/17 06:46 General appearance: Present: mild distress, A&O X 3 Exam: General - AAO x 3 Psych - Appropriate affect/speech. No agitation Eyes - KERRI. Eye lids intact. No scleral icterus Neuro - No gross peripheral or central neuro deficits on inspection Heart - Sinus. RRR. S1 and S2 present. No added HS/murmurs appreciated. No elevated JVD appreciated. Lung - Air entry decreased from yesterday, equal b/l, more wheezing today. GI - Soft, + TTP, normal bowel sounds. non distended, no rebound tenderness. - No CVA/suprapubic tenderness or palpable bladder distension. Erazo catheter placement Skin - Intact. No rash/petechiae/ecchymosis. Warm extremities MSK - Joints with normal ROM. No joint swellings Internal Medicine: Result - Labs CBC & Chem 7: 06/20/17 06:21 06/20/17 06:21 Labs: Short CBC 06/19/17 06/20/17 Range/Units 06:30 06:21 WBC 26.8 H 22.3 H (4.3-11.1) K/mcL Hgb 9.5 L 9.7 L (11.5-15.4) g/dL Hct 29.3 L 30.2 L (35.3-44.9) % Plt Count 395 448 H (140-400) K/mcL BMP 06/19/17 06/20/17 06:30 06:21 Sodium 131 L 134 L Potassium 3.3 L 3.2 L Chloride 98 103 Carbon Dioxide 19 L 22 L BUN 8 6 L Creatinine 0.49 L 0.46 L Glucose 317 H 82 Calcium 8.6 8.4 L - ABG Interpretation ABG results: PT/INR, D-dimer PT 29.1 Seconds (9.4-12.1) H 06/20/17 06:21 - Impressions Impressions Abdomen/Pelvis CT 06/17/17 14:38 IMPRESSION: Significant interval improvement to degree of stool material within large bowel, especially to the rectum. However, interval worsening of low-attenuation circumferential wall thickening to the rectum and to a lesser extent rectosigmoid junction along with mucosal hyperemia concerning for worsening proctocolitis, nonspecific. There is also worsened diffuse fatty infiltration/fluid in the extraperitoneal spaces about the rectum without focal fluid collection noted or soft tissue gas, likely reactive relating to the rectal abnormality. No evidence for obstruction. Interval removal of Erazo catheter. There appears to be worsened low-attenuation circumferential wall thickening to the urinary bladder along with hyperemia of the mucosa concerning for nonspecific cystitis. Small amount of air present within the urinary bladder may relate to prior presence or removal of Erazo catheter but air relating to infectious process not excluded. There is also worsened diffuse fatty infiltration/fluid in the extraperitoneal spaces about the urinary bladder without focal fluid collection or soft tissue gas, likely reactive relating to the urinary bladder pathology. Remainder of the exam is stable without additional acute intra-abdominal or intrapelvic abnormality. D/ / 06/17/2017 16:11:11 Jose R Sanderson MD / [email or web address] Interpreting Provider: Jose R Sanderson MD Consult Discharge Plan - Plan Referrals: Valente Rosa MD [Primary Care Provider] -
[2017-06-20 09:14] LABS: Basophils # 0.1 K/mcL (0.0-0.2); Basophils % 0.4 %; Eosinophils % 0.1 %; Immature Granulocytes % 2.5 % (0-4); Lymphocytes # 1.3 K/mcL (0.6-4.6); Lymphocytes % 5.5 %; Monocytes # 1.4 K/mcL (0.0-1.3); Monocytes % 6.2 %; Neutrophils # 19.4 K/mcL (1.6-8.9); Nucleated Red Blood Cells 0.1 /100 WBC (0); Segmented Neutrophils % 85.3 %
[2017-06-20] MEDS: Beclomethasone 40mcg MDI IH SCH ×2 (09:59→20:28)
[2017-06-20] MEDS: 0.9 % Sodium Chloride 1,000 ML IVC SCH (10:29)
[2017-06-20] MEDS ORDERED: Chloraseptic Spray 177 ML BOTTLE MM PRN (14:36)
[2017-06-20] MEDS: MethylPREDNISolone 40 MG/ML VIAL IVP SCH (15:27)
[2017-06-20] MEDS ORDERED: *HR* Warfarin 2.5 MG TABLET PO ONE (18:00)
[2017-06-21] MEDS: Insulin LISPRO 300 UNITS/3 ML VIAL SQ SCH ×4 (00:44→17:27)
[2017-06-21] MEDS: MethylPREDNISolone 40 MG/ML VIAL IVP SCH (00:45)
[2017-06-21] MEDS: Melatonin 3 MG TABLET PO SCH ×2 (02:29→21:13)
[2017-06-21] MEDS: MetroNIDAZOLE 500 MG/100 ML 500 MG/100 ML BAG IVPB SCH ×3 (02:35→21:12)
[2017-06-21] MEDS: Ipratropium/Albuterol Neb 3 ML IH SCH ×4 (04:14→20:30)
[2017-06-21 04:40] LABS: Basophils % 0.3 %; Mean Platelet Volume 9.1 fL (9.4-12.4); Monocytes % 1.4 %
[2017-06-21 04:42] LABS: Basophils # 0.1 K/mcL (0.0-0.2); Hematocrit 27.1 % (35.3-44.9); Hemoglobin 8.9 g/dL (11.5-15.4); Immature Granulocytes % 3.2 % (0-4); Lymphocytes # 0.4 K/mcL (0.6-4.6); Lymphocytes % 1.3 %; Mean Corpuscular HGB Conc 32.8 g/dL (31.6-35.5); Mean Corpuscular Volume 91.2 fL (83.0-100.0); Monocytes # 0.4 K/mcL (0.0-1.3); Platelet Count 410 K/mcL (140-400); Red Blood Count 2.97 M/mcL (3.82-4.97); Red Cell Distribution Width 18.3 % (11.5-14.5); Segmented Neutrophils % 93.8 %
[2017-06-21 04:47] LABS: INR 3.6; Prothrombin Time 39.7 Seconds (9.4-12.1)
[2017-06-21 05:04] LABS: BUN/Creatinine Ratio 19 (6-26); Blood Urea Nitrogen 10 mg/dL (8-23); Calcium 8.1 mg/dL (8.6-10.3); Carbon Dioxide 19 mEq/L (23-29); Chloride 103 mEq/L (98-107); Glucose 235 mg/dL (70-105); Osmolality,Calculated 279 (280-300); Potassium 3.7 mEq/L (3.5-5.1); Sodium 131 mEq/L (136-145); eGFR For African Americans > 60 (> 60); eGFR For Non-African Americans > 60 (> 60)
[2017-06-21 05:45] LABS: Platelet Estimate Normal (Normal); Toxic Granulation Present (Not Present)
[2017-06-21] MEDS ORDERED: predniSONE 20 MG TABLET PO SCH (09:00)
[2017-06-21] MEDS: *HR* Amiodarone 200 MG TABLET PO SCH (10:39)
[2017-06-21] MEDS: Venlafaxine XR (24 HR) 75 MG CAP.ER.24H PO SCH (10:40)
--- NOTE | 2017-06-21 10:47 | Internal Med Progress Note ---
Date of Encounter: 06/21/17 Time of Encounter: 10:43 - Assessment and plan (1) A-fib Current Visit: Yes Status: Chronic Assessment and plan: HR controlled, continue Amiodarone, on warfarin. INR today is 3.6, hold coumadin tonight. Qualifiers: Atrial fibrillation type: chronic Qualified Code(s): I48.2 - Chronic atrial fibrillation (2) Lung cancer Current Visit: Yes Status: Chronic Assessment and plan: Chronic, following with oncology, no indication for oncology consult in-patient so far Continue to monitor Qualifiers: Laterality: right Lung location: unspecified part of lung Qualified Code( s): C34.91 - Malignant neoplasm of unspecified part of right bronchus or lung (3) DVT prophylaxis Current Visit: Yes Status: Acute Assessment and plan: on coumadin INR is therapeutic (4) DM2 (diabetes mellitus, type 2) Current Visit: Yes Status: Chronic Assessment and plan: FA acceptable Cardiac/Diabetic diet, Insulin sliding scale Qualifiers: Diabetes mellitus 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 renewal 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 use: with nursing home use Diabetes mellitus complication status: with hyperglycemia Qualified Code(s): E11.65 - Type 2 diabetes mellitus with hyperglycemia; Z79.4 - [facility] (current) use of insulin; Z79.4 - manager terminal (current) use of insulin; Z79.4 - [facility] (current ) use of insulin; Z79.4 - [facility] (current) use of insulin (5) COPD exacerbation Current Visit: Yes Status: Acute Assessment and plan: continue duonebs change solumedrol to prednisone Chest is CTAB this morning (6) Urinary retention Current Visit: Yes Status: Acute Assessment and plan: Likely from multiple co morbidities, anticholinergic medications, constipation. - Improved per patient Urology following, recommendations apprecaited. (7) Constipation Current Visit: Yes Status: Acute Assessment and plan: as in proctocolitis Patient is now having small formed BMs Qualifiers: Constipation type: slow transit constipation Qualified Code(s): K59.01 - Slow transit constipation (8) Proctocolitis Current Visit: Yes Status: Acute Assessment and plan: Presented with ABD pain and reported constipation. ABD CT 06/14 showed dilated stool filled rectum up to 10 cm, smooth wall thickening and perirectal edema concerning for stercoral proctitis and fecal impaction. Has had multiple, large bowel movements on 06/17: A repeat CT showed worsening proctocolitis, improved stool burden. She was started on Cipro/Flagyl 06/18: Pain in abdomen unchanged. She has not received a full day worth of antibiotic treatment. 06/19: having some loose diarrhea - will change senna to once daily. She is on iron and oxycodone 06/20: 2 BM overnight, doing better 06/21: Continues to complain of abdominal pain, she reports her bowel movements are soft and small shift. She is NPO, complete blood count continues to show leukocytosis with left shift I will repeat her abdomen /pelvis CT and if theres stability or improvement, will start on clear liquid diet, if no improvement, ill consult surgery Continue -Cipro/flagyl-Day 4 - Colace 100 m BID - Senna 8.6 mg BID - Bisacodyl 10 mg daily prn. (9) Leukocytosis Current Visit: Yes Status: Acute Assessment and plan: as above Qualifiers: Leukocytosis type: unspecified Qualified Code(s): D72.829 - Elevated white blood cell count, unspecified - Time Spent With Patient Total time spent is greater than 50% in coordination of care (as documented) at patient's floor/unit and/or counseling patient: - Subjective Interval history: Seen and evaluated at bedside She is admitted and being managed for proctocolitis, she initially presented for constipation, she continues to have some formed small B She however, continues to complains of LLQ pain She also states she is thirsty and will nlike ot have a drink Her leukocytosis is not improving, although she had received nulasta on 06/06, and is also on steroids She has been afebrile - Constitutional Vitals: Temp Pulse Resp BP Pulse Ox 98.5 F 98 16 110/62 100 06/21/17 08:00 06/21/17 08:00 06/21/17 08:00 06/21/17 08:00 06/21/17 08:00 General appearance: Present: mild distress, A&O X 3 - Head Head exam: Present: atraumatic, normocephalic - Eye Eye exam: Present: PERRL, conjuntiva pink, sclera anicteric Pupils: Present: PERRL - Neck Neck exam general surgery: Present: supple, trachea midline. Absent: lymphadenopathy - Respiratory Respiratory exam: Present: CTAB. Absent: accessory muscle use, rales, rhonchi, wheezes - Cardiovascular Cardiovascular exam: Present: RRR, +S1, +S2, systolic murmur (loud systolic murmur). Absent: diastolic murmur, gallop, rubs - GI/Abdominal GI/Abdominal exam: Present: normal bowel sounds, soft, tenderness, no peritoneal signs. Absent: distended, guarding - Extremities Exam Extremities exam: Present: warm, radial pulses palpable and symmetrical. Absent : calf tenderness, cyanotic, pedal edema - Neurological Exam Neurological exam: Present: alert, CN II-XII intact, oriented X3, no focal deficits. Absent: pronater drift, facial droop, speech deficit - Skin Skin exam: Present: dry, intact Internal Medicine: Result - Labs CBC & Chem 7: 06/21/17 04:00 06/21/17 04:00 Labs: Short CBC 06/21/17 Range/Units 04:00 WBC 29.8 H (4.3-11.1) K/mcL Hgb 8.9 L (11.5-15.4) g/dL Hct 27.1 L (35.3-44.9) % Plt Count 410 H (140-400) K/mcL Neutrophils # 28.0 H (1.6-8.9) K/mcL BMP 06/21/17 04:00 Sodium 131 L Potassium 3.7 Chloride 103 Carbon Dioxide 19 L BUN 10 Creatinine 0.52 L Glucose 235 H Calcium 8.1 L - ABG Interpretation ABG results: PT/INR, D-dimer PT 39.7 Seconds (9.4-12.1) H 06/21/17 04:00 Consult Discharge Plan - Plan Referrals: Valente Rosa MD [Primary Care Provider] -
[2017-06-21] MEDS: Beclomethasone 40mcg MDI IH SCH ×2 (11:04→20:30)
[2017-06-21] MEDS: 0.9 % Sodium Chloride 1,000 ML IVC SCH ×2 (11:31→11:32)
[2017-06-22] MEDS: Albuterol 2.5 MG/3 ML NEBULIZER IH PRN (00:08)
[2017-06-22] MEDS ORDERED: MethylPREDNISolone 40 MG/ML VIAL IVP ONE (02:42)
[2017-06-22] MEDS: Ipratropium/Albuterol Neb 3 ML IH SCH ×6 (03:10→23:59)
[2017-06-22] MEDS ORDERED: Furosemide 40 MG/4 ML VIAL IVP ONE (04:39)
[2017-06-22 05:37] LABS: Basophils % 0.3 %; Mean Platelet Volume 9.3 fL (9.4-12.4); Red Cell Distribution Width 19.5 % (11.5-14.5)
[2017-06-22 05:38] LABS: Basophils # 0.1 K/mcL (0.0-0.2); Hemoglobin 8.7 g/dL (11.5-15.4); Immature Granulocytes % 3.4 % (0-4); Lymphocytes # 0.3 K/mcL (0.6-4.6); Lymphocytes % 0.7 %; Mean Corpuscular HGB Conc 32.2 g/dL (31.6-35.5); Mean Corpuscular Hemoglobin 30.9 pg (28.0-33.3); Mean Corpuscular Volume 95.7 fL (83.0-100.0); Monocytes # 2.2 K/mcL (0.0-1.3); Monocytes % 4.6 %; Platelet Count 487 K/mcL (140-400); Red Blood Count 2.82 M/mcL (3.82-4.97)
[2017-06-22 05:45] LABS: Prothrombin Time 76.6 Seconds (9.4-12.1)
[2017-06-22 05:46] LABS: INR 6.8
[2017-06-22 05:55] LABS: BUN/Creatinine Ratio 22 (6-26); Blood Urea Nitrogen 17 mg/dL (8-23); Calcium 8.6 mg/dL (8.6-10.3); Carbon Dioxide 12 mEq/L (23-29); Chloride 98 mEq/L (98-107); Glucose 430 mg/dL (70-105); Osmolality,Calculated 292 (280-300); Potassium 4.4 mEq/L (3.5-5.1); Sodium 131 mEq/L (136-145); eGFR For African Americans > 60 (> 60); eGFR For Non-African Americans > 60 (> 60)
[2017-06-22 06:00] LABS: Large Platelets Present (Not Present); Platelet Estimate Normal (Normal); Toxic Granulation Present (Not Present)
[2017-06-22] MEDS: MetroNIDAZOLE 500 MG/100 ML 500 MG/100 ML BAG IVPB SCH ×3 (06:52→19:24)
[2017-06-22] MEDS: Insulin LISPRO 300 UNITS/3 ML VIAL SQ SCH ×5 (07:47→21:18)
[2017-06-22] MEDS ORDERED: *HR* Phytonadione 5 MG TABLET PO ONE (07:56)
[2017-06-22] MEDS: Beclomethasone 40mcg MDI IH SCH ×2 (08:19→20:37)
[2017-06-22] MEDS: Venlafaxine XR (24 HR) 75 MG CAP.ER.24H PO SCH (08:39)
[2017-06-22] MEDS: predniSONE 20 MG TABLET PO SCH (08:39)
[2017-06-22] MEDS: *HR* Amiodarone 200 MG TABLET PO SCH (08:39)
[2017-06-22] MEDS ORDERED: Lidocaine -MPF 1% 5 ML AMPUL INFILT ONE (08:50)
[2017-06-22] MEDS: Vancomycin Oral Soln 250 MG/5 ML UDC PO SCH ×4 (10:21→21:34)
[2017-06-22 10:40] LABS: Hematocrit 27.6 % (35.3-44.9); Hemoglobin 9.1 g/dL (11.5-15.4); Mean Corpuscular Hemoglobin 31.5 pg (28.0-33.3); Mean Corpuscular Volume 95.5 fL (83.0-100.0); Mean Platelet Volume 8.9 fL (9.4-12.4); Platelet Count 467 K/mcL (140-400); Red Blood Count 2.89 M/mcL (3.82-4.97); Red Cell Distribution Width 19.3 % (11.5-14.5)
[2017-06-22 11:16] LABS: Lymphocytes # 0.5 K/mcL (0.6-4.6); Monocytes # 0.5 K/mcL (0.0-1.3); Neutrophils # 51.7 K/mcL (1.6-8.9)
[2017-06-22 11:17] LABS: Anisocytosis 1+ (Not Present); Large Platelets Present (Not Present); Platelet Estimate Increased (Normal); Poikilocytosis 1+ (Not Present); Toxic Granulation Present (Not Present); Toxic Vacuolation Present (Not Present)
[2017-06-22] MEDS: Furosemide 40 MG/4 ML VIAL IVP SCH (12:07)
[2017-06-22] MEDS: cefTRIAXone 2,000 MG in Water for inj. (sterile) 20 ML 20 ML IVP SCH (12:09)
--- NOTE | 2017-06-22 12:43 | Internal Med Progress Note ---
Date of Encounter: 06/22/17 Time of Encounter: 14:52 - Assessment and plan (1) A-fib Current Visit: Yes Status: Chronic Assessment and plan: HR controlled, continue Amiodarone, continue to hold Warfarin Qualifiers: Atrial fibrillation type: chronic Qualified Code(s): I48.2 - Chronic atrial fibrillation (2) Supratherapeutic INR Current Visit: Yes Status: Acute Assessment and plan: INR 6.8 Given 10mg po Vit K No source of bleeding Continue to hold coumadin Repeat INR this afternoon. Type and screen (3) Lung cancer Current Visit: Yes Status: Chronic Assessment and plan: Chronic, following with oncology Onc consulted today due to leukocytosis Qualifiers: Laterality: right Lung location: unspecified part of lung Qualified Code( s): C34.91 - Malignant neoplasm of unspecified part of right bronchus or lung (4) DVT prophylaxis Current Visit: Yes Status: Acute Assessment and plan: on coumadin INR is supra-therapeutic (5) DM2 (diabetes mellitus, type 2) Current Visit: Yes Status: Chronic Assessment and plan: Fs acceptable Cardiac/Diabetic diet, Insulin sliding scale, add levemir Qualifiers: Diabetes mellitus shipping and receiving coordinator insulin use: with shipping and receiving coordinator use Diabetes mellitus complication status: with hyperglycemia Qualified Code(s): E11.65 - Type 2 diabetes mellitus with hyperglycemia; Z79.4 - retirement (current) use of insulin; Z79.4 - social services coordinator (current) use of insulin; Z79.4 - retirement (current ) use of insulin; Z79.4 - retirement (current) use of insulin (6) COPD exacerbation Current Visit: Yes Status: Acute Assessment and plan: continue duonebs continue to taper prednisone Continue O2 supplementation (7) Urinary retention Current Visit: Yes Status: Resolved Assessment and plan: Likely from multiple co morbidities, anticholinergic medications, constipation. Urology following, recommendations appreciated Resolved per patient. (8) Constipation Current Visit: Yes Status: Acute Assessment and plan: as in proctocolitis Patient is now having small formed BMs Qualifiers: Constipation type: slow transit constipation Qualified Code(s): K59.01 - Slow transit constipation (9) Proctocolitis Current Visit: Yes Status: Acute Assessment and plan: Presented with ABD pain and reported constipation. ABD CT 06/14 showed dilated stool filled rectum up to 10 cm, smooth wall thickening and perirectal edema concerning for stercoral proctitis and fecal impaction. Has had multiple, large bowel movements on 06/17: A repeat CT showed worsening proctocolitis, improved stool burden. She was started on Cipro/Flagyl 06/18: Pain in abdomen unchanged. She has not received a full day worth of antibiotic treatment. 06/19: having some loose diarrhea - will change senna to once daily. She is on iron and oxycodone 06/20: 2 BM overnight, doing better 06/21: Continues to complain of abdominal pain, she reports her bowel movements are soft and small shift. She is NPO, complete blood count continues to show leukocytosis with left shift 06/22: Repeat Abd CT shows improvement, patient started on clear liquid diet, toelrating 06/23: abdomen is benign, not tender, worsening leukoytosis Continue -D/C Cipro, Start on ceftriaxone 2g daily -Continue Colace 100 m BID -Continue Senna 8.6 mg BID -Continue Bisacodyl 10 mg daily prn. -Add PO Vancomycin for C.diff (10) Leukocytosis Current Visit: Yes Status: Acute Assessment and plan: WBC 52,800 this am Hb stable at 8.9-9.1 PLT WNL INR 6.8 NO evidence of bleeding, R/O DIC-send Fibriongen, LDH, haptoglobin, ESR, CRP Patient continues to be afebrile We will check for C.diff Repeat CXR shows pulm edema, started on lasix Oncology has been consulted We will start on po vancomycin for suspected C.diff-patient does not have watery diarrhea STAT UA shows glucosuria, ketones, Qualifiers: Leukocytosis type: unspecified Qualified Code(s): D72.829 - Elevated white blood cell count, unspecified (11) Pulmonary edema Current Visit: Yes Status: Acute Assessment and plan: started on lasix IV Strict IOs Obtain ECHO-patient has a loud SM Qualifiers: Chronicity: acute Qualified Code(s): J81.0 - Acute pulmonary edema (12) Metabolic acidosis Current Visit: Yes Status: Acute Assessment and plan: Patient with Co2 this morning 12 BUN/Cr is WNL Obtain lactate Check ABG Elevated blood glucose , continue insulin, rule our DKA - Time Spent With Patient Total time spent is greater than 50% in coordination of care (as documented) at patient's floor/unit and/or counseling patient: - Subjective Interval history: Seen and evaluated at bedside She is admitted and being managed for proctocolitis, she initially presented for constipation, she continues to have some formed small BM Patient did complain of some mild abdominal pain, her repeat Abdomen and Pelvis CT scan showed improvement This a.m, she required more O2 and a CXR showed pulmonary edema Also, her INR is 6.8 and her WBC is >50,000 She remains afebrile We will rule out C.diff, give vit K, obtain blood cultures, broaden antibiotics Continue to hold coumadin No evidence or source of bleeding - Constitutional Vitals: Temp Pulse Resp BP Pulse Ox 98.8 F 96 20 101/60 98 06/22/17 12:12 06/22/17 12:12 06/22/17 12:12 06/22/17 12:12 06/22/17 12:12 General appearance: Present: A&O X 3, pleasant, no acute distress - Head Head exam: Present: atraumatic, normocephalic - Eye Eye exam: Present: PERRL, conjuntiva pink, sclera anicteric Pupils: Present: PERRL - Neck Neck exam general surgery: Present: supple, trachea midline. Absent: lymphadenopathy - Respiratory Respiratory exam: Absent: accessory muscle use, rales, rhonchi, wheezes Additional comments: bibasilar crackles. - Cardiovascular Cardiovascular exam: Present: RRR, +S1, +S2. Absent: diastolic murmur, gallop, rubs, systolic murmur - GI/Abdominal Additional comments: Abdomen is soft and nontender. No palpable masses in any quadrant. No swelling. Distention. No guarding. Bowel sounds are present and normoactive. - Extremities Exam Extremities exam: Present: warm, radial pulses palpable and symmetrical. Absent : calf tenderness, cyanotic, pedal edema - Neurological Exam Neurological exam: Present: alert, CN II-XII intact, oriented X3, no focal deficits. Absent: pronater drift, facial droop, speech deficit - Skin Skin exam: Present: dry, intact Internal Medicine: Result - Labs CBC & Chem 7: 06/22/17 10:20 06/22/17 04:00 Labs: Short CBC 06/22/17 06/22/17 Range/Units 04:00 10:20 WBC 48.3 H* D 52.8 H* (4.3-11.1) K/mcL Hgb 8.7 L 9.1 L (11.5-15.4) g/dL Hct 27.0 L 27.6 L (35.3-44.9) % Plt Count 487 H 467 H (140-400) K/mcL Neutrophils # 44.0 H 51.7 H (1.6-8.9) K/mcL BMP 06/22/17 04:00 Sodium 131 L Potassium 4.4 Chloride 98 Carbon Dioxide 12 L BUN 17 Creatinine 0.79 Glucose 430 H Calcium 8.6 - ABG Interpretation ABG results: PT/INR, D-dimer PT 76.6 Seconds (9.4-12.1) H* D 06/22/17 04:00 - Impressions Impressions Chest X-Ray 06/22/17 02:41 IMPRESSION: Pulmonary edema. D/ / Jesus Alberto Dean MD / Jesus Alberto Dean MD Interpreting Provider: Jesus Alberto Dean MD Consult Discharge Plan - Plan Referrals: Valente Rosa MD [Primary Care Provider] -
[2017-06-22 13:46] LABS: Bilirubin,Urine Negative (Negative); Blood,Urine Trace-lysed (Negative); Clarity,Urine Cloudy (Clear); Color,Urine Yellow (Yellow); Glucose,Urine (UA) >=1000 mg/dL (Normal); Ketones,Urine 40 mg/dL (Negative); Leukocyte Esterase,Urine Negative (Negative); Nitrite,Urine Negative (Negative); PH,Urine 8.5 pH Units (5.0-8.0); Protein,Urine 30 mg/dL (Neg-Trace); Specific Gravity,Urine 1.015 (1.010-1.025); Urobilinogen,Urine Normal (Normal)
[2017-06-22 14:03] LABS: Bacteria,Urine Few per hpf (None-Few); Squamous Epithelial Cell,Urine Moderate per lpf (None-Few)
[2017-06-22 14:04] LABS: Mucus,Urine Few (Few)
[2017-06-22] MEDS: Insulin DETEMIR 100 UNIT/ML X5UNITS SQ SCH ×2 (14:52→21:34)
[2017-06-22 15:18] LABS: INR 7.3; Prothrombin Time 82.1 Seconds (9.4-12.1)
[2017-06-22 16:48] LABS: ABG Base Excess 0 mEq/L (-2 to 3); ABG HCO3 22 mEq/L (21-27); ABG Oxygen Saturation 98 % (95-98); ABG PCO2 28 mmHg (35-45); ABG PH 7.51 pH Units (7.32-7.45); ABG PO2 86 mmHg (85-104); ABG TCO2 23 mEq/L (20-26)
[2017-06-22 16:57] LABS: BUN/Creatinine Ratio 20 (6-26); Blood Urea Nitrogen 16 mg/dL (8-23); Calcium 8.5 mg/dL (8.6-10.3); Carbon Dioxide 22 mEq/L (23-29); Chloride 100 mEq/L (98-107); Glucose 172 mg/dL (70-105); Magnesium 1.4 mg/dL (1.6-2.6); Osmolality,Calculated 281 (280-300); Potassium 3.1 mEq/L (3.5-5.1); Sodium 133 mEq/L (136-145); eGFR For African Americans > 60 (> 60); eGFR For Non-African Americans > 60 (> 60)
--- NOTE | 2017-06-22 17:47 | Oncology Inp Consult Note ---
<Collins Ahuja - Last Filed: 06/22/17 19:03> Date of Encounter: 06/22/17 Assessment and Plan (1) Proctocolitis Status: Acute Assessment and plan: Possibly related to chemotherapy, C. difficile pending. Patient is on empiric vancomycin for C. difficile, on IV antibiotics. Leukocytosis, patient's clinical symptoms are improving as well as CT scan findings. She has also had Neulasta after chemotherapy possibly related to growth factor rather than worsening infection. (2) Pulmonary edema Status: Acute Assessment and plan: History of A. fib, aortic stenosis, supratherapeutic INR. Interstitial infiltrates and chest x-ray patient has improved clinically with treatment. Qualifiers: Chronicity: acute Qualified Code(s): J81.0 - Acute pulmonary edema (3) Lung cancer Status: Chronic Assessment and plan: She will continue outpatient chemotherapy for small cell lung cancer once she feels better and is discharged home. We will reschedule cycle 2 chemotherapy that is to be given today. Plan of care was discussed with her bedside, patient stated understanding. Qualifiers: Laterality: right Lung location: unspecified part of lung Qualified Code( s): C34.91 - Malignant neoplasm of unspecified part of right bronchus or lung - Data of Consult Requesting Physician: Ellis Bocanegra MD Primary Care Provider: Valente Rosa MD - Consult Narrative Reason for consult: lung cancer History of present illness: Bella Baird is a 71 year old female who is being seen in my clinic for lung cancer--small cell lung ca, prior hx Non small cell lung cancer who had undergone neoadjuvant chemoradiation with weekly CarboTaxol and radiation therapy, status post right upper lobe resection at [facility] in October 2012. Hospitalized since then multiple times with pneumonia. She resides at [facility], O2 dependant, requiring some assistance with ADLs. She has hx of severe aortic stenosis, she required valve replacement (09/04), not a candidate due to small cell lung cancer that recently diagnosed. CT chest showed increase in spiculated RUFINA nodule, stable adenopathy. Intersitial infiltrates--lymphangitic spread not r/o s/p bronch--negative for malignant cells -she had bronch, lavage, bx subcarinal lesion She had a CT-guided biopsy that showed small cell lung cancer. She started cycle 1 of chemotherapy with carboplatin and etoposide 06/01/2017. She was hospitalized to a week later with symptoms of constipation, urinary retention, CT scan showed thickening of rectosigmoid suggestive of proctitis. Patient has increasing white blood cell count she is on isolation precautions. She is scheduled to receive her cycle 2 of chemotherapy today. Patient denies any abdominal discomfort. She is little short of breath at rest. She is on oxygen. She denies any chest discomfort or pain. She is on an break oral vancomycin. She is on IV antibiotics for colitis. Medications and Allergies Albuterol Neb [Proventil Neb] 2.5 mg IH Q6H PRN 04/30/15 [History] Atorvastatin [Lipitor] 10 mg PO HS 04/30/15 [History] Loratadine [Claritin] 10 mg PO DAILY 04/30/15 [History] Meclizine [Antivert] 25 mg PO BID 04/30/15 [History] Montelukast [Singulair] 10 mg PO DAILY 04/30/15 [History] Omeprazole [PriLOSEC] 20 mg PO BID 04/30/15 [History] Potassium Chloride [K-Tab ER] 20 meq PO DAILY 04/30/15 [History] Roflumilast [Daliresp] 500 mcg PO DAILY 04/30/15 [History] Furosemide [Lasix] 20 mg PO DAILY 09/15/15 [History] Alendronate Sodium [Fosamax] 70 mg PO WE 10/27/16 [History] Calcium Carbonate/Vitamin D3 [Calcium 600-Vit D3 400 Tablet] 1 each PO BID 11/17 [History] Umeclidinium Brm/Vilanterol Tr [Anoro Ellipta 62.5-25 Mcg INH] 1 puff IH DAILY 11/17/16 [History] Venlafaxine XR (24 HR) [Effexor XR] 75 mg PO DAILY 01/10/17 [History] Beclomethasone Diprop 40mcg [QVAR 40 mcg] 1 puff IH BID 02/21/17 [History] Nitroglycerin [Nitrostat] 0.4 mg SL PRN PRN 02/21/17 [History] Azelastine 0.1% Nasal [place] [Astelin] 2 spray NS BID 03/10/17 [History] Aspirin Enteric Coated [Aspirin EC] 81 mg PO DAILY tablet. 03/29/17 [Rx] Amiodarone [Cordarone] 200 mg PO DAILY 04/20/17 [History] Insulin Glargine,Hum.rec.anlog [Basaglar Kwikpen U-100] 10 unit SQ DAILY [History] Sennosides/Docusate Sodium [Senna-Docusate Sodium Tablet] 1 each PO BID PRN 12/06 [History] Warfarin [Coumadin] 3 mg PO 1800 04/29/17 [History] Dexamethasone [Decadron] 4 mg PO BID PRN #24 tab 05/23/17 [Rx] Insulin LISPRO [Humalog] 100 unit SQ AD PRN 05/23/17 [History] Ondansetron HCl 4 mg PO Q8H PRN #60 tablet 05/23/17 [Rx] Prochlorperazine Maleate [Compazine] 10 mg PO Q6HR PRN #90 tablet 05/23/17 [Rx] Megestrol Acetate [Megace] 400 mg PO DAILY 06/14/17 [History] HYDROcodone/Acet 10/325 mg [[place] 10-325 mg] 1 tab PO Q6HR PRN 06/17/17 [History ] 3 Allergy/AdvReac Type Severity Reaction Status Date / Time codeine Allergy Hives Verified 06/14/17 08:30 latex Allergy Hives Verified 06/14/17 08:30 Penicillins Allergy Hives Verified 06/14/17 08:30 propoxyphene [From [place]] Allergy Hives Verified 06/14/17 08:30 shellfish derived Allergy Hives Verified 06/14/17 08:30 Review of systems: as per HPI Oncology - Exam - Constitutional Vitals: Temp Pulse Resp BP Pulse Ox 98.8 F 96 18 101/60 100 06/22/17 12:12 06/22/17 12:12 06/22/17 16:20 06/22/17 12:12 06/22/17 16:20 General appearance: mild distress - Head Head exam: Present: atraumatic, normal inspection - Eye Eye exam: Present: EOMI, conjuntiva pink - ENT ENT exam: Present: mucous membranes dry - Neck Neck exam: Present: full ROM - Respiratory Respiratory exam: Present: CTAB - GI/Abdominal GI/Abdominal exam: Present: normal bowel sounds, soft - Extremities Exam Extremities exam: Present: normal inspection - Neurological Exam Neurological exam: Present: alert, CN II-XII intact, oriented X3 - Skin Skin exam: Present: dry Oncology - Results Labs: Short CBC 06/22/17 06/22/17 Range/Units 04:00 10:20 WBC 48.3 H* D 52.8 H* (4.3-11.1) K/mcL Hgb 8.7 L 9.1 L (11.5-15.4) g/dL Hct 27.0 L 27.6 L (35.3-44.9) % Plt Count 487 H 467 H (140-400) K/mcL Neutrophils # 44.0 H 51.7 H (1.6-8.9) K/mcL BMP 06/22/17 06/22/17 04:00 15:26 Sodium 131 L 133 L Potassium 4.4 3.1 L D Chloride 98 100 Carbon Dioxide 12 L 22 L BUN 17 16 Creatinine 0.79 0.79 Glucose 430 H 172 H Calcium 8.6 8.5 L Urine 06/22/17 Range/Units 12:33 Urine Color Yellow (Yellow) Urine Clarity Cloudy A (Clear) Urine pH 8.5 H (5.0-8.0) pH Units Ur Specific [place] 1.015 (1.010-1.025) Urine Protein 30 H (Neg-Trace) mg/dL Urine Glucose (UA) >=1000 H (Normal) mg/dL ct abd findings reviewed Consult Discharge Plan - Plan Referrals: Valente Rosa MD [Primary Care Provider] - <Geena Bullard - Last Filed: 06/23/17 16:53> Date of Encounter: 06/22/17 Time of Encounter: 12:30 - Data of Consult Patient: known to practice within the last 3 years Consult date: 06/22/17 Requesting Physician: Ellis Bocanegra MD Primary Care Provider: Valente Rosa MD Past Med Surg Social Fam HX - Past Medical History Medical history: asthma, atrial fibrillation, cancer, COPD, diabetes, hypertension Psychiatric history: anxiety - Past Surgical History Surgical History: appendectomy, cancer surgery, cholecystectomy, hysterectomy, knee replacement - Social History Smoking Status: Former smoker Smokeless Tobacco Status: No Alcohol use: none Drug use: none - Family History Mother Living Status: Hx Family Cardiac Disorders: Yes (HEART DISEASE) Hx Family Endocrine Disorder: Yes (DIABETES) Oncology - Exam - Constitutional Vitals: Temp Pulse Resp BP Pulse Ox 98.8 F 96 18 101/60 100 06/22/17 12:12 06/22/17 12:12 06/22/17 16:20 06/22/17 12:12 06/22/17 16:20 Oncology - Results Labs: Short CBC 06/22/17 06/22/17 Range/Units 04:00 10:20 WBC 48.3 H* D 52.8 H* (4.3-11.1) K/mcL Hgb 8.7 L 9.1 L (11.5-15.4) g/dL Hct 27.0 L 27.6 L (35.3-44.9) % Plt Count 487 H 467 H (140-400) K/mcL Neutrophils # 44.0 H 51.7 H (1.6-8.9) K/mcL BMP 06/22/17 06/22/17 04:00 15:26 Sodium 131 L 133 L Potassium 4.4 3.1 L D Chloride 98 100 Carbon Dioxide 12 L 22 L BUN 17 16 Creatinine 0.79 0.79 Glucose 430 H 172 H Calcium 8.6 8.5 L Urine 06/22/17 Range/Units 12:33 Urine Color Yellow (Yellow) Urine Clarity Cloudy A (Clear) Urine pH 8.5 H (5.0-8.0) pH Units Ur Specific [place] 1.015 (1.010-1.025) Urine Protein 30 H (Neg-Trace) mg/dL Urine Glucose (UA) >=1000 H (Normal) mg/dL
[2017-06-22] MEDS: Melatonin 3 MG TABLET PO SCH (21:34)
[2017-06-23] MEDS: MetroNIDAZOLE 500 MG/100 ML 500 MG/100 ML BAG IVPB SCH ×3 (02:52→18:43)
[2017-06-23] MEDS: Ipratropium/Albuterol Neb 3 ML IH SCH ×6 (03:32→23:21)
[2017-06-23 04:32] LABS: Basophils % 0.2 %
[2017-06-23 04:33] LABS: Basophils # 0.1 K/mcL (0.0-0.2); Hematocrit 24.9 % (35.3-44.9); Hemoglobin 8.3 g/dL (11.5-15.4); Immature Granulocytes % 2.1 % (0-4); Lymphocytes # 0.8 K/mcL (0.6-4.6); Lymphocytes % 2.6 %; Mean Corpuscular HGB Conc 33.3 g/dL (31.6-35.5); Mean Corpuscular Hemoglobin 30.3 pg (28.0-33.3); Mean Corpuscular Volume 90.9 fL (83.0-100.0); Monocytes # 1.7 K/mcL (0.0-1.3); Monocytes % 5.8 %; Neutrophils # 26.1 K/mcL (1.6-8.9); Platelet Count 397 K/mcL (140-400); Red Blood Count 2.74 M/mcL (3.82-4.97); Red Cell Distribution Width 19.1 % (11.5-14.5); Segmented Neutrophils % 89.3 %
[2017-06-23 04:57] LABS: BUN/Creatinine Ratio 23 (6-26); Blood Urea Nitrogen 14 mg/dL (8-23); Calcium 8.4 mg/dL (8.6-10.3); Carbon Dioxide 25 mEq/L (23-29); Chloride 103 mEq/L (98-107); Glucose 104 mg/dL (70-105); Osmolality,Calculated 281 (280-300); Potassium 2.5 mEq/L (3.5-5.1); Sodium 135 mEq/L (136-145); eGFR For African Americans > 60 (> 60); eGFR For Non-African Americans > 60 (> 60)
[2017-06-23] MEDS ORDERED: Potassium Chloride 40 MEQ, Lidocaine 1% 2 ML in D5% in Water 500 ML IVPB ONE (05:03)
[2017-06-23 05:08] LABS: Anisocytosis 1+ (Not Present); Reactive Lymphocytes Present (Not Present)
[2017-06-23 05:24] LABS: INR 2.1; Prothrombin Time 22.9 Seconds (9.4-12.1)
[2017-06-23] MEDS: Beclomethasone 40mcg MDI IH SCH ×2 (08:06→19:35)
[2017-06-23] MEDS: Insulin LISPRO 300 UNITS/3 ML VIAL SQ SCH ×4 (08:48→22:25)
[2017-06-23] MEDS: Insulin DETEMIR 100 UNIT/ML X5UNITS SQ SCH ×2 (08:59→22:25)
[2017-06-23] MEDS: predniSONE 20 MG TABLET PO SCH (09:05)
[2017-06-23] MEDS: Vancomycin Oral Soln 250 MG/5 ML UDC PO SCH ×4 (09:05→22:25)
[2017-06-23] MEDS: *HR* Amiodarone 200 MG TABLET PO SCH (09:05)
[2017-06-23] MEDS: Furosemide 40 MG/4 ML VIAL IVP SCH (09:05)
[2017-06-23] MEDS: Venlafaxine XR (24 HR) 75 MG CAP.ER.24H PO SCH (09:05)
--- NOTE | 2017-06-23 09:30 | Internal Med Progress Note ---
Date of Encounter: 06/23/17 Time of Encounter: 09:24 - Assessment and plan (1) A-fib Current Visit: Yes Status: Chronic Assessment and plan: HR controlled, continue Amiodarone, INR 2.1, resume Coumadin Qualifiers: Atrial fibrillation type: chronic Qualified Code(s): I48.2 - Chronic atrial fibrillation (2) Supratherapeutic INR Current Visit: Yes Status: Resolved Assessment and plan: Resolved. INR this a.m 2.1 (3) Lung cancer Current Visit: Yes Status: Chronic Assessment and plan: Onc eval noted, appreciated. Follow up as out-patient Qualifiers: Laterality: right Lung location: unspecified part of lung Qualified Code( s): C34.91 - Malignant neoplasm of unspecified part of right bronchus or lung (4) DVT prophylaxis Current Visit: Yes Status: Acute Assessment and plan: on coumadin INR is 2.1, continue same (5) DM2 (diabetes mellitus, type 2) Current Visit: Yes Status: Chronic Assessment and plan: Fs acceptable Cardiac/Diabetic diet, continue levemir, Insulin sliding scale Qualifiers: Diabetes mellitus intermediate insulin use: with intermediate use Diabetes mellitus complication status: with hyperglycemia Qualified Code(s): E11.65 - Type 2 diabetes mellitus with hyperglycemia; Z79.4 - assisted (current) use of insulin; Z79.4 - manager terminal (current) use of insulin; Z79.4 - manager terminal (current ) use of insulin; Z79.4 - manager terminal (current) use of insulin (6) COPD exacerbation Current Visit: Yes Status: Acute Assessment and plan: continue duonebs continue to taper prednisone Continue O2 supplementation (7) Urinary retention Current Visit: Yes Status: Resolved Assessment and plan: Likely from multiple co morbidities, anticholinergic medications, constipation. Urology following, recommendations appreciated Resolved per patient. (8) Constipation Current Visit: Yes Status: Acute Assessment and plan: as in proctocolitis Patient is now having small formed BMs Qualifiers: Constipation type: slow transit constipation Qualified Code(s): K59.01 - Slow transit constipation (9) Proctocolitis Current Visit: Yes Status: Acute Assessment and plan: Presented with ABD pain and reported constipation. ABD CT 06/14 showed dilated stool filled rectum up to 10 cm, smooth wall thickening and perirectal edema concerning for stercoral proctitis and fecal impaction. Has had multiple, large bowel movements on 06/17: A repeat CT showed worsening proctocolitis, improved stool burden. She was started on Cipro/Flagyl 06/18: Pain in abdomen unchanged. She has not received a full day worth of antibiotic treatment. 06/19: having some loose diarrhea - will change senna to once daily. She is on iron and oxycodone 06/20: 2 BM overnight, doing better 06/21: Continues to complain of abdominal pain, she reports her bowel movements are soft and small shift. She is NPO, complete blood count continues to show leukocytosis with left shift, Repeat Abd CT shows improvement, patient started on clear liquid diet, toelrating 06/22: abdomen is benign, not tender, worsening leukoytosis 06/23; continue current care, follow c.diff test Continue -D/C Cipro, Start on ceftriaxone 2g daily -Continue Colace 100 m BID -Continue Senna 8.6 mg BID -Continue Bisacodyl 10 mg daily prn. -Continue Vancomycin for C.diff (10) Leukocytosis Current Visit: Yes Status: Acute Assessment and plan: 06/22: WBC 52,800 this am Hb stable at 8.9-9.1 PLT WNL INR 6.8 NO evidence of bleeding, R/O DIC-send Fibriongen, LDH, haptoglobin, ESR, CRP Patient continues to be afebrile We will check for C.diff Repeat CXR shows pulm edema, started on lasix Oncology has been consulted We will start on po vancomycin for suspected C.diff-patient does not have watery diarrhea STAT UA shows glucosuria, ketones, 06/23: Onc eval noted, WBC improving, continue current management no DIC per testing Qualifiers: Leukocytosis type: unspecified Qualified Code(s): D72.829 - Elevated white blood cell count, unspecified (11) Pulmonary edema Current Visit: Yes Status: Acute Assessment and plan: ECHO noted : LVEF 65-70%. Indeterminate diastolic function. RV appears dilated. Function is normal. 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 There is also calcification of the subvalvular apparatus. Severe mitral stenosis by MG 10 mmHg at 101 bpm. Mild-moderate mitral regurgitation. Severe aortic stenosis. PV 4.6m/s, MG 52 mmHg, DI 0.17, DAY 0.5cm2 Mild tricuspid regurgitation. Moderate-severe pulmonary hypertension. continue lasix, strict I/Os, Cardiology consulted Qualifiers: Chronicity: acute Qualified Code(s): J81.0 - Acute pulmonary edema (12) Metabolic acidosis Current Visit: Yes Status: Resolved - Time Spent With Patient Total time spent is greater than 50% in coordination of care (as documented) at patient's floor/unit and/or counseling patient: - Subjective Interval history: Seen and evaluated at bedside She is admitted and being managed for proctocolitis, she initially presented for constipation, she continues to have some formed small BM 4: Patient did complain of some mild abdominal pain, her repeat Abdomen and Pelvis CT scan showed improvement This a.m, she required more O2 and a CXR showed pulmonary edema Also, her INR is 6.8 and her WBC is >50,000 She remains afebrile We will rule out C.diff, give vit K, obtain blood cultures, broaden antibiotics Continue to hold coumadin No evidence or source of bleeding 06/23: Seen and evaluated at the bedside NO new complains She is now having diarrhea, but c.diff is yet to be collected Her abdominal pain is improving,so is her white count, no changes on exam, abdomen is not acute Her O2 requirement remains stable at 2L which is her home dose Leukocytosis is improving We will continue management today with the same, replace K+, repeat K+ p.m, and follow ECHO reports - Constitutional Vitals: Temp Pulse Resp BP Pulse Ox 97.9 F 101 19 136/70 95 06/23/17 08:51 06/23/17 08:51 06/23/17 08:51 06/23/17 08:51 06/23/17 03:32 General appearance: Present: A&O X 3, pleasant, no acute distress - Head Head exam: Present: atraumatic, normocephalic - Eye Eye exam: Present: PERRL, conjuntiva pink, sclera anicteric Pupils: Present: PERRL - Neck Neck exam general surgery: Present: supple, trachea midline. Absent: lymphadenopathy - Respiratory Respiratory exam: Present: rales, wheezes. Absent: rhonchi, stridor, tachypnea - Cardiovascular Cardiovascular exam: Present: RRR, +S1, +S2, systolic murmur. Absent: diastolic murmur, gallop, rubs - GI/Abdominal GI/Abdominal exam: Present: normal bowel sounds, soft, no peritoneal signs. Absent: distended, guarding, tenderness - Extremities Exam Extremities exam: Present: warm, radial pulses palpable and symmetrical. Absent : calf tenderness, cyanotic, pedal edema - Neurological Exam Neurological exam: Present: alert, CN II-XII intact, oriented X3, no focal deficits. Absent: pronater drift, facial droop, speech deficit - Skin Skin exam: Present: dry, intact Internal Medicine: Result - Labs CBC & Chem 7: 06/23/17 04:11 06/23/17 04:11 Labs: Short CBC 06/22/17 06/23/17 Range/Units 10:20 04:11 WBC 52.8 H* 29.2 H (4.3-11.1) K/mcL Hgb 9.1 L 8.3 L (11.5-15.4) g/dL Hct 27.6 L 24.9 L (35.3-44.9) % Plt Count 467 H 397 (140-400) K/mcL Neutrophils # 51.7 H 26.1 H (1.6-8.9) K/mcL BMP 06/22/17 06/23/17 15:26 04:11 Sodium 133 L 135 L Potassium 3.1 L D 2.5 L* Chloride 100 103 Carbon Dioxide 22 L 25 BUN 16 14 Creatinine 0.79 0.62 Glucose 172 H 104 Calcium 8.5 L 8.4 L Urine 06/22/17 Range/Units 12:33 Urine Color Yellow (Yellow) Urine Clarity Cloudy A (Clear) Urine pH 8.5 H (5.0-8.0) pH Units Ur Specific [place] 1.015 (1.010-1.025) Urine Protein 30 H (Neg-Trace) mg/dL Urine Glucose (UA) >=1000 H (Normal) mg/dL - ABG Interpretation ABG results: ABG ABG pH 7.51 pH Units (7.32-7.45) H 06/22/17 16:43 ABG pCO2 28 mmHg (35-45) L 06/22/17 16:43 ABG pO2 86 mmHg (85-104) 06/22/17 16:43 ABG O2 Saturation 98 % (95-98) 06/22/17 16:43 PT/INR, D-dimer PT 22.9 Seconds (9.4-12.1) H D 06/23/17 04:11 Consult Discharge Plan - Plan Referrals: Valente Rosa MD [Primary Care Provider] -
[2017-06-23] MEDS: Albuterol 2.5 MG/3 ML NEBULIZER IH PRN (10:04)
[2017-06-23] MEDS: cefTRIAXone 2,000 MG in Water for inj. (sterile) 20 ML 20 ML IVP SCH (11:15)
[2017-06-23] MEDS ORDERED: *HR* Warfarin 3 MG TABLET PO ONE (18:00)
[2017-06-23] MEDS ORDERED: Warfarin perPT PO PRN (18:00)
[2017-06-23] MEDS: Dextrose Gel 15 GM/37.5 ML TUBE PO PRN (21:50)
[2017-06-23] MEDS: Melatonin 3 MG TABLET PO SCH (22:23)
[2017-06-24] MEDS: Ipratropium/Albuterol Neb 3 ML IH SCH ×6 (03:29→23:56)
[2017-06-24] MEDS: MetroNIDAZOLE 500 MG/100 ML 500 MG/100 ML BAG IVPB SCH (03:33)
[2017-06-24 04:07] LABS: Basophils % 0.1 %; Hematocrit 25.2 % (35.3-44.9); Hemoglobin 8.5 g/dL (11.5-15.4); Immature Granulocytes % 1.8 % (0-4); Lymphocytes # 0.9 K/mcL (0.6-4.6); Lymphocytes % 5.7 %; Mean Corpuscular HGB Conc 33.7 g/dL (31.6-35.5); Mean Platelet Volume 9.3 fL (9.4-12.4); Monocytes # 1.2 K/mcL (0.0-1.3); Monocytes % 7.3 %; Neutrophils # 14.1 K/mcL (1.6-8.9); Platelet Count 396 K/mcL (140-400); Red Blood Count 2.74 M/mcL (3.82-4.97); Red Cell Distribution Width 19.1 % (11.5-14.5); Segmented Neutrophils % 85.1 %
[2017-06-24 04:13] LABS: INR 1.4; Prothrombin Time 15.3 Seconds (9.4-12.1)
[2017-06-24 04:25] LABS: BUN/Creatinine Ratio 17 (6-26); Blood Urea Nitrogen 8 mg/dL (8-23); Carbon Dioxide 26 mEq/L (23-29); Chloride 99 mEq/L (98-107); Glucose 261 mg/dL (70-105); Osmolality,Calculated 285 (280-300); Potassium 2.7 mEq/L (3.5-5.1); Sodium 134 mEq/L (136-145); eGFR For African Americans > 60 (> 60); eGFR For Non-African Americans > 60 (> 60)
[2017-06-24 07:08] LABS: Magnesium 1.5 mg/dL (1.6-2.6)
[2017-06-24] MEDS: Beclomethasone 40mcg MDI IH SCH ×2 (07:40→21:57)
--- NOTE | 2017-06-24 07:53 | Internal Med Progress Note ---
Date of Encounter: 06/24/17 Time of Encounter: 09:20 - Assessment and plan (1) A-fib Current Visit: Yes Status: Chronic Assessment and plan: HR controlled, continue Amiodarone, INR 1.4, continue Coumadin Qualifiers: Atrial fibrillation type: paroxysmal Qualified Code(s): I48.0 - Paroxysmal atrial fibrillation (2) Supratherapeutic INR Current Visit: Yes Status: Resolved Assessment and plan: Resolved. INR this a.m 1.4 (3) Lung cancer Current Visit: Yes Status: Chronic Assessment and plan: Onc eval noted, appreciated. Follow up as out-patient Qualifiers: Laterality: right Lung location: unspecified part of lung Qualified Code( s): C34.91 - Malignant neoplasm of unspecified part of right bronchus or lung (4) DVT prophylaxis Current Visit: Yes Status: Acute Assessment and plan: on coumadin INR is 1.4, continue same (5) DM2 (diabetes mellitus, type 2) Current Visit: Yes Status: Chronic Assessment and plan: Fs acceptable Cardiac/Diabetic diet, continue levemir, Insulin sliding scale Qualifiers: Diabetes mellitus roasterman insulin use: with usp use Diabetes mellitus complication status: with hyperglycemia Qualified Code(s): E11.65 - Type 2 diabetes mellitus with hyperglycemia; Z79.4 - roasterman (current) use of insulin; Z79.4 - roasterman (current) use of insulin; Z79.4 - roasterman (current ) use of insulin; Z79.4 - roasterman (current) use of insulin (6) COPD exacerbation Current Visit: Yes Status: Acute Assessment and plan: continue duonebs continue to taper prednisone Continue O2 supplementation (7) Urinary retention Current Visit: Yes Status: Resolved Assessment and plan: Likely from multiple co morbidities, anticholinergic medications, constipation. Urology following, recommendations appreciated Resolved per patient. (8) Constipation Current Visit: Yes Status: Acute Assessment and plan: as in proctocolitis Patient is now having BMs Qualifiers: Constipation type: slow transit constipation Qualified Code(s): K59.01 - Slow transit constipation (9) Proctocolitis Current Visit: Yes Status: Acute Assessment and plan: Presented with ABD pain and reported constipation. ABD CT 06/14 showed dilated stool filled rectum up to 10 cm, smooth wall thickening and perirectal edema concerning for stercoral proctitis and fecal impaction. Has had multiple, large bowel movements on 06/17: A repeat CT showed worsening proctocolitis, improved stool burden. She was started on Cipro/Flagyl 06/18: Pain in abdomen unchanged. She has not received a full day worth of antibiotic treatment. 06/19: having some loose diarrhea - will change senna to once daily. She is on iron and oxycodone 06/20: 2 BM overnight, doing better 06/21: Continues to complain of abdominal pain, she reports her bowel movements are soft and small shift. She is NPO, complete blood count continues to show leukocytosis with left shift, Repeat Abd CT shows improvement, patient started on clear liquid diet, toelrating 06/22: abdomen is benign, not tender, worsening leukoytosis 06/23; continue current care, follow c.diff test 06/24: No new events, continue same treatment Continue -Continue ceftriaxone 2g daily -Continue Colace 100 m BID -Continue Senna 8.6 mg BID -Continue Bisacodyl 10 mg daily prn. -Continue Vancomycin for suspected C.diff (10) Leukocytosis Current Visit: Yes Status: Acute Assessment and plan: 06/22: WBC 52,800 this am Hb stable at 8.9-9.1 PLT WNL INR 6.8 NO evidence of bleeding, R/O DIC-send Fibriongen, LDH, haptoglobin, ESR, CRP Patient continues to be afebrile We will check for C.diff Repeat CXR shows pulm edema, started on lasix Oncology has been consulted We will start on po vancomycin for suspected C.diff-patient does not have watery diarrhea STAT UA shows glucosuria, ketones, 06/23: Onc eval noted, WBC improving, continue current management no DIC per testing 06/24: WBC improving, it is unclear if this is due to the treatment for C.diff even though we do not have stool specimen, or if this is self-resolvng, we will complete treatment for C.diff Continue Rocephin -Day 2 Continue Flagyl-Day 7, change to po for 3 more days Continue Vancomycin po-Day 3, for total 10 days Qualifiers: Leukocytosis type: unspecified Qualified Code(s): D72.829 - Elevated white blood cell count, unspecified (11) Pulmonary edema Current Visit: Yes Status: Acute Assessment and plan: ECHO noted : LVEF 65-70%. Indeterminate diastolic function. RV appears dilated. Function is normal. 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 There is also calcification of the subvalvular apparatus. Severe mitral stenosis by MG 10 mmHg at 101 bpm. Mild-moderate mitral regurgitation. Severe aortic stenosis. PV 4.6m/s, MG 52 mmHg, DI 0.17, DAY 0.5cm2 Mild tricuspid regurgitation. Moderate-severe pulmonary hypertension. 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 A mitral balloon valvotomy may or may not be reasonable with her mitral annular calcifications on transthoracic echo. With her pulmonary edema this seems reasonable to pursue. A TAMI may be indicated to further assess her mitral valve if she is willing to proceed. Management of severe mitral stenosis along with severe aortic stenosis medically is very difficult and likely of no significant benefit." Input appreciated (14) Mitral valve stenosis, severe Current Visit: Yes Status: Acute Assessment and plan: as above - Time Spent With Patient Total time spent is greater than 50% in coordination of care (as documented) at patient's floor/unit and/or counseling patient: - Subjective Interval history: Seen and evaluated at bedside She is admitted and being managed for proctocolitis, she initially presented for constipation, she continues to have some formed small BM 4/4: Patient did complain of some mild abdominal pain, her repeat Abdomen and Pelvis CT scan showed improvement This a.m, she required more O2 and a CXR showed pulmonary edema Also, her INR is 6.8 and her WBC is >50,000 She remains afebrile We will rule out C.diff, give vit K, obtain blood cultures, broaden antibiotics Continue to hold coumadin No evidence or source of bleeding 5: Seen and evaluated at the bedside NO new complains She is now having diarrhea, but c.diff is yet to be collected Her abdominal pain is improving,so is her white count, no changes on exam, abdomen is not acute Her O2 requirement remains stable at 2L which is her home dose Leukocytosis is improving We will continue management today with the same, replace K+, repeat K+ p.m, and follow ECHO reports 06/24: Seen and evaluated at bedside, no new complaints. Leukocytosis continues to improve current regimen. Patient's also had mucoid mixed with urine, hence, CDiff has not been sent. We will continue treatment cardi eval pending for Severe and MS Replaced K and Mag - Constitutional Vitals: Temp Pulse Resp BP Pulse Ox 97.9 F 79 16 139/67 100 06/24/17 03:35 06/24/17 03:35 06/24/17 07:41 06/24/17 03:35 06/24/17 07:41 General appearance: Present: A&O X 3, pleasant, no acute distress - Head Head exam: Present: atraumatic, normocephalic - Eye Eye exam: Present: PERRL, conjuntiva pink, sclera anicteric Pupils: Present: PERRL - Neck Neck exam general surgery: Present: supple, trachea midline. Absent: lymphadenopathy - Respiratory Respiratory exam: Present: CTAB. Absent: accessory muscle use, rales, rhonchi, wheezes - Cardiovascular Cardiovascular exam: Present: RRR, +S1, +S2, systolic murmur. Absent: diastolic murmur, gallop, rubs - GI/Abdominal GI/Abdominal exam: Present: normal bowel sounds, soft, no peritoneal signs. Absent: distended, tenderness - Extremities Exam Extremities exam: Present: warm, radial pulses palpable and symmetrical. Absent : calf tenderness, cyanotic, pedal edema - Neurological Exam Neurological exam: Present: alert, CN II-XII intact, oriented X3, no focal deficits. Absent: pronater drift, facial droop, speech deficit Internal Medicine: Result - Labs CBC & Chem 7: 06/24/17 03:30 06/24/17 03:30 Labs: Short CBC 06/24/17 Range/Units 03:30 WBC 16.6 H (4.3-11.1) K/mcL Hgb 8.5 L (11.5-15.4) g/dL Hct 25.2 L (35.3-44.9) % Plt Count 396 (140-400) K/mcL Neutrophils # 14.1 H (1.6-8.9) K/mcL BMP 06/23/17 06/24/17 15:52 03:30 Sodium 134 L Potassium 3.1 L 2.7 L Chloride 99 Carbon Dioxide 26 BUN 8 Creatinine 0.47 L Glucose 261 H Calcium 8.0 L - ABG Interpretation ABG results: ABG ABG pH 7.51 pH Units (7.32-7.45) H 06/22/17 16:43 ABG pCO2 28 mmHg (35-45) L 06/22/17 16:43 ABG pO2 86 mmHg (85-104) 06/22/17 16:43 ABG O2 Saturation 98 % (95-98) 06/22/17 16:43 PT/INR, D-dimer PT 15.3 Seconds (9.4-12.1) H 06/24/17 03:30 - Impressions Impressions Echocardiogram 06/23/17 15:27 Impressions: LVEF 65-70%. Indeterminate diastolic function. RV appears dilated. Function is normal. 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 There is also calcification of the subvalvular apparatus. Severe mitral stenosis by MG 10 mmHg at 101 bpm. Mild-moderate mitral regurgitation. Severe aortic stenosis. PV 4.6m/s, MG 52 mmHg, DI 0.17, DAY 0.5cm2 Mild tricuspid regurgitation. Moderate-severe pulmonary hypertension. Left Ventricular Wall Motion: Rest Echo Findings The apex, apical septal, mid inferior septal, basal inferior septal, apical lateral, mid anterior lateral and basal anterior lateral lovelace were not visualized. All other wall segments showed normal motion. Findings: Study Quality * Technically challenging due to COPD. ECG Findings * Sinus tachycardia. Left Ventricle * LVEF 65-70%. * LV wall thickness measurements not well obtained. * Indeterminate diastolic function. Right Ventricle * RV appears dilated. Function is normal. Left Atrium * Moderately dilated left atrium. Right Atrium * Right atrium is not well visualized. Mitral Valve * Severe mitral annular calcification * Mitral valve not well visualized due severe MAC. There is also calcification of the subvalvular apparatus. * Severe mitral stenosis by MG 10 mmHg at 101 bpm. PHT not well obtained. * Mild-moderate mitral regurgitation. Aortic Valve * Trace aortic regurgitation. * Aortic valve not well visualized. * Severe aortic stenosis. PV 4.6m/s, MG 52 mmHg, DI 0.17, DAY 0.5cm2 Tricuspid Valve * Tricuspid valve not well visualized. * Estimated RA pressure is 3 mmHg. * Estimated RVSP is 61 mmHg. * Moderate-severe pulmonary hypertension. * Mild tricuspid regurgitation. Pulmonic Valve * Pulmonic valve is not well visualized. * Suboptimal Doppler interrogation. Pulmonary Artery * Pulmonary artery not well visualized. Aorta * Not well visualized. Pericardium * There is no pericardial effusion present. Interatrial Septum * No evidence of PFO by color Doppler. IVC * The IVC is not dilated. Consult Discharge Plan - Plan Referrals: Valente Rosa MD [Primary Care Provider] -
[2017-06-24] MEDS: predniSONE 20 MG TABLET PO SCH (09:08)
[2017-06-24] MEDS: *HR* Amiodarone 200 MG TABLET PO SCH (09:08)
[2017-06-24] MEDS: Venlafaxine XR (24 HR) 75 MG CAP.ER.24H PO SCH (09:08)
[2017-06-24] MEDS: Insulin DETEMIR 100 UNIT/ML X5UNITS SQ SCH ×2 (09:08→23:22)
[2017-06-24] MEDS: Vancomycin Oral Soln 250 MG/5 ML UDC PO SCH ×4 (09:09→20:23)
[2017-06-24] MEDS: Furosemide 40 MG/4 ML VIAL IVP SCH (09:09)
[2017-06-24] MEDS: Insulin LISPRO 300 UNITS/3 ML VIAL SQ SCH ×4 (09:10→23:19)
--- NOTE | 2017-06-24 09:33 | Cardiology Consult Note ---
<Santiago Vergara - Last Filed: 06/24/17 10:13> Date of Encounter: 06/24/17 Time of Encounter: 09:00 Assessment and Plan (1) Severe mitral valve stenosis Current Visit: Yes Status: Chronic Cardiology consulted for severe valvular disease. TTE reviewed. LVEF 65-70%. Indeterminate diastolic function. RV appears dilated. Function is normal. 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 There is also calcification of the subvalvular apparatus. Severe mitral stenosis by MG 10 mmHg at 101 bpm. Mild-moderate mitral regurgitation. Severe aortic stenosis. PV 4.6m/s, MG 52 mmHg, DI 0.17, DAY 0.5cm2 Mild tricuspid regurgitation. Moderate-severe pulmonary hypertension. Known history of Severe AVR (12/2016) and severe mitral stenosis (03/2017). She was not a open heart surgery candidate last year for AVR due to COPD. TAVR was recommended. She declined due to lung cancer. I discussed re-evaluation for MVR and AVR. Patient is not sure she would like to proceed and not sure on the status of her lung cancer. Oncology following and note reviewed. Patient is currently on chemotherapy for small cell lung cancer. Poor prognosis. Patient is a DNRCCA. Recommend palliative care consult. (2) Aortic stenosis, severe Current Visit: Yes Status: Chronic (3) A-fib Current Visit: Yes Status: Chronic Currently NSR. On amiodarone. Continue coumadin with goal INR 2.0-3.0. Noted to be supra therapeutic during stay while on IV antibiotics. INR 1.4 today. Recommend pharmacy to dose coumadin. Qualifiers: Atrial fibrillation type: paroxysmal Qualified Code(s): I48.0 - Paroxysmal atrial fibrillation (4) Pulmonary edema Current Visit: Yes Status: Acute Acute pulmonary edema during stay after IV fluid in the setting of severe valvular disease. Agree with IV lasix until euvolemic. Close monitoring of fluid status. Currently positive 2L fluid. Qualifiers: Chronicity: acute Qualified Code(s): J81.0 - Acute pulmonary edema Discussion w patient/family: The assessment and plan as outlined above was discussed with the patient and/or family members who expressed understanding and agreement. All questions were answered. Thank you for involving us in the care of your patient. Please call with any questions. History of Present Illness Consult date: 06/24/17 Requesting physician: Ellis Bocanegra Consult reason: severe valvular disease Chief complaint: abdominal pain History of present illness: Ms. Baird is a 71 year old female with a PMHx of COPD, Afib on coumadin, severe aortic stenosis and mitral stenosis, lung cancer s/p recent chemo, CHF, HTN, and DM who presented to the ED with abdominal pain. During her stay she developed SOB and CXR showed pulmonary edema. She did receive a good amount of IV fluid. TTE was ordered due to pulmonary edema. Cardiology consulted for valvular heart disease on TTE completed this admission. She was previously evaluated for TAVR for severe aortic stenosis last year but declined in December due to re-current lung cancer. She is a poor candidate for open heart surgery due to COPD. In March she was seen for new severe mitral stenosis. Severity thought to be due to tachycardia. She was recommended to follow in the out-pt setting. She cancelled her appointment twice. During this admission she is in normal sinus rhythm. Denies increasing SOB currently, denies chest pain. Denies palpitations or syncope. She is receiving IV lasix for pulmonary edema. Cardiac testing: TTE this admission:LVEF 65-70%. Indeterminate diastolic function. RV appears dilated. Function is normal. 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 There is also calcification of the subvalvular apparatus. Severe mitral stenosis by MG 10 mmHg at 101 bpm. Mild-moderate mitral regurgitation. Severe aortic stenosis. PV 4.6m/s, MG 52 mmHg, DI 0.17, DAY 0.5cm2 Mild tricuspid regurgitation. Moderate-severe pulmonary hypertension. TTE 03/2017: EF 70%Moderate LVH, Severe MAC Severe MS. Moderate pulmonary HTN. TTE 12/2016: Normal LVEF. Severe aortic stenosis. Mild to moderate MS. Past Med Surg Social Fam HX - Past Medical History Medical history: asthma, atrial fibrillation, cancer, COPD, diabetes, hypertension, valvular heart disease Psychiatric history: anxiety - Past Surgical History Surgical History: appendectomy, cancer surgery, cholecystectomy, hysterectomy, knee replacement - Social History Smoking Status: Former smoker Smokeless Tobacco Status: No Alcohol use: none Drug use: none - Family History Mother Living Status: Hx Family Cardiac Disorders: Yes (HEART DISEASE) Hx Family Endocrine Disorder: Yes (DIABETES) Medications and Allergies Albuterol Neb [Proventil Neb] 2.5 mg IH Q6H PRN 04/30/15 [History] Atorvastatin [Lipitor] 10 mg PO HS 04/30/15 [History] Loratadine [Claritin] 10 mg PO DAILY 04/30/15 [History] Meclizine [Antivert] 25 mg PO BID 04/30/15 [History] Montelukast [Singulair] 10 mg PO DAILY 04/30/15 [History] Omeprazole [PriLOSEC] 20 mg PO BID 04/30/15 [History] Potassium Chloride [K-Tab ER] 20 meq PO DAILY 04/30/15 [History] Roflumilast [Daliresp] 500 mcg PO DAILY 04/30/15 [History] Furosemide [Lasix] 20 mg PO DAILY 09/15/15 [History] Alendronate Sodium [Fosamax] 70 mg PO WE 10/27/16 [History] Calcium Carbonate/Vitamin D3 [Calcium 600-Vit D3 400 Tablet] 1 each PO BID 11/17 [History] Umeclidinium Brm/Vilanterol Tr [Anoro Ellipta 62.5-25 Mcg INH] 1 puff IH DAILY 11/17/16 [History] Venlafaxine XR (24 HR) [Effexor XR] 75 mg PO DAILY 01/10/17 [History] Beclomethasone Diprop 40mcg [QVAR 40 mcg] 1 puff IH BID 02/21/17 [History] Nitroglycerin [Nitrostat] 0.4 mg SL PRN PRN 02/21/17 [History] Azelastine 0.1% Nasal [place] [Astelin] 2 spray NS BID 03/10/17 [History] Aspirin Enteric Coated [Aspirin EC] 81 mg PO DAILY tablet. 03/29/17 [Rx] Amiodarone [Cordarone] 200 mg PO DAILY 04/20/17 [History] Insulin Glargine,Hum.rec.anlog [Basaglar Kwikpen U-100] 10 unit SQ DAILY [History] Sennosides/Docusate Sodium [Senna-Docusate Sodium Tablet] 1 each PO BID PRN 12/06 [History] Warfarin [Coumadin] 3 mg PO 1800 04/29/17 [History] Dexamethasone [Decadron] 4 mg PO BID PRN #24 tab 05/23/17 [Rx] Insulin LISPRO [Humalog] 100 unit SQ AD PRN 05/23/17 [History] Ondansetron HCl 4 mg PO Q8H PRN #60 tablet 05/23/17 [Rx] Prochlorperazine Maleate [Compazine] 10 mg PO Q6HR PRN #90 tablet 05/23/17 [Rx] Megestrol Acetate [Megace] 400 mg PO DAILY 06/14/17 [History] HYDROcodone/Acet 10/325 mg [Jarales 10-325 mg] 1 tab PO Q6HR PRN 06/17/17 [History ] 3 Allergy/AdvReac Type Severity Reaction Status Date / Time codeine Allergy Hives Verified 06/14/17 08:30 latex Allergy Hives Verified 06/14/17 08:30 Penicillins Allergy Hives Verified 06/14/17 08:30 propoxyphene [From Darvon] Allergy Hives Verified 06/14/17 08:30 shellfish derived Allergy Hives Verified 06/14/17 08:30 All Systems Review: The remainder of the systems were reviewed and are negative Physical Examination Vital Signs, Last 4 Hours Temp Pulse Resp BP Pulse Ox 06/24/17 07:54 98.2 F 84 18 160/83 99 06/24/17 07:41 16 100 General: No Apparent Distress, Other (Drowsy) HEENT: Atraumatic, Normocephaly, Mucus Membranes Moist Neck: No JVD, Normal carotid pulses Cardiac: Reg Rate and Rhythm, Normal S1 and S2, Other (3/6 murmur RSB) Lungs: Normal Breath Sounds, No Wheeze, Rales, Rhonchi Neuro: Alert and responsive, No focal deficits noted Abdomen: Soft, Non-Tender Skin: No rashes noted on visualized skin Musculoskeletal: No Chest Wall Tenderness Extremities: No Clubbing, No Cyanosis, No Edema, Normal Pulses Results 06/24/17 03:30 06/24/17 03:30 Lab Results 06/23/17 06/24/17 06/24/17 15:52 03:30 03:30 WBC 16.6 H Hgb 8.5 L Hct 25.2 L Plt Count 396 INR 1.4 Sodium Potassium 3.1 L Chloride Carbon Dioxide BUN Creatinine Glucose Calcium Magnesium 06/24/17 03:30 WBC Hgb Hct Plt Count INR Sodium 134 L Potassium 2.7 L Chloride 99 Carbon Dioxide 26 BUN 8 Creatinine 0.47 L Glucose 261 H Calcium 8.0 L Magnesium 1.5 L - Imaging and Cardiology Echo: report reviewed - EKG Interpretation EKG results cardiology: personally reviewed Consult Discharge Plan - Plan Referrals: Valente Rosa MD [Primary Care Provider] - <Jt Rojas - Last Filed: 06/24/17 11:36> Date of Encounter: 06/24/17 - Attending Attestation I have personally performed a face to face evaluation on this patient. I have reviewed and agree with the care plan. History and Exam by me shows: 71-year-old female with known severe mitral stenosis and aortic stenosis presents to [facility] with abdominal pain found to have pulmonary edema on chest x-ray. Patient has been diagnosed with the above since March 2017 and prior regards to her severe aortic stenosis. She has a preserved ejection fraction with moderate pulmonary hypertension. She also has atrial fibrillation currently anticoagulated with Coumadin. She was offered surgery for her valves but she declined. She also was offered TAVR but declined. 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 A mitral balloon valvotomy may or may not be reasonable with her mitral annular calcifications on transthoracic echo. With her pulmonary edema this seems reasonable to pursue. A TAMI may be indicated to further assess her mitral valve if she is willing to proceed. Management of severe mitral stenosis along with severe aortic stenosis medically is very difficult and likely of no significant benefit. Assessment and Plan Discussion w patient/family: The assessment and plan as outlined above was discussed with the patient and/or family members who expressed understanding and agreement. All questions were answered. Thank you for involving us in the care of your patient. Please call with any questions. History of Present Illness History of present illness: Ms. Baird is a 71 year old female All Systems Review: The remainder of the systems were reviewed and are negative Physical Examination Vital Signs, Last 4 Hours Temp Pulse Resp BP Pulse Ox 06/24/17 07:54 98.2 F 84 18 160/83 99 06/24/17 07:41 16 100 Results 06/24/17 03:30 06/24/17 03:30 Lab Results 06/23/17 06/24/17 06/24/17 15:52 03:30 03:30 WBC 16.6 H Hgb 8.5 L Hct 25.2 L Plt Count 396 INR 1.4 Sodium Potassium 3.1 L Chloride Carbon Dioxide BUN Creatinine Glucose Calcium Magnesium 06/24/17 03:30 WBC Hgb Hct Plt Count INR Sodium 134 L Potassium 2.7 L Chloride 99 Carbon Dioxide 26 BUN 8 Creatinine 0.47 L Glucose 261 H Calcium 8.0 L Magnesium 1.5 L
[2017-06-24] MEDS: cefTRIAXone 2,000 MG in Water for inj. (sterile) 20 ML 20 ML IVP SCH (11:45)
[2017-06-24] MEDS: metroNIDAZOLE 500 MG TABLET PO SCH ×2 (14:10→20:24)
[2017-06-24] MEDS ORDERED: *HR* Warfarin 3 MG TABLET PO ONE (18:00)
[2017-06-24] MEDS: Melatonin 3 MG TABLET PO SCH (20:24)
[2017-06-25] MEDS: Ipratropium/Albuterol Neb 3 ML IH SCH ×5 (04:11→20:47)
[2017-06-25 04:45] LABS: Basophils % 0.2 %; Hematocrit 26.1 % (35.3-44.9); Hemoglobin 8.6 g/dL (11.5-15.4); Lymphocytes # 0.9 K/mcL (0.6-4.6); Lymphocytes % 5.1 %; Mean Corpuscular Hemoglobin 30.6 pg (28.0-33.3); Mean Corpuscular Volume 92.9 fL (83.0-100.0); Mean Platelet Volume 9.3 fL (9.4-12.4); Monocytes % 5.5 %; Neutrophils # 15.2 K/mcL (1.6-8.9); Platelet Count 387 K/mcL (140-400); Red Blood Count 2.81 M/mcL (3.82-4.97); Segmented Neutrophils % 88.2 %
[2017-06-25 04:48] LABS: INR 1.2; Prothrombin Time 12.9 Seconds (9.4-12.1)
[2017-06-25 05:04] LABS: BUN/Creatinine Ratio 20 (6-26); Blood Urea Nitrogen 9 mg/dL (8-23); Calcium 8.2 mg/dL (8.6-10.3); Carbon Dioxide 25 mEq/L (23-29); Chloride 99 mEq/L (98-107); Glucose 351 mg/dL (70-105); Osmolality,Calculated 287 (280-300); Sodium 132 mEq/L (136-145); eGFR For African Americans > 60 (> 60); eGFR For Non-African Americans > 60 (> 60)
[2017-06-25] MEDS: *HR* HYDROcodone/Acet 10/325 mg TABLET PO PRN (06:40)
[2017-06-25] MEDS: Insulin LISPRO 300 UNITS/3 ML VIAL SQ SCH ×6 (09:21→21:33)
[2017-06-25] MEDS: Insulin DETEMIR 100 UNIT/ML X5UNITS SQ SCH ×2 (09:21→21:33)
[2017-06-25] MEDS: *HR* Enoxaparin 60 MG/0.6 ML SYRINGE SQ SCH ×2 (09:23→17:03)
[2017-06-25] MEDS: Vancomycin Oral Soln 250 MG/5 ML UDC PO SCH ×4 (09:24→21:33)
[2017-06-25] MEDS: metroNIDAZOLE 500 MG TABLET PO SCH ×3 (09:26→21:32)
[2017-06-25] MEDS: Furosemide 40 MG/4 ML VIAL IVP SCH (09:26)
[2017-06-25] MEDS: *HR* Amiodarone 200 MG TABLET PO SCH (09:26)
[2017-06-25] MEDS: Cefdinir 300 MG CAPSULE PO SCH (09:26)
[2017-06-25] MEDS: Venlafaxine XR (24 HR) 75 MG CAP.ER.24H PO SCH (09:26)
--- NOTE | 2017-06-25 09:26 | Internal Med Progress Note ---
Date of Encounter: 06/25/17 Time of Encounter: 09:24 - Assessment and plan (1) A-fib Current Visit: Yes Status: Chronic Assessment and plan: HR controlled, continue Amiodarone, INR sub-therapeutic Bridge with lovenox, continue Coumadin, monitor INR pharmacy to dose Qualifiers: Atrial fibrillation type: paroxysmal Qualified Code(s): I48.0 - Paroxysmal atrial fibrillation (2) Supratherapeutic INR Current Visit: Yes Status: Resolved Assessment and plan: Resolved. INR now subtherapeutic (3) Lung cancer Current Visit: Yes Status: Chronic Assessment and plan: Onc eval noted, appreciated. Follow up as out-patient Qualifiers: Laterality: right Lung location: unspecified part of lung Qualified Code( s): C34.91 - Malignant neoplasm of unspecified part of right bronchus or lung (4) DVT prophylaxis Current Visit: Yes Status: Acute Assessment and plan: on coumadin and therapeutic lovenox continue same (5) DM2 (diabetes mellitus, type 2) Current Visit: Yes Status: Chronic Assessment and plan: Fs acceptable Cardiac/Diabetic diet, continue levemir, Insulin sliding scale Add mealtime insulin. Qualifiers: Diabetes mellitus joint terminal attack controller insulin use: with joint terminal attack controller use Diabetes mellitus complication status: with hyperglycemia Qualified Code(s): E11.65 - Type 2 diabetes mellitus with hyperglycemia; Z79.4 - FDC (current) use of insulin; Z79.4 - FDC (current) use of insulin; Z79.4 - FDC (current ) use of insulin; Z79.4 - parts counterman (current) use of insulin (6) COPD exacerbation Current Visit: Yes Status: Acute Assessment and plan: continue duonebs continue to taper prednisone, total 5 days of therapy, then discontinue Continue O2 supplementation (7) Urinary retention Current Visit: Yes Status: Resolved Assessment and plan: Likely from multiple co morbidities, anticholinergic medications, constipation. Urology following, recommendations appreciated Resolved , patient is having adequate urinary output (8) Constipation Current Visit: Yes Status: Resolved Assessment and plan: Resolved Patient is now having BMs Qualifiers: Constipation type: slow transit constipation Qualified Code(s): K59.01 - Slow transit constipation (9) Proctocolitis Current Visit: Yes Status: Acute Assessment and plan: Presented with ABD pain and reported constipation. ABD CT 06/14 showed dilated stool filled rectum up to 10 cm, smooth wall thickening and perirectal edema concerning for stercoral proctitis and fecal impaction. Has had multiple, large bowel movements on 06/17: A repeat CT showed worsening proctocolitis, improved stool burden. She was started on Cipro/Flagyl 06/18: Pain in abdomen unchanged. She has not received a full day worth of antibiotic treatment. 06/19: having some loose diarrhea - will change senna to once daily. She is on iron and oxycodone 06/20: 2 BM overnight, doing better 06/21: Continues to complain of abdominal pain, she reports her bowel movements are soft and small shift. She is NPO, complete blood count continues to show leukocytosis with left shift, Repeat Abd CT shows improvement, patient started on clear liquid diet, toelrating 06/22: abdomen is benign, not tender, worsening leukoytosis 06/23; continue current care, follow c.diff test 06/24: No new events, continue same treatment Continue -Change ceftriaxone to Omnicef -Continue Colace 100 m BID -Continue Senna 8.6 mg BID -Continue Bisacodyl 10 mg daily prn. -Continue Vancomycin for suspected C.diff (10) Leukocytosis Current Visit: Yes Status: Acute Assessment and plan: 06/22: WBC 52,800 this am Hb stable at 8.9-9.1 PLT WNL INR 6.8 NO evidence of bleeding, R/O DIC-send Fibriongen, LDH, haptoglobin, ESR, CRP Patient continues to be afebrile We will check for C.diff Repeat CXR shows pulm edema, started on lasix Oncology has been consulted We will start on po vancomycin for suspected C.diff-patient does not have watery diarrhea STAT UA shows glucosuria, ketones, 06/23: Onc eval noted, WBC improving, continue current management no DIC per testing 06/24: WBC improving, it is unclear if this is due to the treatment for C.diff even though we do not have stool specimen, or if this is self-resolvng, we will complete treatment for C.diff Continue Rocephin -Day 2 Continue Flagyl-Day 7, change to po for 3 more days Continue Vancomycin po-Day 3, for total 10 days 06/25: WBC stable at 16-17 Continue antibiotics, OMnicef-Day 3, Flagyl-Day 8, Vanco po -Day 4. Qualifiers: Leukocytosis type: unspecified Qualified Code(s): D72.829 - Elevated white blood cell count, unspecified (11) Pulmonary edema Current Visit: Yes Status: Acute Assessment and plan: ECHO noted : LVEF 65-70%. Indeterminate diastolic function. RV appears dilated. Function is normal. 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 There is also calcification of the subvalvular apparatus. Severe mitral stenosis by MG 10 mmHg at 101 bpm. Mild-moderate mitral regurgitation. Severe aortic stenosis. PV 4.6m/s, MG 52 mmHg, DI 0.17, DAY 0.5cm2 Mild tricuspid regurgitation. Moderate-severe pulmonary hypertension. 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 A mitral balloon valvotomy may or may not be reasonable with her mitral annular calcifications on transthoracic echo. With her pulmonary edema this seems reasonable to pursue. A TAMI may be indicated to further assess her mitral valve if she is willing to proceed. Management of severe mitral stenosis along with severe aortic stenosis medically is very difficult and likely of no significant benefit." Input appreciated (14) Mitral valve stenosis, severe Current Visit: Yes Status: Acute Assessment and plan: as above - Time Spent With Patient Total time spent is greater than 50% in coordination of care (as documented) at patient's floor/unit and/or counseling patient: - Subjective Interval history: Seen and evaluated at bedside She is admitted and being managed for proctocolitis, she initially presented for constipation, she continues to have some formed small BM 06/22: Patient did complain of some mild abdominal pain, her repeat Abdomen and Pelvis CT scan showed improvement This a.m, she required more O2 and a CXR showed pulmonary edema Also, her INR is 6.8 and her WBC is >50,000 She remains afebrile We will rule out C.diff, give vit K, obtain blood cultures, broaden antibiotics Continue to hold coumadin No evidence or source of bleeding 06/23: Seen and evaluated at the bedside NO new complains She is now having diarrhea, but c.diff is yet to be collected Her abdominal pain is improving,so is her white count, no changes on exam, abdomen is not acute Her O2 requirement remains stable at 2L which is her home dose Leukocytosis is improving We will continue management today with the same, replace K+, repeat K+ p.m, and follow ECHO reports 06/24: Seen and evaluated at bedside, no new complaints. Leukocytosis continues to improve current regimen. Patient's also had mucoid mixed with urine, hence, CDiff has not been sent. We will continue treatment cardi eval pending for Severe and MS Replaced K and Mag 06/25: Seen and examined at the bedside. Significant Clinical improvement. She complains of SOB but her chest is clear to auscultation, and her oxygen saturation is at baseline. She refused her Lasix yesterday. INR is subtherapeutic, we will bridge with Lovenox. I will give an additional dose of Lasix today. Change all antibiotics to oral to decrease fluid intake - Constitutional Vitals: Temp Pulse Resp BP Pulse Ox 98.1 F 99 18 135/69 97 06/25/17 07:31 06/25/17 07:31 06/25/17 07:31 06/25/17 07:31 06/25/17 07:31 General appearance: Present: A&O X 3, pleasant, no acute distress - Head Head exam: Present: atraumatic, normocephalic - Eye Eye exam: Present: PERRL, conjuntiva pink, sclera anicteric Pupils: Present: PERRL - Neck Neck exam general surgery: Present: supple, trachea midline. Absent: lymphadenopathy - Respiratory Respiratory exam: Present: CTAB. Absent: accessory muscle use, rales, rhonchi, wheezes - Cardiovascular Cardiovascular exam: Present: RRR, +S1, +S2, systolic murmur - GI/Abdominal GI/Abdominal exam: Present: normal bowel sounds, soft, no peritoneal signs. Absent: distended, tenderness - Extremities Exam Extremities exam: Present: warm, radial pulses palpable and symmetrical. Absent : calf tenderness, cyanotic, pedal edema - Neurological Exam Neurological exam: Present: alert, CN II-XII intact, oriented X3, no focal deficits. Absent: pronater drift, facial droop, speech deficit - Skin Skin exam: Present: dry, intact Internal Medicine: Result - Labs CBC & Chem 7: 06/25/17 04:00 06/25/17 04:00 Labs: Short CBC 06/25/17 Range/Units 04:00 WBC 17.2 H (4.3-11.1) K/mcL Hgb 8.6 L (11.5-15.4) g/dL Hct 26.1 L (35.3-44.9) % Plt Count 387 (140-400) K/mcL Neutrophils # 15.2 H (1.6-8.9) K/mcL BMP 06/25/17 04:00 Sodium 132 L Potassium 4.0 Chloride 99 Carbon Dioxide 25 BUN 9 Creatinine 0.45 L Glucose 351 H Calcium 8.2 L - ABG Interpretation ABG results: ABG ABG pH 7.51 pH Units (7.32-7.45) H 06/22/17 16:43 ABG pCO2 28 mmHg (35-45) L 06/22/17 16:43 ABG pO2 86 mmHg (85-104) 06/22/17 16:43 ABG O2 Saturation 98 % (95-98) 06/22/17 16:43 PT/INR, D-dimer PT 12.9 Seconds (9.4-12.1) H 06/25/17 04:00 Consult Discharge Plan - Plan Referrals: Valente Rosa MD [Primary Care Provider] - ([facility])
[2017-06-25] MEDS ORDERED: Furosemide 40 MG/4 ML VIAL IVP ONE (09:31)
[2017-06-25] MEDS: Beclomethasone 40mcg MDI IH SCH ×2 (10:57→20:48)
[2017-06-25] MEDS ORDERED: *HR* Warfarin 3 MG TABLET PO ONE (18:00)
[2017-06-25] MEDS: Melatonin 3 MG TABLET PO SCH (21:32)
[2017-06-26] MEDS: Ipratropium/Albuterol Neb 3 ML IH SCH ×7 (00:11→23:32)
[2017-06-26 03:19] LABS: Basophils % 0.2 %; Eosinophils # 0.1 K/mcL (0.0-0.6); Eosinophils % 0.5 %; Hematocrit 25.3 % (35.3-44.9); Hemoglobin 8.3 g/dL (11.5-15.4); Immature Granulocytes % 1.2 % (0-4); Lymphocytes # 0.9 K/mcL (0.6-4.6); Lymphocytes % 7.2 %; Mean Corpuscular HGB Conc 32.8 g/dL (31.6-35.5); Mean Corpuscular Hemoglobin 30.5 pg (28.0-33.3); Mean Platelet Volume 9.1 fL (9.4-12.4); Monocytes % 7.6 %; Neutrophils # 10.8 K/mcL (1.6-8.9); Platelet Count 368 K/mcL (140-400); Red Blood Count 2.72 M/mcL (3.82-4.97); Red Cell Distribution Width 19.5 % (11.5-14.5); Segmented Neutrophils % 83.3 %
[2017-06-26 03:23] LABS: INR 1.4; Prothrombin Time 14.8 Seconds (9.4-12.1)
[2017-06-26 03:38] LABS: BUN/Creatinine Ratio 21 (6-26); Blood Urea Nitrogen 10 mg/dL (8-23); Calcium 8.4 mg/dL (8.6-10.3); Carbon Dioxide 29 mEq/L (23-29); Chloride 101 mEq/L (98-107); Glucose 125 mg/dL (70-105); Osmolality,Calculated 283 (280-300); Potassium 3.6 mEq/L (3.5-5.1); Sodium 136 mEq/L (136-145); eGFR For African Americans > 60 (> 60); eGFR For Non-African Americans > 60 (> 60)
[2017-06-26] MEDS: *HR* Enoxaparin 60 MG/0.6 ML SYRINGE SQ SCH ×2 (05:42→17:13)
[2017-06-26] MEDS: Insulin LISPRO 300 UNITS/3 ML VIAL SQ SCH ×7 (07:25→21:26)
[2017-06-26] MEDS: Beclomethasone 40mcg MDI IH SCH ×2 (07:38→19:46)
[2017-06-26] MEDS ORDERED: Furosemide 20 MG/2 ML VIAL IVP ONE (07:52)
[2017-06-26] MEDS: *HR* Amiodarone 200 MG TABLET PO SCH (08:06)
[2017-06-26] MEDS: Furosemide 40 MG/4 ML VIAL IVP SCH (08:06)
[2017-06-26] MEDS: metroNIDAZOLE 500 MG TABLET PO SCH ×3 (08:06→21:26)
[2017-06-26] MEDS: Cefdinir 300 MG CAPSULE PO SCH (08:06)
[2017-06-26] MEDS: Venlafaxine XR (24 HR) 75 MG CAP.ER.24H PO SCH (08:07)
[2017-06-26] MEDS: Insulin DETEMIR 100 UNIT/ML X5UNITS SQ SCH ×2 (08:07→21:26)
[2017-06-26] MEDS: Vancomycin Oral Soln 250 MG/5 ML UDC PO SCH ×4 (08:07→21:26)
--- NOTE | 2017-06-26 11:50 | Internal Med Progress Note ---
Date of Encounter: 06/26/17 Time of Encounter: 09:30 - Assessment and plan (1) A-fib Current Visit: Yes Status: Chronic Assessment and plan: HR controlled, continue Amiodarone, INR sub-therapeutic Bridge with lovenox, continue Coumadin, monitor INR pharmacy to dose Qualifiers: Atrial fibrillation type: paroxysmal Qualified Code(s): I48.0 - Paroxysmal atrial fibrillation (2) Supratherapeutic INR Current Visit: Yes Status: Resolved Assessment and plan: Resolved. INR now subtherapeutic (3) Lung cancer Current Visit: Yes Status: Chronic Assessment and plan: Onc eval noted, appreciated. Follow up as out-patient Qualifiers: Laterality: right Lung location: unspecified part of lung Qualified Code( s): C34.91 - Malignant neoplasm of unspecified part of right bronchus or lung (4) DVT prophylaxis Current Visit: Yes Status: Acute Assessment and plan: on coumadin and therapeutic lovenox continue same (5) DM2 (diabetes mellitus, type 2) Current Visit: Yes Status: Chronic Assessment and plan: Fs acceptable Cardiac/Diabetic diet, continue levemir, Insulin sliding scale, prandial insulin FS improving on this regimen, continue same Qualifiers: Diabetes mellitus fpc insulin use: with fpc use Diabetes mellitus complication status: with hyperglycemia Qualified Code(s): E11.65 - Type 2 diabetes mellitus with hyperglycemia; Z79.4 - regulator assembler (current) use of insulin; Z79.4 - jail (current) use of insulin; Z79.4 - regulator assembler (current ) use of insulin; Z79.4 - regulator assembler (current) use of insulin (6) COPD exacerbation Current Visit: Yes Status: Acute Assessment and plan: continue duonebs completed 5 days of steroids, discontinued Continue O2 supplementation (7) Urinary retention Current Visit: Yes Status: Resolved Assessment and plan: Likely from multiple co morbidities, anticholinergic medications, constipation. Urology following, recommendations appreciated Resolved , patient is having adequate urinary output (8) Constipation Current Visit: Yes Status: Resolved Assessment and plan: Resolved Patient is now having BMs Qualifiers: Constipation type: slow transit constipation Qualified Code(s): K59.01 - Slow transit constipation (9) Proctocolitis Current Visit: Yes Status: Acute Assessment and plan: Presented with ABD pain and reported constipation. ABD CT 3/27 showed dilated stool filled rectum up to 10 cm, smooth wall thickening and perirectal edema concerning for stercoral proctitis and fecal impaction. Has had multiple, large bowel movements on 06/17: A repeat CT showed worsening proctocolitis, improved stool burden. She was started on Cipro/Flagyl 06/18: Pain in abdomen unchanged. She has not received a full day worth of antibiotic treatment. 06/19: having some loose diarrhea - will change senna to once daily. She is on iron and oxycodone 06/20: 2 BM overnight, doing better 06/21: Continues to complain of abdominal pain, she reports her bowel movements are soft and small shift. She is NPO, complete blood count continues to show leukocytosis with left shift, Repeat Abd CT shows improvement, patient started on clear liquid diet, toelrating 06/22: abdomen is benign, not tender, worsening leukoytosis 06/23; continue current care, follow c.diff test 06/24: No new events, continue same treatment Continue -Omnicef -Continue Colace 100 m BID -Continue Senna 8.6 mg BID -Continue Bisacodyl 10 mg daily prn. -Continue Vancomycin for suspected C.diff (10) Leukocytosis Current Visit: Yes Status: Acute Assessment and plan: 06/22: WBC 52,800 this am Hb stable at 8.9-9.1 PLT WNL INR 6.8 NO evidence of bleeding, R/O DIC-send Fibriongen, LDH, haptoglobin, ESR, CRP Patient continues to be afebrile We will check for C.diff Repeat CXR shows pulm edema, started on lasix Oncology has been consulted We will start on po vancomycin for suspected C.diff-patient does not have watery diarrhea STAT UA shows glucosuria, ketones, 06/23: Onc eval noted, WBC improving, continue current management no DIC per testing 06/24: WBC improving, it is unclear if this is due to the treatment for C.diff even though we do not have stool specimen, or if this is self-resolvng, we will complete treatment for C.diff Continue Rocephin -Day 2 Continue Flagyl-Day 7, change to po for 3 more days Continue Vancomycin po-Day 3, for total 10 days 06/25: WBC stable at 16-17 Continue antibiotics, OMnicef-Day 3, Flagyl-Day 8, Vanco po -Day 4. 06/26: WBC 13 today Continue antibiotics: Omnicef day 4, for total 5 days, Flagyl Day 9, for total 10 days, Vanco po Day 5 for total of 10 days Qualifiers: Leukocytosis type: unspecified Qualified Code(s): D72.829 - Elevated white blood cell count, unspecified (11) Pulmonary edema Current Visit: Yes Status: Acute Assessment and plan: ECHO noted : LVEF 65-70%. Indeterminate diastolic function. RV appears dilated. Function is normal. 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 There is also calcification of the subvalvular apparatus. Severe mitral stenosis by MG 10 mmHg at 101 bpm. Mild-moderate mitral regurgitation. Severe aortic stenosis. PV 4.6m/s, MG 52 mmHg, DI 0.17, DAY 0.5cm2 Mild tricuspid regurgitation. Moderate-severe pulmonary hypertension. 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 A mitral balloon valvotomy may or may not be reasonable with her mitral annular calcifications on transthoracic echo. With her pulmonary edema this seems reasonable to pursue. A TAMI may be indicated to further assess her mitral valve if she is willing to proceed. Management of severe mitral stenosis along with severe aortic stenosis medically is very difficult and likely of no significant benefit." Input appreciated (14) Mitral valve stenosis, severe Current Visit: Yes Status: Acute Assessment and plan: as above - Time Spent With Patient Total time spent is greater than 50% in coordination of care (as documented) at patient's floor/unit and/or counseling patient: - Subjective Interval history: Seen and evaluated at bedside She is admitted and being managed for proctocolitis, she initially presented for constipation, she continues to have some formed small BM 06/22: Patient did complain of some mild abdominal pain, her repeat Abdomen and Pelvis CT scan showed improvement This a.m, she required more O2 and a CXR showed pulmonary edema Also, her INR is 6.8 and her WBC is >50,000 She remains afebrile We will rule out C.diff, give vit K, obtain blood cultures, broaden antibiotics Continue to hold coumadin No evidence or source of bleeding 06/23: Seen and evaluated at the bedside NO new complains She is now having diarrhea, but c.diff is yet to be collected Her abdominal pain is improving,so is her white count, no changes on exam, abdomen is not acute Her O2 requirement remains stable at 2L which is her home dose Leukocytosis is improving We will continue management today with the same, replace K+, repeat K+ p.m, and follow ECHO reports 06/24: Seen and evaluated at bedside, no new complaints. Leukocytosis continues to improve current regimen. Patient's also had mucoid mixed with urine, hence, CDiff has not been sent. We will continue treatment cardi eval pending for Severe and MS Replaced K and Mag 06/25: Seen and examined at the bedside. Significant Clinical improvement. She complains of SOB but her chest is clear to auscultation, and her oxygen saturation is at baseline. She refused her Lasix yesterday. INR is subtherapeutic, we will bridge with Lovenox. I will give an additional dose of Lasix today. Change all antibiotics to oral to decrease fluid intake 06/26: Seen and examined at bedside Continues to improve Urine output improving but flid balance still positive Continue current management - Constitutional Vitals: Temp Pulse Resp BP Pulse Ox 98.5 F 92 15 116/72 97 06/26/17 11:00 06/26/17 11:00 06/26/17 11:00 06/26/17 11:06/26/17 11:00 General appearance: Present: A&O X 3, pleasant, no acute distress - Head Head exam: Present: atraumatic, normocephalic - Eye Eye exam: Present: PERRL, conjuntiva pink, sclera anicteric Pupils: Present: PERRL - Neck Neck exam general surgery: Present: supple, trachea midline. Absent: lymphadenopathy - Respiratory Respiratory exam: Present: CTAB. Absent: accessory muscle use, rales, rhonchi, wheezes - Cardiovascular Cardiovascular exam: Present: RRR, +S1, +S2, systolic murmur. Absent: diastolic murmur, gallop, rubs - GI/Abdominal GI/Abdominal exam: Present: normal bowel sounds, soft, no peritoneal signs. Absent: distended, tenderness - Extremities Exam Extremities exam: Present: warm, radial pulses palpable and symmetrical. Absent : calf tenderness, cyanotic, pedal edema - Neurological Exam Neurological exam: Present: alert, CN II-XII intact, oriented X3, no focal deficits. Absent: pronater drift, facial droop, speech deficit - Skin Skin exam: Present: dry, intact Internal Medicine: Result - Labs CBC & Chem 7: 06/26/17 03:09 06/26/17 03:09 Labs: Short CBC 06/26/17 Range/Units 03:09 WBC 13.0 H (4.3-11.1) K/mcL Hgb 8.3 L (11.5-15.4) g/dL Hct 25.3 L (35.3-44.9) % Plt Count 368 (140-400) K/mcL Neutrophils # 10.8 H (1.6-8.9) K/mcL BMP 06/26/17 03:09 Sodium 136 Potassium 3.6 Chloride 101 Carbon Dioxide 29 BUN 10 Creatinine 0.48 L Glucose 125 H Calcium 8.4 L - ABG Interpretation ABG results: ABG ABG pH 7.51 pH Units (7.32-7.45) H 06/22/17 16:43 ABG pCO2 28 mmHg (35-45) L 06/22/17 16:43 ABG pO2 86 mmHg (85-104) 06/22/17 16:43 ABG O2 Saturation 98 % (95-98) 06/22/17 16:43 PT/INR, D-dimer PT 14.8 Seconds (9.4-12.1) H 06/26/17 03:09 Consult Discharge Plan - Plan Referrals: Valente Rosa MD [Primary Care Provider] - ([facility])
[2017-06-26] MEDS ORDERED: *HR* Warfarin 3 MG TABLET PO ONE (18:00)
[2017-06-26] MEDS: Melatonin 3 MG TABLET PO SCH (21:26)
[2017-06-27 03:24] LABS: INR 1.4; Prothrombin Time 14.7 Seconds (9.4-12.1)
[2017-06-27] MEDS: Ipratropium/Albuterol Neb 3 ML IH SCH ×3 (03:44→10:43)
[2017-06-27 04:15] LABS: Basophils % 0.2 %; Eosinophils # 0.1 K/mcL (0.0-0.6); Eosinophils % 0.6 %; Hematocrit 26.2 % (35.3-44.9); Hemoglobin 8.6 g/dL (11.5-15.4); Immature Granulocytes % 1.2 % (0-4); Mean Corpuscular HGB Conc 32.8 g/dL (31.6-35.5); Mean Corpuscular Hemoglobin 30.6 pg (28.0-33.3); Mean Corpuscular Volume 93.2 fL (83.0-100.0); Mean Platelet Volume 9.3 fL (9.4-12.4); Monocytes % 11.2 %; Neutrophils # 6.9 K/mcL (1.6-8.9); Platelet Count 438 K/mcL (140-400); Red Blood Count 2.81 M/mcL (3.82-4.97); Red Cell Distribution Width 18.6 % (11.5-14.5); Segmented Neutrophils % 75.8 %
[2017-06-27 04:23] LABS: BUN/Creatinine Ratio 19 (6-26); Blood Urea Nitrogen 9 mg/dL (8-23); Calcium 8.4 mg/dL (8.6-10.3); Carbon Dioxide 38 mEq/L (23-29); Chloride 95 mEq/L (98-107); Glucose 178 mg/dL (70-105); Osmolality,Calculated 273 (280-300); Potassium 3.5 mEq/L (3.5-5.1); Sodium 130 mEq/L (136-145); eGFR For African Americans > 60 (> 60); eGFR For Non-African Americans > 60 (> 60)
[2017-06-27] MEDS: *HR* Enoxaparin 60 MG/0.6 ML SYRINGE SQ SCH (05:29)
[2017-06-27] MEDS: Beclomethasone 40mcg MDI IH SCH (08:07)
[2017-06-27] MEDS: Vancomycin Oral Soln 250 MG/5 ML UDC PO SCH (08:29)
[2017-06-27] MEDS: Furosemide 40 MG/4 ML VIAL IVP SCH (08:29)
[2017-06-27] MEDS: *HR* Amiodarone 200 MG TABLET PO SCH (08:30)
[2017-06-27] MEDS: Venlafaxine XR (24 HR) 75 MG CAP.ER.24H PO SCH (08:30)
[2017-06-27] MEDS: Cefdinir 300 MG CAPSULE PO SCH (08:30)
[2017-06-27] MEDS: metroNIDAZOLE 500 MG TABLET PO SCH (08:30)
[2017-06-27] MEDS: Insulin DETEMIR 100 UNIT/ML X5UNITS SQ SCH (08:31)
[2017-06-27] MEDS: Insulin LISPRO 300 UNITS/3 ML VIAL SQ SCH ×2 (08:31)
--- NOTE | 2017-06-27 09:17 | Physician Discharge Referral ---
ExtendedCare Referral Info Transfer To: [facility] Provider in Charge: Nichole Bocanegra Provider in Charge after Transfer: PCP Institutional Level of Care: Skilled - Diagnosis (1) A-fib Priority: Secondary Status: Chronic (2) Supratherapeutic INR Priority: Primary Status: Resolved (3) Lung cancer Priority: Secondary Status: Chronic (4) DVT prophylaxis Priority: Secondary Status: Acute (5) DM2 (diabetes mellitus, type 2) Priority: Secondary Status: Chronic (6) COPD exacerbation Priority: Primary Status: Resolved (7) Urinary retention Priority: Primary Status: Resolved (8) Constipation Priority: Primary Status: Resolved (9) Proctocolitis Priority: Primary Status: Resolved (10) Leukocytosis Priority: Primary Status: Resolved (11) Pulmonary edema Priority: Primary Status: Acute (12) Metabolic acidosis Priority: Primary Status: Resolved (13) Aortic stenosis, severe Priority: Secondary Status: Chronic (14) Mitral valve stenosis, severe Priority: Secondary Status: Chronic Prognosis: Fair Aware of Diagnosis: Patient Aware of Prognosis: Patient - Transfer Medications Home Medications: Albuterol Neb [Proventil Neb] 2.5 mg IH Q6H PRN 04/30/15 [History] Atorvastatin [Lipitor] 10 mg PO HS 04/30/15 [History] Loratadine [Claritin] 10 mg PO DAILY 04/30/15 [History] Meclizine [Antivert] 25 mg PO BID 04/30/15 [History] Montelukast [Singulair] 10 mg PO DAILY 04/30/15 [History] Omeprazole [PriLOSEC] 20 mg PO BID 04/30/15 [History] Potassium Chloride [K-Tab ER] 20 meq PO DAILY 04/30/15 [History] Roflumilast [Daliresp] 500 mcg PO DAILY 04/30/15 [History] Furosemide [Lasix] 20 mg PO DAILY 09/15/15 [History] Alendronate Sodium [Fosamax] 70 mg PO WE 10/27/16 [History] Calcium Carbonate/Vitamin D3 [Calcium 600-Vit D3 400 Tablet] 1 each PO BID 11/17 [History] Umeclidinium Brm/Vilanterol Tr [Anoro Ellipta 62.5-25 Mcg INH] 1 puff IH DAILY 11/17/16 [History] Venlafaxine XR (24 HR) [Effexor XR] 75 mg PO DAILY 01/10/17 [History] Beclomethasone Diprop 40mcg [QVAR 40 mcg] 1 puff IH BID 02/21/17 [History] Nitroglycerin [Nitrostat] 0.4 mg SL PRN PRN 02/21/17 [History] Azelastine 0.1% Nasal Dairy [Astelin] 2 spray NS BID 03/10/17 [History] Aspirin Enteric Coated [Aspirin EC] 81 mg PO DAILY tablet. 03/29/17 [Rx] Amiodarone [Cordarone] 200 mg PO DAILY 04/20/17 [History] Insulin Glargine,Hum.rec.anlog [Basaglar Kwikpen U-100] 10 unit SQ DAILY [History] Sennosides/Docusate Sodium [Senna-Docusate Sodium Tablet] 1 each PO BID PRN 12/06 [History] Warfarin [Coumadin] 3 mg PO 1800 04/29/17 [History] Dexamethasone [Decadron] 4 mg PO BID PRN #24 tab 05/23/17 [Rx] Insulin LISPRO [Humalog] 100 unit SQ AD PRN 05/23/17 [History] Ondansetron HCl 4 mg PO Q8H PRN #60 tablet 05/23/17 [Rx] Prochlorperazine Maleate [Compazine] 10 mg PO Q6HR PRN #90 tablet 05/23/17 [Rx] Megestrol Acetate [Megace] 400 mg PO DAILY 06/14/17 [History] HYDROcodone/Acet 10/325 mg [Quilcene 10-325 mg] 1 tab PO Q6HR PRN 06/17/17 [History ] Allergies/Adverse Reactions: 3 Allergy/AdvReac Type Severity Reaction Status Date / Time codeine Allergy Hives Verified 06/14/17 08:30 latex Allergy Hives Verified 06/14/17 08:30 Penicillins Allergy Hives Verified 06/14/17 08:30 propoxyphene [From Darvon] Allergy Hives Verified 06/14/17 08:30 shellfish derived Allergy Hives Verified 06/14/17 08:30 - Respiratory Orders Oxygen / L per min (2L prn) Smoking Cessation: Smoking cessation has been advised. For more information, call the [place] Tobacco Quit Line at 3-157-RKMH-NOW. - Advance Directives Code Status: DNR-Arrest/Don't Intubate - Mobility Orders Ambulate - Rehabiliation Orders Rehab Potential: Fair - Diet Orders Cardiac CERTIFICATION: I certify that the transfer of the above named patient to an Extended Care Facility is necessary for the continuing treatment of the diagnosis listed. The above information is true and accurate reflection of patient's current condition. Confidential - Redisclosure prohibited without a patient's written consent.
--- NOTE | 2017-06-27 09:22 | Discharge Summary ---
- NOTES TO OUTPATIENT PROVIDER Notes to Outpatient Provider: Admitted for proctocolitis, suspected C.diff, Leukocytosis, CHF exacerbation. INR s subtherapeutic due to administration of Vitamin K when INR ws 7.8. She is discharged on LOvenox 50mg BID with her home dose of Warfarin, adjust till INR is 2-3, then discontinue lovenox. She is discharged on po Flagyl 500mg TID for 2 more days. She is discharged on po Vancomycin 250mg QID for 5 more days. She is also discharged on Omnicef 300mg BID for 3 more days. Incidental finding of severe mitral and aortic stenosis , cardiology was consulted and patient is currently being trated for Cancer. She is unwilling to pursue surgery till cancer management is done Orders not resulted at time of discharge: Pending orders 06/22/17 07:55 Occult Blood,Stool [BF] Stat 06/22/17 11:15 Culture,Blood [BC] Stat 06/28/17 04:00 PT/INR [Prothrombin Time INR] [COAG] AM 0400 06/29/17 04:00 PT/INR [Prothrombin Time INR] [COAG] AM 0400 Date of Encounter: 06/27/17 Time of Encounter: 09:19 - Discharge Diagnosis (1) A-fib Priority: Secondary Status: Chronic Qualifiers: Atrial fibrillation type: paroxysmal Qualified Code(s): I48.0 - Paroxysmal atrial fibrillation (2) Supratherapeutic INR Priority: Primary Status: Resolved (3) Lung cancer Priority: Secondary Status: Chronic Qualifiers: Laterality: right Lung location: unspecified part of lung Qualified Code( s): C34.91 - Malignant neoplasm of unspecified part of right bronchus or lung (4) DVT prophylaxis Priority: Primary Status: Acute (5) DM2 (diabetes mellitus, type 2) Priority: Secondary Status: Chronic Qualifiers: Diabetes mellitus senior care insulin use: with cold work operator use Diabetes mellitus complication status: with hyperglycemia Qualified Code(s): E11.65 - Type 2 diabetes mellitus with hyperglycemia; Z79.4 - shelter (current) use of insulin; Z79.4 - instrument checker (current) use of insulin; Z79.4 - instrument checker (current ) use of insulin; Z79.4 - shelter (current) use of insulin (6) COPD exacerbation Priority: Primary Status: Resolved (7) Urinary retention Priority: Primary Status: Resolved (8) Constipation Priority: Primary Status: Resolved Qualifiers: Constipation type: slow transit constipation Qualified Code(s): K59.01 - Slow transit constipation (9) Proctocolitis Priority: Primary Status: Resolved (10) Leukocytosis Priority: Primary Status: Resolved Qualifiers: Leukocytosis type: unspecified Qualified Code(s): D72.829 - Elevated white blood cell count, unspecified (11) Pulmonary edema Priority: Primary Status: Acute Qualifiers: Chronicity: acute Qualified Code(s): J81.0 - Acute pulmonary edema (12) Metabolic acidosis Priority: Primary Status: Resolved (13) Aortic stenosis, severe Priority: Secondary Status: Chronic (14) Mitral valve stenosis, severe Priority: Secondary Status: Chronic Hospital course: Ms. Baird is a 71 year old female with prolonged hospital stay She has a PMH of Afib on Coumadin, CHF, HTN, Lung CA on chemo She was admitted for constipation, abdominal pain with imaging findings of proctocolitis and fecal impaction She was started on laxatives and IV antibiotics-Cipro and Flagyl She then started having BM, however, she started complaining of more abdominal pain with worsening leukocytosis (peak of 58,000). Repeat Abdominal CT ruled out a toxic megacolon, and patient's antibiotics were broadened to ceftriaxone and Flagyl. She also has sepsis work up which was UA-negative, CXR showed pulmonary edema , Blood culture was negative Due to INR of 6.8, DIC was worked up and ruled out. The patient's antibiotics were broadened to include C.diff coverage with po vancomycin due to diarrhea and persistent leukocytosis She has been making remarkable improvement. 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 She is seen and evaluated at the bedside this morning, clincally stable, leukocytosis has resolved, she is having normal, well formed BM and she is discharged back to SNF in a stable medical condition She requires few more days of SQ therapeutic lovenox bridged with her po coumadin. Complete po antibiotics-vanco and flagyl in SNF Plan of care discussed, verbalized understanding Discharge discussed with: patient, nurse, social work, case management - Time Spent with Patient Total time spent providing and/or coordinating discharge services: Greater than 30 minutes - Discharge Medications Prescriptions: HYDROcodone/Acet 10/325 mg [Depue 10-325 mg] 1 tab PO Q6HR PRN 5 Days #10 tablet PRN Reason: Pain Home Medications: Albuterol Neb [Proventil Neb] 2.5 mg IH Q6H PRN 04/30/15 [History] Atorvastatin [Lipitor] 10 mg PO HS 04/30/15 [History] Loratadine [Claritin] 10 mg PO DAILY 04/30/15 [History] Meclizine [Antivert] 25 mg PO BID 04/30/15 [History] Montelukast [Singulair] 10 mg PO DAILY 04/30/15 [History] Omeprazole [PriLOSEC] 20 mg PO BID 04/30/15 [History] Potassium Chloride [K-Tab ER] 20 meq PO DAILY 04/30/15 [History] Roflumilast [Daliresp] 500 mcg PO DAILY 04/30/15 [History] Furosemide [Lasix] 20 mg PO DAILY 09/15/15 [History] Alendronate Sodium [Fosamax] 70 mg PO WE 10/27/16 [History] Calcium Carbonate/Vitamin D3 [Calcium 600-Vit D3 400 Tablet] 1 each PO BID 11/17 [History] Umeclidinium Brm/Vilanterol Tr [Anoro Ellipta 62.5-25 Mcg INH] 1 puff IH DAILY 11/17/16 [History] Venlafaxine XR (24 HR) [Effexor XR] 75 mg PO DAILY 01/10/17 [History] Beclomethasone Diprop 40mcg [QVAR 40 mcg] 1 puff IH BID 02/21/17 [History] Nitroglycerin [Nitrostat] 0.4 mg SL PRN PRN 02/21/17 [History] Azelastine 0.1% Nasal [place] [Astelin] 2 spray NS BID 03/10/17 [History] Aspirin Enteric Coated [Aspirin EC] 81 mg PO DAILY tablet. 03/29/17 [Rx] Amiodarone [Cordarone] 200 mg PO DAILY 04/20/17 [History] Insulin Glargine,Hum.rec.anlog [Basaglar Kwikpen U-100] 10 unit SQ DAILY [History] Sennosides/Docusate Sodium [Senna-Docusate Sodium Tablet] 1 each PO BID PRN 12/06 [History] Warfarin [Coumadin] 3 mg PO 1800 04/29/17 [History] Dexamethasone [Decadron] 4 mg PO BID PRN #24 tab 05/23/17 [Rx] Insulin LISPRO [Humalog] 100 unit SQ AD PRN 05/23/17 [History] Ondansetron HCl 4 mg PO Q8H PRN #60 tablet 05/23/17 [Rx] Prochlorperazine Maleate [Compazine] 10 mg PO Q6HR PRN #90 tablet 05/23/17 [Rx] Megestrol Acetate [Megace] 400 mg PO DAILY 06/14/17 [History] Bisacodyl [Dulcolax] 10 mg RC DAILY PRN supp.rect 06/27/17 [Rx] Cefdinir [Omnicef] 300 mg PO DAILY capsule 06/27/17 [Rx] Docusate [Colace] 100 mg PO BID capsule 06/27/17 [Rx] Enoxaparin [Lovenox] 50 mg SQ Q12HCO syringe 06/27/17 [Rx] HYDROcodone/Acet 10/325 mg [Depue 10-325 mg] 1 tab PO Q6HR PRN 5 Days #10 tablet 06/27/17 [Rx] Vancomycin Oral Soln [Vancocin] 250 mg PO QID udc 06/27/17 [Rx] metroNIDAZOLE [Flagyl] 500 mg PO TID tablet 06/27/17 [Rx] Allergies/Adverse Reactions: 3 Allergy/AdvReac Type Severity Reaction Status Date / Time codeine Allergy Hives Verified 06/14/17 08:30 latex Allergy Hives Verified 06/14/17 08:30 Penicillins Allergy Hives Verified 06/14/17 08:30 propoxyphene [From [place]] Allergy Hives Verified 06/14/17 08:30 shellfish derived Allergy Hives Verified 06/14/17 08:30 Date of admission: 06/21/17 11:55 Primary care physician: Valente Rosa MD Consults: 06/22/17 07:59 Consult to Oncology [CONS] Routine Consulting Provider: [facility] Reason for Consult: Worsening leukocytosis despite evidence of improving infection Call Completed: No 06/22/17 08:50 Consult to Invasive Line Access Team [CONS] Stat Reason for Consult: limited vascular access Line Type: EPIV PICC line indications: Limited vascular access Time Notified: 08:51 06/23/17 14:25 Consult to Cardiology [CONS] Routine Comment: Consulting Provider: Cardiology [place] Reason for Consult: Severe , severe MS Call Completed: No 06/27/17 08:25 Consult to [place] [facility] Core Feeder [CONS] Routine Reason for SW Consult: [facility] Discharging clinician: Ellis Bocanegra Anticipated date of discharge: 06/27/17 - Constitutional Vitals: Temp Pulse Resp BP Pulse Ox 97.3 F L 88 16 112/71 92 06/27/17 08:02 06/27/17 08:02 06/27/17 08:08 06/27/17 08:02 06/27/17 08:08 General appearance: Present: A&O X 3, pleasant, no acute distress - Head Head exam: Present: atraumatic, normocephalic - Eye Eye exam: Present: PERRL, conjuntiva pink, sclera anicteric Pupils: Present: PERRL - Neck Neck exam general surgery: Present: supple, trachea midline. Absent: lymphadenopathy - Respiratory Respiratory exam: Present: CTAB. Absent: accessory muscle use, rales, rhonchi, wheezes - Cardiovascular Cardiovascular exam: Present: RRR, +S1, +S2, systolic murmur. Absent: diastolic murmur, gallop, rubs - GI/Abdominal GI/Abdominal exam: Present: normal bowel sounds, soft, no peritoneal signs. Absent: distended, tenderness - Extremities Exam Extremities exam: Present: warm, radial pulses palpable and symmetrical. Absent : calf tenderness, cyanotic, pedal edema - Neurological Exam Neurological exam: Present: alert, CN II-XII intact, oriented X3, no focal deficits. Absent: pronater drift, facial droop, speech deficit - Skin Skin exam: Present: dry, intact - Patient Status Disposition: Transfer SNF Condition: Good Functional capacity at discharge: uses cane/walker Overall status at discharge: patient is back to baseline - Discharge Instructions Follow Up With: Valente Rosa MD [Primary Care Provider] - (ECF) - Diet and Activity Activity: as per physical therapy Diet: diabetic diet, low fat, low cholesterol, low salt diet
[2017-06-27 10:59] VITALS: BP 97/62
[2017-06-27] MEDS: Dextrose Gel 15 GM/37.5 ML TUBE PO PRN (11:52)
[2017-06-27] MEDS ORDERED: Dextrose Gel 15 GM/37.5 ML TUBE PO ONE (12:05)
[2017-06-27] MEDS ORDERED: *HR* Warfarin 5 MG TABLET PO ONE (18:00)
== END 2017-06-27 11:49 | DRG 386 ==
LOC: EMEROO 02:14 → SUATTDRO 05:44 → INTOOBSV 05:44 → 3ANU 05:44 → 2NNU 06-22 19:08 → 2ANU 06-24 17:52
PROVIDERS: ADMIT Internal Medicine Nephrology; ATTEND Internal Medicine

== ENCOUNTER 2017-07-08 14:14 | Inpatient (IN) ==
[2017-07-08] MEDS ORDERED: Furosemide 20 MG/2 ML VIAL IVP ONE (14:23)
--- NOTE | 2017-07-08 14:27 | Emergency Department Note ---
Disposition Clinical Impression: Hyperglycemia Congestive heart failure Qualifiers: Heart failure type: other Qualified Code(s): I50.9 - Heart failure, unspecified Altered mental status Qualifiers: Altered mental status type: disorientation Qualified Code(s): R41.0 - Disorientation, unspecified Disposition: Admitted As Inpatient Condition: Critical Referrals: Valente Rosa MD [Primary Care Provider] - Forms: ED Satisfaction Letter Time of Disposition: 16:34 SOB HPI - General Chief Complaint: ED Shortness of Breath/Dyspnea Stated Complaint: SOB Time Seen by Provider: 07/08/17 14:15 Nursing Notes Reviewed: Yes Vital Signs Reviewed: Yes - History of Present Illness Patient increasing shortness of breath while at [facility]. - Related Data Home Medications Medication Instructions Recorded Confirmed Albuterol Neb [Proventil Neb] 2.5 mg IH Q6H PRN 04/30/15 06/14/17 Atorvastatin [Lipitor] 10 mg PO HS 04/30/15 06/14/17 Loratadine [Claritin] 10 mg PO DAILY 04/30/15 06/14/17 Meclizine [Antivert] 25 mg PO BID 04/30/15 06/14/17 Montelukast [Singulair] 10 mg PO DAILY 04/30/15 06/14/17 Omeprazole [PriLOSEC] 20 mg PO BID 04/30/15 06/14/17 Potassium Chloride [K-Tab ER] 20 meq PO DAILY 04/30/15 06/14/17 Roflumilast [Daliresp] 500 mcg PO DAILY 04/30/15 06/14/17 Furosemide [Lasix] 20 mg PO DAILY 09/15/15 06/14/17 Alendronate Sodium [Fosamax] 70 mg PO WE 10/27/16 06/14/17 Calcium Carbonate/Vitamin D3 1 each PO BID 11/17/16 06/14/17 [Calcium 600-Vit D3 400 Tablet] Umeclidinium Brm/Vilanterol Tr 1 puff IH DAILY 11/17/16 06/14/17 [Anoro Ellipta 62.5-25 Mcg INH] Venlafaxine XR (24 HR) [Effexor XR] 75 mg PO DAILY 01/10/17 06/14/17 Beclomethasone Diprop 40mcg [QVAR 1 puff IH BID 02/21/17 06/14/17 40 mcg] Nitroglycerin [Nitrostat] 0.4 mg SL PRN PRN 02/21/17 06/14/17 Azelastine 0.1% Nasal [place] 2 spray NS BID 03/10/17 06/14/17 [Astelin] Amiodarone [Cordarone] 200 mg PO DAILY 04/20/17 06/14/17 Insulin Glargine,Hum.rec.anlog 10 unit SQ DAILY 04/20/17 06/14/17 [Basaglar Kwikpen U-100] Sennosides/Docusate Sodium 1 each PO BID PRN 04/29/17 06/14/17 [Senna-Docusate Sodium Tablet] Warfarin [Coumadin] 3 mg PO 1800 04/29/17 06/14/17 Insulin LISPRO [Humalog] 100 unit SQ AD PRN 05/23/17 06/14/17 Megestrol Acetate [Megace] 400 mg PO DAILY 06/14/17 06/14/17 Previous Rx's Medication Instructions Recorded Aspirin Enteric Coated [Aspirin EC] 81 mg PO DAILY tablet. 03/29/17 Dexamethasone [Decadron] 4 mg PO BID PRN #24 tab 05/23/17 Ondansetron HCl 4 mg PO Q8H PRN #60 tablet 05/23/17 Prochlorperazine Maleate 10 mg PO Q6HR PRN #90 tablet 05/23/17 [Compazine] Bisacodyl [Dulcolax] 10 mg RC DAILY PRN supp.rect 06/27/17 Cefdinir [Omnicef] 300 mg PO DAILY capsule 06/27/17 Docusate [Colace] 100 mg PO BID capsule 06/27/17 Enoxaparin [Lovenox] 50 mg SQ Q12HCO syringe 06/27/17 HYDROcodone/Acet 10/325 mg [[place] 1 tab PO Q6HR PRN 5 Days #10 tablet 06/27/17 10-325 mg] Vancomycin Oral Soln [Vancocin] 250 mg PO QID udc 06/27/17 metroNIDAZOLE [Flagyl] 500 mg PO TID tablet 06/27/17 Allergies Allergy/AdvReac Type Severity Reaction Status Date / Time codeine Allergy Hives Verified 06/14/17 08:30 latex Allergy Hives Verified 06/14/17 08:30 Penicillins Allergy Hives Verified 06/14/17 08:30 propoxyphene [From [place]] Allergy Hives Verified 06/14/17 08:30 shellfish derived Allergy Hives Verified 06/14/17 08:30 Limitations: ROS unobtainable due to patients medical condition Past Medical History - Past Medical History Attestation: Yes The following information was validated with the patient. Source: patient Medical history: Reports: asthma, atrial fibrillation, cancer, COPD, diabetes, hypertension, valvular heart disease Surgical history: Reports: appendectomy, cancer surgery, cholecystectomy, hysterectomy, knee replacement Psychiatric history: Reports: anxiety ASSISTANT PROFESSOR OF THEATER history: Reports: no ASSISTANT PROFESSOR OF THEATER history - Social History Smoking Status: Former smoker Smokeless Tobacco Status: No Alcohol use: Reports: none Drug use: Reports: none Physical Exam - General Limitations: altered mental status General appearance: lethargic, in distress (Respiratory distress) - Head Head exam: atraumatic, normocephalic, normal inspection - Eye Eye exam: Present: normal appearance, PERRL, EOMI - ENT ENT exam: normal exam, normal oropharynx, mucous membranes moist - Neck Neck exam: Present: normal inspection, full ROM, trachea midline - Chest Chest inspection: Present: normal inspection, symmetric chest wall rise - Respiratory Respiratory exam: Present: other (Rales throughout) - Cardiovascular Cardiovascular exam: Present: tachycardia, normal heart sounds - Abdominal Exam Abdominal exam: Present: soft. Absent: distention - Extremities Exam Extremities exam: Present: normal inspection, normal capillary refill. Absent: pedal edema - Neurological Exam Neurological exam: Present: other (Patient opens her eyes to verbal stimuli however it is hard to understand her sentences due to her history distress.) - Skin Skin exam: Present: warm, diaphoresis Course Course Narrative: Female patient brought in by EMS from [facility] for shortness of breath. She has gotten permissively worse throughout the day. Patient is a DNR CCA. They do have the paperwork with her. She is in respiratory distress. She has an altered mental status. We will place her on BiPAP emergently. She has rales throughout. EMS reports initial oxygen saturation in the high 80s. They placed her on a nonrebreather was brought her to the mid 90s. Basic lab workup on patient showed an elevated troponin however patient's troponins tend to trend higher than what she is now at 0.2. The previously 0.9. She is tachycardic and has a lactic acidosis. She is fluid overloaded at this time so I will not be giving her a fluid bolus. She is hyperglycemic. We will provide her with 10 units IV insulin while here. - Reevaluation(s) Reevaluation #1: Patient on BiPAP for approximately 2 hours. She still has a lowered mentation. She is diaphoretic. Again patient has a DNR CCA. We will keep patient on the BiPAP at this time. She has been given Lasix. I believe that her respiratory status is due to fluid overload currently. Her chest x-ray shows pulmonary edema. We will continue her on BiPAP and admit her to the hospital. She is slightly acidotic at 7.29 on her VBG. Patient does not have an anion gap. We will admit patient to the hospital. Time: 16:26 - Consultations Consultation #1: Dr Camacho accepted Pt Time: 16:32 Vital Signs Temperature 95.9 F L 07/08/17 14:14 Pulse Rate 84 07/08/17 14:14 Respiratory Rate 24 07/08/17 14:14 Blood Pressure 128/101 07/08/17 14:14 O2 Sat by Pulse Oximetry 100 07/08/17 14:14 Temperature 95.9 F L 07/08/17 14:14 Pulse Rate 128 07/08/17 16:05 Respiratory Rate 30 07/08/17 16:05 Blood Pressure 138/92 07/08/17 16:05 O2 Sat by Pulse Oximetry 100 07/08/17 16:05 Oxygen Delivery Oxygen Delivery CPAP Mask O2 Shortness of Breath/Dyspnea - Medical Records Medical records reviewed: Yes I reviewed the patient's medical records. - Lab Data Lab results reviewed: Yes I reviewed the patient's lab results. Result diagrams: 07/08/17 15:12 07/08/17 15:12 Lab Results 07/08/17 07/08/17 07/08/17 Range/Units 15:04 15:12 15:12 WBC 8.8 (4.3-11.1) K/mcL RBC 3.73 L (3.82-4.97) M/mcL Hgb 11.6 (11.5-15.4) g/dL Hct 36.4 (35.3-44.9) % MCV 97.6 (83.0-100.0) fL MCH 31.1 (28.0-33.3) pg MCHC 31.9 (31.6-35.5) g/dL RDW 19.6 H (11.5-14.5) % Plt Count 291 (140-400) K/mcL MPV 9.8 (9.4-12.4) fL Immature Gran % 0.6 (0-4) % Seg Neutrophils % 77.7 % Lymphocytes % 18.2 % Monocytes % 2.9 % Eosinophils % 0.1 % Basophils % 0.5 % Neutrophils # 6.9 (1.6-8.9) K/mcL Lymphocytes # 1.6 (0.6-4.6) K/mcL Monocytes # 0.3 (0.0-1.3) K/mcL Eosinophils # 0.0 (0.0-0.6) K/mcL Basophils # 0.0 (0.0-0.2) K/mcL VBG pH (7.32-7.42) pH Units VBG pCO2 (41-51) mmHg VBG pO2 (25-50) mmHg VBG HCO3 (21-27) mEq/L Sodium 130 L (136-145) mEq/L Potassium 3.7 (3.5-5.1) mEq/L Chloride 98 (98-107) mEq/L Carbon Dioxide 19 L (23-29) mEq/L BUN 9 (8-23) mg/dL Creatinine 0.64 (0.60-1.20) mg/dL Est GFR ( Amer) > 60 (> 60) Est GFR (Non-Af Amer) > 60 (> 60) BUN/Creatinine Ratio 14 (6-26) Glucose 511 H* (70-105) mg/dL Calculated Osmolality 292 (280-300) Lactic Acid 3.6 H (0.5-2.2) mmol/L Calcium 8.5 L (8.6-10.3) mg/dL Troponin I 0.20 H* (< 0.04) ng/mL B-Natriuretic Peptide (Less than 100) pg/mL 07/08/17 07/08/17 Range/Units 15:12 15:21 WBC (4.3-11.1) K/mcL RBC (3.82-4.97) M/mcL Hgb (11.5-15.4) g/dL Hct (35.3-44.9) % MCV (83.0-100.0) fL MCH (28.0-33.3) pg MCHC (31.6-35.5) g/dL RDW (11.5-14.5) % Plt Count (140-400) K/mcL MPV (9.4-12.4) fL Immature Gran % (0-4) % Seg Neutrophils % % Lymphocytes % % Monocytes % % Eosinophils % % Basophils % % Neutrophils # (1.6-8.9) K/mcL Lymphocytes # (0.6-4.6) K/mcL Monocytes # (0.0-1.3) K/mcL Eosinophils # (0.0-0.6) K/mcL Basophils # (0.0-0.2) K/mcL VBG pH 7.29 L (7.32-7.42) pH Units VBG pCO2 45 (41-51) mmHg VBG pO2 120 H (25-50) mmHg VBG HCO3 21 (21-27) mEq/L Sodium (136-145) mEq/L Potassium (3.5-5.1) mEq/L Chloride (98-107) mEq/L Carbon Dioxide (23-29) mEq/L BUN (8-23) mg/dL Creatinine (0.60-1.20) mg/dL Est GFR ( Amer) (> 60) Est GFR (Non-Af Amer) (> 60) BUN/Creatinine Ratio (6-26) Glucose (70-105) mg/dL Calculated Osmolality (280-300) Lactic Acid (0.5-2.2) mmol/L Calcium (8.6-10.3) mg/dL Troponin I (< 0.04) ng/mL B-Natriuretic Peptide 371 H (Less than 100) pg/mL - Radiology Data Radiology results reviewed: Yes I reviewed the patient's radiology results. Chest X-Ray 07/08/17 14:15 IMPRESSION: Pulmonary vascular congestion with mild interstitial edema on a background of chronic surgical changes of the right thorax D/ / Binh Parisi MD / Binh Parisi MD Interpreting Provider: Binh Parisi MD - EKG Data EKG attestation: Yes I reviewed and interpreted this EKG. EKG results narrative: Junctional tachycardia at a rate of 121. NC interval is 88. QRS duration is 150. QT is 368. QTC is 440. Does have a left bundle branch block. Does not meet [facility] criteria. There is some diffuse changes from her previous EKG dated 03/22/2017.
[2017-07-08 15:24] LABS: VBG HCO3 21 mEq/L (21-27); VBG PCO2 45 mmHg (41-51); VBG PH 7.29 pH Units (7.32-7.42); VBG PO2 120 mmHg (25-50)
[2017-07-08 15:26] LABS: Basophils % 0.5 %; Eosinophils % 0.1 %; Hematocrit 36.4 % (35.3-44.9); Hemoglobin 11.6 g/dL (11.5-15.4); Immature Granulocytes % 0.6 % (0-4); Lymphocytes # 1.6 K/mcL (0.6-4.6); Lymphocytes % 18.2 %; Mean Corpuscular HGB Conc 31.9 g/dL (31.6-35.5); Mean Corpuscular Hemoglobin 31.1 pg (28.0-33.3); Mean Corpuscular Volume 97.6 fL (83.0-100.0); Mean Platelet Volume 9.8 fL (9.4-12.4); Monocytes # 0.3 K/mcL (0.0-1.3); Monocytes % 2.9 %; Neutrophils # 6.9 K/mcL (1.6-8.9); Platelet Count 291 K/mcL (140-400); Red Blood Count 3.73 M/mcL (3.82-4.97); Red Cell Distribution Width 19.6 % (11.5-14.5); Segmented Neutrophils % 77.7 %
[2017-07-08 15:55] LABS: BUN/Creatinine Ratio 14 (6-26); Blood Urea Nitrogen 9 mg/dL (8-23); Calcium 8.5 mg/dL (8.6-10.3); Carbon Dioxide 19 mEq/L (23-29); Chloride 98 mEq/L (98-107); Glucose 511 mg/dL (70-105); Osmolality,Calculated 292 (280-300); Potassium 3.7 mEq/L (3.5-5.1); Sodium 130 mEq/L (136-145); eGFR For African Americans > 60 (> 60); eGFR For Non-African Americans > 60 (> 60)
[2017-07-08] MEDS ORDERED: Insulin Human Regular 10 UNIT in 0.9 % Sodium Chloride 10 ML IV ONE (16:24)
--- NOTE | 2017-07-08 17:53 | Emergency Department Note ---
Disposition Clinical Impression: Hyperglycemia Congestive heart failure Qualifiers: Heart failure type: other Qualified Code(s): I50.9 - Heart failure, unspecified Altered mental status Qualifiers: Altered mental status type: disorientation Qualified Code(s): R41.0 - Disorientation, unspecified Disposition: Admitted As Inpatient Condition: Critical Referrals: Valente Rosa MD [Primary Care Provider] - Forms: ED Satisfaction Letter General Adult HPI - General Chief complaint: ED Shortness of Breath/Dyspnea Stated complaint: SOB Time Seen by Provider: 07/08/17 14:15 Limitations: altered mental status - History of Present Illness Pain Scale: 0 - Related Data Home Medications Medication Instructions Recorded Confirmed Albuterol Neb [Proventil Neb] 2.5 mg IH Q6H PRN 04/30/15 07/08/17 Atorvastatin [Lipitor] 10 mg PO HS 04/30/15 07/08/17 Loratadine [Claritin] 10 mg PO DAILY 04/30/15 07/08/17 Meclizine [Antivert] 25 mg PO BID 04/30/15 07/08/17 Montelukast [Singulair] 10 mg PO DAILY 04/30/15 07/08/17 Omeprazole [PriLOSEC] 20 mg PO BID 04/30/15 07/08/17 Potassium Chloride [K-Tab ER] 20 meq PO DAILY 04/30/15 07/08/17 Roflumilast [Daliresp] 500 mcg PO DAILY 04/30/15 07/08/17 Furosemide [Lasix] 20 mg PO DAILY 09/15/15 07/08/17 Alendronate Sodium [Fosamax] 70 mg PO WE 10/27/16 07/08/17 Calcium Carbonate/Vitamin D3 1 each PO BID 11/17/16 07/08/17 [Calcium 600-Vit D3 400 Tablet] Umeclidinium Brm/Vilanterol Tr 1 puff IH DAILY 11/17/16 07/08/17 [Anoro Ellipta 62.5-25 Mcg INH] Venlafaxine XR (24 HR) [Effexor XR] 75 mg PO DAILY 01/10/17 07/08/17 Beclomethasone Diprop 40mcg [QVAR 1 puff IH BID 02/21/17 07/08/17 40 mcg] Nitroglycerin [Nitrostat] 0.4 mg SL PRN PRN 02/21/17 07/08/17 Azelastine 0.1% Nasal [place] 2 spray NS BID 03/10/17 07/08/17 [Astelin] Amiodarone [Cordarone] 200 mg PO DAILY 04/20/17 07/08/17 Insulin Glargine,Hum.rec.anlog 10 unit SQ DAILY 04/20/17 07/08/17 [Basaglar Kwikpen U-100] Sennosides/Docusate Sodium 1 each PO BID PRN 04/29/17 07/08/17 [Senna-Docusate Sodium Tablet] Warfarin [Coumadin] 3 mg PO 1800 04/29/17 07/08/17 Insulin LISPRO [Humalog] 0 unit SQ AD PRN 05/23/17 07/08/17 Megestrol Acetate [Megace] 400 mg PO DAILY 06/14/17 07/08/17 Previous Rx's Medication Instructions Recorded Aspirin Enteric Coated [Aspirin EC] 81 mg PO DAILY tablet. 03/29/17 Ondansetron HCl 4 mg PO Q8H PRN #60 tablet 05/23/17 Prochlorperazine Maleate 10 mg PO Q6HR PRN #90 tablet 05/23/17 [Compazine] Bisacodyl [Dulcolax] 10 mg RC DAILY PRN supp.rect 06/27/17 Docusate [Colace] 100 mg PO BID capsule 06/27/17 Enoxaparin [Lovenox] 50 mg SQ Q12HCO syringe 06/27/17 HYDROcodone/Acet 10/325 mg [[place] 1 tab PO Q6HR PRN 5 Days #10 tablet 06/27/17 10-325 mg] Allergies Allergy/AdvReac Type Severity Reaction Status Date / Time codeine Allergy Hives Verified 06/14/17 08:30 latex Allergy Hives Verified 06/14/17 08:30 Penicillins Allergy Hives Verified 06/14/17 08:30 propoxyphene [From Darvon] Allergy Hives Verified 06/14/17 08:30 shellfish derived Allergy Hives Verified 06/14/17 08:30 Past Medical History - Past Medical History Medical history: Reports: asthma, atrial fibrillation, cancer, COPD, diabetes, hypertension, valvular heart disease Surgical history: Reports: appendectomy, cancer surgery, cholecystectomy, hysterectomy, knee replacement Psychiatric history: Reports: anxiety FIELD SALES REPRESENTATIVE history: Reports: no FIELD SALES REPRESENTATIVE history - Social History Smoking Status: Former smoker Smokeless Tobacco Status: No Alcohol use: Reports: none Drug use: Reports: none Physical Exam - General Limitations: altered mental status General appearance: lethargic, in distress (Respiratory distress) Course - Reevaluation(s) Reevaluation #1: Attestation note I examined this patient and my medical decision-making was reviewed with the emergency medicine resident. I agree with the documented findings, disposition and treatment plan as described except to the extent set forth below. Patient seen with urgency medicine resident Dr. Julieta Aguero, Please see a copy of his note for details of the H&P, ED evaluation, management and disposition. I have independently evaluated the patient and confirmed appropriate portions of the history and physical exam. Briefly: 71-year-old female history of COPD comes in short of breath wheezing patient is on BiPAP responded well with beta agonist therapy patient is can be admitted for COPD flare Time: 17:52 Vital Signs Temperature 95.9 F L 07/08/17 14:14 Pulse Rate 84 07/08/17 14:14 Respiratory Rate 24 07/08/17 14:14 Blood Pressure 128/101 07/08/17 14:14 O2 Sat by Pulse Oximetry 100 07/08/17 14:14 Temperature 95.9 F L 07/08/17 14:14 Pulse Rate 125 07/08/17 17:43 Respiratory Rate 34 07/08/17 17:43 Blood Pressure 138/95 07/08/17 17:43 O2 Sat by Pulse Oximetry 100 07/08/17 17:43 Oxygen Delivery Oxygen Delivery CPAP Mask O2 Medical Decision Making - Lab Data Result diagrams: 07/08/17 15:12 07/08/17 15:12 Lab Results 07/08/17 07/08/17 07/08/17 Range/Units 15:04 15:10 15:12 WBC 8.8 (4.3-11.1) K/mcL RBC 3.73 L (3.82-4.97) M/mcL Hgb 11.6 (11.5-15.4) g/dL Hct 36.4 (35.3-44.9) % MCV 97.6 (83.0-100.0) fL MCH 31.1 (28.0-33.3) pg MCHC 31.9 (31.6-35.5) g/dL RDW 19.6 H (11.5-14.5) % Plt Count 291 (140-400) K/mcL MPV 9.8 (9.4-12.4) fL Immature Gran % 0.6 (0-4) % Seg Neutrophils % 77.7 % Lymphocytes % 18.2 % Monocytes % 2.9 % Eosinophils % 0.1 % Basophils % 0.5 % Neutrophils # 6.9 (1.6-8.9) K/mcL Lymphocytes # 1.6 (0.6-4.6) K/mcL Monocytes # 0.3 (0.0-1.3) K/mcL Eosinophils # 0.0 (0.0-0.6) K/mcL Basophils # 0.0 (0.0-0.2) K/mcL VBG pH (7.32-7.42) pH Units VBG pCO2 (41-51) mmHg VBG pO2 (25-50) mmHg VBG HCO3 (21-27) mEq/L Sodium (136-145) mEq/L Potassium (3.5-5.1) mEq/L Chloride (98-107) mEq/L Carbon Dioxide (23-29) mEq/L BUN (8-23) mg/dL Creatinine (0.60-1.20) mg/dL Est GFR ( Amer) (> 60) Est GFR (Non-Af Amer) (> 60) BUN/Creatinine Ratio (6-26) Glucose (70-105) mg/dL Calculated Osmolality (280-300) Lactic Acid 3.6 H (0.5-2.2) mmol/L Calcium (8.6-10.3) mg/dL Troponin I (< 0.04) ng/mL B-Natriuretic Peptide (Less than 100) pg/mL Beta-Hydroxybutyric Acd 0.38 H (0.02-0.27) mmol/L 07/08/17 07/08/17 07/08/17 Range/Units 15:12 15:12 15:21 WBC (4.3-11.1) K/mcL RBC (3.82-4.97) M/mcL Hgb (11.5-15.4) g/dL Hct (35.3-44.9) % MCV (83.0-100.0) fL MCH (28.0-33.3) pg MCHC (31.6-35.5) g/dL RDW (11.5-14.5) % Plt Count (140-400) K/mcL MPV (9.4-12.4) fL Immature Gran % (0-4) % Seg Neutrophils % % Lymphocytes % % Monocytes % % Eosinophils % % Basophils % % Neutrophils # (1.6-8.9) K/mcL Lymphocytes # (0.6-4.6) K/mcL Monocytes # (0.0-1.3) K/mcL Eosinophils # (0.0-0.6) K/mcL Basophils # (0.0-0.2) K/mcL VBG pH 7.29 L (7.32-7.42) pH Units VBG pCO2 45 (41-51) mmHg VBG pO2 120 H (25-50) mmHg VBG HCO3 21 (21-27) mEq/L Sodium 130 L (136-145) mEq/L Potassium 3.7 (3.5-5.1) mEq/L Chloride 98 (98-107) mEq/L Carbon Dioxide 19 L (23-29) mEq/L BUN 9 (8-23) mg/dL Creatinine 0.64 (0.60-1.20) mg/dL Est GFR ( Amer) > 60 (> 60) Est GFR (Non-Af Amer) > 60 (> 60) BUN/Creatinine Ratio 14 (6-26) Glucose 511 H* (70-105) mg/dL Calculated Osmolality 292 (280-300) Lactic Acid (0.5-2.2) mmol/L Calcium 8.5 L (8.6-10.3) mg/dL Troponin I 0.20 H* (< 0.04) ng/mL B-Natriuretic Peptide 371 H (Less than 100) pg/mL Beta-Hydroxybutyric Acd (0.02-0.27) mmol/L
--- NOTE | 2017-07-08 20:15 | Internal Med History&Physical ---
Date of Encounter: 07/08/17 Time of Encounter: 20:08 Internal Medicine - H&P: HPI Admitted From: Home Plans for Post Hospital Care: Home History of present illness: Ms. Baird is a 71 year old Female patient with multiple chronic medical problem is small cell lung cancer status post chemotherapy but is stopped taking in May this year, hypertension, CAD, anticoagulations therapy probably due to A. fib but not sure. Patient is poor historian and no family member or a caregiver from long term available at bedside. Mostly history obtained from medical record and ER physician. I also talked to power of ip technology transactions attorney on phone who did not know much about medical problem but informed the patient does not want any aggressive medical treatment for active intervention until she find out the malignancy status by oncologists. Power of ip technology transactions attorney is okay to continue antibiotics and BiPAP. He confirmed DNR CCA status. As per record- patient brought in by EMS from [facility] for shortness of breath. She has gotten permissively worse throughout the day. She has an altered mental status. In ER BiPAP Sheets started does not help and respiratory discomfort slightly. In ER patient was found to be tachycardic with initial lab suggestive of sepsis with raised lactate acid high. Troponin was also raised 0.2 but she has chronically elevated troponin after reviewing the previous lab 0.9. Chest x-ray with finding of pulmonary edema. She was also found hyperglycemic and 10 units of IV insulin given in the ER. Review of systems difficult due to patient condition. Past Med Surg Social Fam HX - Past Medical History Medical history: asthma, atrial fibrillation, cancer, COPD, diabetes, hypertension, valvular heart disease Psychiatric history: anxiety - Past Surgical History Surgical History: appendectomy, cancer surgery, cholecystectomy, hysterectomy, knee replacement - Social History Smoking Status: Former smoker Smokeless Tobacco Status: No Alcohol use: none Drug use: none - Family History Mother Living Status: Hx Family Cardiac Disorders: Yes (HEART DISEASE) Hx Family Endocrine Disorder: Yes (DIABETES) Internal Medicine - H&P: Meds Albuterol Neb [Proventil Neb] 2.5 mg IH Q6H PRN 04/30/15 [History] Atorvastatin [Lipitor] 10 mg PO HS 04/30/15 [History] Loratadine [Claritin] 10 mg PO DAILY 04/30/15 [History] Meclizine [Antivert] 25 mg PO BID 04/30/15 [History] Montelukast [Singulair] 10 mg PO DAILY 04/30/15 [History] Omeprazole [PriLOSEC] 20 mg PO BID 04/30/15 [History] Potassium Chloride [K-Tab ER] 20 meq PO DAILY 04/30/15 [History] Roflumilast [Daliresp] 500 mcg PO DAILY 04/30/15 [History] Furosemide [Lasix] 20 mg PO DAILY 09/15/15 [History] Alendronate Sodium [Fosamax] 70 mg PO WE 10/27/16 [History] Calcium Carbonate/Vitamin D3 [Calcium 600-Vit D3 400 Tablet] 1 each PO BID 11/17 [History] Umeclidinium Brm/Vilanterol Tr [Anoro Ellipta 62.5-25 Mcg INH] 1 puff IH DAILY 11/17/16 [History] Venlafaxine XR (24 HR) [Effexor XR] 75 mg PO DAILY 01/10/17 [History] Beclomethasone Diprop 40mcg [QVAR 40 mcg] 1 puff IH BID 02/21/17 [History] Nitroglycerin [Nitrostat] 0.4 mg SL PRN PRN 02/21/17 [History] Azelastine 0.1% Nasal [place] [Astelin] 2 spray NS BID 03/10/17 [History] Aspirin Enteric Coated [Aspirin EC] 81 mg PO DAILY tablet. 03/29/17 [Rx] Amiodarone [Cordarone] 200 mg PO DAILY 04/20/17 [History] Insulin Glargine,Hum.rec.anlog [Basaglar Kwikpen U-100] 10 unit SQ DAILY [History] Sennosides/Docusate Sodium [Senna-Docusate Sodium Tablet] 1 each PO BID PRN 12/06 [History] Warfarin [Coumadin] 3 mg PO 1800 04/29/17 [History] Insulin LISPRO [Humalog] 0 unit SQ AD PRN 05/23/17 [History] Ondansetron HCl 4 mg PO Q8H PRN #60 tablet 05/23/17 [Rx] Prochlorperazine Maleate [Compazine] 10 mg PO Q6HR PRN #90 tablet 05/23/17 [Rx] Megestrol Acetate [Megace] 400 mg PO DAILY 06/14/17 [History] Bisacodyl [Dulcolax] 10 mg RC DAILY PRN supp.rect 06/27/17 [Rx] Docusate [Colace] 100 mg PO BID capsule 06/27/17 [Rx] Enoxaparin [Lovenox] 50 mg SQ Q12HCO syringe 06/27/17 [Rx] HYDROcodone/Acet 10/325 mg [[place] 10-325 mg] 1 tab PO Q6HR PRN 5 Days #10 tablet 06/27/17 [Rx] 3 Allergy/AdvReac Type Severity Reaction Status Date / Time codeine Allergy Hives Verified 06/14/17 08:30 latex Allergy Hives Verified 06/14/17 08:30 Penicillins Allergy Hives Verified 06/14/17 08:30 propoxyphene [From [place]] Allergy Hives Verified 06/14/17 08:30 shellfish derived Allergy Hives Verified 06/14/17 08:30 All Systems PM: as documented above in the HPI. - Constitutional Vitals: Temp Pulse Resp BP Pulse Ox 95.9 F L 119 27 118/79 100 07/08/17 14:14 07/08/17 18:55 07/08/17 18:55 07/08/17 18:55 07/08/17 18:55 Exam: General appearance: Respiratory distress, on BiPAP, drowsy but arousable on touch Head exam: Atraumatic Eye exam: EOMI, PERRLA ENT exam: Moist oral mucosa Neck nontender, supple Respiration- bilateral crepitation CVS- Tachycardia Abdominal exam: Soft, nontender, nondistended, positive bowel sounds Extremities exam: No calf tenderness, no pedal edema Present: Skin-no rash, warm, dry, intact Neurological exam: no focal neurological deficit but difficult to assess due to clinical condition Internal Med - H&P Results - Labs CBC & Chem 7: 07/08/17 15:12 07/08/17 15:12 - Assessment and plan (1) Pulmonary edema Current Visit: Yes Status: Acute Assessment and plan: Volume overloaded could be due to underlying pneumonia, sepsis. Respiratory failure or needing BiPAP. Patient is DNR CCA. Talk to the power of ip technology transactions attorney who does not want any active intervention. Will keep patient in a stepdown ICU , pulse oximetry, telemetry and will also consult aircraft powerplant repairer. IV diuresis with a strict I&O's. Repeat chest x-ray in the morning Qualifiers: Qualified Code(s): J81.0 - Acute pulmonary edema (2) HCAP (healthcare-associated pneumonia) Current Visit: No Status: Acute Assessment and plan: Most likely. Patient is in sepsis as lactic acid is high, tachycardic. No IV fluid was given as patient already has pulmonary edema but in fact IV Lasix has to given due to pulmonary edema and we have to be watchful and monitor fluid status closely. At this time blood pressure is normal. Will consider IV fluid if needs to be given based on clinical assessment. Patient needs close monitoring. I talked to pulmonologists on phone who agreed with the plan and will see the patient in the morning if he still attending physician needs his opinion. Blood culture stat done in ER. Started Levaquin and vancomycin. Oxygen supplementation. Continue BiPAP for now. (3) Altered mental status Current Visit: Yes Status: Acute Assessment and plan: Most likely due to current medical problem and hypoxia. No neurological deficit. Will consider CT brain. Keep patient in step down ICU. Qualifiers: Altered mental status type: disorientation Qualified Code(s): R41.0 - Disorientation, unspecified (4) A-fib Current Visit: No Status: Chronic Assessment and plan: No RVR. Continue home medicine. Will consult cardiology if needed Qualifiers: Atrial fibrillation type: chronic Qualified Code(s): I48.2 - Chronic atrial fibrillation (5) Elevated troponin Current Visit: No Status: Acute Assessment and plan: History of CAD. Chronic elevation of troponin. Patient is already on Lovenox and warfarin will continue along with cardiac home medication. Will start by mouth medicine when patient is able to tolerate. Serial troponin monitoring. We will consult cardiology if needed (6) Respiratory failure Current Visit: No Status: Acute Qualifiers: Chronicity: acute Respiratory failure complication: unspecified whether with hypoxia or hypercapnia Qualified Code(s): J96.00 - Acute respiratory failure, unspecified whether with hypoxia or hypercapnia (7) Sepsis Current Visit: No Status: Acute Qualifiers: Sepsis type: sepsis due to unspecified organism Qualified Code(s): A41.9 - Sepsis, unspecified organism (8) Type 2 diabetes mellitus treated with insulin Current Visit: No Status: Acute Assessment and plan: High blood glucose level. Most likely due to sepsis. No long-acting insulin at this time but will continue high scale sliding insulin. Accu-Chek every 4 hours. Consider insulin drip if needed. (9) DM2 (diabetes mellitus, type 2) Current Visit: No Status: Chronic Qualifiers: Diabetes mellitus senior care insulin use: with senior care use Diabetes mellitus complication status: with hyperglycemia Qualified Code(s): E11.65 - Type 2 diabetes mellitus with hyperglycemia; Z79.4 - FDC (current) use of insulin; Z79.4 - FDC (current) use of insulin; Z79.4 - intermediate accountant (current ) use of insulin; Z79.4 - FDC (current) use of insulin (10) Lung cancer Current Visit: No Status: Chronic Assessment and plan: Status post chemotherapy. No active chemotherapy at this time. Patient supposed to follow with oncologist soon to discuss the status of cancer and deciding further plan Qualifiers: Laterality: right Lung location: unspecified part of lung Qualified Code( s): C34.91 - Malignant neoplasm of unspecified part of right bronchus or lung (11) DVT prophylaxis Current Visit: No Status: Acute Assessment and plan: Continue Lovenox. - Time Spent With Patient Total time spent is greater than 50% in coordination of care (as documented) at patient's floor/unit and/or counseling patient: Greater than 35 minutes
[2017-07-08] MEDS ORDERED: Dextrose Gel 15 GM/37.5 ML TUBE PO PRN ×2 (20:21)
[2017-07-08] MEDS ORDERED: Naloxone 0.4 MG/ML INJ IVP PRN (20:21)
[2017-07-08] MEDS ORDERED: D5% in Water 1,000 ML IVC PRN (20:21)
[2017-07-08] MEDS ORDERED: *HR* Dextrose 50 % in Water (Syg) 50 ML SYRINGE IVP PRN (20:21)
[2017-07-08] MEDS ORDERED: Bisacodyl 10 MG RECTAL SUPPOSITORY RC PRN (20:30)
[2017-07-08] MEDS ORDERED: Nitroglycerin 0.4 MG TAB.SUBL SL PRN (20:30)
[2017-07-08] MEDS ORDERED: Albuterol 2.5 MG/3 ML NEBULIZER IH PRN (20:30)
[2017-07-08] MEDS ORDERED: Vancomycin (wt based) 1,000 MG VIAL IVPB SCH (21:00)
[2017-07-08 21:16] LABS: INR 1.2; Prothrombin Time 13.5 Seconds (9.4-12.1)
[2017-07-08] MEDS: Azelastine 0.1% Nasal Spray 30 ML BOTTLE NS SCH (22:34)
[2017-07-08] MEDS: Furosemide 40 MG/4 ML VIAL IVP SCH (22:35)
[2017-07-08] MEDS: Insulin LISPRO 300 UNITS/3 ML VIAL SQ SCH (23:59)
[2017-07-09 02:31] LABS: Basophils % 0.1 %; Hematocrit 36.7 % (35.3-44.9); Hemoglobin 12.4 g/dL (11.5-15.4); Immature Granulocytes % 0.5 % (0-4); Lymphocytes # 0.3 K/mcL (0.6-4.6); Lymphocytes % 1.7 %; Mean Corpuscular HGB Conc 33.8 g/dL (31.6-35.5); Mean Corpuscular Hemoglobin 31.2 pg (28.0-33.3); Mean Corpuscular Volume 92.4 fL (83.0-100.0); Mean Platelet Volume 9.6 fL (9.4-12.4); Monocytes % 1.4 %; Neutrophils # 16.9 K/mcL (1.6-8.9); Platelet Count 270 K/mcL (140-400); Red Blood Count 3.97 M/mcL (3.82-4.97); Red Cell Distribution Width 18.8 % (11.5-14.5); Segmented Neutrophils % 96.3 %
[2017-07-09 02:50] LABS: BUN/Creatinine Ratio 25 (6-26); Blood Urea Nitrogen 15 mg/dL (8-23); Carbon Dioxide 23 mEq/L (23-29); Chloride 99 mEq/L (98-107); Glucose 293 mg/dL (70-105); Osmolality,Calculated 290 (280-300); Sodium 134 mEq/L (136-145); eGFR For African Americans > 60 (> 60); eGFR For Non-African Americans > 60 (> 60)
[2017-07-09 02:56] LABS: Monocytes # 0.3 K/mcL (0.0-1.3)
[2017-07-09] MEDS ORDERED: 0.9 % Sodium Chloride 250 ML IVC ONE ×2 (04:25→10:30)
[2017-07-09] MEDS: Insulin LISPRO 300 UNITS/3 ML VIAL SQ SCH ×2 (06:30→13:14)
[2017-07-09] MEDS: Pantoprazole 40 MG VIAL IVP SCH ×2 (06:30→20:05)
[2017-07-09] MEDS: *HR* Enoxaparin 60 MG/0.6 ML SYRINGE SQ SCH ×2 (06:30→20:05)
--- NOTE | 2017-07-09 06:36 | Pulmonology Consult Note ---
Date of Encounter: 07/09/17 Time of Encounter: 06:35 Assessment and Plan (1) Acute respiratory failure Current Visit: No Status: Acute Impressions: In conclusion this is a 71-year-old woman with multiple medical problems including recent diagnosis of small cell lung cancer for which she has started chemotherapy with palliative intent. She has chronic respiratory failure with underlying COPD furthermore cardiopulmonary status is compromised by severe aortic valve disease and severe aortic and mitral stenosis. Overall picture on presentation appears to be acute respiratory failure secondary with sepsis secondary to presumed pneumonia although alternative source such as urinary tract infection is not fully excluded. When I evaluated this patient at bedside she remained short of breath but I was able to take her off BiPAP and have a conversation with her although is very limited because of her encephalopathy which is likely macular multifactorial from sepsis and metabolic derangements more than I suspect any CO2 retention per se. Oxygen saturation at that time on 5 L high flow nasal cannula was 100% which is encouraging. 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 Although she presented with sepsis and respiratory failure she also has evidence of hydrostatic pulmonary edema which appears to be acute on chronic and likely related to presentation of tachycardia secondary to sepsis with decreased filling pressures increase the pressure across the aortic mitral valve gradient which is further prompted pulmonary edema. Although she has undergone diuresis which has appeared to be beneficial blood pressure this morning was low but on the lower side and lactate although trending in the right direction remains elevated. Although I agree initially with diuresis given presentation her valvular heart disease also pressure risk for hypotension with overly aggressive diuretic he Is of the gradient needed to maintain perfusion across the aortic valve. Furthermore on examination physical examination she does have some significant wheezing which would likely be consistent with COPD exacerbation in this context. Recommendations: -At this point I would continue nasal cannula to keep saturation greater than 88 % to around 92%. If further concern of hypercarbia repeat blood gas and a half an hour after institution of nasal cannula if any worsening evidence of hypercarbia BiPAP could be reinstituted otherwise she would only need this for increased work of breathing -I would hold further aggressive diuresis today at this time and asked he consider a small fluid challenge this could be done in the form of Colyte such as 250 mL of 5% albumin that could be given over an hour. -Optimize heart rate controlled to minimize tachycardia especially given history of underlying atrial fibrillation-Overall fluid balance should be goal net even today to slightly negative as tolerated by blood pressure and urine output -Start IV steroids 40 mg every 8 for COPD exacerbation -Schedule duo nebs every 4 hours with every hour albuterol as needed -Send sputum and blood cultures and obtain urine culture as I see that this has not been obtained as of right now; also send urine for strep and Legionella urine antigens -Trend lactate every 6 hours -I agree with broad-spectrum antimicrobials at this point she is and Vanco and Levaquin she should be started on empiric coverage for resistant Pseudomonas infection this could be in the form of Zosyn or meropenem. Unfortunately her last culture of Acinetobacter was ayala resistant -Overall given her complex comorbid conditions and advanced cancer diagnosis her prognosis is very poor she has had multiple admissions to the hospital within the last month and I recommend formal consultation with palliative care this is especially important given the family's understanding that she did not want aggressive measures undertaken. Clearly she has a high risk of further decompensation including respiratory failure hypotension and Thank you for this consultation please call with any questions Qualifiers: Respiratory failure complication: unspecified whether with hypoxia or hypercapnia Qualified Code(s): J96.00 - Acute respiratory failure, unspecified whether with hypoxia or hypercapnia (2) COPD (chronic obstructive pulmonary disease) Current Visit: No Status: Chronic Qualifiers: COPD type: emphysema Emphysema type: unspecified Qualified Code(s): J43.9 - Emphysema, unspecified (3) A-fib Current Visit: No Status: Chronic Qualifiers: Atrial fibrillation type: paroxysmal Qualified Code(s): I48.0 - Paroxysmal atrial fibrillation (4) Lung cancer Current Visit: No Status: Chronic Qualifiers: Laterality: right Lung location: unspecified part of lung Qualified Code( s): C34.91 - Malignant neoplasm of unspecified part of right bronchus or lung (5) Pneumonia Current Visit: No Status: Acute Qualifiers: Pneumonia type: due to unspecified organism Laterality: bilateral Lung location: lower lobe of lung Qualified Code(s): J18.1 - Lobar pneumonia, unspecified organism (6) Sepsis Current Visit: No Status: Resolved Qualifiers: Sepsis type: sepsis due to unspecified organism Qualified Code(s): A41.9 - Sepsis, unspecified organism (7) Valvular disease Current Visit: No Status: Chronic (8) Acute on chronic diastolic heart failure Current Visit: No Status: Chronic (9) Acute metabolic encephalopathy Current Visit: No Status: Acute History of Present Illness Consult date: 07/09/17 Requesting physician: Samia Lawrence Reason for consult: hypoxemia Chief complaint: Difficulty in Breathing History of present illness: Ms Baird is a 71yo woman and a denizen of a group home facility who was admitted overnight for respiratory failure and concern for sepsis with cardiogenic pulmonary edema. The majority of the information was gathered from the medical record as patient does an incomplete historian. Patient has medical history significant for COPD, coronary artery disease, and atrial fibrillation along with a history of small cell lung cancer. She presented with altered mental status respiratory failure to the ED she was placed on BiPAP for respiratory failure and increased work of breathing is also tachycardic with an elevation of white count and concern of sepsis given elevated lactate at that time. She has a chronically elevated troponin that was higher than her baseline she was also hyperglycemic. Chest x-ray was notable for bilateral infiltrates consistent with pulmonary edema versus infectious process She was given IV diuretics throughout the evening maintained on BiPAP and started on broad-spectrum antimicrobials for presumed pneumonia. Per medical record the power of patent attorney for the patient has reinforced the patient wishes to not have aggressive measures performed and she is currently DNR CCA. Further review of her medical record shows that she also suffers from advanced valvular heart disease including severe aortic and mitral valve stenosis. She has been recommended for her to have her in the past for her aortic valve disease however she declined because of concurrent diagnosis of small cell lung cancer on chemotherapy which is currently on hold. Today Data personally reviewed and Incorporated into medical decision-making: CBC 17.5/12.4/36.7/270 VBG 7.29/45/120 CMP 134/3.0/99/23/15/0.61/293 Lactic acid 3.6 =>2.8 BNP 371 Beta hydroxybutyric acid 0.38 Chest x-ray personally interpreted surgical changes noted in the right upper lobe bilateral interstitial infiltrates increased vascular markings and blunting of the bilateral costophrenic angles osteopenia Past Med Surg Social Fam HX - Past Medical History Medical history: asthma, atrial fibrillation, cancer, CHF, COPD, diabetes, hypertension, valvular heart disease Psychiatric history: anxiety - Past Surgical History Surgical History: appendectomy, cancer surgery, cholecystectomy, hysterectomy, knee replacement - Social History Smoking Status: Former smoker Smokeless Tobacco Status: No Alcohol use: none Drug use: none - Family History Mother Living Status: Hx Family Cardiac Disorders: Yes (HEART DISEASE) Hx Family Endocrine Disorder: Yes (DIABETES) Medications and Allergies Albuterol Neb [Proventil Neb] 2.5 mg IH Q6H PRN 04/30/15 [History] Atorvastatin [Lipitor] 10 mg PO HS 04/30/15 [History] Loratadine [Claritin] 10 mg PO DAILY 04/30/15 [History] Meclizine [Antivert] 25 mg PO BID 04/30/15 [History] Montelukast [Singulair] 10 mg PO DAILY 04/30/15 [History] Omeprazole [PriLOSEC] 20 mg PO BID 04/30/15 [History] Potassium Chloride [K-Tab ER] 20 meq PO DAILY 04/30/15 [History] Roflumilast [Daliresp] 500 mcg PO DAILY 04/30/15 [History] Furosemide [Lasix] 20 mg PO DAILY 09/15/15 [History] Alendronate Sodium [Fosamax] 70 mg PO WE 10/27/16 [History] Calcium Carbonate/Vitamin D3 [Calcium 600-Vit D3 400 Tablet] 1 each PO BID 11/17 [History] Umeclidinium Brm/Vilanterol Tr [Anoro Ellipta 62.5-25 Mcg INH] 1 puff IH DAILY 11/17/16 [History] Venlafaxine XR (24 HR) [Effexor XR] 75 mg PO DAILY 01/10/17 [History] Beclomethasone Diprop 40mcg [QVAR 40 mcg] 1 puff IH BID 02/21/17 [History] Nitroglycerin [Nitrostat] 0.4 mg SL PRN PRN 02/21/17 [History] Azelastine 0.1% Nasal [place] [Astelin] 2 spray NS BID 03/10/17 [History] Aspirin Enteric Coated [Aspirin EC] 81 mg PO DAILY tablet. 03/29/17 [Rx] Amiodarone [Cordarone] 200 mg PO DAILY 04/20/17 [History] Insulin Glargine,Hum.rec.anlog [Basaglar Kwikpen U-100] 10 unit SQ DAILY [History] Sennosides/Docusate Sodium [Senna-Docusate Sodium Tablet] 1 each PO BID PRN 12/06 [History] Warfarin [Coumadin] 3 mg PO 1800 04/29/17 [History] Insulin LISPRO [Humalog] 0 unit SQ AD PRN 05/23/17 [History] Ondansetron HCl 4 mg PO Q8H PRN #60 tablet 05/23/17 [Rx] Prochlorperazine Maleate [Compazine] 10 mg PO Q6HR PRN #90 tablet 05/23/17 [Rx] Megestrol Acetate [Megace] 400 mg PO DAILY 06/14/17 [History] Bisacodyl [Dulcolax] 10 mg RC DAILY PRN supp.rect 06/27/17 [Rx] Docusate [Colace] 100 mg PO BID capsule 06/27/17 [Rx] Enoxaparin [Lovenox] 50 mg SQ Q12HCO syringe 06/27/17 [Rx] HYDROcodone/Acet 10/325 mg [Wilson 10-325 mg] 1 tab PO Q6HR PRN 5 Days #10 tablet 06/27/17 [Rx] 3 Allergy/AdvReac Type Severity Reaction Status Date / Time codeine Allergy Hives Verified 06/14/17 08:30 latex Allergy Hives Verified 06/14/17 08:30 Penicillins Allergy Hives Verified 06/14/17 08:30 propoxyphene [From Darvon] Allergy Hives Verified 06/14/17 08:30 shellfish derived Allergy Hives Verified 06/14/17 08:30 All Systems: The remainder of the systems were reviewed and are negative Physical Examination Vital Signs: Vital Signs, Last 4 Hours Temp Pulse Resp BP Pulse Ox 07/09/17 05:50 103/66 07/09/17 05:35 24 80/59 100 07/09/17 04:15 98.1 F 107 25 83/56 97 General appearance: lethargic (But easily arousable she remains confused and unable to answer questions consistently except for simple questions such as " are you in pain"), other (Frail chronically ill-appearing) ENT: oropharynx dry Neck: supple Effort: normal, mildly labored Auscultation: bilateral: diminished breath sounds, wheezes Cardiovascular: murmur noted (Harsh systolic ejection murmur at the right sternal border) Integumentary: normal Extremities: edema non-focal exam, pupils equal and round mood appropriate Results - Laboratory Findings CBC and BMP: 07/09/17 02:21 07/09/17 02:21 PT/INR, D-dimer PT 13.5 Seconds (9.4-12.1) H 07/08/17 20:59 Abnormal lab findings: Abnormal lab results WBC 17.5 K/mcL (4.3-11.1) H D 07/09/17 02:21 RDW 18.8 % (11.5-14.5) H 07/09/17 02:21 Neutrophils # 16.9 K/mcL (1.6-8.9) H 07/09/17 02:21 Lymphocytes # 0.3 K/mcL (0.6-4.6) L 07/09/17 02:21 PT 13.5 Seconds (9.4-12.1) H 07/08/17 20:59 VBG pH 7.29 pH Units (7.32-7.42) L 07/08/17 15:21 VBG pO2 120 mmHg (25-50) H 07/08/17 15:21 Sodium 134 mEq/L (136-145) L 07/09/17 02:21 Potassium 3.0 mEq/L (3.5-5.1) L 07/09/17 02:21 Glucose 293 mg/dL (70-105) H 07/09/17 02:21 POC Glucose 321 mg/dL (70-99) H 07/08/17 23:48 Lactic Acid 2.8 mmol/L (0.5-2.2) H 07/09/17 02:21 Troponin I 0.72 ng/mL (< 0.04) H* 07/09/17 02:21 B-Natriuretic Peptide 371 pg/mL (Less than 100) H 07/08/17 15:12 Beta-Hydroxybutyric Acd 0.38 mmol/L (0.02-0.27) H 07/08/17 15:10 - Diagnostic Findings Chest x-ray: report reviewed, image reviewed - Clinical Findings Intake & Output: Intake & Output 07/08/17 07/08/17 07/09/17 15:59 23:59 07:59 Output Total 700 / 700 800 / 800 Balance -700 / -700 -800 / -800 Weight 53.4 kg 53.4 kg Consult Discharge Plan - Plan Referrals: Valente Rosa MD [Primary Care Provider] -
[2017-07-09] MEDS ORDERED: Aminoglycoside Consult 1 EACH MC ONE (08:35)
[2017-07-09] MEDS: Ipratropium/Albuterol Neb 3 ML IH SCH ×5 (08:37→23:56)
[2017-07-09 08:45] LABS: ABG Base Excess 4 mEq/L (-2 to 3); ABG HCO3 27 mEq/L (21-27); ABG Oxygen Saturation 99 % (95-98); ABG PCO2 31 mmHg (35-45); ABG PH 7.55 pH Units (7.32-7.45); ABG PO2 132 mmHg (85-104); ABG TCO2 28 mEq/L (20-26)
[2017-07-09] MEDS: Aspirin Enteric Coated 81 MG Tablet PO SCH (10:24)
[2017-07-09] MEDS: Levofloxacin 750 MG/150 ML 750 MG/150 ML BAG IVPB SCH (10:24)
[2017-07-09] MEDS: *HR* Amiodarone 200 MG TABLET PO SCH (10:24)
[2017-07-09] MEDS: Azelastine 0.1% Nasal Spray 30 ML BOTTLE NS SCH ×2 (10:26→20:05)
[2017-07-09] MEDS: Furosemide 40 MG/4 ML VIAL IVP SCH ×2 (10:28→16:02)
[2017-07-09] MEDS ORDERED: 0.9 % Sodium Chloride 250 ML ONE (10:40)
--- NOTE | 2017-07-09 11:22 | Internal Med Progress Note ---
Date of Encounter: 07/09/17 Time of Encounter: 10:45 - Assessment and plan (1) Respiratory failure Current Visit: No Status: Acute Assessment and plan: Multifactorial resp failure due to healthcare associated pneumonia, suspected acute COPD exacerbation, CHF secondary to probably valvular heart disease, and underlying lung cancer. See below. Qualifiers: Chronicity: acute Respiratory failure complication: unspecified whether with hypoxia or hypercapnia Qualified Code(s): J96.00 - Acute respiratory failure, unspecified whether with hypoxia or hypercapnia (2) HCAP (healthcare-associated pneumonia) Current Visit: No Status: Acute Assessment and plan: Most likely. Patient is in sepsis as lactic acid is high, tachycardic. No IV fluid was given as patient already has pulmonary edema but in fact IV Lasix has to given due to pulmonary edema and we have to be watchful and monitor fluid status closely. At this time blood pressure is normal. Will consider IV fluid if needs to be given based on clinical assessment. Patient needs close monitoring. I talked to pulmonologists on phone who agreed with the plan and will see the patient in the morning if he still attending physician needs his opinion. Blood culture stat done in ER. Started Levaquin and vancomycin. Oxygen supplementation. Continue BiPAP for now. 07/09: Patient is day #2 antibiotics, currently Levaquin and vancomycin. I discussed the case with pulmonary medicine and we will also add in Merrem ( PCN allergy - hives, no resp c/o), which she will now be day #1, due to history of multidrug resistant Pseudomonas infection. Abx: Day #2 Levaquin/Vancomycin Day #1 Merrem Caution with anticoagulation as patient is on Coumadin, and is receiving Levaquin. We will dc coumadin, as I have concerns for elevated INR due to Levaquin drug drug interaction and the fact that she appears malnourished. Pt is on therapeutic Lovenox presently. Patient's lactic acid remains elevated, this elevation may also be related due to a possible starvation state, CHF I am hesitant to give aggressive IV fluids due to her CHF would probably valvular heart disease. Monitor closely. (3) Altered mental status Current Visit: Yes Status: Acute Assessment and plan: Most likely due to current medical problem and hypoxia. No neurological deficit. Will consider CT brain. Keep patient in step down ICU. 07/09: Mental status is improved. However given her history of malignancy and also the fact that she is on Coumadin (INR presently 1.2), I will check a CT head to rule out acute process, mass, bleed Do suspect her mental status is primarily metabolic in nature, due to sepsis. Qualifiers: Altered mental status type: disorientation Qualified Code(s): R41.0 - Disorientation, unspecified (4) Sepsis Current Visit: No Status: Acute Assessment and plan: On treatment for healthcare associated pneumonia as mentioned above. Continue to closely monitor. Qualifiers: Sepsis type: sepsis due to unspecified organism Qualified Code(s): A41.9 - Sepsis, unspecified organism (5) Lung cancer Current Visit: No Status: Chronic Assessment and plan: Status post chemotherapy. No active chemotherapy at this time. Patient supposed to follow with oncologist soon to discuss the status of cancer and deciding further plan 07/09: Last CAT scan of chest showed what appeared to be an increasing left apical mass, as well as lymphadenopathy. Qualifiers: Laterality: right Lung location: unspecified part of lung Qualified Code( s): C34.91 - Malignant neoplasm of unspecified part of right bronchus or lung (6) DVT prophylaxis Current Visit: No Status: Acute Assessment and plan: Continue Lovenox. (7) DM2 (diabetes mellitus, type 2) Current Visit: No Status: Chronic Assessment and plan: Sugar markedly elevated likely due to steroids. We will add in long-acting insulin, caution given the fact that patient is not eating well. Qualifiers: Diabetes mellitus fci insulin use: with ed transporter use Diabetes mellitus complication status: with hyperglycemia Qualified Code(s): E11.65 - Type 2 diabetes mellitus with hyperglycemia; Z79.4 - MCFP (current) use of insulin; Z79.4 - [facility]FP (current) use of insulin; Z79.4 - manager relationship (current ) use of insulin; Z79.4 - manager relationship (current) use of insulin (8) A-fib Current Visit: No Status: Chronic Assessment and plan: No RVR. Continue home medicine. Will consult cardiology if needed 07/09 heart rate controlled. Monitor. Given the fact that patients on Lovenox, and my concerns for potential supratherapeutic INR (malnourished and on Levaquin ), we will continue Lovenox for now and hold Coumadin. Qualifiers: Atrial fibrillation type: chronic Qualified Code(s): I48.2 - Chronic atrial fibrillation (9) Elevated troponin Current Visit: No Status: Acute Assessment and plan: History of CAD. Chronic elevation of troponin. Patient is already on Lovenox and warfarin will continue along with cardiac home medication. Will start by mouth medicine when patient is able to tolerate. Serial troponin monitoring. We will consult cardiology if needed 07/09: Suspect demand ischemia. Need to monitor. (10) Congestive heart failure Current Visit: Yes Status: Acute Assessment and plan: Is his acute on chronic CHF likely due to probably valvular heart disease as well as possibly diastolic CHF. Diuresis as able although blood pressures presently on the soft side. Lasix is currently on hold. He is not on a beta elias and I would not given her current condition due to low blood pressures. Monitor. Patient has severe probably valvular heart disease and is unlikely a candidate for her such as TAVR due to her comorbidities. I discussed the case with the patient's son, apparently she was offered a TAB on her in the past, but decided to hold off due to her cancer diagnosis. Qualifiers: Heart failure type: unspecified Heart failure chronicity: acute on chronic Qualified Code(s): I50.9 - Heart failure, unspecified - Time Spent With Patient Total time spent is greater than 50% in coordination of care (as documented) at patient's floor/unit and/or counseling patient: Greater than 35 minutes - Subjective Interval history: CC: Weakness, SOB This a 71-year-old female with a history of small cell lung cancer status post chemotherapy through May of this year, hypertension, coronary artery disease, severe poly-valvular heart disease (Records indicate she had an echocardiogram in June of this year which showed EF of 65-70%, severe mitral stenosis, mild to moderate mitral regurgitation, severe aortic stenosis and moderate to severe pulmonary hypertension). , atrial fibrillation on anticoagulation. She resides at a facility. She was admitted last night for acute on chronic hypoxemic respiratory failure. She is also felt to have healthcare associated pneumonia with sepsis. Patient was started on Levaquin and vancomycin IV for which she is now day #2. ABG this morning showed a pH of 7.55, PCO2 of 31, PO2 of 131. Patient was seen by pulmonary medicine. This morning patient complains of weakness and shortness of breath. States she "does not really feel much better". Complains of heaviness and congestion in her chest which has been present for several weeks, unchanged. He has a dry cough. Denies fevers or chills. Denies nausea, vomiting, diarrhea. A she has been experiencing soft blood pressures this morning. Her Lasix was placed on hold as result of this. She was given a 250 mL normal saline bolus. I had a lengthy discussion with patient's nephew Swathi, who is also her DURABLE POWER OF CHEMICAL ENGINEERING INTERN. Both the patient and Swathi and expressed that they do not want aggressive measures. I also discussed potential comfort care, should she not improve within the next day or 2. They are open to this consideration. - Constitutional Vitals: Temp Pulse Resp BP Pulse Ox 97.3 F L 93 16 91/66 100 07/09/17 07:28 07/09/17 07:28 07/09/17 08:41 07/09/17 07:28 07/09/17 08:41 General appearance: Present: cachectic, mild distress, A&O X 3, answers questions appropriately - Head Head exam: Present: atraumatic, normocephalic - Eye Eye exam: Present: PERRL, conjuntiva pink, sclera anicteric Pupils: Present: PERRL - ENT ENT exam: Present: mucous membranes dry - Neck Neck exam general surgery: Present: supple, trachea midline. Absent: lymphadenopathy - Respiratory Respiratory exam: Present: decreased breath sounds - Cardiovascular Cardiovascular exam: Present: RRR (Systolic murmur right third midclavicular line maximal intensity) - GI/Abdominal GI/Abdominal exam: Present: normal bowel sounds, soft, no peritoneal signs. Absent: distended, tenderness - Extremities Exam Extremities exam: Present: warm, radial pulses palpable and symmetrical. Absent : calf tenderness, cyanotic, pedal edema - Neurological Exam Neurological exam: Present: CN II-XII intact, oriented X3, no focal deficits. Absent: pronater drift, facial droop, speech deficit - Skin Additional comments: Eyes are sunken, skin has markedly diminished Turgor Internal Medicine: Result - Labs CBC & Chem 7: 07/09/17 02:21 07/09/17 02:21 Labs: Short CBC 07/09/17 Range/Units 02:21 WBC 17.5 H D (4.3-11.1) K/mcL Hgb 12.4 (11.5-15.4) g/dL Hct 36.7 (35.3-44.9) % Plt Count 270 (140-400) K/mcL Neutrophils # 16.9 H (1.6-8.9) K/mcL BMP 07/09/17 02:21 Sodium 134 L Potassium 3.0 L Chloride 99 Carbon Dioxide 23 BUN 15 Creatinine 0.61 Glucose 293 H Calcium 9.0 Cardiac Enzymes 07/08/17 07/09/17 07/09/17 Range/Units 20:59 02:21 08:19 Troponin I 0.82 H* 0.72 H* 0.64 H* (< 0.04) ng/mL - ABG Interpretation ABG results: ABG ABG pH 7.55 pH Units (7.32-7.45) H 07/09/17 08:41 ABG pCO2 31 mmHg (35-45) L 07/09/17 08:41 ABG pO2 132 mmHg (85-104) H 07/09/17 08:41 ABG O2 Saturation 99 % (95-98) H 07/09/17 08:41 PT/INR, D-dimer PT 13.5 Seconds (9.4-12.1) H 07/08/17 20:59 Consult Discharge Plan - Plan Referrals: Valente Rosa MD [Primary Care Provider] -
[2017-07-09] MEDS: Insulin DETEMIR 100 UNIT/ML X5UNITS SQ SCH (13:14)
[2017-07-09] MEDS: Meropenem 1,000 MG in Water for inj. (sterile) 20 ML 20 ML IVP SCH (16:01)
[2017-07-09] MEDS: MethylPREDNISolone 40 MG/ML VIAL IVP SCH (16:01)
[2017-07-09] MEDS ORDERED: Potassium Effervescent 25 MEQ TABLET.EFF PO ONE (17:17)
[2017-07-09] MEDS ORDERED: *HR* Warfarin 3 MG TABLET PO SCH (18:00)
[2017-07-09] MEDS ORDERED: Furosemide 40 MG/4 ML VIAL IVP ONE (23:28)
[2017-07-10] MEDS: Meropenem 1,000 MG in Water for inj. (sterile) 20 ML 20 ML IVP SCH ×3 (00:22→23:52)
[2017-07-10] MEDS: MethylPREDNISolone 40 MG/ML VIAL IVP SCH ×3 (00:23→23:52)
[2017-07-10] MEDS: Insulin LISPRO 300 UNITS/3 ML VIAL SQ SCH ×4 (00:24→13:48)
[2017-07-10] MEDS: Ipratropium/Albuterol Neb 3 ML IH SCH ×6 (04:12→23:32)
--- NOTE | 2017-07-10 04:12 | Event Note ---
Date of Encounter: 07/10/17 Time of Encounter: 04:10 Attention drawn to patient with tachypnea, RR 36-42s. Diffuse crackles on exam on BIPAP, patient's lasix held during the day due to low blood pressure , patient with acute on chronic CHF. Given 80mg IV lasix Making adequate urine by Erazo, breathing improved, tachycardia persistent but improved, continue to monitor
[2017-07-10 04:31] LABS: Hematocrit 28.3 % (35.3-44.9); Immature Granulocytes % 0.4 % (0-4); Lymphocytes % 1.7 %; Mean Corpuscular HGB Conc 33.2 g/dL (31.6-35.5); Mean Corpuscular Hemoglobin 30.8 pg (28.0-33.3); Mean Corpuscular Volume 92.8 fL (83.0-100.0); Monocytes % 2.3 %; Platelet Count 255 K/mcL (140-400); Red Blood Count 3.05 M/mcL (3.82-4.97); Red Cell Distribution Width 18.9 % (11.5-14.5); Segmented Neutrophils % 95.5 %
[2017-07-10 04:32] LABS: Basophils % 0.1 %; Lymphocytes # 0.2 K/mcL (0.6-4.6); Monocytes # 0.3 K/mcL (0.0-1.3); Neutrophils # 10.6 K/mcL (1.6-8.9); Nucleated Red Blood Cells 0.3 /100 WBC (0)
[2017-07-10 04:43] LABS: BUN/Creatinine Ratio 20 (6-26); Blood Urea Nitrogen 13 mg/dL (8-23); Calcium 8.1 mg/dL (8.6-10.3); Carbon Dioxide 26 mEq/L (23-29); Chloride 98 mEq/L (98-107); Glucose 243 mg/dL (70-105); Magnesium 1.5 mg/dL (1.6-2.6); Osmolality,Calculated 288 (280-300); Potassium 2.8 mEq/L (3.5-5.1); Sodium 135 mEq/L (136-145); eGFR For African Americans > 60 (> 60); eGFR For Non-African Americans > 60 (> 60)
[2017-07-10 05:10] LABS: Hemoglobin 9.4 g/dL (11.5-15.4)
[2017-07-10 05:11] LABS: Platelet Estimate Normal (Normal)
[2017-07-10] MEDS: Pantoprazole 40 MG VIAL IVP SCH (05:20)
[2017-07-10] MEDS: *HR* Enoxaparin 60 MG/0.6 ML SYRINGE SQ SCH (05:20)
--- NOTE | 2017-07-10 08:12 | Internal Med Progress Note ---
<Joseph Hernádnez - Last Filed: 07/10/17 13:35> Date of Encounter: 07/10/17 Time of Encounter: 08:12 - Assessment and plan (1) HCAP (healthcare-associated pneumonia) Current Visit: Yes Status: Acute Assessment and plan: Most likely. Patient is in sepsis as lactic acid is high, tachycardic. No IV fluid was given as patient already has pulmonary edema but in fact IV Lasix has to given due to pulmonary edema and we have to be watchful and monitor fluid status closely. At this time blood pressure is normal. Will consider IV fluid if needs to be given based on clinical assessment. Patient needs close monitoring. I talked to pulmonologists on phone who agreed with the plan and will see the patient in the morning if he still attending physician needs his opinion. Blood culture stat done in ER. Started Levaquin and vancomycin. Oxygen supplementation. Continue BiPAP for now. 07/09: Patient is day #2 antibiotics, currently Levaquin and vancomycin. I discussed the case with pulmonary medicine and we will also add in Merrem ( PCN allergy - hives, no resp c/o), which she will now be day #1, due to history of multidrug resistant Pseudomonas infection. Abx: Day #2 Levaquin/Vancomycin Day #1 Merrem Caution with anticoagulation as patient is on Coumadin, and is receiving Levaquin. We will dc coumadin, as I have concerns for elevated INR due to Levaquin drug drug interaction and the fact that she appears malnourished. Pt is on therapeutic Lovenox presently. Patient's lactic acid remains elevated, this elevation may also be related due to a possible starvation state, CHF I am hesitant to give aggressive IV fluids due to her CHF would probably valvular heart disease. Monitor closely. 07/10: Patient is on day #3 of antibiotics. Abx: Day #3 Levaquin/Vancomycin Day #2 Merrem Leukocytosis resolved. Continue steroids and bronchodilators. Cultures show no growth to date. Monitor closely. Pulmonology following (2) Sepsis Current Visit: Yes Status: Acute Assessment and plan: Sepsis from healthcare associated pneumonia, sacral decubitus ulcer. Patient reports abd pain. UA ordered even though she has already been on antibiotics for [address] abd form 06/21/17 revealed decreased rectosigmoid wall thickening/edema and perirectal inflammation and fluid. Acute abd series shows no significant findings in the abdomen. The bowel gas pattern is unremarkable. Repeat CT abd/plv with contrast pending Continue to closely monitor. Qualifiers: Sepsis type: sepsis due to unspecified organism Qualified Code(s): A41.9 - Sepsis, unspecified organism (3) Sacral decubitus ulcer, stage II Current Visit: Yes Status: Acute Assessment and plan: Continue border foam dressings, turn patient q2h Continue antibiotics. (4) Respiratory failure Current Visit: Yes Status: Acute Assessment and plan: Multifactorial resp failure due to healthcare associated pneumonia, suspected acute COPD exacerbation, CHF secondary to probably valvular heart disease, and underlying lung cancer. Qualifiers: Chronicity: acute on chronic Respiratory failure complication: hypoxia Qualified Code(s): J96.21 - Acute and chronic respiratory failure with hypoxia (5) Congestive heart failure Current Visit: Yes Status: Acute Assessment and plan: Acute on chronic CHF likely due to probably valvular heart disease as well as diastolic CHF. Echo 06/23/17 revealed EF 65-70%, severe aortic and mitral stenosis, and pulmonary HTN Diuresis as blood pressures tolerates. Lasix IV. She is not on a beta elias, would not give due to low blood pressures. Monitor. Patient has severe probably valvular heart disease and is unlikely a candidate for TAVR due to her comorbidities. Discussed the case with the patient's son, apparently she was offered a TAVR in the past, but decided to hold off due to her cancer diagnosis. Qualifiers: Heart failure type: unspecified Heart failure chronicity: acute on chronic Qualified Code(s): I50.9 - Heart failure, unspecified (6) Lung cancer Current Visit: No Status: Chronic Assessment and plan: Status post chemotherapy. No active chemotherapy at this time. Patient supposed to follow with oncologist soon to discuss the status of cancer and deciding further plan Last CAT scan of chest showed what appeared to be an increasing left apical mass , as well as lymphadenopathy. Pulmonology following Qualifiers: Laterality: right Lung location: unspecified part of lung Qualified Code( s): C34.91 - Malignant neoplasm of unspecified part of right bronchus or lung (7) Elevated troponin Current Visit: Yes Status: Acute Assessment and plan: History of CAD. Chronic elevation of troponin. Patient is already on Lovenox Serial troponins adynamic. Suspect demand ischemia. Will consult cardiology if needed. Continue to monitor. (8) A-fib Current Visit: No Status: Chronic Assessment and plan: A-fib without RVR. Continue home medicine. Will consult cardiology if needed Heart rate controlled. Given the fact that patient is on Lovenox, and my concerns for potential supratherapeutic INR (malnourished and on Levaquin), we will continue Lovenox for now and hold Coumadin. Continue to monitor. Qualifiers: Atrial fibrillation type: chronic Qualified Code(s): I48.2 - Chronic atrial fibrillation (9) Altered mental status Current Visit: Yes Status: Resolved Assessment and plan: Suspect her altered mental status was primarily metabolic in nature, due to sepsis, medical co-morbidities, and hypoxia. No neurological deficit. Mental status is improved. CT head was negative for acute process, mass, or bleed Qualifiers: Altered mental status type: disorientation Qualified Code(s): R41.0 - Disorientation, unspecified (10) DM2 (diabetes mellitus, type 2) Current Visit: No Status: Chronic Assessment and plan: BG elevated likely due to steroids. Continue SSI and long-acting insulin, caution given the fact that patient is not eating well. 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 (14) Severe protein-calorie malnutrition Current Visit: Yes Status: Acute Assessment and plan: Loss of subcuticular fat, temporal wasting, loss of muscle mass, BMI 19.1 Resume home [facility] - Time Spent With Patient Total time spent is greater than 50% in coordination of care (as documented) at patient's floor/unit and/or counseling patient: - Subjective Interval history: Patient seen and examined. Patient had tachypnea, RR 36-42s with diffuse crackles on exam overnight and was placed on BIPAP. Her blood pressure improved and she was given 80mg IV Lasix x1. Mathew is in place, breathing improved today , and tachycardia improved. Patient reports lower abdominal pain this AM and reports last BM last PM. Acute abdominal series and UA were ordered. - Constitutional Vitals: Temp Pulse Resp BP Pulse Ox 97.4 F L 100 16 122/79 100 07/10/17 06:57 07/10/17 06:57 07/10/17 07:43 07/10/17 06:57 07/10/17 07:43 General appearance: Present: cachectic, cooperative, mild distress, A&O X 3, pleasant, answers questions appropriately - Head Head exam: Present: atraumatic, normocephalic - Eye Eye exam: Present: PERRL, conjuntiva pink, sclera anicteric Pupils: Present: PERRL - ENT ENT exam: Present: mucous membranes moist, normal oropharynx - Neck Neck exam general surgery: Present: supple, trachea midline. Absent: lymphadenopathy - Respiratory Respiratory exam: Present: rales. Absent: accessory muscle use, respiratory distress, rhonchi, wheezes, tachypnea - Cardiovascular Cardiovascular exam: Present: irregular rhythm, +S1, +S2, tachycardia. Absent: diastolic murmur, gallop, rubs, systolic murmur - GI/Abdominal GI/Abdominal exam: Present: normal bowel sounds, soft, tenderness (lower quadrants), no peritoneal signs. Absent: diminished bowel sounds, distended, guarding - Additional comments: mathew in place - Extremities Exam Extremities exam: Present: full ROM, normal capillary refill, normal inspection , radial pulses palpable and symmetrical. Absent: calf tenderness, cyanotic, pedal edema, warm - Back Exam Back exam: Present: normal inspection (chronic deformity right scapula s/p surgery). Absent: tenderness - Neurological Exam Neurological exam: Present: CN II-XII intact, oriented X3, no focal deficits. Absent: pronater drift, facial droop, speech deficit - Skin Skin exam: Present: erythema, excoriation Additional comments: stage 2 sacral ulcer with surrounding erythema, cool skin Internal Medicine: Result - Labs CBC & Chem 7: 07/10/17 04:02 07/10/17 04:02 Labs: Short CBC 07/10/17 Range/Units 04:02 WBC 11.1 (4.3-11.1) K/mcL Hgb 9.4 L D (11.5-15.4) g/dL Hct 28.3 L (35.3-44.9) % Plt Count 255 (140-400) K/mcL Neutrophils # 10.6 H (1.6-8.9) K/mcL BMP 07/10/17 04:02 Sodium 135 L Potassium 2.8 L Chloride 98 Carbon Dioxide 26 BUN 13 Creatinine 0.65 Glucose 243 H Calcium 8.1 L Cardiac Enzymes 07/09/17 Range/Units 08:19 Troponin I 0.64 H* (< 0.04) ng/mL - ABG Interpretation ABG results: ABG ABG pH 7.55 pH Units (7.32-7.45) H 07/09/17 08:41 ABG pCO2 31 mmHg (35-45) L 07/09/17 08:41 ABG pO2 132 mmHg (85-104) H 07/09/17 08:41 ABG O2 Saturation 99 % (95-98) H 07/09/17 08:41 PT/INR, D-dimer PT 13.5 Seconds (9.4-12.1) H 07/08/17 20:59 - Pulse Oximetry Interpretation Digit-Finger Pulse Oximetry Readin (2L O2 via NC) - Impressions Impressions Head CT 07/09/17 11:43 IMPRESSION: No acute intracranial abnormality. No change from May 2017. Mild to moderate old microvascular ischemic change both cerebral hemispheres. D/ / Sukhdev Sims MD / Sukhdev Sims MD Interpreting Provider: Sukhdev Sims MD Consult Discharge Plan - Plan Referrals: Valente Rosa MD [Primary Care Provider] - <Rolando Butler H - Last Filed: 07/10/17 13:56> Date of Encounter: 07/10/17 - Assessment and plan (1) Lung cancer Current Visit: No Status: Chronic Qualifiers: Laterality: right Lung location: unspecified part of lung Qualified Code( s): C34.91 - Malignant neoplasm of unspecified part of right bronchus or lung (2) DVT prophylaxis Current Visit: No Status: Acute (3) DM2 (diabetes mellitus, type 2) Current Visit: No Status: Chronic Qualifiers: Diabetes mellitus fci insulin use: with buttermaker use Diabetes mellitus complication status: with hyperglycemia Qualified Code(s): E11.65 - Type 2 diabetes mellitus with hyperglycemia; 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; Z79.4 - group home (current) use of insulin; Z79.4 - group home (current ) use of insulin; 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 (4) Hypokalemia Current Visit: Yes Status: Acute (5) Hypomagnesemia Current Visit: Yes Status: Acute (6) HCAP (healthcare-associated pneumonia) Current Visit: Yes Status: Acute (7) A-fib Current Visit: No Status: Chronic Qualifiers: Atrial fibrillation type: chronic Qualified Code(s): I48.2 - Chronic atrial fibrillation (8) Sepsis Current Visit: Yes Status: Acute Qualifiers: Sepsis type: sepsis due to unspecified organism Qualified Code(s): A41.9 - Sepsis, unspecified organism (9) Altered mental status Current Visit: Yes Status: Resolved Qualifiers: Altered mental status type: disorientation Qualified Code(s): R41.0 - Disorientation, unspecified (10) Elevated troponin Current Visit: Yes Status: Acute (11) Respiratory failure Current Visit: Yes Status: Acute Qualifiers: Chronicity: acute on chronic Respiratory failure complication: hypoxia Qualified Code(s): J96.21 - Acute and chronic respiratory failure with hypoxia (12) Congestive heart failure Current Visit: Yes Status: Acute Qualifiers: Heart failure type: unspecified Heart failure chronicity: acute on chronic Qualified Code(s): I50.9 - Heart failure, unspecified (13) Sacral decubitus ulcer, stage II Current Visit: Yes Status: Acute (14) Severe protein-calorie malnutrition Current Visit: Yes Status: Acute - Time Spent With Patient Total time spent is greater than 50% in coordination of care (as documented) at patient's floor/unit and/or counseling patient: - Constitutional Vitals: Temp Pulse Resp BP Pulse Ox 97.9 F 100 16 96/48 98 07/10/17 11:31 07/10/17 11:36 07/10/17 11:31 07/10/17 11:36 07/10/17 11:31 Internal Medicine: Result - Labs CBC & Chem 7: 07/10/17 04:02 07/10/17 04:02 Labs: Short CBC 07/10/17 Range/Units 04:02 WBC 11.1 (4.3-11.1) K/mcL Hgb 9.4 L D (11.5-15.4) g/dL Hct 28.3 L (35.3-44.9) % Plt Count 255 (140-400) K/mcL Neutrophils # 10.6 H (1.6-8.9) K/mcL BMP 07/10/17 04:02 Sodium 135 L Potassium 2.8 L Chloride 98 Carbon Dioxide 26 BUN 13 Creatinine 0.65 Glucose 243 H Calcium 8.1 L - ABG Interpretation ABG results: ABG ABG pH 7.55 pH Units (7.32-7.45) H 07/09/17 08:41 ABG pCO2 31 mmHg (35-45) L 07/09/17 08:41 ABG pO2 132 mmHg (85-104) H 07/09/17 08:41 ABG O2 Saturation 99 % (95-98) H 07/09/17 08:41 PT/INR, D-dimer PT 13.5 Seconds (9.4-12.1) H 07/08/17 20:59 - Impressions Impressions Chest/Abdomen X-ray 07/10/17 09:46 IMPRESSION: Advanced COPD and chronic interstitial changes in the chest. Stable postsurgical changes in the right chest wall with associated deformity. No significant findings in the abdomen. The bowel gas pattern is unremarkable. D/ / Jose Curry MD / Jose Curry MD Interpreting Provider: Jose Curry MD - Attending Attestation sepsis 2ry to HCAP present upon admission , possible abdominal source ( diverticulitis?) order CT of the abdomen with oral contrast consider de-escalating antibiotic therapy I examined this patient and my medical decision-making was reviewed with the Resident Physician. I agree with the documented findings, disposition and treatment plan as described except to the extent set forth below.
[2017-07-10] MEDS ORDERED: Potassium Effervescent 25 MEQ TABLET.EFF PO ONE ×3 (09:33→17:10)
[2017-07-10] MEDS ORDERED: Sennosides/Docusate Sodium TABLET PO PRN ×2 (09:46→18:21)
[2017-07-10] MEDS: Aspirin Enteric Coated 81 MG Tablet PO SCH (10:25)
[2017-07-10] MEDS: Azelastine 0.1% Nasal Spray 30 ML BOTTLE NS SCH ×2 (10:25→21:06)
[2017-07-10] MEDS: Furosemide 40 MG/4 ML VIAL IVP SCH ×2 (10:25→18:11)
[2017-07-10] MEDS: Levofloxacin 750 MG/150 ML 750 MG/150 ML BAG IVPB SCH (10:45)
[2017-07-10] MEDS: *HR* Amiodarone 200 MG TABLET PO SCH (10:45)
[2017-07-10] MEDS ORDERED: Megestrol Acetate 400 MG/10 ML UDC PO SCH (13:45)
[2017-07-10] MEDS: Insulin DETEMIR 100 UNIT/ML X5UNITS SQ SCH (13:48)
[2017-07-10] MEDS ORDERED: Furosemide 20 MG/2 ML VIAL IVP STA (14:47)
[2017-07-10] MEDS ORDERED: Furosemide 20 MG/2 ML VIAL IVP ONE ×2 (14:48→14:51)
[2017-07-10] MEDS ORDERED: *HR* Metoprolol 5 MG/5 ML VIAL IVP ONE (14:49)
[2017-07-10 16:38] LABS: Hematocrit 30.9 % (35.3-44.9); Hemoglobin 10.2 g/dL (11.5-15.4)
[2017-07-10 17:00] LABS: BUN/Creatinine Ratio 20 (6-26); Blood Urea Nitrogen 15 mg/dL (8-23); Calcium 7.6 mg/dL (8.6-10.3); Carbon Dioxide 24 mEq/L (23-29); Chloride 96 mEq/L (98-107); Glucose 489 mg/dL (70-105); Osmolality,Calculated 301 (280-300); Potassium 3.3 mEq/L (3.5-5.1); Sodium 134 mEq/L (136-145); eGFR For African Americans > 60 (> 60); eGFR For Non-African Americans > 60 (> 60)
[2017-07-10] MEDS ORDERED: Lactulose Oral Soln 20 GM/30 ML UDC PO ONE ×2 (17:00→18:21)
[2017-07-10] MEDS ORDERED: Insulin Human Regular 10 UNIT in 0.9 % Sodium Chloride 10 ML IV ONE (17:26)
[2017-07-10 17:46] LABS: Bilirubin,Urine Negative (Negative); Blood,Urine Negative (Negative); Clarity,Urine Clear (Clear); Color,Urine Yellow (Yellow); Glucose,Urine (UA) >=1000 mg/dL (Normal); Ketones,Urine Negative (Negative); Leukocyte Esterase,Urine Negative (Negative); Nitrite,Urine Negative (Negative); PH,Urine 6.5 pH Units (5.0-8.0); Protein,Urine Negative (Neg-Trace); Specific Gravity,Urine 1.025 (1.010-1.025); Urobilinogen,Urine Normal (Normal)
[2017-07-10 18:03] LABS: VBG PH 7.47 pH Units (7.32-7.42)
[2017-07-10] MEDS ORDERED: Bisacodyl 10 MG RECTAL SUPPOSITORY RC PRN (18:21)
[2017-07-10] MEDS ORDERED: Naloxone 0.4 MG/ML INJ IVP PRN (18:21)
[2017-07-10] MEDS ORDERED: Dextrose Gel 15 GM/37.5 ML TUBE PO PRN ×2 (18:21)
[2017-07-10] MEDS ORDERED: D5% in Water 1,000 ML IVC PRN (18:21)
[2017-07-10] MEDS ORDERED: *HR* Dextrose 50 % in Water (Syg) 50 ML SYRINGE IVP PRN (18:21)
[2017-07-10] MEDS ORDERED: D5% in 0.45% NACL w KCl 20 MEQ/1,000 ML MLS IVC PRN (18:21)
[2017-07-10] MEDS ORDERED: Nitroglycerin 0.4 MG TAB.SUBL SL PRN (18:21)
[2017-07-10] MEDS ORDERED: 0.45 % Sodium Chloride w/KCl 20 MEQ/1,000 ML MLS IVC SCH (18:21)
[2017-07-10] MEDS ORDERED: Insulin Human Regular 100 UNIT in 0.9 % Sodium Chloride 100 ML IVC SCH (18:21)
[2017-07-10 19:22] LABS: ABG Base Excess 7 mEq/L (-2 to 3); ABG HCO3 29 mEq/L (21-27); ABG Oxygen Saturation 92 % (95-98); ABG PCO2 30 mmHg (35-45); ABG PH 7.58 pH Units (7.32-7.45); ABG PO2 52 mmHg (85-104); ABG TCO2 30 mEq/L (20-26)
[2017-07-10] MEDS ORDERED: Albuterol 2.5 MG/3 ML NEBULIZER IH PRN (19:46)
[2017-07-10] MEDS ORDERED: Albuterol 2.5 MG/3 ML NEBULIZER IH SCH (22:00)
[2017-07-10 22:45] LABS: BUN/Creatinine Ratio 22 (6-26); Blood Urea Nitrogen 15 mg/dL (8-23); Carbon Dioxide 27 mEq/L (23-29); Chloride 96 mEq/L (98-107); Glucose 394 mg/dL (70-105); Osmolality,Calculated 293 (280-300); Potassium 3.5 mEq/L (3.5-5.1); Sodium 133 mEq/L (136-145); eGFR For African Americans > 60 (> 60); eGFR For Non-African Americans > 60 (> 60)
[2017-07-11] MEDS ORDERED: Insulin DETEMIR 100 UNIT/ML X5UNITS SQ SCH (02:15)
[2017-07-11] MEDS: Ipratropium/Albuterol Neb 3 ML IH SCH ×6 (03:26→23:42)
[2017-07-11 04:52] LABS: Basophils % 0.1 %; Hematocrit 29.8 % (35.3-44.9); Hemoglobin 9.9 g/dL (11.5-15.4); Immature Granulocytes % 0.5 % (0-4); Lymphocytes # 0.3 K/mcL (0.6-4.6); Lymphocytes % 3.5 %; Mean Corpuscular HGB Conc 33.2 g/dL (31.6-35.5); Mean Corpuscular Hemoglobin 30.7 pg (28.0-33.3); Mean Corpuscular Volume 92.5 fL (83.0-100.0); Monocytes # 0.3 K/mcL (0.0-1.3); Monocytes % 3.2 %; Neutrophils # 8.4 K/mcL (1.6-8.9); Platelet Count 277 K/mcL (140-400); Red Blood Count 3.22 M/mcL (3.82-4.97); Red Cell Distribution Width 18.7 % (11.5-14.5); Segmented Neutrophils % 92.7 %
[2017-07-11 05:00] LABS: INR 1.4; Prothrombin Time 15.1 Seconds (9.4-12.1)
[2017-07-11 05:11] LABS: Albumin 2.9 g/dL (3.5-5.7); BUN/Creatinine Ratio 24 (6-26); Blood Urea Nitrogen 14 mg/dL (8-23); Carbon Dioxide 29 mEq/L (23-29); Chloride 98 mEq/L (98-107); Glucose 112 mg/dL (70-105); Magnesium 1.7 mg/dL (1.6-2.6); Osmolality,Calculated 285 (280-300); Phosphorous 1.6 mg/dL (2.7-4.5); Potassium 3.6 mEq/L (3.5-5.1); Sodium 137 mEq/L (136-145); eGFR For African Americans > 60 (> 60); eGFR For Non-African Americans > 60 (> 60)
[2017-07-11 05:41] LABS: ABG Base Excess 10 mEq/L (-2 to 3); ABG HCO3 31 mEq/L (21-27); ABG Oxygen Saturation 95 % (95-98); ABG PCO2 31 mmHg (35-45); ABG PH 7.61 pH Units (7.32-7.45); ABG PO2 60 mmHg (85-104); ABG TCO2 32 mEq/L (20-26)
[2017-07-11] MEDS ORDERED: Pantoprazole 40 MG VIAL IVP SCH (06:00)
[2017-07-11] MEDS ORDERED: *HR* Enoxaparin 60 MG/0.6 ML SYRINGE SQ SCH (06:00)
[2017-07-11] MEDS ORDERED: Insulin LISPRO 300 UNITS/3 ML VIAL SQ SCH ×2 (07:30→21:00)
[2017-07-11] MEDS: MethylPREDNISolone 40 MG/ML VIAL IVP SCH (07:48)
[2017-07-11] MEDS: Meropenem 1,000 MG in Water for inj. (sterile) 20 ML 20 ML IVP SCH (07:49)
[2017-07-11] MEDS: Azelastine 0.1% Nasal Spray 30 ML BOTTLE NS SCH ×2 (07:51→20:28)
[2017-07-11] MEDS ORDERED: Furosemide 40 MG/4 ML VIAL IVP SCH (08:00)
--- NOTE | 2017-07-11 08:20 | Pulmonology Progress Note ---
<JoseAlokclifton M - Last Filed: 07/11/17 10:08> Date of Encounter: 07/11/17 Objective PUL Vital signs: Last Vital Signs Temp 97.6 F 07/11/17 08:00 Pulse 94 07/11/17 08:00 Resp 22 07/11/17 08:19 BP 91/57 07/11/17 08:00 Pulse Ox 97 07/11/17 08:19 Results - Laboratory Findings CBC and BMP: 07/11/17 04:00 07/11/17 04:00 ABG ABG pH 7.61 pH Units (7.32-7.45) H* 07/11/17 05:37 ABG pCO2 31 mmHg (35-45) L 07/11/17 05:37 ABG pO2 60 mmHg (85-104) L 07/11/17 05:37 ABG O2 Saturation 95 % (95-98) 07/11/17 05:37 PT/INR, D-dimer PT 15.1 Seconds (9.4-12.1) H 07/11/17 04:00 Abnormal lab findings: Abnormal lab results RBC 3.22 M/mcL (3.82-4.97) L 07/11/17 04:00 Hgb 9.9 g/dL (11.5-15.4) L 07/11/17 04:00 Hct 29.8 % (35.3-44.9) L 07/11/17 04:00 RDW 18.7 % (11.5-14.5) H 07/11/17 04:00 Lymphocytes # 0.3 K/mcL (0.6-4.6) L 07/11/17 04:00 Nucleated RBCs/100 WBC 0.3 /100 WBC (0) H 07/10/17 04:02 PT 15.1 Seconds (9.4-12.1) H 07/11/17 04:00 ABG pH 7.61 pH Units (7.32-7.45) H* 07/11/17 05:37 ABG pCO2 31 mmHg (35-45) L 07/11/17 05:37 ABG pO2 60 mmHg (85-104) L 07/11/17 05:37 ABG HCO3 31 mEq/L (21-27) H 07/11/17 05:37 ABG Total CO2 32 mEq/L (20-26) H 07/11/17 05:37 ABG Base Excess 10 mEq/L (-2 to 3) H 07/11/17 05:37 VBG pH 7.47 pH Units (7.32-7.42) H 07/10/17 18:01 VBG pO2 120 mmHg (25-50) H 07/08/17 15:21 Creatinine 0.58 mg/dL (0.60-1.20) L 07/11/17 04:00 Glucose 112 mg/dL (70-105) H 07/11/17 04:00 POC Glucose 203 mg/dL (70-99) H 07/11/17 00:06 Lactic Acid 2.5 mmol/L (0.5-2.2) H 07/11/17 04:30 Calcium 8.0 mg/dL (8.6-10.3) L 07/11/17 04:00 Phosphorus 1.6 mg/dL (2.7-4.5) L 07/11/17 04:00 Troponin I 0.64 ng/mL (< 0.04) H* 07/09/17 08:19 B-Natriuretic Peptide 371 pg/mL (Less than 100) H 07/08/17 15:12 Albumin 2.9 g/dL (3.5-5.7) L 07/11/17 04:00 Beta-Hydroxybutyric Acd 0.38 mmol/L (0.02-0.27) H 07/08/17 15:10 Urine Glucose (UA) >=1000 mg/dL (Normal) H 07/10/17 16:43 - Microbiology Findings Microbiology Findings: Microbiology, Last 48 Hours 07/08/17 20:59 Blood Culture - Preliminary Peripheral Venipuncture No growth. - Clinical Findings Intake & Output: Intake & Output 07/10/17 07/11/17 07/11/17 23:59 07:59 15:59 Intake Total 574 / 574 29 / 29 Output Total 1350 / 1350 100 / 100 Balance -776 / -776 -71 / -71 Consult Discharge Plan - Plan Referrals: Valente Rosa MD [Primary Care Provider] - - Attending Attestation I examined this patient and my medical decision-making was reviewed with the Resident Physician. I agree with the documented findings, disposition and treatment plan as described except to the extent set forth below. Patient seen and examined. Labs, radiology, chart personally reviewed. Agree with resident's history and physical, assessment, plan with following comments: SEQUINS WINDER: Patient follows commands, Pulmonary: Acceptable oxygenation and ventilation Cardiovascular: stable GI: Nutrition per dietary and GI prophylaxis per routine Heme: DVT prophylaxis per routine ID: Continue antibiotics and plan to de-escalation. Renal; urine out put and renal funtion reviewed. D/C Erazo catheter Endorcine: blood glucose is monitored Lines: all lines checked and no evidence of infections Skin: skin care to prevent pressure ulcers per nursing routine care <Osiel Costa - Last Filed: 07/11/17 11:11> Date of Encounter: 07/11/17 Time of Encounter: 08:20 Assessment and Plan (1) HCAP (healthcare-associated pneumonia) Current Visit: Yes Status: Acute On presentation, patient met septic criteria, was tachycardic, and lactic acidosis - Was not given IV fluids due to pulmonary edema CT of the abdomen and pelvis performed on 07/10/17 demonstrated the following: - Large rectal stool volume suggestive of fecal impaction - Questionable associated or coral proctitis - Findings suggestive of increased pulmonary edema/developing infection in both lung bases Leukocytosis is resolved; white count this morning was 9.1 - 07/11: Patient is on day #4 of antibiotics - Day #4 of Levaquin Plan: - Continue IV antibiotics - DuoNeb 3 mL inhaled every 4 - Solu-Medrol discontinued; prednisone 20 mg by mouth daily - DuoNeb 2.5 mg inhaled every 6 (2) Sepsis Current Visit: Yes Status: Acute Patient met septic criteria on admission - Blood culture on 07/08/17 was negative - Possible sources include healthcare associated pneumonia, sacral decubitus ulcer - Patient was hypotensive this morning 86/50 - Continue to closely monitor vital signs - Levaquin 750 mg IV every 48 (started on 07/08/17; day 4) Qualifiers: Sepsis type: sepsis due to unspecified organism Qualified Code(s): A41.9 - Sepsis, unspecified organism (3) Respiratory failure Current Visit: Yes Status: Acute Multifactorial resp failure due to the following: - HCAP - Suspected acute COPD exacerbation - CHF secondary to probably valvular heart disease - Underlying lung cancer Qualifiers: Chronicity: acute on chronic Respiratory failure complication: hypoxia Qualified Code(s): J96.21 - Acute and chronic respiratory failure with hypoxia (4) Congestive heart failure Current Visit: Yes Status: Acute Acute on chronic CHF likely due to probably valvular heart disease as well as diastolic CHF - ECHO 06/23/17 revealed EF 65-70%, severe aortic and mitral stenosis, and pulmonary HTN - Continue to diurese as blood pressure tolerates - Lasix 40 mg IV twice a day Qualifiers: Heart failure type: unspecified Heart failure chronicity: acute on chronic Qualified Code(s): I50.9 - Heart failure, unspecified (5) Sacral decubitus ulcer, stage II Current Visit: Yes Status: Acute - Continue border foam dressings, turn patient q2h - Continue antibiotics (6) Lung cancer Current Visit: No Status: Chronic S/P chemotherapy; no active chemotherapy at this time. - Patient supposed to follow with oncologist soon to discuss the status of cancer and deciding further plan - Last CT scan of chest showed what appeared to be an increasing left apical mass, as well as lymphadenopathy Qualifiers: Laterality: right Lung location: unspecified part of lung Qualified Code( s): C34.91 - Malignant neoplasm of unspecified part of right bronchus or lung (7) A-fib Current Visit: No Status: Chronic A-fib without RVR - Continue to monitor - Currently rate controlled at this time - Lovenox 50 mg subcutaneous every 12 - Amiodarone 200 mg by mouth daily - Aspirin 81 mg by mouth daily Qualifiers: Atrial fibrillation type: paroxysmal Qualified Code(s): I48.0 - Paroxysmal atrial fibrillation (8) DM2 (diabetes mellitus, type 2) Current Visit: No Status: Chronic BG elevated likely due to steroids - Continue SSI and long-acting insulin, caution given the fact that patient is not eating well - Glucose this morning was 203 Qualifiers: Diabetes mellitus exterminator insulin use: with exterminator use Diabetes mellitus complication status: with hyperglycemia Qualified Code(s): E11.65 - Type 2 diabetes mellitus with hyperglycemia; Z79.4 - lobsterman (current) use of insulin; Z79.4 - halfway (current) use of insulin; Z79.4 - halfway (current ) use of insulin; Z79.4 - halfway (current) use of insulin (9) Severe protein-calorie malnutrition Current Visit: Yes Status: Acute Loss of subcuticular fat, temporal wasting, loss of muscle mass, BMI 19.1 - Continue Megace (10) DVT prophylaxis Current Visit: No Status: Acute - Continue Lovenox Subjective Principal diagnosis: Healthcare associated pneumonia Interval history: Patient was seen and examined at bedside this morning. Reports that she is feeling better today. Denies having any fever, chills, shortness of breath, or productive cough. States that she did not get much sleep last night. Clinical condition appears to be improving. We will continue to monitor vital signs. Patient was tachycardic this morning at 102 beats per minute. Patient is resting comfortably in bed and has no complaints at this time. Objective PUL Vital signs: Last Vital Signs Temp 98.8 F 07/10/17 18:15 Pulse 95 07/11/17 06:00 Resp 22 07/11/17 06:00 BP 86/50 07/11/17 06:00 Pulse Ox 97 07/11/17 06:00 General appearance: no acute distress Eyes: nonicteric ENT: oropharynx moist Neck: supple Effort: normal Auscultation: bilateral: diminished breath sounds, rales Percussion: bilateral: not dull Tactile fremitus: bilateral: normal Cardiovascular: other (Tachycardic at 102 bpm) Gastrointestinal: normoactive bowel sounds, non-distended Integumentary: normal Extremities: no cyanosis, no edema, no clubbing Musculoskeletal: no deformities, ROM normal normal mental status, non-focal exam mood appropriate, affect normal Results - Laboratory Findings CBC and BMP: 07/11/17 04:00 07/11/17 04:00 ABG ABG pH 7.61 pH Units (7.32-7.45) H* 07/11/17 05:37 ABG pCO2 31 mmHg (35-45) L 07/11/17 05:37 ABG pO2 60 mmHg (85-104) L 07/11/17 05:37 ABG O2 Saturation 95 % (95-98) 07/11/17 05:37 PT/INR, D-dimer PT 15.1 Seconds (9.4-12.1) H 07/11/17 04:00 Abnormal lab findings: Abnormal lab results RBC 3.22 M/mcL (3.82-4.97) L 07/11/17 04:00 Hgb 9.9 g/dL (11.5-15.4) L 07/11/17 04:00 Hct 29.8 % (35.3-44.9) L 07/11/17 04:00 RDW 18.7 % (11.5-14.5) H 07/11/17 04:00 Lymphocytes # 0.3 K/mcL (0.6-4.6) L 07/11/17 04:00 Nucleated RBCs/100 WBC 0.3 /100 WBC (0) H 07/10/17 04:02 PT 15.1 Seconds (9.4-12.1) H 07/11/17 04:00 ABG pH 7.61 pH Units (7.32-7.45) H* 07/11/17 05:37 ABG pCO2 31 mmHg (35-45) L 07/11/17 05:37 ABG pO2 60 mmHg (85-104) L 07/11/17 05:37 ABG HCO3 31 mEq/L (21-27) H 07/11/17 05:37 ABG Total CO2 32 mEq/L (20-26) H 07/11/17 05:37 ABG Base Excess 10 mEq/L (-2 to 3) H 07/11/17 05:37 VBG pH 7.47 pH Units (7.32-7.42) H 07/10/17 18:01 VBG pO2 120 mmHg (25-50) H 07/08/17 15:21 Creatinine 0.58 mg/dL (0.60-1.20) L 07/11/17 04:00 Glucose 112 mg/dL (70-105) H 07/11/17 04:00 POC Glucose 203 mg/dL (70-99) H 07/11/17 00:06 Lactic Acid 2.5 mmol/L (0.5-2.2) H 07/11/17 04:30 Calcium 8.0 mg/dL (8.6-10.3) L 07/11/17 04:00 Phosphorus 1.6 mg/dL (2.7-4.5) L 07/11/17 04:00 Troponin I 0.64 ng/mL (< 0.04) H* 07/09/17 08:19 B-Natriuretic Peptide 371 pg/mL (Less than 100) H 07/08/17 15:12 Albumin 2.9 g/dL (3.5-5.7) L 07/11/17 04:00 Beta-Hydroxybutyric Acd 0.38 mmol/L (0.02-0.27) H 07/08/17 15:10 Urine Glucose (UA) >=1000 mg/dL (Normal) H 07/10/17 16:43 - Microbiology Findings Microbiology Findings: Microbiology, Last 48 Hours 07/08/17 20:59 Blood Culture - Preliminary Peripheral Venipuncture No growth. - Clinical Findings Intake & Output: Intake & Output 07/10/17 07/11/17 07/11/17 23:59 07:59 15:59 Intake Total 574 / 574 29 / 29 Output Total 1350 / 1350 100 / 100 Balance -776 / -776 -71 / -71
[2017-07-11] MEDS ORDERED: Megestrol Acetate 400 MG/10 ML UDC PO SCH (09:00)
[2017-07-11] MEDS ORDERED: Levofloxacin 750 MG/150 ML 750 MG/150 ML BAG IVPB SCH (09:00)
[2017-07-11] MEDS ORDERED: Aspirin Enteric Coated 81 MG Tablet PO SCH (09:00)
[2017-07-11] MEDS ORDERED: *HR* Amiodarone 200 MG TABLET PO SCH (09:00)
[2017-07-11] MEDS ORDERED: D5% in Water 1,000 ML IVC PRN ×2 (10:55→15:38)
[2017-07-11] MEDS: Insulin LISPRO 300 UNITS/3 ML VIAL SQ SCH ×5 (11:43→20:31)
[2017-07-11] MEDS ORDERED: Naloxone 0.4 MG/ML INJ IVP PRN (15:38)
[2017-07-11] MEDS ORDERED: Sennosides/Docusate Sodium TABLET PO PRN (15:38)
[2017-07-11] MEDS ORDERED: Dextrose Gel 15 GM/37.5 ML TUBE PO PRN ×2 (15:38)
[2017-07-11] MEDS ORDERED: *HR* Dextrose 50 % in Water (Syg) 50 ML SYRINGE IVP PRN (15:38)
[2017-07-11] MEDS ORDERED: D5% in 0.45% NACL w KCl 20 MEQ/1,000 ML MLS IVC PRN (15:38)
[2017-07-11] MEDS ORDERED: Bisacodyl 10 MG RECTAL SUPPOSITORY RC PRN (15:38)
[2017-07-11] MEDS ORDERED: Albuterol 2.5 MG/3 ML NEBULIZER IH PRN (15:38)
[2017-07-11] MEDS ORDERED: Nitroglycerin 0.4 MG TAB.SUBL SL PRN (15:38)
[2017-07-11] MEDS: Furosemide 40 MG/4 ML VIAL IVP SCH (16:28)
[2017-07-11] MEDS: Pantoprazole 40 MG VIAL IVP SCH (16:28)
[2017-07-11] MEDS: Insulin DETEMIR 100 UNIT/ML X5UNITS SQ SCH (20:26)
[2017-07-12] MEDS: Ipratropium/Albuterol Neb 3 ML IH SCH ×5 (03:36→19:35)
[2017-07-12 03:41] LABS: Hematocrit 28.2 % (35.3-44.9); Hemoglobin 9.5 g/dL (11.5-15.4); Immature Granulocytes % 0.6 % (0-4); Immature Platelets 3.9 % (1.1-6.1); Lymphocytes # 0.7 K/mcL (0.6-4.6); Lymphocytes % 7.8 %; Mean Corpuscular HGB Conc 33.7 g/dL (31.6-35.5); Mean Corpuscular Hemoglobin 30.6 pg (28.0-33.3); Monocytes # 0.6 K/mcL (0.0-1.3); Monocytes % 7.5 %; Neutrophils # 7.1 K/mcL (1.6-8.9); Platelet Count 306 K/mcL (140-400); Red Cell Distribution Width 18.7 % (11.5-14.5); Segmented Neutrophils % 84.1 %
[2017-07-12 04:42] LABS: BUN/Creatinine Ratio 21 (6-26); Blood Urea Nitrogen 14 mg/dL (8-23); Carbon Dioxide 29 mEq/L (23-29); Chloride 96 mEq/L (98-107); Glucose 117 mg/dL (70-105); Osmolality,Calculated 278 (280-300); Potassium 3.2 mEq/L (3.5-5.1); Sodium 133 mEq/L (136-145); eGFR For African Americans > 60 (> 60); eGFR For Non-African Americans > 60 (> 60)
--- NOTE | 2017-07-12 05:11 | Electrocardiograph Report ---
[place] [id number] Test Date: 2017-07-08 Pat Name: Bella Baird Department: 103 Room: [facility] Gender: F Mail Messenger Contractor: [facility] : 1945 Requested By: Tim Davis Order Number: [id number] Reading MD: Deshawn Kauffman Measurements Intervals [place] Rate: 121 P: 260 DE: 88 QRS: -77 QRSD: 150 T: 83 QT: 368 QTc: 440 Interpretive Statements Sinus tachycardia MARKED LEFT AXIS DEVIATION LEFT BUNDLE BRANCH BLOCK Electronically Signed On 07-12-2017 5:10:21 EDT by Deshawn Kauffman
[2017-07-12] MEDS: Pantoprazole 40 MG VIAL IVP SCH ×2 (05:14→17:25)
[2017-07-12] MEDS: *HR* Enoxaparin 40 MG/0.4 ML SYRINGE SQ SCH (05:16)
[2017-07-12] MEDS ORDERED: *HR* Enoxaparin 40 MG/0.4 ML SYRINGE SQ SCH (06:00)
[2017-07-12] MEDS: Aspirin Enteric Coated 81 MG Tablet PO SCH (08:16)
[2017-07-12] MEDS: *HR* Amiodarone 200 MG TABLET PO SCH (08:16)
[2017-07-12] MEDS: Azelastine 0.1% Nasal Spray 30 ML BOTTLE NS SCH ×2 (08:17→20:45)
[2017-07-12] MEDS: Insulin LISPRO 300 UNITS/3 ML VIAL SQ SCH ×4 (08:17→20:44)
[2017-07-12] MEDS: predniSONE 20 MG TABLET PO SCH (08:17)
[2017-07-12] MEDS: Levofloxacin 750 MG/150 ML 750 MG/150 ML BAG IVPB SCH (08:17)
[2017-07-12] MEDS: Megestrol Acetate 400 MG/10 ML UDC PO SCH (08:20)
[2017-07-12] MEDS ORDERED: Insulin DETEMIR 100 UNIT/ML X5UNITS SQ SCH (09:00)
[2017-07-12] MEDS ORDERED: Furosemide 20 MG TABLET PO SCH (09:00)
[2017-07-12] MEDS ORDERED: predniSONE 20 MG TABLET PO SCH (09:00)
--- NOTE | 2017-07-12 14:07 | Internal Med Progress Note ---
<Joseph Hernández - Last Filed: 07/12/17 14:52> Date of Encounter: 07/12/17 Time of Encounter: 14:04 - Assessment and plan (1) HCAP (healthcare-associated pneumonia) Current Visit: Yes Status: Acute Assessment and plan: Continue Levaquin (Day 4). Blood Cultures show no growth to date. Discontinued Zyvox, Merrem, and Vancomycin. Leukocytosis resolved. Continue steroids and bronchodilators. Oxygen supplementation. Continue BiPAP prn. Monitor closely. (2) Sepsis Current Visit: Yes Status: Resolved Assessment and plan: Sepsis from healthcare associated pneumonia, sacral decubitus ulcer. Closely monitor. Qualifiers: Sepsis type: sepsis due to unspecified organism Qualified Code(s): A41.9 - Sepsis, unspecified organism (3) Sacral decubitus ulcer, stage II Current Visit: Yes Status: Acute Assessment and plan: Continue border foam dressings, turn patient q2h Continue antibiotics. PT/OT consulted (4) Respiratory failure Current Visit: Yes Status: Acute Assessment and plan: Multifactorial resp failure due to healthcare associated pneumonia, acute COPD exacerbation, CHF secondary to probably valvular heart disease, and underlying lung cancer. Qualifiers: Chronicity: acute on chronic Respiratory failure complication: hypoxia Qualified Code(s): J96.21 - Acute and chronic respiratory failure with hypoxia (5) COPD exacerbation Current Visit: Yes Status: Acute Assessment and plan: Stop Solumedrol, continue Prednisone 40mg PO daily Continue bronchodliators, antibiotics (6) Congestive heart failure Current Visit: Yes Status: Acute Assessment and plan: Acute on chronic CHF likely due to probably valvular heart disease as well as diastolic CHF. Echo 06/23/17 revealed EF 65-70%, severe aortic and mitral stenosis, and pulmonary HTN Diuresis as blood pressures tolerates. Lasix IV. She is not on a beta elias, would not give due to low blood pressures. Monitor. Patient has severe probably valvular heart disease and is unlikely a candidate for TAVR due to her comorbidities. Discussed the case with the patient's son, apparently she was offered a TAVR in the past, but decided to hold off due to her cancer diagnosis. Qualifiers: Heart failure type: unspecified Heart failure chronicity: acute on chronic Qualified Code(s): I50.9 - Heart failure, unspecified (7) Lung cancer Current Visit: No Status: Chronic Assessment and plan: Status post chemotherapy. No active chemotherapy at this time. Patient supposed to follow with oncologist soon to discuss the status of cancer and deciding further plan Last CAT scan of chest showed what appeared to be an increasing left apical mass , as well as lymphadenopathy. Pulmonology following Qualifiers: Laterality: right Lung location: unspecified part of lung Qualified Code( s): C34.91 - Malignant neoplasm of unspecified part of right bronchus or lung (8) Elevated troponin Current Visit: Yes Status: Acute Assessment and plan: History of CAD. Chronic elevation of troponin. Patient is already on Lovenox Serial troponins adynamic. Suspect demand ischemia. Will consult cardiology if needed. Continue to monitor. (9) A-fib Current Visit: No Status: Chronic Assessment and plan: A-fib without RVR. Continue home medicine. Will consult cardiology if needed Heart rate controlled. Given the fact that patient is on Lovenox, and my concerns for potential supratherapeutic INR (malnourished and on Levaquin), we will continue Lovenox for now and hold Coumadin. Continue to monitor. Qualifiers: Atrial fibrillation type: chronic Qualified Code(s): I48.2 - Chronic atrial fibrillation (10) Altered mental status Current Visit: Yes Status: Resolved Assessment and plan: Suspect her altered mental status was primarily metabolic in nature, due to sepsis, medical co-morbidities, and hypoxia. No neurological deficit. Mental status is improved. CT head was negative for acute process, mass, or bleed Qualifiers: Altered mental status type: disorientation Qualified Code(s): R41.0 - Disorientation, unspecified (11) Severe protein-calorie malnutrition Current Visit: Yes Status: Acute Assessment and plan: Loss of subcuticular fat, temporal wasting, loss of muscle mass, BMI 19.1 Resume home Megace (12) DM2 (diabetes mellitus, type 2) Current Visit: No Status: Chronic Assessment and plan: BG elevated likely due to steroids. Continue SSI and long-acting insulin, caution given the fact that patient is not eating well. Qualifiers: Diabetes mellitus alf insulin use: with alf use Diabetes mellitus complication status: with hyperglycemia Qualified Code(s): E11.65 - Type 2 diabetes mellitus with hyperglycemia; Z79.4 - [facility]CI (current) use of insulin; Z79.4 - watermelon inspector (current) use of insulin; Z79.4 - [facility]CI (current ) use of insulin; Z79.4 - [facility] (current) use of insulin (13) DKA (diabetic ketoacidoses) Current Visit: Yes Status: Resolved Assessment and plan: Patient was transferred to ICU on Insulin drip 07/10/17 Qualifiers: Diabetes mellitus type: type 2 Diabetes mellitus complication detail: without coma Qualified Code(s): E11.10 - Type 2 diabetes mellitus with ketoacidosis without coma (14) Hypokalemia Current Visit: Yes Status: Acute Assessment and plan: Supplement K Continue to monitor (15) Hypomagnesemia Current Visit: Yes Status: Acute Assessment and plan: Supplement Mag Continue to monitor (16) Constipation Current Visit: Yes Status: Acute Assessment and plan: Patient reports abd pain. UA negative CT abd form 06/21/17 revealed decreased rectosigmoid wall thickening/edema and perirectal inflammation and fluid. Acute abd series shows no significant findings in the abdomen. The bowel gas pattern is unremarkable. Repeat CT abd/plv with contrast revealed large rectal stool volume suggestive of fecal impaction. Questionable associated stercoral proctitis. Given Lactulose, 1L tap wter enemas Qualifiers: Constipation type: slow transit constipation Qualified Code(s): K59.01 - Slow transit constipation (17) DVT prophylaxis Current Visit: No Status: Acute Assessment and plan: Continue Lovenox. (18) Hypophosphatemia Current Visit: Yes Status: Acute Assessment and plan: Supplement Phos Continue to monitor - Time Spent With Patient Total time spent is greater than 50% in coordination of care (as documented) at patient's floor/unit and/or counseling patient: - Subjective Interval history: Patient seen and examined. Patient reports pain in sacral region due to immobility. Her HR is in the 90s and BG levels are between 102 and 276. Continue antibiotics and PT/OT. - Constitutional Vitals: Temp Pulse Resp BP Pulse Ox 97.5 F L 89 18 102/65 95 07/12/17 10:58 07/12/17 10:58 07/12/17 11:17 07/12/17 10:58 07/12/17 11:17 General appearance: Present: cachectic, cooperative, mild distress, A&O X 3, pleasant, answers questions appropriately - Head Head exam: Present: atraumatic, normocephalic - Eye Eye exam: Present: PERRL, conjuntiva pink, sclera anicteric Pupils: Present: PERRL - ENT ENT exam: Present: mucous membranes dry, normal oropharynx - Neck Neck exam general surgery: Present: supple, trachea midline. Absent: lymphadenopathy - Respiratory Respiratory exam: Present: decreased breath sounds, rales (mild L>R). Absent: accessory muscle use, rhonchi, wheezes - Cardiovascular Cardiovascular exam: Present: irregular rhythm, +S1, +S2. Absent: diastolic murmur, gallop, rubs, systolic murmur - GI/Abdominal GI/Abdominal exam: Present: normal bowel sounds, soft, no peritoneal signs. Absent: distended, tenderness - Extremities Exam Extremities exam: Present: warm, radial pulses palpable and symmetrical. Absent : calf tenderness, cyanotic, pedal edema - Back Exam Back exam: Present: normal inspection. Absent: tenderness - Neurological Exam Neurological exam: Present: CN II-XII intact, oriented X3, no focal deficits. Absent: pronater drift, facial droop, speech deficit - Psychiatric Psychiatric exam: Present: normal affect, normal mood - Skin Skin exam: Present: dry, intact Internal Medicine: Result - Labs CBC & Chem 7: 07/12/17 03:46 07/12/17 03:55 Labs: Short CBC 07/12/17 Range/Units 03:46 WBC 8.5 (4.3-11.1) K/mcL Hgb 9.5 L (11.5-15.4) g/dL Hct 28.2 L (35.3-44.9) % Plt Count 306 (140-400) K/mcL Neutrophils # 7.1 (1.6-8.9) K/mcL BMP 07/12/17 03:55 Sodium 133 L Potassium 3.2 L Chloride 96 L Carbon Dioxide 29 BUN 14 Creatinine 0.67 Glucose 117 H Calcium 8.0 L - ABG Interpretation ABG results: ABG ABG pH 7.61 pH Units (7.32-7.45) H* 07/11/17 05:37 ABG pCO2 31 mmHg (35-45) L 07/11/17 05:37 ABG pO2 60 mmHg (85-104) L 07/11/17 05:37 ABG O2 Saturation 95 % (95-98) 07/11/17 05:37 PT/INR, D-dimer PT 15.1 Seconds (9.4-12.1) H 07/11/17 04:00 - Pulse Oximetry Interpretation Digit-Finger Pulse Oximetry Readin (2.5L O2 via NC) Consult Discharge Plan - Plan Referrals: Valente Rosa MD [Primary Care Provider] - <Rolando Butler H - Last Filed: 07/12/17 15:03> Date of Encounter: 07/12/17 - Assessment and plan (1) DKA (diabetic ketoacidoses) Current Visit: Yes Status: Resolved Qualifiers: Diabetes mellitus type: type 2 Diabetes mellitus complication detail: without coma Qualified Code(s): E11.10 - Type 2 diabetes mellitus with ketoacidosis without coma (2) Lung cancer Current Visit: No Status: Chronic Qualifiers: Laterality: right Lung location: unspecified part of lung Qualified Code( s): C34.91 - Malignant neoplasm of unspecified part of right bronchus or lung (3) DVT prophylaxis Current Visit: No Status: Acute (4) DM2 (diabetes mellitus, type 2) Current Visit: No Status: Chronic Qualifiers: Diabetes mellitus alf insulin use: with intermodal truck driver use Diabetes mellitus complication status: with hyperglycemia Qualified Code(s): E11.65 - Type 2 diabetes mellitus with hyperglycemia; Z79.4 - watermelon inspector (current) use of insulin; Z79.4 - watermelon inspector (current) use of insulin; Z79.4 - watermelon inspector (current ) use of insulin; Z79.4 - [facility] (current) use of insulin (5) Hypokalemia Current Visit: Yes Status: Acute (6) Hypomagnesemia Current Visit: Yes Status: Acute (7) HCAP (healthcare-associated pneumonia) Current Visit: Yes Status: Acute (8) A-fib Current Visit: No Status: Chronic Qualifiers: Atrial fibrillation type: chronic Qualified Code(s): I48.2 - Chronic atrial fibrillation (9) Sepsis Current Visit: Yes Status: Resolved Qualifiers: Sepsis type: sepsis due to unspecified organism Qualified Code(s): A41.9 - Sepsis, unspecified organism (10) Altered mental status Current Visit: Yes Status: Resolved Qualifiers: Altered mental status type: disorientation Qualified Code(s): R41.0 - Disorientation, unspecified (11) COPD exacerbation Current Visit: Yes Status: Acute (12) Elevated troponin Current Visit: Yes Status: Acute (13) Respiratory failure Current Visit: Yes Status: Acute Qualifiers: Chronicity: acute on chronic Respiratory failure complication: hypoxia Qualified Code(s): J96.21 - Acute and chronic respiratory failure with hypoxia (14) Constipation Current Visit: Yes Status: Acute Qualifiers: Constipation type: slow transit constipation Qualified Code(s): K59.01 - Slow transit constipation (15) Congestive heart failure Current Visit: Yes Status: Acute Qualifiers: Heart failure type: unspecified Heart failure chronicity: acute on chronic Qualified Code(s): I50.9 - Heart failure, unspecified (16) Sacral decubitus ulcer, stage II Current Visit: Yes Status: Acute (17) Severe protein-calorie malnutrition Current Visit: Yes Status: Acute (18) Hypophosphatemia Current Visit: Yes Status: Acute - Time Spent With Patient Total time spent is greater than 50% in coordination of care (as documented) at patient's floor/unit and/or counseling patient: - Constitutional Vitals: Temp Pulse Resp BP Pulse Ox 97.5 F L 89 18 102/65 95 07/12/17 10:58 07/12/17 10:58 07/12/17 11:17 07/12/17 10:58 07/12/17 11:17 Internal Medicine: Result - Labs CBC & Chem 7: 07/12/17 03:46 07/12/17 03:55 Labs: Short CBC 07/12/17 Range/Units 03:46 WBC 8.5 (4.3-11.1) K/mcL Hgb 9.5 L (11.5-15.4) g/dL Hct 28.2 L (35.3-44.9) % Plt Count 306 (140-400) K/mcL Neutrophils # 7.1 (1.6-8.9) K/mcL BMP 07/12/17 03:55 Sodium 133 L Potassium 3.2 L Chloride 96 L Carbon Dioxide 29 BUN 14 Creatinine 0.67 Glucose 117 H Calcium 8.0 L - ABG Interpretation ABG results: ABG ABG pH 7.61 pH Units (7.32-7.45) H* 07/11/17 05:37 ABG pCO2 31 mmHg (35-45) L 07/11/17 05:37 ABG pO2 60 mmHg (85-104) L 07/11/17 05:37 ABG O2 Saturation 95 % (95-98) 07/11/17 05:37 PT/INR, D-dimer PT 15.1 Seconds (9.4-12.1) H 07/11/17 04:00 - Attending Attestation Acute hypoxic respiratory failure due to acute COPD exacerbation from sepsis 2ry to HCAP present upon admission improving on levaquin day 4 taper prednisone acute diastolic CHF exacerbation lasix IV I examined this patient and my medical decision-making was reviewed with the Resident Physician. I agree with the documented findings, disposition and treatment plan as described except to the extent set forth below.
[2017-07-12] MEDS ORDERED: Potassium Effervescent 25 MEQ TABLET.EFF PO ONE (14:28)
[2017-07-12] MEDS: Furosemide 40 MG/4 ML VIAL IVP SCH ×2 (15:48→19:19)
[2017-07-12] MEDS ORDERED: Furosemide 20 MG/2 ML VIAL IVP ONE (16:52)
[2017-07-12] MEDS: Insulin DETEMIR 100 UNIT/ML X5UNITS SQ SCH (20:43)
[2017-07-13] MEDS: Ipratropium/Albuterol Neb 3 ML IH SCH ×7 (00:04→23:47)
[2017-07-13] MEDS: *HR* Enoxaparin 40 MG/0.4 ML SYRINGE SQ SCH (06:09)
[2017-07-13] MEDS: Pantoprazole 40 MG VIAL IVP SCH (06:11)
[2017-07-13 06:30] LABS: Basophils % 0.1 %; Hematocrit 32.7 % (35.3-44.9); Hemoglobin 10.9 g/dL (11.5-15.4); Immature Granulocytes % 0.7 % (0-4); Lymphocytes % 14.6 %; Mean Corpuscular HGB Conc 33.3 g/dL (31.6-35.5); Mean Corpuscular Hemoglobin 30.6 pg (28.0-33.3); Mean Corpuscular Volume 91.9 fL (83.0-100.0); Monocytes # 0.9 K/mcL (0.0-1.3); Monocytes % 13.2 %; Neutrophils # 5.1 K/mcL (1.6-8.9); Platelet Count 329 K/mcL (140-400); Red Blood Count 3.56 M/mcL (3.82-4.97); Red Cell Distribution Width 19.1 % (11.5-14.5); Segmented Neutrophils % 71.4 %
[2017-07-13 06:44] LABS: BUN/Creatinine Ratio 27 (6-26); Blood Urea Nitrogen 14 mg/dL (8-23); Calcium 8.5 mg/dL (8.6-10.3); Carbon Dioxide 28 mEq/L (23-29); Chloride 97 mEq/L (98-107); Glucose 139 mg/dL (70-105); Magnesium 2.1 mg/dL (1.6-2.6); Osmolality,Calculated 275 (280-300); Phosphorous 3.2 mg/dL (2.7-4.5); Potassium 3.8 mEq/L (3.5-5.1); Sodium 131 mEq/L (136-145); eGFR For African Americans > 60 (> 60); eGFR For Non-African Americans > 60 (> 60)
[2017-07-13 08:04] LABS: Anisocytosis 1+ (Not Present); Platelet Estimate Normal (Normal)
[2017-07-13] MEDS: Aspirin Enteric Coated 81 MG Tablet PO SCH (08:26)
[2017-07-13] MEDS: Megestrol Acetate 400 MG/10 ML UDC PO SCH (08:26)
[2017-07-13] MEDS: *HR* Amiodarone 200 MG TABLET PO SCH (08:26)
[2017-07-13] MEDS: predniSONE 20 MG TABLET PO SCH (08:26)
[2017-07-13] MEDS: Levofloxacin 750 MG/150 ML 750 MG/150 ML BAG IVPB SCH (08:26)
[2017-07-13] MEDS: Azelastine 0.1% Nasal Spray 30 ML BOTTLE NS SCH ×2 (08:27→20:41)
[2017-07-13] MEDS: Insulin LISPRO 300 UNITS/3 ML VIAL SQ SCH ×4 (08:27→20:39)
--- NOTE | 2017-07-13 09:37 | Internal Med Progress Note ---
<Joseph Hernández - Last Filed: 07/13/17 10:38> Date of Encounter: 07/13/17 Time of Encounter: 09:37 - Assessment and plan (1) HCAP (healthcare-associated pneumonia) Current Visit: Yes Status: Acute Assessment and plan: Continue Levaquin (Day 5). Blood Cultures show no growth to date. Discontinued Zyvox, Merrem, and Vancomycin. Leukocytosis resolved. Continue steroids and bronchodilators. Oxygen supplementation. Continue BiPAP prn. Monitor closely. (2) Sepsis Current Visit: Yes Status: Resolved Assessment and plan: Sepsis from healthcare associated pneumonia, sacral decubitus ulcer. Closely monitor. Qualifiers: Sepsis type: sepsis due to unspecified organism Qualified Code(s): A41.9 - Sepsis, unspecified organism (3) Sacral decubitus ulcer, stage II Current Visit: Yes Status: Acute Assessment and plan: Continue border foam dressings, turn patient q2h Continue antibiotics. PT/OT consulted (4) Respiratory failure Current Visit: Yes Status: Acute Assessment and plan: Multifactorial resp failure due to healthcare associated pneumonia, acute COPD exacerbation, CHF secondary to probably valvular heart disease, and underlying lung cancer. Qualifiers: Chronicity: acute on chronic Respiratory failure complication: hypoxia Qualified Code(s): J96.21 - Acute and chronic respiratory failure with hypoxia (5) COPD exacerbation Current Visit: Yes Status: Acute Assessment and plan: Stop Solumedrol, continue Prednisone 40mg PO daily Continue bronchodliators, antibiotics (6) Congestive heart failure Current Visit: Yes Status: Acute Assessment and plan: Acute on chronic CHF likely due to probably valvular heart disease as well as diastolic CHF. Echo 06/23/17 revealed EF 65-70%, severe aortic and mitral stenosis, and pulmonary HTN Diuresis as blood pressures tolerates. Lasix IV. She is not on a beta elias, would not give due to low blood pressures. Monitor. Patient has severe probably valvular heart disease and is unlikely a candidate for TAVR due to her comorbidities. Discussed the case with the patient's son, apparently she was offered a TAVR in the past, but decided to hold off due to her cancer diagnosis. Qualifiers: Heart failure type: unspecified Heart failure chronicity: acute on chronic Qualified Code(s): I50.9 - Heart failure, unspecified (7) Lung cancer Current Visit: No Status: Chronic Assessment and plan: Status post chemotherapy. No active chemotherapy at this time. Patient supposed to follow with oncologist soon to discuss the status of cancer and deciding further plan Last CAT scan of chest showed what appeared to be an increasing left apical mass , as well as lymphadenopathy. Pulmonology following Qualifiers: Laterality: right Lung location: unspecified part of lung Qualified Code( s): C34.91 - Malignant neoplasm of unspecified part of right bronchus or lung (8) Elevated troponin Current Visit: Yes Status: Acute Assessment and plan: History of CAD. Chronic elevation of troponin. Patient is already on Lovenox Serial troponins adynamic. Suspect demand ischemia. Continue to monitor. (9) A-fib Current Visit: No Status: Chronic Assessment and plan: A-fib without RVR. Continue home medicine. Will consult cardiology if needed Heart rate controlled. Given the fact that patient is on Lovenox, and my concerns for potential supratherapeutic INR (malnourished and on Levaquin), we will continue Lovenox for now and hold Coumadin. Continue to monitor. Qualifiers: Atrial fibrillation type: chronic Qualified Code(s): I48.2 - Chronic atrial fibrillation (10) Altered mental status Current Visit: Yes Status: Resolved Assessment and plan: Suspect her altered mental status was primarily metabolic in nature, due to sepsis, medical co-morbidities, and hypoxia. No neurological deficit. Mental status is improved. CT head was negative for acute process, mass, or bleed Qualifiers: Altered mental status type: disorientation Qualified Code(s): R41.0 - Disorientation, unspecified (11) Severe protein-calorie malnutrition Current Visit: Yes Status: Acute Assessment and plan: Loss of subcuticular fat, temporal wasting, loss of muscle mass, BMI 19.1 Resume home Megace (12) DM2 (diabetes mellitus, type 2) Current Visit: No Status: Chronic Assessment and plan: BG elevated likely due to steroids. Continue SSI and long-acting insulin, caution given the fact that patient is not eating well. Qualifiers: Diabetes mellitus computer terminal operator insulin use: with penitentiary use Diabetes mellitus complication status: with hyperglycemia Qualified Code(s): E11.65 - Type 2 diabetes mellitus with hyperglycemia; Z79.4 - jail (current) use of insulin; Z79.4 - jail (current) use of insulin; Z79.4 - buttermaker (current ) use of insulin; Z79.4 - buttermaker (current) use of insulin (13) DKA (diabetic ketoacidoses) Current Visit: Yes Status: Resolved Assessment and plan: Resolved. Patient was transferred to ICU on Insulin drip 07/10/17 Qualifiers: Diabetes mellitus type: type 2 Diabetes mellitus complication detail: without coma Qualified Code(s): E11.10 - Type 2 diabetes mellitus with ketoacidosis without coma (14) Hypokalemia Current Visit: Yes Status: Resolved Assessment and plan: Resolved, Continue to monitor (15) Hypomagnesemia Current Visit: Yes Status: Resolved Assessment and plan: Resolved Continue to monitor (16) Hypophosphatemia Current Visit: Yes Status: Resolved Assessment and plan: Resolved Continue to monitor (17) DVT prophylaxis Current Visit: No Status: Acute Assessment and plan: Continue Lovenox. (18) Diarrhea Current Visit: Yes Status: Acute Assessment and plan: Patient reports abd pain. UA negative CT abd form 06/21/17 revealed decreased rectosigmoid wall thickening/edema and perirectal inflammation and fluid. Acute abd series shows no significant findings in the abdomen. The bowel gas pattern is unremarkable. Repeat CT abd/plv with contrast revealed large rectal stool volume suggestive of fecal impaction. Questionable associated stercoral proctitis. Given Lactulose, 1L tap wter enemas C. diff test was ordered due to loose stools x3 overnight. Contact precautions Qualifiers: Diarrhea type: unspecified type Qualified Code(s): R19.7 - Diarrhea, unspecified - Time Spent With Patient Total time spent is greater than 50% in coordination of care (as documented) at patient's floor/unit and/or counseling patient: - Subjective Interval history: Patient seen and examined. Patient reports pain in sacral region due to immobility. C. diff test was ordered due to loose stools x3 overnight. Her HR is in the 90s and BG levels 139. Lasix dose was changed to PO dosing. Continue antibiotics and PT/OT. - Constitutional Vitals: Temp Pulse Resp BP Pulse Ox 98.5 F 89 18 102/63 97 07/13/17 06:42 07/13/17 06:42 07/13/17 07:20 07/13/17 06:42 07/13/17 07:20 General appearance: Present: cachectic, cooperative, mild distress, A&O X 3, pleasant, answers questions appropriately - Head Head exam: Present: atraumatic, normocephalic - Eye Eye exam: Present: PERRL, conjuntiva pink, sclera anicteric Pupils: Present: PERRL - ENT ENT exam: Present: mucous membranes dry, normal oropharynx - Neck Neck exam general surgery: Present: supple, trachea midline. Absent: lymphadenopathy - Respiratory Respiratory exam: Present: decreased breath sounds (R>L). Absent: accessory muscle use, rales, respiratory distress, rhonchi, wheezes - Cardiovascular Cardiovascular exam: Present: irregular rhythm, +S1, +S2. Absent: diastolic murmur, gallop, rubs, systolic murmur - GI/Abdominal GI/Abdominal exam: Present: normal bowel sounds, soft, no peritoneal signs. Absent: distended, guarding, tenderness - Extremities Exam Extremities exam: Present: warm, radial pulses palpable and symmetrical. Absent : calf tenderness, cyanotic, pedal edema - Back Exam Back exam: Present: normal inspection. Absent: tenderness - Neurological Exam Neurological exam: Present: CN II-XII intact, oriented X3, no focal deficits. Absent: pronater drift, facial droop, speech deficit - Psychiatric Psychiatric exam: Present: normal affect, normal mood - Skin Skin exam: Present: dry, erythema (stage 2 decubitus ulcer), intact Internal Medicine: Result - Labs CBC & Chem 7: 07/13/17 06:01 07/13/17 06:01 Labs: Short CBC 07/13/17 Range/Units 06:01 WBC 7.1 (4.3-11.1) K/mcL Hgb 10.9 L (11.5-15.4) g/dL Hct 32.7 L (35.3-44.9) % Plt Count 329 (140-400) K/mcL Neutrophils # 5.1 (1.6-8.9) K/mcL BMP 07/13/17 06:01 Sodium 131 L Potassium 3.8 Chloride 97 L Carbon Dioxide 28 BUN 14 Creatinine 0.51 L Glucose 139 H Calcium 8.5 L - ABG Interpretation ABG results: ABG ABG pH 7.61 pH Units (7.32-7.45) H* 07/11/17 05:37 ABG pCO2 31 mmHg (35-45) L 07/11/17 05:37 ABG pO2 60 mmHg (85-104) L 07/11/17 05:37 ABG O2 Saturation 95 % (95-98) 07/11/17 05:37 PT/INR, D-dimer PT 15.1 Seconds (9.4-12.1) H 07/11/17 04:00 - Pulse Oximetry Interpretation Digit-Finger Pulse Oximetry Readin (on RA) Consult Discharge Plan - Plan Referrals: Valente Rosa MD [Primary Care Provider] - <Rolando Butler H - Last Filed: 07/13/17 12:54> Date of Encounter: 07/13/17 - Assessment and plan (1) DKA (diabetic ketoacidoses) Current Visit: Yes Status: Resolved Qualifiers: Diabetes mellitus type: type 2 Diabetes mellitus complication detail: without coma Qualified Code(s): E11.10 - Type 2 diabetes mellitus with ketoacidosis without coma (2) Lung cancer Current Visit: No Status: Chronic Qualifiers: Laterality: right Lung location: unspecified part of lung Qualified Code( s): C34.91 - Malignant neoplasm of unspecified part of right bronchus or lung (3) DVT prophylaxis Current Visit: No Status: Acute (4) DM2 (diabetes mellitus, type 2) Current Visit: No Status: Chronic Qualifiers: Diabetes mellitus computer terminal operator insulin use: with computer terminal operator use Diabetes mellitus complication status: with hyperglycemia Qualified Code(s): E11.65 - Type 2 diabetes mellitus with hyperglycemia; Z79.4 - buttermaker (current) use of insulin; Z79.4 - buttermaker (current) use of insulin; Z79.4 - buttermaker (current ) use of insulin; Z79.4 - jail (current) use of insulin (5) Hypokalemia Current Visit: Yes Status: Resolved (6) Hypomagnesemia Current Visit: Yes Status: Resolved (7) HCAP (healthcare-associated pneumonia) Current Visit: Yes Status: Acute (8) A-fib Current Visit: No Status: Chronic Qualifiers: Atrial fibrillation type: chronic Qualified Code(s): I48.2 - Chronic atrial fibrillation (9) Sepsis Current Visit: Yes Status: Resolved Qualifiers: Sepsis type: sepsis due to unspecified organism Qualified Code(s): A41.9 - Sepsis, unspecified organism (10) Altered mental status Current Visit: Yes Status: Resolved Qualifiers: Altered mental status type: disorientation Qualified Code(s): R41.0 - Disorientation, unspecified (11) COPD exacerbation Current Visit: Yes Status: Acute (12) Elevated troponin Current Visit: Yes Status: Acute (13) Respiratory failure Current Visit: Yes Status: Acute Qualifiers: Chronicity: acute on chronic Respiratory failure complication: hypoxia Qualified Code(s): J96.21 - Acute and chronic respiratory failure with hypoxia (14) Congestive heart failure Current Visit: Yes Status: Acute Qualifiers: Heart failure type: unspecified Heart failure chronicity: acute on chronic Qualified Code(s): I50.9 - Heart failure, unspecified (15) Sacral decubitus ulcer, stage II Current Visit: Yes Status: Acute (16) Severe protein-calorie malnutrition Current Visit: Yes Status: Acute (17) Hypophosphatemia Current Visit: Yes Status: Resolved (18) Diarrhea Current Visit: Yes Status: Acute Qualifiers: Diarrhea type: unspecified type Qualified Code(s): R19.7 - Diarrhea, unspecified - Time Spent With Patient Total time spent is greater than 50% in coordination of care (as documented) at patient's floor/unit and/or counseling patient: - Constitutional Vitals: Temp Pulse Resp BP Pulse Ox 97.6 F 93 18 100/51 92 07/13/17 11:06 07/13/17 11:06 07/13/17 11:12 07/13/17 11:06 07/13/17 11:12 Internal Medicine: Result - Labs CBC & Chem 7: 07/13/17 06:01 07/13/17 06:01 Labs: Short CBC 07/13/17 Range/Units 06:01 WBC 7.1 (4.3-11.1) K/mcL Hgb 10.9 L (11.5-15.4) g/dL Hct 32.7 L (35.3-44.9) % Plt Count 329 (140-400) K/mcL Neutrophils # 5.1 (1.6-8.9) K/mcL BMP 07/13/17 06:01 Sodium 131 L Potassium 3.8 Chloride 97 L Carbon Dioxide 28 BUN 14 Creatinine 0.51 L Glucose 139 H Calcium 8.5 L - ABG Interpretation ABG results: ABG ABG pH 7.61 pH Units (7.32-7.45) H* 07/11/17 05:37 ABG pCO2 31 mmHg (35-45) L 07/11/17 05:37 ABG pO2 60 mmHg (85-104) L 07/11/17 05:37 ABG O2 Saturation 95 % (95-98) 07/11/17 05:37 PT/INR, D-dimer PT 15.1 Seconds (9.4-12.1) H 07/11/17 04:00 - Attending Attestation Acute hypoxic respiratory failure due to acute COPD exacerbation from sepsis 2ry to HCAP present upon admission improving on levaquin day 5 taper prednisone acute diastolic CHF exacerbation lasix c diff test pending I examined this patient and my medical decision-making was reviewed with the Resident Physician. I agree with the documented findings, disposition and treatment plan as described except to the extent set forth below.
[2017-07-13] MEDS: Furosemide 40 MG TABLET PO SCH (11:54)
[2017-07-13 15:42] LABS: INR 1.1; Prothrombin Time 11.7 Seconds (9.4-12.1)
[2017-07-13] MEDS ORDERED: Warfarin perPT PO PRN (18:00)
[2017-07-13] MEDS ORDERED: *HR* Warfarin 5 MG TABLET PO ONE (18:00)
[2017-07-13] MEDS: Insulin DETEMIR 100 UNIT/ML X5UNITS SQ SCH (20:38)
[2017-07-14] MEDS: Ipratropium/Albuterol Neb 3 ML IH SCH ×5 (03:17→20:29)
[2017-07-14] MEDS: *HR* Enoxaparin 40 MG/0.4 ML SYRINGE SQ SCH (05:50)
[2017-07-14 07:05] LABS: Hematocrit 31.4 % (35.3-44.9); Hemoglobin 10.4 g/dL (11.5-15.4); Mean Corpuscular HGB Conc 33.1 g/dL (31.6-35.5); Mean Corpuscular Hemoglobin 30.6 pg (28.0-33.3); Mean Corpuscular Volume 92.4 fL (83.0-100.0); Mean Platelet Volume 9.8 fL (9.4-12.4); Platelet Count 364 K/mcL (140-400)
[2017-07-14 07:09] LABS: INR 1.1; Prothrombin Time 12.1 Seconds (9.4-12.1)
[2017-07-14 07:20] LABS: BUN/Creatinine Ratio 28 (6-26); Blood Urea Nitrogen 17 mg/dL (8-23); Calcium 8.8 mg/dL (8.6-10.3); Carbon Dioxide 28 mEq/L (23-29); Chloride 99 mEq/L (98-107); Glucose 236 mg/dL (70-105); Osmolality,Calculated 287 (280-300); Potassium 3.6 mEq/L (3.5-5.1); Sodium 134 mEq/L (136-145); eGFR For African Americans > 60 (> 60); eGFR For Non-African Americans > 60 (> 60)
--- NOTE | 2017-07-14 07:49 | Oncology Inp Progress Note ---
Date of Encounter: 07/14/17 Time of Encounter: 12:00 (1) Small cell lung cancer Current Visit: Yes Status: Acute Assessment and plan: s/p cycle one of chemotherapy 06/05, unable to continue with due to co- morbidities. She is symptomatically improving CHF/ symptoms, hx severe Sacral decubiti, debility, wt loss, will delay her follow up appt for 2-3 wks. Plan of care discussed with patient in detail. Oncology: Subj Interval history: PAtient is fatigued, she is comfortable, had appointment with me in clinic today. - Constitutional Vitals: Vital Signs Temp Pulse Resp BP Pulse Ox 07/14/17 07:29 18 96 07/14/17 06:42 98.7 F 89 15 104/55 100 07/14/17 06:00 97.9 F 94 24 110/69 100 07/14/17 03:17 18 103/61 98 07/13/17 23:48 18 103/61 100 07/13/17 19:57 18 100 07/13/17 19:00 97.9 F 98 20 103/61 98 07/13/17 16:08 98.4 F 95 21 98/63 98 07/13/17 16:07 18 96 07/13/17 11:12 18 92 07/13/17 11:06 97.6 F 93 17 100/51 97 Intake and Output 07/13/17 07/13/17 07/14/17 15:59 23:59 07:59 Intake Total 760 / 760 240 / 240 120 / 120 Output Total 0 / 0 0 / 0 Balance 760 / 760 240 / 240 120 / 120 Intake: Oral 760 / 760 240 / 240 120 / 120 Output: Urine 0 / 0 0 / 0 Other: Meal Lunch Dinner Percent of Meal Consumed 5% 95% # Urine Diapers 1 1 1 Weight 51.9 kg Blood Glucose* 271 287 232 Patient Weight 07/14/17 23:59 Weight 51.9 kg General appearance: no acute distress - Head Head exam: Present: atraumatic, normal inspection - ENT ENT exam: Present: mucous membranes dry - Respiratory Respiratory exam: Present: CTAB - Cardiovascular Cardiovascular exam: Present: +S1, +S2, systolic murmur - GI/Abdominal GI/Abdominal exam: Present: normal bowel sounds, soft - Extremities Exam Extremities exam: Present: normal inspection - Neurological Exam Neurological exam: Present: alert, CN II-XII intact, oriented X3 Oncology: Obj Data - Labs CBC & Chem 7: 07/14/17 06:47 07/14/17 06:47 Labs: Laboratory Results - last 24 hr 07/12/17 07/13/17 07/13/17 15:46 06:01 06:41 WBC RBC Hgb Hct MCV MCH MCHC RDW Plt Count MPV Immature Gran % 0.7 Seg Neutrophils % 71.4 Lymphocytes % 14.6 Monocytes % 13.2 Eosinophils % 0.0 Basophils % 0.1 Neutrophils # 5.1 Lymphocytes # 1.0 Monocytes # 0.9 Eosinophils # 0.0 Basophils # 0.0 Platelet Estimate Normal Anisocytosis 1+ A PT INR Sodium Potassium Chloride Carbon Dioxide BUN Creatinine Est GFR ( Amer) Est GFR (Non-Af Amer) BUN/Creatinine Ratio Glucose POC Glucose 121 H Calculated Osmolality Calcium Nasal Screen MRSA (PCR) Positive A 07/13/17 07/13/17 07/13/17 11:08 14:50 16:12 WBC RBC Hgb Hct MCV MCH MCHC RDW Plt Count MPV Immature Gran % Seg Neutrophils % Lymphocytes % Monocytes % Eosinophils % Basophils % Neutrophils # Lymphocytes # Monocytes # Eosinophils # Basophils # Platelet Estimate Anisocytosis PT 11.7 INR 1.1 Sodium Potassium Chloride Carbon Dioxide BUN Creatinine Est GFR ( Amer) Est GFR (Non-Af Amer) BUN/Creatinine Ratio Glucose POC Glucose 271 H 163 H Calculated Osmolality Calcium Nasal Screen MRSA (PCR) 07/13/17 07/14/17 07/14/17 19:10 06:47 06:47 WBC 6.5 RBC 3.40 L Hgb 10.4 L Hct 31.4 L MCV 92.4 MCH 30.6 MCHC 33.1 RDW 19.0 H Plt Count 364 MPV 9.8 Immature Gran % Seg Neutrophils % Lymphocytes % Monocytes % Eosinophils % Basophils % Neutrophils # Lymphocytes # Monocytes # Eosinophils # Basophils # Platelet Estimate Anisocytosis PT INR Sodium 134 L Potassium 3.6 Chloride 99 Carbon Dioxide 28 BUN 17 Creatinine 0.61 Est GFR ( Amer) > 60 Est GFR (Non-Af Amer) > 60 BUN/Creatinine Ratio 28 H Glucose 236 H POC Glucose 287 H Calculated Osmolality 287 Calcium 8.8 Nasal Screen MRSA (PCR) 07/14/17 06:47 WBC RBC Hgb Hct MCV MCH MCHC RDW Plt Count MPV Immature Gran % Seg Neutrophils % Lymphocytes % Monocytes % Eosinophils % Basophils % Neutrophils # Lymphocytes # Monocytes # Eosinophils # Basophils # Platelet Estimate Anisocytosis PT 12.1 INR 1.1 Sodium Potassium Chloride Carbon Dioxide BUN Creatinine Est GFR ( Amer) Est GFR (Non-Af Amer) BUN/Creatinine Ratio Glucose POC Glucose Calculated Osmolality Calcium Nasal Screen MRSA (PCR) - ABG Interpretation ABG results: ABG ABG pH 7.61 pH Units (7.32-7.45) H* 07/11/17 05:37 ABG pCO2 31 mmHg (35-45) L 07/11/17 05:37 ABG pO2 60 mmHg (85-104) L 07/11/17 05:37 ABG O2 Saturation 95 % (95-98) 07/11/17 05:37 PT/INR, D-dimer PT 12.1 Seconds (9.4-12.1) 07/14/17 06:47 Consult Discharge Plan - Plan Referrals: Valente Rosa MD [Primary Care Provider] -
[2017-07-14] MEDS: Insulin LISPRO 300 UNITS/3 ML VIAL SQ SCH ×4 (08:26→23:30)
[2017-07-14] MEDS: levoFLOXacin 750 MG TABLET PO SCH (08:29)
[2017-07-14] MEDS: Azelastine 0.1% Nasal Spray 30 ML BOTTLE NS SCH ×2 (08:29→23:10)
[2017-07-14] MEDS: predniSONE 20 MG TABLET PO SCH (08:29)
[2017-07-14] MEDS: Aspirin Enteric Coated 81 MG Tablet PO SCH (08:30)
[2017-07-14] MEDS: *HR* Amiodarone 200 MG TABLET PO SCH (08:30)
[2017-07-14] MEDS: Megestrol Acetate 400 MG/10 ML UDC PO SCH (08:30)
[2017-07-14] MEDS: Furosemide 40 MG TABLET PO SCH (08:30)
--- NOTE | 2017-07-14 08:55 | Discharge Summary ---
Orders not resulted at time of discharge: Pending orders 07/15/17 04:00 PT/INR [Prothrombin Time INR] [COAG] AM 0400 07/16/17 04:00 PT/INR [Prothrombin Time INR] [COAG] AM 0400 07/17/17 04:00 PT/INR [Prothrombin Time INR] [COAG] AM 0400 07/18/17 04:00 PT/INR [Prothrombin Time INR] [COAG] AM 0400 Date of Encounter: 07/14/17 Time of Encounter: 08:54 - Discharge Diagnosis (1) HCAP (healthcare-associated pneumonia) Priority: Primary Status: Acute Assessment and Plan: Continue Levaquin (Day 5). Blood Cultures show no growth to date. Discontinued Zyvox, Merrem, and Vancomycin. Leukocytosis resolved. Continue steroids and bronchodilators. Oxygen supplementation. Continue BiPAP prn. Monitor closely. (2) Sepsis Priority: Primary Status: Resolved Assessment and Plan: Sepsis from healthcare associated pneumonia, sacral decubitus ulcer. Closely monitor. Qualifiers: Sepsis type: sepsis due to unspecified organism Qualified Code(s): A41.9 - Sepsis, unspecified organism (3) Sacral decubitus ulcer, stage II Priority: Secondary Status: Acute Assessment and Plan: Continue border foam dressings, turn patient q2h Continue antibiotics. PT/OT consulted (4) Respiratory failure Priority: Primary Status: Acute Assessment and Plan: Multifactorial resp failure due to healthcare associated pneumonia, acute COPD exacerbation, CHF secondary to probably valvular heart disease, and underlying lung cancer. Qualifiers: Chronicity: acute on chronic Respiratory failure complication: hypoxia Qualified Code(s): J96.21 - Acute and chronic respiratory failure with hypoxia (5) COPD exacerbation Priority: Secondary Status: Acute Assessment and Plan: Stop Solumedrol, continue Prednisone 40mg PO daily Continue bronchodliators, antibiotics (6) Congestive heart failure Priority: Secondary Status: Acute Assessment and Plan: Acute on chronic CHF likely due to probably valvular heart disease as well as diastolic CHF. Echo 06/23/17 revealed EF 65-70%, severe aortic and mitral stenosis, and pulmonary HTN Diuresis as blood pressures tolerates. Lasix IV. She is not on a beta elias, would not give due to low blood pressures. Monitor. Patient has severe probably valvular heart disease and is unlikely a candidate for TAVR due to her comorbidities. Discussed the case with the patient's son, apparently she was offered a TAVR in the past, but decided to hold off due to her cancer diagnosis. Qualifiers: Heart failure type: unspecified Heart failure chronicity: acute on chronic Qualified Code(s): I50.9 - Heart failure, unspecified (7) Lung cancer Priority: Secondary Status: Chronic Assessment and Plan: Status post chemotherapy. No active chemotherapy at this time. Patient supposed to follow with oncologist soon to discuss the status of cancer and deciding further plan Last CAT scan of chest showed what appeared to be an increasing left apical mass , as well as lymphadenopathy. Pulmonology following Qualifiers: Laterality: right Lung location: unspecified part of lung Qualified Code( s): C34.91 - Malignant neoplasm of unspecified part of right bronchus or lung (8) Elevated troponin Priority: Secondary Status: Acute Assessment and Plan: History of CAD. Chronic elevation of troponin. Patient is already on Lovenox Serial troponins adynamic. Suspect demand ischemia. Continue to monitor. (9) A-fib Priority: Secondary Status: Chronic Assessment and Plan: A-fib without RVR. Continue home medicine. Will consult cardiology if needed Heart rate controlled. Given the fact that patient is on Lovenox, and my concerns for potential supratherapeutic INR (malnourished and on Levaquin), we will continue Lovenox for now and hold Coumadin. Continue to monitor. Qualifiers: Atrial fibrillation type: chronic Qualified Code(s): I48.2 - Chronic atrial fibrillation (10) Altered mental status Priority: Secondary Status: Resolved Assessment and Plan: Suspect her altered mental status was primarily metabolic in nature, due to sepsis, medical co-morbidities, and hypoxia. No neurological deficit. Mental status is improved. CT head was negative for acute process, mass, or bleed Qualifiers: Altered mental status type: disorientation Qualified Code(s): R41.0 - Disorientation, unspecified (11) Severe protein-calorie malnutrition Priority: Secondary Status: Acute Assessment and Plan: Loss of subcuticular fat, temporal wasting, loss of muscle mass, BMI 19.1 Resume home Megace (12) DM2 (diabetes mellitus, type 2) Priority: Secondary Status: Chronic Assessment and Plan: BG elevated likely due to steroids. Continue SSI and long-acting insulin, caution given the fact that patient is not eating well. 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 Patient was transferred to ICU on Insulin drip 07/10/17 Qualifiers: Diabetes mellitus type: type 2 Diabetes mellitus complication detail: without coma Qualified Code(s): E11.10 - Type 2 diabetes mellitus with ketoacidosis without coma (14) Hypokalemia Priority: Secondary Status: Resolved Assessment and Plan: Resolved, Continue to monitor (15) Hypomagnesemia Priority: Secondary Status: Resolved Assessment and Plan: Resolved Continue to monitor (16) Hypophosphatemia Priority: Secondary Status: Resolved Assessment and Plan: Resolved Continue to monitor (17) Diarrhea Priority: Secondary Status: Acute Assessment and Plan: Patient reports abd pain. UA negative CT abd form 06/21/17 revealed decreased rectosigmoid wall thickening/edema and perirectal inflammation and fluid. Acute abd series shows no significant findings in the abdomen. The bowel gas pattern is unremarkable. Repeat CT abd/plv with contrast revealed large rectal stool volume suggestive of fecal impaction. Questionable associated stercoral proctitis. Given Lactulose, 1L tap wter enemas C. diff test was ordered due to loose stools x3 overnight. Contact precautions Qualifiers: Diarrhea type: unspecified type Qualified Code(s): R19.7 - Diarrhea, unspecified (18) DVT prophylaxis Priority: Secondary Status: Acute Assessment and Plan: Continue Lovenox. Hospital course: Ms. Baird is a 71 year old female - Time Spent with Patient Total time spent providing and/or coordinating discharge services: - Discharge Medications Home Medications: Albuterol Neb [Proventil Neb] 2.5 mg IH Q6H PRN 04/30/15 [History] Atorvastatin [Lipitor] 10 mg PO HS 04/30/15 [History] Loratadine [Claritin] 10 mg PO DAILY 04/30/15 [History] Meclizine [Antivert] 25 mg PO BID 04/30/15 [History] Montelukast [Singulair] 10 mg PO DAILY 04/30/15 [History] Omeprazole [PriLOSEC] 20 mg PO BID 04/30/15 [History] Potassium Chloride [K-Tab ER] 20 meq PO DAILY 04/30/15 [History] Roflumilast [Daliresp] 500 mcg PO DAILY 04/30/15 [History] Furosemide [Lasix] 20 mg PO DAILY 09/15/15 [History] Alendronate Sodium [Fosamax] 70 mg PO WE 10/27/16 [History] Calcium Carbonate/Vitamin D3 [Calcium 600-Vit D3 400 Tablet] 1 each PO BID 11/17 [History] Umeclidinium Brm/Vilanterol Tr [Anoro Ellipta 62.5-25 Mcg INH] 1 puff IH DAILY 11/17/16 [History] Venlafaxine XR (24 HR) [Effexor XR] 75 mg PO DAILY 01/10/17 [History] Beclomethasone Diprop 40mcg [QVAR 40 mcg] 1 puff IH BID 02/21/17 [History] Nitroglycerin [Nitrostat] 0.4 mg SL PRN PRN 02/21/17 [History] Azelastine 0.1% Nasal [place] [Astelin] 2 spray NS BID 03/10/17 [History] Aspirin Enteric Coated [Aspirin EC] 81 mg PO DAILY tablet. 03/29/17 [Rx] Amiodarone [Cordarone] 200 mg PO DAILY 04/20/17 [History] Insulin Glargine,Hum.rec.anlog [Basaglar Kwikpen U-100] 10 unit SQ DAILY [History] Sennosides/Docusate Sodium [Senna-Docusate Sodium Tablet] 1 each PO BID PRN 12/06 [History] Warfarin [Coumadin] 3 mg PO 1800 04/29/17 [History] Insulin LISPRO [Humalog] 0 unit SQ AD PRN 05/23/17 [History] Ondansetron HCl 4 mg PO Q8H PRN #60 tablet 05/23/17 [Rx] Prochlorperazine Maleate [Compazine] 10 mg PO Q6HR PRN #90 tablet 05/23/17 [Rx] Megestrol Acetate [Megace] 400 mg PO DAILY 06/14/17 [History] Bisacodyl [Dulcolax] 10 mg RC DAILY PRN supp.rect 06/27/17 [Rx] Docusate [Colace] 100 mg PO BID capsule 06/27/17 [Rx] Enoxaparin [Lovenox] 50 mg SQ Q12HCO syringe 06/27/17 [Rx] HYDROcodone/Acet 10/325 mg [[place] 10-325 mg] 1 tab PO Q6HR PRN 5 Days #10 tablet 06/27/17 [Rx] Allergies/Adverse Reactions: 3 Allergy/AdvReac Type Severity Reaction Status Date / Time codeine Allergy Hives Verified 06/14/17 08:30 latex Allergy Hives Verified 06/14/17 08:30 Penicillins Allergy Hives Verified 06/14/17 08:30 propoxyphene [From Darvon] Allergy Hives Verified 06/14/17 08:30 shellfish derived Allergy Hives Verified 06/14/17 08:30 Date of admission: 07/08/17 20:21 Primary care physician: Valente Rosa MD Consults: 07/08/17 20:42 Consult to Pulmonology [CONS] Stat Consulting Provider: [facility] [place] Reason for Consult: Acute respiratory failure, pulmonary edema Call Completed: Yes 07/08/17 21:51 Consult to Nutrition [CONS] Routine Comment: Consulting Provider: NUTRITION Reason for Dietary Consult: MST Score 07/10/17 18:21 Consult to Critical Care [CONS] Routine Consulting Provider: [facility] [place] Reason for Consult: DKA, sepsis, HAP Call Completed: No 07/12/17 08:48 Consult to Intelligence Chief [CONS] Routine Reason for SW Consult: Patient from [facility]; step-down from ICU 07/12/17 10:05 Consult to Nurse Navigator [CONS] Routine Comment: Acute diasolic CHF 07/12/17 14:15 Consult to Occupational Therapy [CONS] Routine Comment: Evaluate, develop and implement POC Reason for Consult: Sacral ulcer, mobility Does patient have active BEDREST order?: No Is patient medically & hemodynamically stable?: Yes Patient assessed for mobility or mobilized this visit?: No Consult to Physical Therapy [CONS] Routine Comment: Evaluate, develop and implement POC Reason for Consult: Sacral ulcer, mobility Does patient have active BEDREST order?: No Is patient medically & hemodynamically stable?: Yes Patient assessed for mobility or mobilized this visit?: No - Constitutional Vitals: Temp Pulse Resp BP Pulse Ox 98.7 F 89 18 104/55 96 07/14/17 06:42 07/14/17 06:42 07/14/17 07:29 07/14/17 06:42 07/14/17 07:29 General appearance: Present: cachectic, cooperative, mild distress, A&O X 3, pleasant, answers questions appropriately - Patient Status Disposition: Transfer SNF Condition: Fair Functional capacity at discharge: bed bound Overall status at discharge: patient is progressing back to baseline - Discharge Instructions Follow Up With: Valente Rosa MD [Primary Care Provider] - - Diet and Activity Activity: as per physical therapy, increase activity as tolerated Diet: diabetic diet (Mechanical soft, Ensure HP BID)
--- NOTE | 2017-07-14 09:06 | Physician Discharge Referral ---
ExtendedCare Referral Info Transfer To: SNF Provider in Charge: Dr. Weiss Provider in Charge after Transfer: PCP Institutional Level of Care: Skilled - Diagnosis (1) HCAP (healthcare-associated pneumonia) Priority: Primary Status: Acute (2) Sepsis Priority: Primary Status: Resolved (3) Sacral decubitus ulcer, stage II Priority: Primary Status: Acute (4) Respiratory failure Priority: Primary Status: Acute (5) COPD exacerbation Priority: Primary Status: Acute (6) Congestive heart failure Priority: Primary Status: Acute (7) Lung cancer Priority: Primary Status: Chronic (8) Elevated troponin Priority: Secondary Status: Acute (9) A-fib Priority: Secondary Status: Chronic (10) Altered mental status Priority: Secondary Status: Resolved (11) Severe protein-calorie malnutrition Priority: Secondary Status: Acute (12) DM2 (diabetes mellitus, type 2) Priority: Secondary Status: Chronic (13) DKA (diabetic ketoacidoses) Priority: Secondary Status: Resolved (14) Hypokalemia Priority: Secondary Status: Resolved (15) Hypomagnesemia Priority: Secondary Status: Resolved (16) Hypophosphatemia Priority: Secondary Status: Resolved (17) Diarrhea Priority: Secondary Status: Acute (18) DVT prophylaxis Priority: Secondary Status: Acute Prognosis: Fair Aware of Diagnosis: Patient Aware of Prognosis: Patient - Transfer Medications Prescriptions: Aquaphor 1 appl TP Q4HR PRN #1 tube PRN Reason: Dry Skin Furosemide [Lasix] 40 mg PO DAILY #60 tablet levoFLOXacin [Levaquin] 750 mg PO DAILY #1 tablet Home Medications: Albuterol Neb [Proventil Neb] 2.5 mg IH Q6H PRN 04/30/15 [History] Atorvastatin [Lipitor] 10 mg PO HS 04/30/15 [History] Loratadine [Claritin] 10 mg PO DAILY 04/30/15 [History] Meclizine [Antivert] 25 mg PO BID 04/30/15 [History] Montelukast [Singulair] 10 mg PO DAILY 04/30/15 [History] Omeprazole [PriLOSEC] 20 mg PO BID 04/30/15 [History] Potassium Chloride [K-Tab ER] 20 meq PO DAILY 04/30/15 [History] Roflumilast [Daliresp] 500 mcg PO DAILY 04/30/15 [History] Alendronate Sodium [Fosamax] 70 mg PO WE 10/27/16 [History] Calcium Carbonate/Vitamin D3 [Calcium 600-Vit D3 400 Tablet] 1 each PO BID 11/17 [History] Umeclidinium Brm/Vilanterol Tr [Anoro Ellipta 62.5-25 Mcg INH] 1 puff IH DAILY 11/17/16 [History] Venlafaxine XR (24 HR) [Effexor XR] 75 mg PO DAILY 01/10/17 [History] Beclomethasone Diprop 40mcg [QVAR 40 mcg] 1 puff IH BID 02/21/17 [History] Nitroglycerin [Nitrostat] 0.4 mg SL PRN PRN 02/21/17 [History] Azelastine 0.1% Nasal [place] [Astelin] 2 spray NS BID 03/10/17 [History] Aspirin Enteric Coated [Aspirin EC] 81 mg PO DAILY tablet. 03/29/17 [Rx] Amiodarone [Cordarone] 200 mg PO DAILY 04/20/17 [History] Insulin Glargine,Hum.rec.anlog [Basaglar Kwikpen U-100] 10 unit SQ DAILY [History] Sennosides/Docusate Sodium [Senna-Docusate Sodium Tablet] 1 each PO BID PRN 12/06 [History] Warfarin [Coumadin] 3 mg PO 1800 04/29/17 [History] Insulin LISPRO [Humalog] 0 unit SQ AD PRN 05/23/17 [History] Ondansetron HCl 4 mg PO Q8H PRN #60 tablet 05/23/17 [Rx] Prochlorperazine Maleate [Compazine] 10 mg PO Q6HR PRN #90 tablet 05/23/17 [Rx] Megestrol Acetate [Megace] 400 mg PO DAILY 06/14/17 [History] Bisacodyl [Dulcolax] 10 mg RC DAILY PRN supp.rect 06/27/17 [Rx] Docusate [Colace] 100 mg PO BID capsule 06/27/17 [Rx] Enoxaparin [Lovenox] 50 mg SQ Q12HCO syringe 06/27/17 [Rx] HYDROcodone/Acet 10/325 mg [[place] 10-325 mg] 1 tab PO Q6HR PRN 5 Days #10 tablet 06/27/17 [Rx] Aquaphor 1 appl TP Q4HR PRN #1 tube 07/14/17 [Rx] Furosemide [Lasix] 40 mg PO DAILY #60 tablet 07/14/17 [Rx] levoFLOXacin [Levaquin] 750 mg PO DAILY #1 tablet 07/14/17 [Rx] Allergies/Adverse Reactions: 3 Allergy/AdvReac Type Severity Reaction Status Date / Time codeine Allergy Hives Verified 06/14/17 08:30 latex Allergy Hives Verified 06/14/17 08:30 Penicillins Allergy Hives Verified 06/14/17 08:30 propoxyphene [From [place]] Allergy Hives Verified 06/14/17 08:30 shellfish derived Allergy Hives Verified 06/14/17 08:30 - Respiratory Orders Smoking Cessation: Smoking cessation has been advised. For more information, call the [place] Tobacco Quit Line at 8-883-VMBB-NOW. - Ancillary Orders May use pressure relief devices daily prn - Advance Directives Code Status: DNR-Comfort Care - Mobility Orders Chair - Rehabiliation Orders Rehab Potential: Fair Rehab Orders: ROM Exercises, Evaluation for Physical Therapy, Evaluation for Occupational Therapy - Treatments Skin tear care topically daily PRN per policy, May check for fecal impaction rectally daily PRN, Fleet enema rectally every other day PRN cleansing purposes - Diet Orders Mechanical Soft (DM) House Supplement per Dietary: Ensure HP BID CERTIFICATION: I certify that the transfer of the above named patient to an Extended Care Facility is necessary for the continuing treatment of the diagnosis listed. The above information is true and accurate reflection of patient's current condition. Confidential - Redisclosure prohibited without a patient's written consent.
[2017-07-14] MEDS ORDERED: Lactulose 200 GM, Sodium Chloride IRRigation 700 ML RC ONE (14:24)
--- NOTE | 2017-07-14 14:45 | Internal Med Progress Note ---
<Joseph Hernández - Last Filed: 07/14/17 14:42> Date of Encounter: 07/14/17 Time of Encounter: 09:00 - Assessment and plan (1) Constipation Current Visit: Yes Status: Acute Assessment and plan: Patient reports abd pain. UA negative Repeat CT abd/plv revealed findings of persistent constipation, obstipation, with the prominent fecal ball noted at the rectal vault previously no longer present. Continue Lactulose, 1L tap water enemas BID Qualifiers: Constipation type: slow transit constipation Qualified Code(s): K59.01 - Slow transit constipation (2) HCAP (healthcare-associated pneumonia) Current Visit: Yes Status: Acute Assessment and plan: Continue Levaquin (Day 6 of 7). Blood Cultures show no growth to date. Discontinued Zyvox, Merrem, and Vancomycin. Leukocytosis resolved. Continue steroids and bronchodilators. Oxygen supplementation. Continue BiPAP prn. Monitor closely. (3) Sepsis Current Visit: Yes Status: Resolved Assessment and plan: Sepsis from healthcare associated pneumonia, sacral decubitus ulcer. Closely monitor. Qualifiers: Sepsis type: sepsis due to unspecified organism Qualified Code(s): A41.9 - Sepsis, unspecified organism (4) Sacral decubitus ulcer, stage II Current Visit: Yes Status: Acute Assessment and plan: Continue border foam dressings, turn patient q2h Continue antibiotics. PT/OT consulted (5) Respiratory failure Current Visit: Yes Status: Acute Assessment and plan: Multifactorial resp failure due to healthcare associated pneumonia, acute COPD exacerbation, CHF secondary to probably valvular heart disease, and underlying lung cancer. Qualifiers: Chronicity: acute on chronic Respiratory failure complication: hypoxia Qualified Code(s): J96.21 - Acute and chronic respiratory failure with hypoxia (6) COPD exacerbation Current Visit: Yes Status: Acute Assessment and plan: Stop Solumedrol, continue Prednisone 40mg PO daily Continue bronchodliators, antibiotics (7) Congestive heart failure Current Visit: Yes Status: Acute Assessment and plan: Acute on chronic CHF likely due to probably valvular heart disease as well as diastolic CHF. Echo 06/23/17 revealed EF 65-70%, severe aortic and mitral stenosis, and pulmonary HTN Diuresis as blood pressures tolerates. Continue Lasix PO. She is not on a beta elias, would not give due to low blood pressures. Monitor. Patient has severe probably valvular heart disease and is unlikely a candidate for TAVR due to her comorbidities. Discussed the case with the patient's son, apparently she was offered a TAVR in the past, but decided to hold off due to her cancer diagnosis. Qualifiers: Heart failure type: unspecified Heart failure chronicity: acute on chronic Qualified Code(s): I50.9 - Heart failure, unspecified (8) Lung cancer Current Visit: No Status: Chronic Assessment and plan: Status post chemotherapy. No active chemotherapy at this time. Patient supposed to follow with oncologist soon to discuss the status of cancer and deciding further plan Last CAT scan of chest showed what appeared to be an increasing left apical mass , as well as lymphadenopathy. Pulmonology follow up outpatient Qualifiers: Laterality: right Lung location: unspecified part of lung Qualified Code( s): C34.91 - Malignant neoplasm of unspecified part of right bronchus or lung (9) Elevated troponin Current Visit: Yes Status: Acute Assessment and plan: History of CAD. Chronic elevation of troponin. Serial troponins adynamic. Suspect demand ischemia. Continue to monitor. (10) A-fib Current Visit: No Status: Chronic Assessment and plan: A-fib without RVR. Continue home medicine. Will consult cardiology if needed Heart rate controlled. Resume Coumadin. Continue to monitor. Qualifiers: Atrial fibrillation type: chronic Qualified Code(s): I48.2 - Chronic atrial fibrillation (11) Altered mental status Current Visit: Yes Status: Resolved Assessment and plan: Suspect her altered mental status was primarily metabolic in nature, due to sepsis, medical co-morbidities, and hypoxia. No neurological deficit. Mental status is improved. CT head was negative for acute process, mass, or bleed Qualifiers: Altered mental status type: disorientation Qualified Code(s): R41.0 - Disorientation, unspecified (12) Severe protein-calorie malnutrition Current Visit: Yes Status: Acute Assessment and plan: Loss of subcuticular fat, temporal wasting, loss of muscle mass, BMI 19.1 Resume home Megace (13) DM2 (diabetes mellitus, type 2) Current Visit: No Status: Chronic Assessment and plan: BG elevated likely due to steroids. Continue SSI and long-acting insulin, caution given the fact that patient is not eating well. Qualifiers: Diabetes mellitus fdc insulin use: with parts counterman use Diabetes mellitus complication status: with hyperglycemia Qualified Code(s): E11.65 - Type 2 diabetes mellitus with hyperglycemia; Z79.4 - computer terminal operator (current) use of insulin; Z79.4 - computer terminal operator (current) use of insulin; Z79.4 - retirement (current ) use of insulin; Z79.4 - retirement (current) use of insulin (14) DKA (diabetic ketoacidoses) Current Visit: Yes Status: Resolved Assessment and plan: Resolved. Patient was transferred to ICU on Insulin drip 07/10/17 Qualifiers: Diabetes mellitus type: type 2 Diabetes mellitus complication detail: without coma Qualified Code(s): E11.10 - Type 2 diabetes mellitus with ketoacidosis without coma (15) Hypokalemia Current Visit: Yes Status: Resolved Assessment and plan: Resolved, Continue to monitor (16) Hypomagnesemia Current Visit: Yes Status: Resolved Assessment and plan: Resolved Continue to monitor (17) DVT prophylaxis Current Visit: No Status: Acute Assessment and plan: Continue Coumadin (18) Hypophosphatemia Current Visit: Yes Status: Resolved Assessment and plan: Resolved Continue to monitor - Time Spent With Patient Total time spent is greater than 50% in coordination of care (as documented) at patient's floor/unit and/or counseling patient: - Subjective Interval history: Patient seen and examined. Patient reports pain in sacral region due to immobility and abdominal fullness. CT revealed large fecal burden. Lactulose and enemas were ordered. Her HR is in the 100s and BG levels stable. Continue antibiotics and PT/OT. - Constitutional Vitals: Temp Pulse Resp BP Pulse Ox 97.5 F L 104 16 96/64 100 07/14/17 10:36 07/14/17 10:36 07/14/17 11:13 07/14/17 10:36 07/14/17 11:13 General appearance: Present: cachectic, cooperative, mild distress, A&O X 3, pleasant, answers questions appropriately - Head Head exam: Present: atraumatic, normocephalic - Eye Eye exam: Present: PERRL, conjuntiva pink, sclera anicteric Pupils: Present: PERRL - ENT ENT exam: Present: mucous membranes dry, normal oropharynx - Neck Neck exam general surgery: Present: supple, trachea midline. Absent: lymphadenopathy - Respiratory Respiratory exam: Present: decreased breath sounds (bibasilar). Absent: accessory muscle use, rales, respiratory distress, rhonchi, wheezes Additional comments: 2L O2 via NC - Cardiovascular Cardiovascular exam: Present: irregular rhythm, +S1, +S2. Absent: diastolic murmur, gallop, RRR, rubs, systolic murmur - GI/Abdominal GI/Abdominal exam: Present: normal bowel sounds, soft, tenderness (mild, diffuse ), no peritoneal signs. Absent: distended, guarding - Extremities Exam Extremities exam: Present: warm, radial pulses palpable and symmetrical. Absent : calf tenderness, cyanotic, pedal edema, tenderness - Back Exam Back exam: Absent: normal inspection (stage 2 decubitus ulcer), tenderness - Neurological Exam Neurological exam: Present: CN II-XII intact, oriented X3, no focal deficits. Absent: pronater drift, facial droop, speech deficit - Psychiatric Psychiatric exam: Present: normal affect, normal mood - Skin Skin exam: Present: dry, erythema (stage 2 decubitus ulcer), intact Internal Medicine: Result - Labs CBC & Chem 7: 07/14/17 06:47 07/14/17 06:47 Labs: Short CBC 07/14/17 Range/Units 06:47 WBC 6.5 (4.3-11.1) K/mcL Hgb 10.4 L (11.5-15.4) g/dL Hct 31.4 L (35.3-44.9) % Plt Count 364 (140-400) K/mcL BMP 07/14/17 06:47 Sodium 134 L Potassium 3.6 Chloride 99 Carbon Dioxide 28 BUN 17 Creatinine 0.61 Glucose 236 H Calcium 8.8 - ABG Interpretation ABG results: ABG ABG pH 7.61 pH Units (7.32-7.45) H* 07/11/17 05:37 ABG pCO2 31 mmHg (35-45) L 07/11/17 05:37 ABG pO2 60 mmHg (85-104) L 07/11/17 05:37 ABG O2 Saturation 95 % (95-98) 07/11/17 05:37 PT/INR, D-dimer PT 12.1 Seconds (9.4-12.1) 07/14/17 06:47 - Pulse Oximetry Interpretation Digit-Finger Pulse Oximetry Readin (On 2L O2 via NC) - Impressions Impressions Abdomen/Pelvis CT 07/14/17 13:30 IMPRESSION: 1. Findings of persistent constipation, obstipation, with the prominent fecal ball noted at the rectal vault previously no longer present. 2. Hyperattenuation diffuse Adeel throughout the liver in keeping with hemochromatosis. Bryan's disease is another less common etiology for this appearance. 3. Calcific atherosclerotic disease aorta. 4. Mild anasarca. 5. Faint subpleural nodularity in the lower lungs is nonspecific. This could be on a postinfectious/inflammatory basis. D/ / Vikram Ohara / Vikram Ohara Interpreting Provider: Vikram Ohara Consult Discharge Plan - Plan Referrals: Valente Rosa MD [Primary Care Provider] - Prescriptions: Aquaphor 1 appl TP Q4HR PRN #1 tube PRN Reason: Dry Skin Furosemide [Lasix] 40 mg PO DAILY #60 tablet levoFLOXacin [Levaquin] 750 mg PO DAILY #1 tablet <Rolando Butler H - Last Filed: 07/14/17 16:23> Date of Encounter: 07/14/17 - Assessment and plan (1) DKA (diabetic ketoacidoses) Current Visit: Yes Status: Resolved Qualifiers: Diabetes mellitus type: type 2 Diabetes mellitus complication detail: without coma Qualified Code(s): E11.10 - Type 2 diabetes mellitus with ketoacidosis without coma (2) Lung cancer Current Visit: No Status: Chronic Qualifiers: Laterality: right Lung location: unspecified part of lung Qualified Code( s): C34.91 - Malignant neoplasm of unspecified part of right bronchus or lung (3) DVT prophylaxis Current Visit: No Status: Acute (4) DM2 (diabetes mellitus, type 2) Current Visit: No Status: Chronic Qualifiers: Diabetes mellitus parts counterman insulin use: with parts counterman use Diabetes mellitus complication status: with hyperglycemia Qualified Code(s): E11.65 - Type 2 diabetes mellitus with hyperglycemia; Z79.4 - computer terminal operator (current) use of insulin; Z79.4 - computer terminal operator (current) use of insulin; Z79.4 - computer terminal operator (current ) use of insulin; Z79.4 - computer terminal operator (current) use of insulin (5) Hypokalemia Current Visit: Yes Status: Resolved (6) Hypomagnesemia Current Visit: Yes Status: Resolved (7) HCAP (healthcare-associated pneumonia) Current Visit: Yes Status: Acute (8) A-fib Current Visit: No Status: Chronic Qualifiers: Atrial fibrillation type: chronic Qualified Code(s): I48.2 - Chronic atrial fibrillation (9) Sepsis Current Visit: Yes Status: Resolved Qualifiers: Sepsis type: sepsis due to unspecified organism Qualified Code(s): A41.9 - Sepsis, unspecified organism (10) Altered mental status Current Visit: Yes Status: Resolved Qualifiers: Altered mental status type: disorientation Qualified Code(s): R41.0 - Disorientation, unspecified (11) COPD exacerbation Current Visit: Yes Status: Acute (12) Elevated troponin Current Visit: Yes Status: Acute (13) Respiratory failure Current Visit: Yes Status: Acute Qualifiers: Chronicity: acute on chronic Respiratory failure complication: hypoxia Qualified Code(s): J96.21 - Acute and chronic respiratory failure with hypoxia (14) Constipation Current Visit: Yes Status: Acute Qualifiers: Constipation type: slow transit constipation Qualified Code(s): K59.01 - Slow transit constipation (15) Congestive heart failure Current Visit: Yes Status: Acute Qualifiers: Heart failure type: unspecified Heart failure chronicity: acute on chronic Qualified Code(s): I50.9 - Heart failure, unspecified (16) Sacral decubitus ulcer, stage II Current Visit: Yes Status: Acute (17) Severe protein-calorie malnutrition Current Visit: Yes Status: Acute (18) Hypophosphatemia Current Visit: Yes Status: Resolved - Time Spent With Patient Total time spent is greater than 50% in coordination of care (as documented) at patient's floor/unit and/or counseling patient: - Constitutional Vitals: Temp Pulse Resp BP Pulse Ox 97.7 F 102 16 100/56 99 07/14/17 14:56 07/14/17 14:56 07/14/17 15:45 07/14/17 14:56 07/14/17 15:45 Internal Medicine: Result - Labs CBC & Chem 7: 07/14/17 06:47 07/14/17 06:47 Labs: Short CBC 07/14/17 Range/Units 06:47 WBC 6.5 (4.3-11.1) K/mcL Hgb 10.4 L (11.5-15.4) g/dL Hct 31.4 L (35.3-44.9) % Plt Count 364 (140-400) K/mcL BMP 07/14/17 06:47 Sodium 134 L Potassium 3.6 Chloride 99 Carbon Dioxide 28 BUN 17 Creatinine 0.61 Glucose 236 H Calcium 8.8 - ABG Interpretation ABG results: ABG ABG pH 7.61 pH Units (7.32-7.45) H* 07/11/17 05:37 ABG pCO2 31 mmHg (35-45) L 07/11/17 05:37 ABG pO2 60 mmHg (85-104) L 07/11/17 05:37 ABG O2 Saturation 95 % (95-98) 07/11/17 05:37 PT/INR, D-dimer PT 12.1 Seconds (9.4-12.1) 07/14/17 06:47 - Impressions Impressions Abdomen/Pelvis CT 07/14/17 13:30 IMPRESSION: 1. Findings of persistent constipation, obstipation, with the prominent fecal ball noted at the rectal vault previously no longer present. 2. Hyperattenuation diffuse Adeel throughout the liver in keeping with hemochromatosis. Bryan's disease is another less common etiology for this appearance. 3. Calcific atherosclerotic disease aorta. 4. Mild anasarca. 5. Faint subpleural nodularity in the lower lungs is nonspecific. This could be on a postinfectious/inflammatory basis. D/ / Vikram Ohara / Vikram Ohara Interpreting Provider: Vikram Ohara - Attending Attestation Acute hypoxic respiratory failure due to acute COPD exacerbation from sepsis 2ry to HCAP present upon admission improving on levaquin day 6 taper prednisone acute diastolic CHF exacerbation lasix CT showed severe constipation obstipation Tap water enemas BID, lactulose daily orally Urinary retention: Erazo catheter Discharge cancelled I examined this patient and my medical decision-making was reviewed with the Resident Physician. I agree with the documented findings, disposition and treatment plan as described except to the extent set forth below.
[2017-07-14] MEDS: Lactulose Oral Soln 20 GM/30 ML UDC PO SCH ×2 (16:43→23:10)
[2017-07-14] MEDS ORDERED: *HR* Warfarin 5 MG TABLET PO ONE (18:00)
[2017-07-14] MEDS: Insulin DETEMIR 100 UNIT/ML X5UNITS SQ SCH (23:10)
[2017-07-15] MEDS: Ipratropium/Albuterol Neb 3 ML IH SCH ×6 (00:25→20:15)
[2017-07-15] MEDS: Furosemide 20 MG/2 ML VIAL IVP ONE ×2 (02:05→04:40)
[2017-07-15] MEDS: *HR* Enoxaparin 40 MG/0.4 ML SYRINGE SQ SCH (04:39)
[2017-07-15 05:18] LABS: Hematocrit 26.8 % (35.3-44.9); Hemoglobin 9.1 g/dL (11.5-15.4); Mean Corpuscular Hemoglobin 31.1 pg (28.0-33.3); Mean Corpuscular Volume 91.5 fL (83.0-100.0); Mean Platelet Volume 9.8 fL (9.4-12.4); Platelet Count 333 K/mcL (140-400); Red Blood Count 2.93 M/mcL (3.82-4.97); Red Cell Distribution Width 18.7 % (11.5-14.5)
[2017-07-15 05:36] LABS: BUN/Creatinine Ratio 29 (6-26); Blood Urea Nitrogen 19 mg/dL (8-23); Calcium 8.3 mg/dL (8.6-10.3); Carbon Dioxide 26 mEq/L (23-29); Chloride 98 mEq/L (98-107); Glucose 274 mg/dL (70-105); Osmolality,Calculated 284 (280-300); Potassium 3.8 mEq/L (3.5-5.1); Sodium 131 mEq/L (136-145); eGFR For African Americans > 60 (> 60); eGFR For Non-African Americans > 60 (> 60)
[2017-07-15 06:43] LABS: INR 1.1; Prothrombin Time 12.4 Seconds (9.4-12.1)
[2017-07-15] MEDS: Lactulose Oral Soln 20 GM/30 ML UDC PO SCH ×2 (08:10→21:09)
[2017-07-15] MEDS: levoFLOXacin 750 MG TABLET PO SCH (08:11)
[2017-07-15] MEDS: *HR* Amiodarone 200 MG TABLET PO SCH (08:11)
[2017-07-15] MEDS: Furosemide 40 MG TABLET PO SCH (08:11)
[2017-07-15] MEDS: Aspirin Enteric Coated 81 MG Tablet PO SCH (08:11)
[2017-07-15] MEDS: predniSONE 20 MG TABLET PO SCH (08:11)
[2017-07-15] MEDS: Insulin LISPRO 300 UNITS/3 ML VIAL SQ SCH ×4 (08:13→21:51)
[2017-07-15] MEDS: Megestrol Acetate 400 MG/10 ML UDC PO SCH (08:13)
[2017-07-15] MEDS: Azelastine 0.1% Nasal Spray 30 ML BOTTLE NS SCH ×2 (08:13→21:15)
[2017-07-15] MEDS ORDERED: SODIUM CHLORIDE/NAHCO3/KCL/PEG 4,000 ML SOLN.RECON PO ONE (08:35)
--- NOTE | 2017-07-15 08:40 | Internal Med Progress Note ---
<Joseph Hernández - Last Filed: 07/15/17 08:35> Date of Encounter: 07/15/17 Time of Encounter: 08:35 - Assessment and plan (1) Constipation Current Visit: Yes Status: Acute Assessment and plan: Patient reports abd pain. UA negative Repeat CT abd/plv revealed findings of persistent constipation, obstipation, with the prominent fecal ball noted at the rectal vault previously no longer present. Continue Lactulose, 1L tap water enemas BID Will give Golytely today Qualifiers: Constipation type: slow transit constipation Qualified Code(s): K59.01 - Slow transit constipation (2) HCAP (healthcare-associated pneumonia) Current Visit: Yes Status: Acute Assessment and plan: Continue Levaquin (Day 7 of 7). Blood Cultures show no growth to date. Discontinued Zyvox, Merrem, and Vancomycin. Leukocytosis resolved. Taper steroids Continue bronchodilators. Oxygen supplementation. Monitor closely. (3) Sepsis Current Visit: Yes Status: Resolved Assessment and plan: Sepsis from healthcare associated pneumonia, sacral decubitus ulcer. Closely monitor. Qualifiers: Sepsis type: sepsis due to unspecified organism Qualified Code(s): A41.9 - Sepsis, unspecified organism (4) Sacral decubitus ulcer, stage II Current Visit: Yes Status: Acute Assessment and plan: Continue border foam dressings, turn patient q2h Continue antibiotics. PT/OT consulted (5) Respiratory failure Current Visit: Yes Status: Acute Assessment and plan: Multifactorial resp failure due to healthcare associated pneumonia, acute COPD exacerbation, CHF secondary to probably valvular heart disease, and underlying lung cancer. Qualifiers: Chronicity: acute on chronic Respiratory failure complication: hypoxia Qualified Code(s): J96.21 - Acute and chronic respiratory failure with hypoxia (6) COPD exacerbation Current Visit: Yes Status: Acute Assessment and plan: Stop Solumedrol, taper Prednisone 40mg PO daily Continue bronchodliators, antibiotics (7) Congestive heart failure Current Visit: Yes Status: Acute Assessment and plan: Acute on chronic CHF likely due to probably valvular heart disease as well as diastolic CHF. Echo 06/23/17 revealed EF 65-70%, severe aortic and mitral stenosis, and pulmonary HTN Diuresis as blood pressures tolerates. Continue Lasix. She is not on a beta elias, would not give due to low blood pressures. Monitor. Patient has severe probably valvular heart disease and is unlikely a candidate for TAVR due to her comorbidities. Discussed the case with the patient's son, apparently she was offered a TAVR in the past, but decided to hold off due to her cancer diagnosis. Qualifiers: Heart failure type: unspecified Heart failure chronicity: acute on chronic Qualified Code(s): I50.9 - Heart failure, unspecified (8) Lung cancer Current Visit: No Status: Chronic Assessment and plan: Status post chemotherapy. No active chemotherapy at this time. Patient supposed to follow with oncologist soon to discuss the status of cancer and deciding further plan Last CAT scan of chest showed what appeared to be an increasing left apical mass , as well as lymphadenopathy. Pulmonology follow up outpatient Qualifiers: Laterality: right Lung location: unspecified part of lung Qualified Code( s): C34.91 - Malignant neoplasm of unspecified part of right bronchus or lung (9) Elevated troponin Current Visit: Yes Status: Acute Assessment and plan: History of CAD. Chronic elevation of troponin. Serial troponins adynamic. Suspect demand ischemia. Continue to monitor. (10) A-fib Current Visit: No Status: Chronic Assessment and plan: A-fib without RVR. Continue home medicine. Heart rate controlled. Resume Coumadin. Continue to monitor. Qualifiers: Atrial fibrillation type: chronic Qualified Code(s): I48.2 - Chronic atrial fibrillation (11) Altered mental status Current Visit: Yes Status: Resolved Assessment and plan: Suspect her altered mental status was primarily metabolic in nature, due to sepsis, medical co-morbidities, and hypoxia. No neurological deficit. Mental status is improved. CT head was negative for acute process, mass, or bleed Qualifiers: Altered mental status type: disorientation Qualified Code(s): R41.0 - Disorientation, unspecified (12) Severe protein-calorie malnutrition Current Visit: Yes Status: Acute Assessment and plan: Loss of subcuticular fat, temporal wasting, loss of muscle mass, BMI 19.1 Resume home Megace (13) DM2 (diabetes mellitus, type 2) Current Visit: No Status: Chronic Assessment and plan: BG elevated likely due to steroids. Continue SSI and long-acting insulin, caution given the fact that patient is not eating well. Qualifiers: Diabetes mellitus chcf insulin use: with terminal operator use Diabetes mellitus complication status: with hyperglycemia Qualified Code(s): E11.65 - Type 2 diabetes mellitus with hyperglycemia; Z79.4 - assisted (current) use of insulin; Z79.4 - assisted (current) use of insulin; Z79.4 - assisted (current ) use of insulin; Z79.4 - assisted (current) use of insulin (14) DKA (diabetic ketoacidoses) Current Visit: Yes Status: Resolved Assessment and plan: Resolved. Patient was transferred to ICU on Insulin drip 07/10/17 Qualifiers: Diabetes mellitus type: type 2 Diabetes mellitus complication detail: without coma Qualified Code(s): E11.10 - Type 2 diabetes mellitus with ketoacidosis without coma (15) Hypokalemia Current Visit: Yes Status: Resolved Assessment and plan: Resolved, Continue to monitor (16) Hypomagnesemia Current Visit: Yes Status: Resolved Assessment and plan: Resolved Continue to monitor (17) Hypophosphatemia Current Visit: Yes Status: Resolved Assessment and plan: Resolved Continue to monitor (18) Acute urinary retention Current Visit: Yes Status: Acute Assessment and plan: Acute urinary retention Erazo cath in place - Time Spent With Patient Total time spent is greater than 50% in coordination of care (as documented) at patient's floor/unit and/or counseling patient: - Subjective Interval history: Patient seen and examined. Patient reports worsening pain in sacral region due to immobility and abdominal fullness. CT revealed large fecal burden. Lactulose and enemas were attempted with minimal relief. GoLytely ordered today. - Constitutional Vitals: Temp Pulse Resp BP Pulse Ox 97.6 F 95 16 99/64 99 07/15/17 08:00 07/15/17 08:00 07/15/17 08:00 07/15/17 08:00 07/15/17 08:00 General appearance: Present: cachectic, cooperative, mild distress, A&O X 3, pleasant, answers questions appropriately - Head Head exam: Present: atraumatic, normocephalic - Eye Eye exam: Present: PERRL, conjuntiva pink, sclera anicteric Pupils: Present: PERRL - ENT ENT exam: Present: mucous membranes dry, normal oropharynx - Neck Neck exam general surgery: Present: supple, trachea midline. Absent: lymphadenopathy - Respiratory Respiratory exam: Present: rales. Absent: accessory muscle use, CTAB, respiratory distress, rhonchi, wheezes - Cardiovascular Cardiovascular exam: Present: irregular rhythm, +S1, +S2. Absent: diastolic murmur, gallop, RRR, rubs, systolic murmur - GI/Abdominal GI/Abdominal exam: Present: normal bowel sounds, soft, tenderness (diffuse), no peritoneal signs. Absent: distended, guarding - Extremities Exam Extremities exam: Present: warm, radial pulses palpable and symmetrical. Absent : calf tenderness, cyanotic, pedal edema - Back Exam Back exam: Absent: normal inspection (stage 2 decubitus ulcer), tenderness - Neurological Exam Neurological exam: Present: CN II-XII intact, oriented X3, no focal deficits. Absent: pronater drift, facial droop, speech deficit - Skin Skin exam: Present: dry, erythema (stage 2 decubitus ulcer), intact, warm Internal Medicine: Result - Labs CBC & Chem 7: 07/15/17 04:00 07/15/17 04:00 Labs: Short CBC 07/15/17 Range/Units 04:00 WBC 8.8 (4.3-11.1) K/mcL Hgb 9.1 L (11.5-15.4) g/dL Hct 26.8 L (35.3-44.9) % Plt Count 333 (140-400) K/mcL BMP 07/15/17 04:00 Sodium 131 L Potassium 3.8 Chloride 98 Carbon Dioxide 26 BUN 19 Creatinine 0.66 Glucose 274 H Calcium 8.3 L - ABG Interpretation ABG results: ABG ABG pH 7.61 pH Units (7.32-7.45) H* 07/11/17 05:37 ABG pCO2 31 mmHg (35-45) L 07/11/17 05:37 ABG pO2 60 mmHg (85-104) L 07/11/17 05:37 ABG O2 Saturation 95 % (95-98) 07/11/17 05:37 PT/INR, D-dimer PT 12.4 Seconds (9.4-12.1) H 07/15/17 04:00 - Pulse Oximetry Interpretation Digit-Finger Pulse Oximetry Readin (2L O2 via NC) - Impressions Impressions Abdomen/Pelvis CT 07/14/17 13:30 IMPRESSION: 1. Findings of persistent constipation, obstipation, with the prominent fecal ball noted at the rectal vault previously no longer present. 2. Hyperattenuation diffuse Adeel throughout the liver in keeping with hemochromatosis. Bryan's disease is another less common etiology for this appearance. 3. Calcific atherosclerotic disease aorta. 4. Mild anasarca. 5. Faint subpleural nodularity in the lower lungs is nonspecific. This could be on a postinfectious/inflammatory basis. D/ / Vikram Ohara / Vikram Ohara Interpreting Provider: Vikram Ohara Consult Discharge Plan - Plan Referrals: Valente Rosa MD [Primary Care Provider] - Prescriptions: Aquaphor 1 appl TP Q4HR PRN #1 tube PRN Reason: Dry Skin Furosemide [Lasix] 40 mg PO DAILY #60 tablet levoFLOXacin [Levaquin] 750 mg PO DAILY #1 tablet <Rolando Butler H - Last Filed: 07/15/17 12:28> Date of Encounter: 07/15/17 - Assessment and plan (1) DKA (diabetic ketoacidoses) Current Visit: Yes Status: Resolved Qualifiers: Diabetes mellitus type: type 2 Diabetes mellitus complication detail: without coma Qualified Code(s): E11.10 - Type 2 diabetes mellitus with ketoacidosis without coma (2) Lung cancer Current Visit: No Status: Chronic Qualifiers: Laterality: right Lung location: unspecified part of lung Qualified Code( s): C34.91 - Malignant neoplasm of unspecified part of right bronchus or lung (3) DM2 (diabetes mellitus, type 2) Current Visit: No Status: Chronic Qualifiers: Diabetes mellitus chcf insulin use: with terminal operator use Diabetes mellitus complication status: with hyperglycemia Qualified Code(s): E11.65 - Type 2 diabetes mellitus with hyperglycemia; Z79.4 - intermediate manager (current) use of insulin; Z79.4 - assisted (current) use of insulin; Z79.4 - intermediate manager (current ) use of insulin; Z79.4 - assisted (current) use of insulin (4) Hypokalemia Current Visit: Yes Status: Resolved (5) Hypomagnesemia Current Visit: Yes Status: Resolved (6) HCAP (healthcare-associated pneumonia) Current Visit: Yes Status: Acute (7) A-fib Current Visit: No Status: Chronic Qualifiers: Atrial fibrillation type: chronic Qualified Code(s): I48.2 - Chronic atrial fibrillation (8) Sepsis Current Visit: Yes Status: Resolved Qualifiers: Sepsis type: sepsis due to unspecified organism Qualified Code(s): A41.9 - Sepsis, unspecified organism (9) Altered mental status Current Visit: Yes Status: Resolved Qualifiers: Altered mental status type: disorientation Qualified Code(s): R41.0 - Disorientation, unspecified (10) COPD exacerbation Current Visit: Yes Status: Acute (11) Elevated troponin Current Visit: Yes Status: Acute (12) Respiratory failure Current Visit: Yes Status: Acute Qualifiers: Chronicity: acute on chronic Respiratory failure complication: hypoxia Qualified Code(s): J96.21 - Acute and chronic respiratory failure with hypoxia (13) Constipation Current Visit: Yes Status: Acute Qualifiers: Constipation type: slow transit constipation Qualified Code(s): K59.01 - Slow transit constipation (14) Congestive heart failure Current Visit: Yes Status: Acute Qualifiers: Heart failure type: unspecified Heart failure chronicity: acute on chronic Qualified Code(s): I50.9 - Heart failure, unspecified (15) Sacral decubitus ulcer, stage II Current Visit: Yes Status: Acute (16) Severe protein-calorie malnutrition Current Visit: Yes Status: Acute (17) Hypophosphatemia Current Visit: Yes Status: Resolved (18) Acute urinary retention Current Visit: Yes Status: Acute - Time Spent With Patient Total time spent is greater than 50% in coordination of care (as documented) at patient's floor/unit and/or counseling patient: - Constitutional Vitals: Temp Pulse Resp BP Pulse Ox 98.7 F 89 16 94/42 99 07/15/17 11:22 07/15/17 11:22 07/15/17 12:11 07/15/17 11:22 07/15/17 12:11 Internal Medicine: Result - Labs CBC & Chem 7: 07/15/17 04:00 07/15/17 04:00 Labs: Short CBC 07/15/17 Range/Units 04:00 WBC 8.8 (4.3-11.1) K/mcL Hgb 9.1 L (11.5-15.4) g/dL Hct 26.8 L (35.3-44.9) % Plt Count 333 (140-400) K/mcL BMP 07/15/17 04:00 Sodium 131 L Potassium 3.8 Chloride 98 Carbon Dioxide 26 BUN 19 Creatinine 0.66 Glucose 274 H Calcium 8.3 L - ABG Interpretation ABG results: ABG ABG pH 7.61 pH Units (7.32-7.45) H* 07/11/17 05:37 ABG pCO2 31 mmHg (35-45) L 07/11/17 05:37 ABG pO2 60 mmHg (85-104) L 07/11/17 05:37 ABG O2 Saturation 95 % (95-98) 07/11/17 05:37 PT/INR, D-dimer PT 12.4 Seconds (9.4-12.1) H 07/15/17 04:00 - Impressions Impressions Abdomen/Pelvis CT 07/14/17 13:30 IMPRESSION: 1. Findings of persistent constipation, obstipation, with the prominent fecal ball noted at the rectal vault previously no longer present. 2. Hyperattenuation diffuse Adeel throughout the liver in keeping with hemochromatosis. Bryan's disease is another less common etiology for this appearance. 3. Calcific atherosclerotic disease aorta. 4. Mild anasarca. 5. Faint subpleural nodularity in the lower lungs is nonspecific. This could be on a postinfectious/inflammatory basis. D/ / Vikram Ohara / Vikram Ohara Interpreting Provider: Vikram Ohara - Attending Attestation Acute hypoxic respiratory failure due to acute COPD exacerbation from sepsis 2ry to HCAP present upon admission improving on levaquin day 7 taper prednisone acute diastolic CHF exacerbation lasix CT showed severe constipation obstipation Tap water enemas BID did not help much, lactulose daily orally use Nylately Urinary retention: Erazo catheter Discharge cancelled I examined this patient and my medical decision-making was reviewed with the Resident Physician. I agree with the documented findings, disposition and treatment plan as described except to the extent set forth below.
[2017-07-15] MEDS: Furosemide 20 MG/2 ML VIAL IVP SCH (13:17)
[2017-07-15] MEDS ORDERED: *HR* Warfarin 4 MG TABLET PO ONE (18:00)
[2017-07-15] MEDS: Insulin DETEMIR 100 UNIT/ML X5UNITS SQ SCH (21:10)
[2017-07-16] MEDS: Ipratropium/Albuterol Neb 3 ML IH SCH ×6 (00:11→20:40)
[2017-07-16] MEDS: *HR* Enoxaparin 40 MG/0.4 ML SYRINGE SQ SCH (04:31)
[2017-07-16] MEDS: Furosemide 40 MG/4 ML VIAL IVP SCH (07:05)
[2017-07-16] MEDS: predniSONE 20 MG TABLET PO SCH (08:13)
[2017-07-16] MEDS: levoFLOXacin 750 MG TABLET PO SCH (08:13)
[2017-07-16] MEDS: Aspirin Enteric Coated 81 MG Tablet PO SCH (08:13)
[2017-07-16] MEDS: Lactulose Oral Soln 20 GM/30 ML UDC PO SCH ×2 (08:14→19:47)
[2017-07-16] MEDS: *HR* Amiodarone 200 MG TABLET PO SCH (08:14)
[2017-07-16] MEDS: Furosemide 20 MG/2 ML VIAL IVP SCH (08:14)
[2017-07-16] MEDS: Megestrol Acetate 400 MG/10 ML UDC PO SCH (08:14)
[2017-07-16] MEDS: Azelastine 0.1% Nasal Spray 30 ML BOTTLE NS SCH ×2 (08:14→19:48)
[2017-07-16] MEDS: Insulin LISPRO 300 UNITS/3 ML VIAL SQ SCH ×4 (08:15→21:22)
[2017-07-16 08:28] LABS: INR 1.5; Prothrombin Time 16.8 Seconds (9.4-12.1)
[2017-07-16 08:32] LABS: Hemoglobin 9.1 g/dL (11.5-15.4); Mean Corpuscular HGB Conc 32.5 g/dL (31.6-35.5); Mean Corpuscular Hemoglobin 30.2 pg (28.0-33.3); Mean Platelet Volume 9.8 fL (9.4-12.4); Platelet Count 332 K/mcL (140-400); Red Blood Count 3.01 M/mcL (3.82-4.97); Red Cell Distribution Width 19.2 % (11.5-14.5)
[2017-07-16 08:47] LABS: BUN/Creatinine Ratio 31 (6-26); Blood Urea Nitrogen 20 mg/dL (8-23); Calcium 8.5 mg/dL (8.6-10.3); Carbon Dioxide 24 mEq/L (23-29); Chloride 101 mEq/L (98-107); Glucose 115 mg/dL (70-105); Osmolality,Calculated 280 (280-300); Potassium 3.9 mEq/L (3.5-5.1); Sodium 133 mEq/L (136-145); eGFR For African Americans > 60 (> 60); eGFR For Non-African Americans > 60 (> 60)
--- NOTE | 2017-07-16 10:13 | Internal Med Progress Note ---
Date of Encounter: 07/16/17 Time of Encounter: 10:10 - Assessment and plan (1) HCAP (healthcare-associated pneumonia) Current Visit: Yes Status: Acute Assessment and plan: Acute hypoxic respiratory failure due to acute COPD exacerbation from sepsis 2ry to HCAP present upon admission Continue Levaquin (Day 8). Blood Cultures showed no growth to date. Discontinued Zyvox, Merrem, and Vancomycin. Taper prednisone Continue bronchodilators. Oxygen supplementation. (2) Constipation Current Visit: Yes Status: Acute Assessment and plan: Repeat CT abd/plv revealed findings of persistent constipation, obstipation, with the prominent fecal ball noted at the rectal vault previously no longer present. Continue Lactulose, 1L tap water enemas BID Will continue to give Golytely Qualifiers: Constipation type: slow transit constipation Qualified Code(s): K59.01 - Slow transit constipation (3) DKA (diabetic ketoacidoses) Current Visit: Yes Status: Resolved Assessment and plan: Triggered by healthcare associated pneumonia Resolved. Patient was transferred to ICU on Insulin drip 07/10/17 Qualifiers: Diabetes mellitus type: type 2 Diabetes mellitus complication detail: without coma Qualified Code(s): E11.10 - Type 2 diabetes mellitus with ketoacidosis without coma (4) Lung cancer Current Visit: No Status: Chronic Assessment and plan: Status post chemotherapy. No active chemotherapy at this time. Will follow with oncologist to discuss the status of cancer and deciding further plan Last CAT scan of chest showed what appeared to be an increasing left apical mass , as well as lymphadenopathy. Pulmonology follow up outpatient Qualifiers: Laterality: right Lung location: unspecified part of lung Qualified Code( s): C34.91 - Malignant neoplasm of unspecified part of right bronchus or lung (5) DM2 (diabetes mellitus, type 2) Current Visit: No Status: Chronic Assessment and plan: BG elevated likely due to steroids. Continue SSI and long-acting insulin, caution given the fact that patient is not eating well. Qualifiers: Diabetes mellitus exterminator insulin use: with nursing home use Diabetes mellitus complication status: with hyperglycemia Qualified Code(s): E11.65 - Type 2 diabetes mellitus with hyperglycemia; Z79.4 - long term care pharmacist (current) use of insulin; Z79.4 - long term care pharmacist (current) use of insulin; Z79.4 - long term care pharmacist (current ) use of insulin; Z79.4 - residential (current) use of insulin (6) Hypokalemia Current Visit: Yes Status: Resolved Assessment and plan: Resolved, Continue to monitor (7) Hypomagnesemia Current Visit: Yes Status: Resolved Assessment and plan: Resolved Continue to monitor (8) A-fib Current Visit: No Status: Chronic Assessment and plan: A-fib without RVR. Continue home medicine. Heart rate controlled. Resumed Coumadin. Continue to monitor. Qualifiers: Atrial fibrillation type: chronic Qualified Code(s): I48.2 - Chronic atrial fibrillation (9) Sepsis Current Visit: Yes Status: Resolved Assessment and plan: Sepsis from healthcare associated pneumonia, sacral decubitus ulcer. Closely monitor. Qualifiers: Sepsis type: sepsis due to unspecified organism Qualified Code(s): A41.9 - Sepsis, unspecified organism (10) Altered mental status Current Visit: Yes Status: Resolved Assessment and plan: Possible acute metabolic encephalopathy due to sepsis Mental status is improved. CT head was negative for acute process, mass, or bleed Qualifiers: Altered mental status type: disorientation Qualified Code(s): R41.0 - Disorientation, unspecified (11) COPD exacerbation Current Visit: Yes Status: Acute Assessment and plan: Stop Solumedrol, taper Prednisone Continue bronchodliators, antibiotics (12) Elevated troponin Current Visit: Yes Status: Acute Assessment and plan: History of CAD. Chronic elevation of troponin. Serial troponins adynamic. Suspect demand ischemia. Continue to monitor. (13) Respiratory failure Current Visit: Yes Status: Acute Assessment and plan: Multifactorial resp failure due to healthcare associated pneumonia, acute COPD exacerbation, CHF secondary to probably valvular heart disease, and underlying lung cancer. Qualifiers: Chronicity: acute on chronic Respiratory failure complication: hypoxia Qualified Code(s): J96.21 - Acute and chronic respiratory failure with hypoxia (14) Congestive heart failure Current Visit: Yes Status: Acute Assessment and plan: Acute on chronic CHF likely due to probably valvular heart disease as well as diastolic CHF. Echo 06/23/17 revealed EF 65-70%, severe aortic and mitral stenosis, and pulmonary HTN Diuresis as blood pressures tolerates. Continue Lasix. She is not on a beta elias, would not give due to low blood pressures. Monitor. Patient has severe probably valvular heart disease and is unlikely a candidate for TAVR due to her comorbidities. Discussed the case with the patient's son, apparently she was offered a TAVR in the past, but decided to hold off due to her cancer diagnosis. Qualifiers: Heart failure type: diastolic Heart failure chronicity: chronic Qualified Code(s): I50.32 - Chronic diastolic (congestive) heart failure (15) Sacral decubitus ulcer, stage II Current Visit: Yes Status: Acute Assessment and plan: Continue border foam dressings, turn patient q2h PT/OT consulted (16) Severe protein-calorie malnutrition Current Visit: Yes Status: Acute Assessment and plan: Loss of subcuticular fat, temporal wasting, loss of muscle mass, BMI 19.1 Resume home Megace (17) Hypophosphatemia Current Visit: Yes Status: Resolved Assessment and plan: Resolved Continue to monitor (18) Acute urinary retention Current Visit: Yes Status: Acute Assessment and plan: Acute urinary retention Erazo cath in place - Time Spent With Patient Total time spent is greater than 50% in coordination of care (as documented) at patient's floor/unit and/or counseling patient: - Subjective Interval history: complaining of abdominal pain, bottom pain , nauseous with Golytely, no CP or SOB, generalized weakness, had a Erazo due to urinary retention - Constitutional Vitals: Temp Pulse Resp BP Pulse Ox 98.1 F 93 16 102/61 99 07/16/17 06:53 07/16/17 06:53 07/16/17 07:41 07/16/17 06:53 07/16/17 07:41 General appearance: Present: cachectic, cooperative, mild distress, A&O X 3, pleasant, answers questions appropriately Exam: - Head Head exam: Present: atraumatic, normocephalic - Eye Eye exam: Present: PERRL, conjuntiva pink, sclera anicteric Pupils: Present: PERRL - ENT ENT exam: Present: mucous membranes dry, normal oropharynx - Neck Neck exam general surgery: Present: supple, trachea midline. Absent: lymphadenopathy Left thoracic deformities due to prior surgical procedures - Respiratory Respiratory exam: Present: rales. Absent: accessory muscle use, CTAB, respiratory distress, rhonchi, wheezes - Cardiovascular Cardiovascular exam: Present: irregular rhythm, +S1, +S2. Absent: diastolic murmur, gallop, RRR, rubs, systolic murmur - GI/Abdominal GI/Abdominal exam: Present: normal bowel sounds, soft, tenderness (diffuse), no peritoneal signs. Absent: distended, guarding - Extremities Exam Extremities exam: Present: warm, radial pulses palpable and symmetrical. Absent : calf tenderness, cyanotic, pedal edema - Back Exam Back exam: Absent: normal inspection (stage 2 decubitus ulcer), tenderness - Neurological Exam Neurological exam: Present: CN II-XII intact, oriented X3, no focal deficits. Absent: pronater drift, facial droop, speech deficit - Skin Skin exam: Present: dry, erythema (stage 2 decubitus ulcer), intact, warm Internal Medicine: Result - Labs CBC & Chem 7: 07/16/17 07:58 07/16/17 07:58 Labs: Short CBC 07/16/17 Range/Units 07:58 WBC 12.3 H (4.3-11.1) K/mcL Hgb 9.1 L (11.5-15.4) g/dL Hct 28.0 L (35.3-44.9) % Plt Count 332 (140-400) K/mcL BMP 07/16/17 07:58 Sodium 133 L Potassium 3.9 Chloride 101 Carbon Dioxide 24 BUN 20 Creatinine 0.64 Glucose 115 H Calcium 8.5 L - ABG Interpretation ABG results: ABG ABG pH 7.61 pH Units (7.32-7.45) H* 07/11/17 05:37 ABG pCO2 31 mmHg (35-45) L 07/11/17 05:37 ABG pO2 60 mmHg (85-104) L 07/11/17 05:37 ABG O2 Saturation 95 % (95-98) 07/11/17 05:37 PT/INR, D-dimer PT 16.8 Seconds (9.4-12.1) H 07/16/17 07:58 Consult Discharge Plan - Plan Referrals: Valente Rosa MD [Primary Care Provider] - Prescriptions: Aquaphor 1 appl TP Q4HR PRN #1 tube PRN Reason: Dry Skin Furosemide [Lasix] 40 mg PO DAILY #60 tablet levoFLOXacin [Levaquin] 750 mg PO DAILY #1 tablet
[2017-07-16] MEDS ORDERED: Acetaminophen 325 MG TABLET PO PRN (11:07)
[2017-07-16] MEDS ORDERED: Ondansetron 4 MG/2 ML VIAL IVP PRN (11:08)
[2017-07-16] MEDS ORDERED: Furosemide 20 MG/2 ML VIAL IVP ONE (13:43)
--- NOTE | 2017-07-16 16:00 | Electrocardiograph Report ---
[address] [place] [address] Test Date: 2017-07-14 Pat Name: Bella Baird Department: 111 Room: 2NE17 Gender: F Top Precipitator Operator: : [id number] Requested By: Rolando Butler Order Number: [id number] Reading MD: Thuy Campbell Measurements Intervals [place] Rate: 103 P: 35 MO: 176 QRS: 8 QRSD: 90 T: 212 QT: 381 QTc: 441 Interpretive Statements SINUS TACHYCARDIA POSSIBLE LEFT ATRIAL ENLARGEMENT POSSIBLE RIGHT VENTRICULAR CONDUCTION DELAY SEPTAL MYOCARDIAL INFARCTION, OF INDETERMINATE AGE MODERATE T-WAVE ABNORMALITY, CONSIDER ANTEROLATERAL ISCHEMIA MODERATE T-WAVE ABNORMALITY, CONSIDER INFERIOR ISCHEMIA Electronically Signed On 07-16-2017 15:58:40 EDT by Thuy Campbell
[2017-07-16] MEDS ORDERED: *HR* Warfarin 4 MG TABLET PO ONE (18:00)
[2017-07-16] MEDS: Insulin DETEMIR 100 UNIT/ML X5UNITS SQ SCH (21:22)
[2017-07-17] MEDS: Ipratropium/Albuterol Neb 3 ML IH SCH ×7 (00:10→20:22)
[2017-07-17 03:40] LABS: INR 1.8; Prothrombin Time 19.2 Seconds (9.4-12.1)
[2017-07-17] MEDS: *HR* Enoxaparin 40 MG/0.4 ML SYRINGE SQ SCH (05:18)
[2017-07-17] MEDS: Insulin LISPRO 300 UNITS/3 ML VIAL SQ SCH ×4 (08:50→20:41)
[2017-07-17] MEDS: *HR* Amiodarone 200 MG TABLET PO SCH (09:04)
[2017-07-17] MEDS: Aspirin Enteric Coated 81 MG Tablet PO SCH (09:04)
[2017-07-17] MEDS: levoFLOXacin 750 MG TABLET PO SCH (09:04)
--- NOTE | 2017-07-17 09:04 | Internal Med Progress Note ---
Date of Encounter: 07/17/17 Time of Encounter: 09:02 - Assessment and plan (1) HCAP (healthcare-associated pneumonia) Current Visit: Yes Status: Acute Assessment and plan: Acute hypoxic respiratory failure due to acute COPD exacerbation from sepsis 2ry to HCAP present upon admission Continue Levaquin (Day 9). Blood Cultures showed no growth to date. Discontinued Zyvox, Merrem, and Vancomycin. Taper prednisone Continue bronchodilators. Oxygen supplementation. (2) Constipation Current Visit: Yes Status: Acute Assessment and plan: Repeat CT abd/plv revealed findings of persistent constipation, obstipation, with the prominent fecal ball noted at the rectal vault previously no longer present. Continue Lactulose, 1L tap water enemas BID Will continue to give Golytely Qualifiers: Constipation type: slow transit constipation Qualified Code(s): K59.01 - Slow transit constipation (3) DKA (diabetic ketoacidoses) Current Visit: Yes Status: Resolved Assessment and plan: Triggered by healthcare associated pneumonia Resolved. Patient was transferred to ICU on Insulin drip 07/10/17 Qualifiers: Diabetes mellitus type: type 2 Diabetes mellitus complication detail: without coma Qualified Code(s): E11.10 - Type 2 diabetes mellitus with ketoacidosis without coma (4) Lung cancer Current Visit: No Status: Chronic Assessment and plan: Status post chemotherapy. No active chemotherapy at this time. Will follow with oncologist to discuss the status of cancer and deciding further plan Last CAT scan of chest showed what appeared to be an increasing left apical mass , as well as lymphadenopathy. Pulmonology follow up outpatient Qualifiers: Laterality: right Lung location: unspecified part of lung Qualified Code( s): C34.91 - Malignant neoplasm of unspecified part of right bronchus or lung (5) DM2 (diabetes mellitus, type 2) Current Visit: No Status: Chronic Assessment and plan: BG elevated likely due to steroids. Continue SSI and long-acting insulin, caution given the fact that patient is not eating well. Qualifiers: Diabetes mellitus terminal manager insulin use: with senior care use Diabetes mellitus complication status: with hyperglycemia Qualified Code(s): E11.65 - Type 2 diabetes mellitus with hyperglycemia; Z79.4 - termite inspector (current) use of insulin; Z79.4 - termite inspector (current) use of insulin; Z79.4 - termite inspector (current ) use of insulin; Z79.4 - half-way (current) use of insulin (6) Hypokalemia Current Visit: Yes Status: Resolved Assessment and plan: Resolved, Continue to monitor (7) Hypomagnesemia Current Visit: Yes Status: Resolved Assessment and plan: Resolved Continue to monitor (8) A-fib Current Visit: No Status: Chronic Assessment and plan: A-fib without RVR. Continue home medicine. Heart rate controlled. Resumed Coumadin. Continue to monitor. Qualifiers: Atrial fibrillation type: chronic Qualified Code(s): I48.2 - Chronic atrial fibrillation (9) Sepsis Current Visit: Yes Status: Resolved Assessment and plan: Sepsis from healthcare associated pneumonia, sacral decubitus ulcer. Closely monitor. Qualifiers: Sepsis type: sepsis due to unspecified organism Qualified Code(s): A41.9 - Sepsis, unspecified organism (10) Altered mental status Current Visit: Yes Status: Resolved Assessment and plan: Possible acute metabolic encephalopathy due to sepsis Mental status is improved. CT head was negative for acute process, mass, or bleed Qualifiers: Altered mental status type: disorientation Qualified Code(s): R41.0 - Disorientation, unspecified (11) COPD exacerbation Current Visit: Yes Status: Acute Assessment and plan: Stop Solumedrol, taper Prednisone Continue bronchodliators, antibiotics (12) Elevated troponin Current Visit: Yes Status: Acute Assessment and plan: History of CAD. Chronic elevation of troponin. Serial troponins adynamic. Suspect demand ischemia. Continue to monitor. (13) Respiratory failure Current Visit: Yes Status: Acute Assessment and plan: Multifactorial resp failure due to healthcare associated pneumonia, acute COPD exacerbation, CHF secondary to probably valvular heart disease, and underlying lung cancer. Qualifiers: Chronicity: acute on chronic Respiratory failure complication: hypoxia Qualified Code(s): J96.21 - Acute and chronic respiratory failure with hypoxia (14) Congestive heart failure Current Visit: Yes Status: Acute Assessment and plan: Acute on chronic CHF likely due to probably valvular heart disease as well as diastolic CHF. Echo 06/23/17 revealed EF 65-70%, severe aortic and mitral stenosis, and pulmonary HTN Diuresis as blood pressures tolerates. Continue Lasix. She is not on a beta elias, would not give due to low blood pressures. Monitor. Patient has severe probably valvular heart disease and is unlikely a candidate for TAVR due to her comorbidities. Discussed the case with the patient's son, apparently she was offered a TAVR in the past, but decided to hold off due to her cancer diagnosis. Qualifiers: Heart failure type: diastolic Heart failure chronicity: chronic Qualified Code(s): I50.32 - Chronic diastolic (congestive) heart failure (15) Sacral decubitus ulcer, stage II Current Visit: Yes Status: Acute Assessment and plan: Continue border foam dressings, turn patient q2h PT/OT consulted (16) Severe protein-calorie malnutrition Current Visit: Yes Status: Acute Assessment and plan: Loss of subcuticular fat, temporal wasting, loss of muscle mass, BMI 19.1 Resume home Megace (17) Hypophosphatemia Current Visit: Yes Status: Resolved Assessment and plan: Resolved Continue to monitor (18) Acute urinary retention Current Visit: Yes Status: Acute Assessment and plan: Acute urinary retention Erazo cath in place - Time Spent With Patient Total time spent is greater than 50% in coordination of care (as documented) at patient's floor/unit and/or counseling patient: - Subjective Interval history: complaining of less abdominal pain, bottom pain , nauseous with Golytely, no CP or SOB, generalized weakness, had a Erazo due to urinary retention - Constitutional Vitals: Temp Pulse Resp BP Pulse Ox 97.7 F 91 15 127/74 98 07/17/17 06:33 07/17/17 06:33 07/17/17 06:33 07/17/17 06:33 07/17/17 06:33 General appearance: Present: cachectic, cooperative, mild distress, A&O X 3, pleasant, answers questions appropriately Exam: Head Head exam: Present: atraumatic, normocephalic - Eye Eye exam: Present: PERRL, conjuntiva pink, sclera anicteric Pupils: Present: PERRL - ENT ENT exam: Present: mucous membranes dry, normal oropharynx - Neck Neck exam general surgery: Present: supple, trachea midline. Absent: lymphadenopathy Left thoracic deformities due to prior surgical procedures - Respiratory Respiratory exam: Present: rales. Absent: accessory muscle use, CTAB, respiratory distress, rhonchi, wheezes - Cardiovascular Cardiovascular exam: Present: irregular rhythm, +S1, +S2. Absent: diastolic murmur, gallop, RRR, rubs, systolic murmur - GI/Abdominal GI/Abdominal exam: Present: normal bowel sounds, soft, tenderness (diffuse), no peritoneal signs. Absent: distended, guarding - Extremities Exam Extremities exam: Present: warm, radial pulses palpable and symmetrical. Absent : calf tenderness, cyanotic, pedal edema - Back Exam Back exam: Absent: normal inspection (stage 2 decubitus ulcer), tenderness - Neurological Exam Neurological exam: Present: CN II-XII intact, oriented X3, no focal deficits. Absent: pronater drift, facial droop, speech deficit - Skin Skin exam: Present: dry, erythema (stage 2 decubitus ulcer), intact, warm Internal Medicine: Result - Labs CBC & Chem 7: 07/16/17 07:58 07/16/17 07:58 - ABG Interpretation ABG results: ABG ABG pH 7.61 pH Units (7.32-7.45) H* 07/11/17 05:37 ABG pCO2 31 mmHg (35-45) L 07/11/17 05:37 ABG pO2 60 mmHg (85-104) L 07/11/17 05:37 ABG O2 Saturation 95 % (95-98) 07/11/17 05:37 PT/INR, D-dimer PT 19.2 Seconds (9.4-12.1) H 07/17/17 02:52 Consult Discharge Plan - Plan Referrals: Valente Rosa MD [Primary Care Provider] - Prescriptions: Aquaphor 1 appl TP Q4HR PRN #1 tube PRN Reason: Dry Skin Furosemide [Lasix] 40 mg PO DAILY #60 tablet levoFLOXacin [Levaquin] 750 mg PO DAILY #1 tablet
[2017-07-17] MEDS: Megestrol Acetate 400 MG/10 ML UDC PO SCH (09:05)
[2017-07-17] MEDS: Lactulose Oral Soln 20 GM/30 ML UDC PO SCH ×4 (09:05→20:11)
[2017-07-17] MEDS: Furosemide 20 MG/2 ML VIAL IVP SCH (09:06)
[2017-07-17] MEDS: predniSONE 20 MG TABLET PO SCH (09:06)
[2017-07-17] MEDS: Azelastine 0.1% Nasal Spray 30 ML BOTTLE NS SCH ×2 (09:25→20:11)
[2017-07-17] MEDS ORDERED: Furosemide 20 MG/2 ML VIAL IVP ONE (17:54)
[2017-07-17] MEDS ORDERED: *HR* Warfarin 3 MG TABLET PO ONE (18:00)
[2017-07-17] MEDS: Insulin DETEMIR 100 UNIT/ML X5UNITS SQ SCH (20:41)
[2017-07-18] MEDS: Ipratropium/Albuterol Neb 3 ML IH SCH ×7 (00:03→23:22)
[2017-07-18 05:46] LABS: INR 2.3; Prothrombin Time 25.5 Seconds (9.4-12.1)
[2017-07-18] MEDS ORDERED: Furosemide 20 MG/2 ML VIAL IVP ONE (08:18)
--- NOTE | 2017-07-18 08:22 | Internal Med Progress Note ---
<Joseph Hernández - Last Filed: 07/18/17 08:20> Date of Encounter: 07/18/17 Time of Encounter: 08:20 - Assessment and plan (1) Congestive heart failure Current Visit: Yes Status: Acute Assessment and plan: Acute on chronic CHF likely due to probably valvular heart disease as well as diastolic CHF. Echo 06/23/17 revealed EF 65-70%, severe aortic and mitral stenosis, and pulmonary HTN Diuresis as blood pressures tolerates. Continue Lasix. She is not on a beta elias, would not give due to low blood pressures. Monitor. Patient has severe probably valvular heart disease and is unlikely a candidate for TAVR due to her comorbidities. Discussed the case with the patient's son, apparently she was offered a TAVR in the past, but decided to hold off due to her cancer diagnosis. Qualifiers: Heart failure type: diastolic Heart failure chronicity: chronic Qualified Code(s): I50.32 - Chronic diastolic (congestive) heart failure (2) HCAP (healthcare-associated pneumonia) Current Visit: Yes Status: Acute Assessment and plan: Acute hypoxic respiratory failure due to acute COPD exacerbation from sepsis secondary to HCAP present upon admission Continue Levaquin (Day 10 of 10). Blood Cultures showed no growth to date. Discontinued Zyvox, Merrem, and Vancomycin. Taper prednisone Continue bronchodilators. Oxygen supplementation. (3) Respiratory failure Current Visit: Yes Status: Acute Assessment and plan: Multifactorial resp failure due to healthcare associated pneumonia, acute COPD exacerbation, CHF secondary to probably valvular heart disease, and underlying lung cancer. Continue BiPap prn Qualifiers: Chronicity: acute on chronic Respiratory failure complication: hypoxia Qualified Code(s): J96.21 - Acute and chronic respiratory failure with hypoxia (4) COPD exacerbation Current Visit: Yes Status: Acute Assessment and plan: Stopped Solumedrol, taper Prednisone Continue bronchodliators, antibiotics (5) Lung cancer Current Visit: No Status: Chronic Assessment and plan: Status post chemotherapy. No active chemotherapy at this time. Will follow with oncologist to discuss the status of cancer and deciding further plan Last CAT scan of chest showed what appeared to be an increasing left apical mass , as well as lymphadenopathy. Pulmonology follow up outpatient Qualifiers: Laterality: right Lung location: unspecified part of lung Qualified Code( s): C34.91 - Malignant neoplasm of unspecified part of right bronchus or lung (6) Sepsis Current Visit: Yes Status: Resolved Assessment and plan: Sepsis from healthcare associated pneumonia, sacral decubitus ulcer. Closely monitor. Qualifiers: Sepsis type: sepsis due to unspecified organism Qualified Code(s): A41.9 - Sepsis, unspecified organism (7) A-fib Current Visit: No Status: Chronic Assessment and plan: A-fib without RVR. Continue home medicine. Heart rate controlled. Resumed Coumadin. Continue to monitor. Qualifiers: Atrial fibrillation type: chronic Qualified Code(s): I48.2 - Chronic atrial fibrillation (8) Severe protein-calorie malnutrition Current Visit: Yes Status: Acute Assessment and plan: Loss of subcuticular fat, temporal wasting, loss of muscle mass, BMI 19.1 Resumed home Megace (9) Sacral decubitus ulcer, stage II Current Visit: Yes Status: Acute Assessment and plan: Continue border foam dressings, turn patient q2h PT/OT following (10) DKA (diabetic ketoacidoses) Current Visit: Yes Status: Resolved Assessment and plan: Triggered by healthcare associated pneumonia Resolved. Patient was transferred to ICU on Insulin drip 07/10/17 Qualifiers: Diabetes mellitus type: type 2 Diabetes mellitus complication detail: without coma Qualified Code(s): E11.10 - Type 2 diabetes mellitus with ketoacidosis without coma (11) DM2 (diabetes mellitus, type 2) Current Visit: No Status: Chronic Assessment and plan: BG elevated likely due to steroids. Continue SSI and long-acting insulin, caution given the fact that patient is not eating well. Qualifiers: Diabetes mellitus regional intermodal truck driver insulin use: with chcf use Diabetes mellitus complication status: with hyperglycemia Qualified Code(s): E11.65 - Type 2 diabetes mellitus with hyperglycemia; Z79.4 - regional intermodal truck driver (current) use of insulin; Z79.4 - regional intermodal truck driver (current) use of insulin; Z79.4 - regional intermodal truck driver (current ) use of insulin; Z79.4 - regional intermodal truck driver (current) use of insulin (12) Hypokalemia Current Visit: Yes Status: Resolved Assessment and plan: Resolved, Continue to monitor (13) Hypomagnesemia Current Visit: Yes Status: Resolved Assessment and plan: Resolved Continue to monitor (14) Hypophosphatemia Current Visit: Yes Status: Resolved Assessment and plan: Resolved Continue to monitor (15) Elevated troponin Current Visit: Yes Status: Acute Assessment and plan: History of CAD. Chronic elevation of troponin. Serial troponins adynamic. Suspect demand ischemia. Continue to monitor. (16) Altered mental status Current Visit: Yes Status: Resolved Assessment and plan: Possible acute metabolic encephalopathy due to sepsis Mental status is improved. CT head was negative for acute process, mass, or bleed Qualifiers: Altered mental status type: disorientation Qualified Code(s): R41.0 - Disorientation, unspecified (17) Constipation Current Visit: Yes Status: Acute Assessment and plan: Repeat CT abd/plv revealed findings of persistent constipation, obstipation, with the prominent fecal ball noted at the rectal vault previously no longer present. Continue Lactulose QID, 1L tap water enemas BID, Golytely Qualifiers: Constipation type: slow transit constipation Qualified Code(s): K59.01 - Slow transit constipation (18) Acute urinary retention Current Visit: Yes Status: Acute Assessment and plan: Acute urinary retention Mathew cath in place - Time Spent With Patient Total time spent is greater than 50% in coordination of care (as documented) at patient's floor/unit and/or counseling patient: - Subjective Interval history: Patient seen and examined. Patient reports worsening difficulty breathing today , pain in sacral region, and abdominal discomfort. She drank very little GoLytely over the weekend and had a small BM yesterday. Bedtime insulin dose was changed to low dose SSI due to morning hypoglycemia. - Constitutional Vitals: Temp Pulse Resp BP Pulse Ox 98.2 F 91 16 122/66 100 07/18/17 07:51 07/18/17 07:51 07/18/17 07:51 07/18/17 07:51 07/18/17 07:51 General appearance: Present: cachectic, cooperative, mild distress, A&O X 3, pleasant, answers questions appropriately - Head Head exam: Present: atraumatic, normocephalic - Eye Eye exam: Present: PERRL, conjuntiva pink, sclera anicteric Pupils: Present: PERRL - ENT ENT exam: Present: mucous membranes dry, normal oropharynx - Neck Neck exam general surgery: Present: supple, trachea midline. Absent: lymphadenopathy - Respiratory Respiratory exam: Present: decreased breath sounds (RUL), rales (diffuse), respiratory distress (mild). Absent: accessory muscle use, rhonchi, wheezes - Cardiovascular Cardiovascular exam: Present: RRR, +S1, +S2. Absent: diastolic murmur, gallop, rubs, systolic murmur - GI/Abdominal GI/Abdominal exam: Present: normal bowel sounds, soft, no peritoneal signs. Absent: distended, tenderness - Additional comments: mathew in place - Extremities Exam Extremities exam: Present: warm, radial pulses palpable and symmetrical. Absent : calf tenderness, cyanotic, pedal edema - Back Exam Back exam: Present: tenderness. Absent: normal inspection (stage 2 sacral decubitus ulcer) - Neurological Exam Neurological exam: Present: CN II-XII intact, oriented X3, no focal deficits. Absent: pronater drift, facial droop, speech deficit - Skin Skin exam: Present: dry, erythema (stage 2 sacral decubitus ulcer), intact Internal Medicine: Result - Labs CBC & Chem 7: 07/16/17 07:58 07/16/17 07:58 - ABG Interpretation ABG results: ABG ABG pH 7.61 pH Units (7.32-7.45) H* 07/11/17 05:37 ABG pCO2 31 mmHg (35-45) L 07/11/17 05:37 ABG pO2 60 mmHg (85-104) L 07/11/17 05:37 ABG O2 Saturation 95 % (95-98) 07/11/17 05:37 PT/INR, D-dimer PT 25.5 Seconds (9.4-12.1) H 07/18/17 04:53 - Pulse Oximetry Interpretation Digit-Finger Pulse Oximetry Readin (3L O2 via NC) Actions taken: placed on BiPAP Consult Discharge Plan - Plan Referrals: Valente Rosa MD [Primary Care Provider] - Prescriptions: Aquaphor 1 appl TP Q4HR PRN #1 tube PRN Reason: Dry Skin Furosemide [Lasix] 40 mg PO DAILY #60 tablet levoFLOXacin [Levaquin] 750 mg PO DAILY #1 tablet <Rolando Butler H - Last Filed: 07/18/17 11:02> Date of Encounter: 07/18/17 - Assessment and plan (1) DKA (diabetic ketoacidoses) Current Visit: Yes Status: Resolved Qualifiers: Diabetes mellitus type: type 2 Diabetes mellitus complication detail: without coma Qualified Code(s): E11.10 - Type 2 diabetes mellitus with ketoacidosis without coma (2) Lung cancer Current Visit: No Status: Chronic Qualifiers: Laterality: right Lung location: unspecified part of lung Qualified Code( s): C34.91 - Malignant neoplasm of unspecified part of right bronchus or lung (3) DM2 (diabetes mellitus, type 2) Current Visit: No Status: Chronic Qualifiers: Diabetes mellitus chcf insulin use: with regional intermodal truck driver use Diabetes mellitus complication status: with hyperglycemia Qualified Code(s): E11.65 - Type 2 diabetes mellitus with hyperglycemia; Z79.4 - regional intermodal truck driver (current) use of insulin; Z79.4 - regional intermodal truck driver (current) use of insulin; Z79.4 - regional intermodal truck driver (current ) use of insulin; Z79.4 - intermediate (current) use of insulin (4) Hypokalemia Current Visit: Yes Status: Resolved (5) Hypomagnesemia Current Visit: Yes Status: Resolved (6) HCAP (healthcare-associated pneumonia) Current Visit: Yes Status: Acute (7) A-fib Current Visit: No Status: Chronic Qualifiers: Atrial fibrillation type: chronic Qualified Code(s): I48.2 - Chronic atrial fibrillation (8) Sepsis Current Visit: Yes Status: Resolved Qualifiers: Sepsis type: sepsis due to unspecified organism Qualified Code(s): A41.9 - Sepsis, unspecified organism (9) Altered mental status Current Visit: Yes Status: Resolved Qualifiers: Altered mental status type: disorientation Qualified Code(s): R41.0 - Disorientation, unspecified (10) COPD exacerbation Current Visit: Yes Status: Acute (11) Elevated troponin Current Visit: Yes Status: Acute (12) Respiratory failure Current Visit: Yes Status: Acute Qualifiers: Chronicity: acute on chronic Respiratory failure complication: hypoxia Qualified Code(s): J96.21 - Acute and chronic respiratory failure with hypoxia (13) Constipation Current Visit: Yes Status: Acute Qualifiers: Constipation type: slow transit constipation Qualified Code(s): K59.01 - Slow transit constipation (14) Congestive heart failure Current Visit: Yes Status: Acute Qualifiers: Heart failure type: diastolic Heart failure chronicity: chronic Qualified Code(s): I50.32 - Chronic diastolic (congestive) heart failure (15) Sacral decubitus ulcer, stage II Current Visit: Yes Status: Acute (16) Severe protein-calorie malnutrition Current Visit: Yes Status: Acute (17) Hypophosphatemia Current Visit: Yes Status: Resolved (18) Acute urinary retention Current Visit: Yes Status: Acute - Time Spent With Patient Total time spent is greater than 50% in coordination of care (as documented) at patient's floor/unit and/or counseling patient: - Constitutional Vitals: Temp Pulse Resp BP Pulse Ox 98.2 F 91 16 122/66 100 07/18/17 07:51 07/18/17 07:51 07/18/17 07:51 07/18/17 07:51 07/18/17 07:51 Internal Medicine: Result - Labs CBC & Chem 7: 07/16/17 07:58 07/16/17 07:58 - ABG Interpretation ABG results: ABG ABG pH 7.61 pH Units (7.32-7.45) H* 07/11/17 05:37 ABG pCO2 31 mmHg (35-45) L 07/11/17 05:37 ABG pO2 60 mmHg (85-104) L 07/11/17 05:37 ABG O2 Saturation 95 % (95-98) 07/11/17 05:37 PT/INR, D-dimer PT 25.5 Seconds (9.4-12.1) H 07/18/17 04:53 - Attending Attestation Acute hypoxic respiratory failure due to acute COPD exacerbation from sepsis 2ry to HCAP present upon admission in combination with volume overload Continue Levaquin (Day 10), stop antibiotics today. Blood Cultures showed no growth to date. Discontinued Zyvox, Merrem, and Vancomycin. Taper prednisone Continue bronchodilators. Oxygen supplementation. Lasix IV Constipation: Repeat CT abd/plv revealed findings of persistent constipation, obstipation, with the prominent fecal ball noted at the rectal vault previously no longer present. Continue Lactulose, 1L tap water enemas BID May continue to give Golytely I examined this patient and my medical decision-making was reviewed with the Resident Physician. I agree with the documented findings, disposition and treatment plan as described except to the extent set forth below.
[2017-07-18] MEDS: *HR* Amiodarone 200 MG TABLET PO SCH (08:27)
[2017-07-18] MEDS: levoFLOXacin 750 MG TABLET PO SCH (08:27)
[2017-07-18] MEDS: predniSONE 20 MG TABLET PO SCH (08:27)
[2017-07-18] MEDS: Aspirin Enteric Coated 81 MG Tablet PO SCH (08:27)
[2017-07-18] MEDS: Lactulose Oral Soln 20 GM/30 ML UDC PO SCH ×4 (08:28→21:29)
[2017-07-18] MEDS: Insulin LISPRO 300 UNITS/3 ML VIAL SQ SCH ×4 (08:28→21:30)
[2017-07-18] MEDS: Azelastine 0.1% Nasal Spray 30 ML BOTTLE NS SCH ×2 (08:28→21:31)
[2017-07-18] MEDS: Megestrol Acetate 400 MG/10 ML UDC PO SCH (08:28)
[2017-07-18] MEDS: Furosemide 20 MG/2 ML VIAL IVP SCH (08:28)
[2017-07-18] MEDS: traMADol 50 MG TABLET PO PRN ×2 (08:31→21:45)
[2017-07-18] MEDS ORDERED: *HR* Warfarin 2 MG TABLET PO ONE (18:00)
[2017-07-18] MEDS: Insulin DETEMIR 100 UNIT/ML X5UNITS SQ SCH (21:32)
[2017-07-19] MEDS: Ipratropium/Albuterol Neb 3 ML IH SCH ×6 (03:47→23:16)
[2017-07-19 04:18] LABS: Hematocrit 25.9 % (35.3-44.9); Hemoglobin 8.6 g/dL (11.5-15.4); Mean Corpuscular HGB Conc 33.2 g/dL (31.6-35.5); Mean Corpuscular Hemoglobin 31.4 pg (28.0-33.3); Mean Corpuscular Volume 94.5 fL (83.0-100.0); Platelet Count 281 K/mcL (140-400); Red Blood Count 2.74 M/mcL (3.82-4.97); Red Cell Distribution Width 19.1 % (11.5-14.5)
[2017-07-19 04:23] LABS: INR 2.4; Prothrombin Time 26.1 Seconds (9.4-12.1)
[2017-07-19 04:42] LABS: BUN/Creatinine Ratio 37 (6-26); Blood Urea Nitrogen 21 mg/dL (8-23); Calcium 8.2 mg/dL (8.6-10.3); Carbon Dioxide 29 mEq/L (23-29); Chloride 100 mEq/L (98-107); Glucose 118 mg/dL (70-105); Osmolality,Calculated 280 (280-300); Potassium 4.1 mEq/L (3.5-5.1); Sodium 133 mEq/L (136-145); eGFR For African Americans > 60 (> 60); eGFR For Non-African Americans > 60 (> 60)
--- NOTE | 2017-07-19 07:33 | Internal Med Progress Note ---
<Joseph Hernández - Last Filed: 07/19/17 10:16> Date of Encounter: 07/19/17 Time of Encounter: 07:31 - Assessment and plan (1) Congestive heart failure Current Visit: Yes Status: Acute Assessment and plan: Acute on chronic CHF likely due to probably valvular heart disease as well as diastolic CHF. Echo 06/23/17 revealed EF 65-70%, severe aortic and mitral stenosis, and pulmonary HTN Diuresis as blood pressures tolerates. Continue Lasix. She is not on a beta elias, would not give due to low blood pressures. Monitor. Patient has severe probably valvular heart disease and is unlikely a candidate for TAVR due to her comorbidities. Discussed the case with the patient's son, apparently she was offered a TAVR in the past, but decided to hold off due to her cancer diagnosis. Qualifiers: Heart failure type: diastolic Heart failure chronicity: chronic Qualified Code(s): I50.32 - Chronic diastolic (congestive) heart failure (2) HCAP (healthcare-associated pneumonia) Current Visit: Yes Status: Acute Assessment and plan: Acute hypoxic respiratory failure due to acute COPD exacerbation from sepsis secondary to HCAP present upon admission Completed Levaquin (10 Days). Blood Cultures showed no growth to date. Discontinued Zyvox, Merrem, and Vancomycin. Taper prednisone Continue bronchodilators. Oxygen supplementation. (3) Respiratory failure Current Visit: Yes Status: Acute Assessment and plan: Multifactorial resp failure due to healthcare associated pneumonia, acute COPD exacerbation, CHF secondary to probably valvular heart disease, and underlying lung cancer. Continue BiPap prn Qualifiers: Chronicity: acute on chronic Respiratory failure complication: hypoxia Qualified Code(s): J96.21 - Acute and chronic respiratory failure with hypoxia (4) COPD exacerbation Current Visit: Yes Status: Acute Assessment and plan: Stopped Solumedrol, antibiotics Taper Prednisone Continue bronchodliators (5) Lung cancer Current Visit: No Status: Chronic Assessment and plan: Status post chemotherapy. No active chemotherapy at this time. Will follow with oncologist to discuss the status of cancer and deciding further plan Last CAT scan of chest showed what appeared to be an increasing left apical mass , as well as lymphadenopathy. Pulmonology follow up outpatient Qualifiers: Laterality: right Lung location: unspecified part of lung Qualified Code( s): C34.91 - Malignant neoplasm of unspecified part of right bronchus or lung (6) Sepsis Current Visit: Yes Status: Resolved Assessment and plan: Sepsis from healthcare associated pneumonia, sacral decubitus ulcer. Closely monitor. Qualifiers: Sepsis type: sepsis due to unspecified organism Qualified Code(s): A41.9 - Sepsis, unspecified organism (7) A-fib Current Visit: No Status: Chronic Assessment and plan: A-fib without RVR. Continue home medicine. Heart rate controlled. Resumed Coumadin. Continue to monitor. Qualifiers: Atrial fibrillation type: chronic Qualified Code(s): I48.2 - Chronic atrial fibrillation (8) Severe protein-calorie malnutrition Current Visit: Yes Status: Acute Assessment and plan: Loss of subcuticular fat, temporal wasting, loss of muscle mass, BMI 19.1 Resumed home Megace (9) Sacral decubitus ulcer, stage II Current Visit: Yes Status: Acute Assessment and plan: Continue border foam dressings, turn patient q2h PT/OT following (10) DKA (diabetic ketoacidoses) Current Visit: Yes Status: Resolved Assessment and plan: Triggered by healthcare associated pneumonia Resolved. Patient was transferred to ICU on Insulin drip 07/10/17 Qualifiers: Diabetes mellitus type: type 2 Diabetes mellitus complication detail: without coma Qualified Code(s): E11.10 - Type 2 diabetes mellitus with ketoacidosis without coma (11) DM2 (diabetes mellitus, type 2) Current Visit: No Status: Chronic Assessment and plan: BG elevated likely due to steroids. Continue SSI and long-acting insulin, caution given the fact that patient is not eating well. Qualifiers: Diabetes mellitus intermediate accountant insulin use: with intermediate accountant use Diabetes mellitus complication status: with hyperglycemia Qualified Code(s): E11.65 - Type 2 diabetes mellitus with hyperglycemia; Z79.4 - senior living (current) use of insulin; Z79.4 - intermediate accountant (current) use of insulin; Z79.4 - intermediate accountant (current ) use of insulin; Z79.4 - senior living (current) use of insulin (12) Hypokalemia Current Visit: Yes Status: Resolved Assessment and plan: Resolved Continue to monitor (13) Hypomagnesemia Current Visit: Yes Status: Resolved Assessment and plan: Resolved Continue to monitor (14) Hypophosphatemia Current Visit: Yes Status: Resolved Assessment and plan: Resolved Continue to monitor (15) Elevated troponin Current Visit: Yes Status: Acute Assessment and plan: History of CAD. Chronic elevation of troponin. Serial troponins adynamic. Suspect demand ischemia. Continue to monitor. (16) Altered mental status Current Visit: Yes Status: Resolved Assessment and plan: Possible acute metabolic encephalopathy due to sepsis Mental status is improved. CT head was negative for acute process, mass, or bleed Qualifiers: Altered mental status type: disorientation Qualified Code(s): R41.0 - Disorientation, unspecified (17) Constipation Current Visit: Yes Status: Acute Assessment and plan: Repeat CT abd/plv revealed findings of persistent constipation, obstipation, with the prominent fecal ball noted at the rectal vault previously no longer present. Continue Lactulose QID, 1L tap water enemas BID Qualifiers: Constipation type: slow transit constipation Qualified Code(s): K59.01 - Slow transit constipation (18) Acute urinary retention Current Visit: Yes Status: Acute Assessment and plan: Acute urinary retention Mathew cath in place - Time Spent With Patient Total time spent is greater than 50% in coordination of care (as documented) at patient's floor/unit and/or counseling patient: - Subjective Interval history: Patient seen and examined. Patient reports difficulty breathing today, pain in sacral region, and mild abdominal discomfort. She drank very little GoLytely and had a BM yesterday. - Constitutional Vitals: Temp Pulse Resp BP Pulse Ox 97.8 F 87 16 100/54 91 07/19/17 07:14 07/19/17 07:14 07/19/17 07:14 07/19/17 07:14 07/19/17 07:14 General appearance: Present: cachectic, cooperative, mild distress, A&O X 3, pleasant, answers questions appropriately - Head Head exam: Present: atraumatic, normocephalic - Eye Eye exam: Present: PERRL, conjuntiva pink, sclera anicteric Pupils: Present: PERRL - ENT ENT exam: Present: mucous membranes moist, normal oropharynx - Neck Neck exam general surgery: Present: supple, trachea midline. Absent: lymphadenopathy - Respiratory Respiratory exam: Present: decreased breath sounds, rales. Absent: accessory muscle use, CTAB, respiratory distress, rhonchi, wheezes - Cardiovascular Cardiovascular exam: Present: RRR, +S1, +S2. Absent: diastolic murmur, gallop, rubs, systolic murmur - GI/Abdominal GI/Abdominal exam: Present: normal bowel sounds, soft, no peritoneal signs. Absent: distended, tenderness - Additional comments: mathew in place - Extremities Exam Extremities exam: Present: warm, radial pulses palpable and symmetrical. Absent : calf tenderness, cyanotic, pedal edema - Back Exam Back exam: Present: tenderness. Absent: normal inspection - Neurological Exam Neurological exam: Present: CN II-XII intact, oriented X3, no focal deficits. Absent: pronater drift, facial droop, speech deficit - Psychiatric Psychiatric exam: Present: normal affect, normal mood - Skin Skin exam: Present: dry, erythema (stage 2 sacral decubitus ulcer), intact, warm Internal Medicine: Result - Labs CBC & Chem 7: 07/19/17 04:00 07/19/17 04:00 Labs: Short CBC 07/19/17 Range/Units 04:00 WBC 13.1 H (4.3-11.1) K/mcL Hgb 8.6 L (11.5-15.4) g/dL Hct 25.9 L (35.3-44.9) % Plt Count 281 (140-400) K/mcL BMP 07/19/17 04:00 Sodium 133 L Potassium 4.1 Chloride 100 Carbon Dioxide 29 BUN 21 Creatinine 0.57 L Glucose 118 H Calcium 8.2 L - ABG Interpretation ABG results: ABG ABG pH 7.61 pH Units (7.32-7.45) H* 07/11/17 05:37 ABG pCO2 31 mmHg (35-45) L 07/11/17 05:37 ABG pO2 60 mmHg (85-104) L 07/11/17 05:37 ABG O2 Saturation 95 % (95-98) 07/11/17 05:37 PT/INR, D-dimer PT 26.1 Seconds (9.4-12.1) H 07/19/17 04:00 - Pulse Oximetry Interpretation Digit-Finger Pulse Oximetry Readin (3L O2 via NC) Consult Discharge Plan - Plan Referrals: Valente Rosa MD [Primary Care Provider] - Prescriptions: Aquaphor 1 appl TP Q4HR PRN #1 tube PRN Reason: Dry Skin Furosemide [Lasix] 40 mg PO DAILY #60 tablet levoFLOXacin [Levaquin] 750 mg PO DAILY #1 tablet <Ellis Bocanegra T - Last Filed: 07/19/17 15:42> Date of Encounter: 07/19/17 - Assessment and plan (1) DKA (diabetic ketoacidoses) Current Visit: Yes Status: Resolved Qualifiers: Diabetes mellitus type: type 2 Diabetes mellitus complication detail: without coma Qualified Code(s): E11.10 - Type 2 diabetes mellitus with ketoacidosis without coma (2) Lung cancer Current Visit: No Status: Chronic Qualifiers: Laterality: right Lung location: unspecified part of lung Qualified Code( s): C34.91 - Malignant neoplasm of unspecified part of right bronchus or lung (3) DM2 (diabetes mellitus, type 2) Current Visit: No Status: Chronic Qualifiers: Diabetes mellitus longterm insulin use: with longterm use Diabetes mellitus complication status: with hyperglycemia Qualified Code(s): E11.65 - Type 2 diabetes mellitus with hyperglycemia; Z79.4 - senior living (current) use of insulin; Z79.4 - intermediate accountant (current) use of insulin; Z79.4 - intermediate accountant (current ) use of insulin; Z79.4 - intermediate accountant (current) use of insulin (4) Hypokalemia Current Visit: Yes Status: Resolved (5) Hypomagnesemia Current Visit: Yes Status: Resolved (6) HCAP (healthcare-associated pneumonia) Current Visit: Yes Status: Acute (7) A-fib Current Visit: No Status: Chronic Qualifiers: Atrial fibrillation type: chronic Qualified Code(s): I48.2 - Chronic atrial fibrillation (8) Sepsis Current Visit: Yes Status: Resolved Qualifiers: Sepsis type: sepsis due to unspecified organism Qualified Code(s): A41.9 - Sepsis, unspecified organism (9) Altered mental status Current Visit: Yes Status: Resolved Qualifiers: Altered mental status type: disorientation Qualified Code(s): R41.0 - Disorientation, unspecified (10) COPD exacerbation Current Visit: Yes Status: Acute (11) Elevated troponin Current Visit: Yes Status: Acute (12) Respiratory failure Current Visit: Yes Status: Acute Qualifiers: Chronicity: acute on chronic Respiratory failure complication: hypoxia Qualified Code(s): J96.21 - Acute and chronic respiratory failure with hypoxia (13) Constipation Current Visit: Yes Status: Acute Qualifiers: Constipation type: slow transit constipation Qualified Code(s): K59.01 - Slow transit constipation (14) Congestive heart failure Current Visit: Yes Status: Acute Qualifiers: Heart failure type: diastolic Heart failure chronicity: chronic Qualified Code(s): I50.32 - Chronic diastolic (congestive) heart failure (15) Sacral decubitus ulcer, stage II Current Visit: Yes Status: Acute (16) Severe protein-calorie malnutrition Current Visit: Yes Status: Acute (17) Hypophosphatemia Current Visit: Yes Status: Resolved (18) Acute urinary retention Current Visit: Yes Status: Acute - Time Spent With Patient Total time spent is greater than 50% in coordination of care (as documented) at patient's floor/unit and/or counseling patient: - Constitutional Vitals: Temp Pulse Resp BP Pulse Ox 97.8 F 87 16 101/61 99 07/19/17 07:14 07/19/17 07:14 07/19/17 11:31 07/19/17 10:52 07/19/17 11:31 Internal Medicine: Result - Labs CBC & Chem 7: 07/19/17 04:00 07/19/17 04:00 Labs: Short CBC 07/19/17 Range/Units 04:00 WBC 13.1 H (4.3-11.1) K/mcL Hgb 8.6 L (11.5-15.4) g/dL Hct 25.9 L (35.3-44.9) % Plt Count 281 (140-400) K/mcL BMP 07/19/17 04:00 Sodium 133 L Potassium 4.1 Chloride 100 Carbon Dioxide 29 BUN 21 Creatinine 0.57 L Glucose 118 H Calcium 8.2 L - ABG Interpretation ABG results: ABG ABG pH 7.61 pH Units (7.32-7.45) H* 07/11/17 05:37 ABG pCO2 31 mmHg (35-45) L 07/11/17 05:37 ABG pO2 60 mmHg (85-104) L 07/11/17 05:37 ABG O2 Saturation 95 % (95-98) 07/11/17 05:37 PT/INR, D-dimer PT 26.1 Seconds (9.4-12.1) H 07/19/17 04:00 - Attending Attestation I examined this patient and my medical decision-making was reviewed with the Resident Physician. I agree with the documented findings, disposition and treatment plan as described except to the extent set forth below. 71 F being managed for acute hypoxic resp failure secondary to COPDE, CHpEF exacerbation, Afib , Sepsis (resolved) secondary to HCAP, DKA (resolved), severe malnutrition, acute urinary retention on Mathew, decubitus sacral ulcer stage II. She denies new complains. Physical exam remarkable for a fragile, elderly woman not in any form of distress, CTAB except for bi basilar diminished breath sounds, LSM ( murmur), no pedal edema, and abdomen is soft. Labs and Imaging reviewed. Continue current management, will need to be discharged with mathew till sacral ulcer heals as patient is incontinent of urine. Rest of details as in the resident physician's documentation
[2017-07-19] MEDS: Insulin LISPRO 300 UNITS/3 ML VIAL SQ SCH ×4 (07:57→22:28)
[2017-07-19] MEDS: Megestrol Acetate 400 MG/10 ML UDC PO SCH (07:59)
[2017-07-19] MEDS: Azelastine 0.1% Nasal Spray 30 ML BOTTLE NS SCH ×2 (07:59→22:29)
[2017-07-19] MEDS: predniSONE 20 MG TABLET PO SCH (07:59)
[2017-07-19] MEDS: Lactulose Oral Soln 20 GM/30 ML UDC PO SCH ×5 (07:59→22:29)
[2017-07-19] MEDS: Furosemide 20 MG/2 ML VIAL IVP SCH (07:59)
[2017-07-19] MEDS: *HR* Amiodarone 200 MG TABLET PO SCH (07:59)
[2017-07-19] MEDS: Aspirin Enteric Coated 81 MG Tablet PO SCH (07:59)
[2017-07-19] MEDS: *HR* Warfarin 3 MG TABLET PO SCH (17:27)
[2017-07-19] MEDS: Insulin DETEMIR 100 UNIT/ML X5UNITS SQ SCH (22:28)
[2017-07-20] MEDS: Ipratropium/Albuterol Neb 3 ML IH SCH ×6 (03:34→23:49)
[2017-07-20 05:36] LABS: Basophils % 0.1 %; Eosinophils % 0.1 %; Hematocrit 28.7 % (35.3-44.9); Hemoglobin 9.6 g/dL (11.5-15.4); Immature Granulocytes % 0.8 % (0-4); Lymphocytes # 0.6 K/mcL (0.6-4.6); Lymphocytes % 3.2 %; Mean Corpuscular HGB Conc 33.4 g/dL (31.6-35.5); Mean Corpuscular Hemoglobin 31.1 pg (28.0-33.3); Mean Corpuscular Volume 92.9 fL (83.0-100.0); Mean Platelet Volume 9.7 fL (9.4-12.4); Monocytes % 5.6 %; Neutrophils # 15.8 K/mcL (1.6-8.9); Platelet Count 273 K/mcL (140-400); Red Blood Count 3.09 M/mcL (3.82-4.97); Red Cell Distribution Width 18.8 % (11.5-14.5); Segmented Neutrophils % 90.2 %
[2017-07-20 05:48] LABS: BUN/Creatinine Ratio 36 (6-26); Blood Urea Nitrogen 21 mg/dL (8-23); Calcium 8.7 mg/dL (8.6-10.3); Carbon Dioxide 25 mEq/L (23-29); Chloride 100 mEq/L (98-107); Glucose 276 mg/dL (70-105); Osmolality,Calculated 287 (280-300); Potassium 4.6 mEq/L (3.5-5.1); Sodium 132 mEq/L (136-145); eGFR For African Americans > 60 (> 60); eGFR For Non-African Americans > 60 (> 60)
[2017-07-20 05:58] LABS: INR 1.9; Prothrombin Time 20.4 Seconds (9.4-12.1)
--- NOTE | 2017-07-20 08:38 | Internal Med Progress Note ---
<Joseph Hernández - Last Filed: 07/20/17 14:31> Date of Encounter: 07/20/17 Time of Encounter: 08:35 - Assessment and plan (1) Congestive heart failure Current Visit: Yes Status: Acute Assessment and plan: Acute on chronic CHF likely due to probably valvular heart disease as well as diastolic CHF. Echo 06/23/17 revealed EF 65-70%, severe aortic and mitral stenosis, and pulmonary HTN Diuresis as blood pressures tolerates. Continue Lasix. She is not on a beta elias, would not give due to low blood pressures. Monitor. Patient has severe probably valvular heart disease and is unlikely a candidate for TAVR due to her comorbidities. Discussed the case with the patient's son, apparently she was offered a TAVR in the past, but decided to hold off due to her cancer diagnosis. Repeat CXR reveals right basilar airspace disease similar to the comparisons, chronic atelectasis versus scarring is favored although a small area of pneumonia cannot be entirely excluded. Qualifiers: Heart failure type: diastolic Heart failure chronicity: chronic Qualified Code(s): I50.32 - Chronic diastolic (congestive) heart failure (2) HCAP (healthcare-associated pneumonia) Current Visit: Yes Status: Acute Assessment and plan: Acute hypoxic respiratory failure due to acute COPD exacerbation from sepsis secondary to HCAP present upon admission Completed Levaquin (10 Days). Blood Cultures showed no growth to date. Discontinued Zyvox, Merrem, and Vancomycin. Taper prednisone Continue bronchodilators. Oxygen supplementation. (3) COPD exacerbation Current Visit: Yes Status: Acute Assessment and plan: Stopped Solumedrol, antibiotics Taper Prednisone Continue bronchodliators (4) Respiratory failure Current Visit: Yes Status: Acute Assessment and plan: Multifactorial resp failure due to healthcare associated pneumonia, acute COPD exacerbation, CHF secondary to probably valvular heart disease, and underlying lung cancer. Continue BiPap prn Qualifiers: Chronicity: acute on chronic Respiratory failure complication: hypoxia Qualified Code(s): J96.21 - Acute and chronic respiratory failure with hypoxia (5) Lung cancer Current Visit: No Status: Chronic Assessment and plan: Status post chemotherapy. No active chemotherapy at this time. Will follow with oncologist to discuss the status of cancer and deciding further plan Last CAT scan of chest showed what appeared to be an increasing left apical mass , as well as lymphadenopathy. Pulmonology follow up outpatient Qualifiers: Laterality: right Lung location: unspecified part of lung Qualified Code( s): C34.91 - Malignant neoplasm of unspecified part of right bronchus or lung (6) Sepsis Current Visit: Yes Status: Resolved Assessment and plan: Sepsis from healthcare associated HCAP pneumonia. Closely monitor. Qualifiers: Sepsis type: sepsis due to unspecified organism Qualified Code(s): A41.9 - Sepsis, unspecified organism (7) A-fib Current Visit: No Status: Chronic Assessment and plan: A-fib without RVR. Continue home medicine. Heart rate controlled. Resumed Coumadin. Continue to monitor. Qualifiers: Atrial fibrillation type: chronic Qualified Code(s): I48.2 - Chronic atrial fibrillation (8) Severe protein-calorie malnutrition Current Visit: Yes Status: Acute Assessment and plan: Loss of subcuticular fat, temporal wasting, loss of muscle mass, BMI 18.8 Resumed home Megace (9) Sacral decubitus ulcer, stage II Current Visit: Yes Status: Acute Assessment and plan: Continue border foam dressings, turn patient q2h PT/OT following (10) UTI (urinary tract infection) Current Visit: Yes Status: Acute Assessment and plan: Leukocytosis Possible CAUTI in the setting of acute urinary retention Start Rocephin 1g daily (patient has PCN allergy but has received Rocephin in the past) Urine cultures pending Qualifiers: Urinary tract infection type: acute cystitis Hematuria presence: without hematuria Qualified Code(s): N30.00 - Acute cystitis without hematuria (11) DM2 (diabetes mellitus, type 2) Current Visit: No Status: Chronic Assessment and plan: BG elevated likely due to steroids. Adjusted insulin dose due to hyperglycemia Continue SSI and long-acting insulin, caution given the fact that patient is not eating well. 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 Patient was transferred to ICU on Insulin drip 07/10/17 Qualifiers: Diabetes mellitus type: type 2 Diabetes mellitus complication detail: without coma Qualified Code(s): E11.10 - Type 2 diabetes mellitus with ketoacidosis without coma (13) Hypokalemia Current Visit: Yes Status: Resolved Assessment and plan: Resolved Continue to monitor (14) Hypomagnesemia Current Visit: Yes Status: Resolved Assessment and plan: Resolved Continue to monitor (15) Hypophosphatemia Current Visit: Yes Status: Resolved Assessment and plan: Resolved Continue to monitor (16) Elevated troponin Current Visit: Yes Status: Acute Assessment and plan: History of CAD. Chronic elevation of troponin. Serial troponins adynamic. Suspect demand ischemia. Continue to monitor. (17) Altered mental status Current Visit: Yes Status: Resolved Assessment and plan: Possible acute metabolic encephalopathy due to sepsis Mental status is improved. CT head was negative for acute process, mass, or bleed Qualifiers: Altered mental status type: disorientation Qualified Code(s): R41.0 - Disorientation, unspecified (18) Constipation Current Visit: Yes Status: Acute Assessment and plan: Repeat CT abd/plv revealed findings of persistent constipation, obstipation, with the prominent fecal ball noted at the rectal vault previously no longer present. Continue Lactulose QID, 1L tap water enemas BID Qualifiers: Constipation type: slow transit constipation Qualified Code(s): K59.01 - Slow transit constipation (19) Acute urinary retention Current Visit: Yes Status: Acute Assessment and plan: Acute urinary retention Mathew cath in place, will need to be discharged with mathew till sacral ulcer heals as patient is incontinent of urine. - Time Spent With Patient Total time spent is greater than 50% in coordination of care (as documented) at patient's floor/unit and/or counseling patient: - Subjective Interval history: Patient seen and examined. Patient reports cough, difficulty breathing today, pain in sacral region, and mild abdominal discomfort. Her SpO2 level dropped down to 74% off supplemental O2. CXR pending. She reports feeling weak today and was encouraged to participate in PT/OT. - Constitutional Vitals: Temp Pulse Resp BP Pulse Ox 98.4 F 91 18 123/69 92 07/20/17 06:55 07/20/17 06:55 07/20/17 07:39 07/20/17 06:55 07/20/17 07:39 General appearance: Present: cachectic, cooperative, mild distress, A&O X 3, pleasant, answers questions appropriately - Head Head exam: Present: atraumatic, normocephalic - Eye Eye exam: Present: PERRL, conjuntiva pink, sclera anicteric Pupils: Present: PERRL - ENT ENT exam: Present: mucous membranes moist, normal oropharynx - Neck Neck exam general surgery: Present: supple, trachea midline. Absent: lymphadenopathy - Respiratory Respiratory exam: Present: decreased breath sounds (R > L), rales (diffuse, bibasilar). Absent: accessory muscle use, CTAB, respiratory distress, rhonchi, wheezes - Cardiovascular Cardiovascular exam: Present: irregular rhythm, +S1, +S2, systolic murmur. Absent: diastolic murmur, gallop, RRR, rubs - GI/Abdominal GI/Abdominal exam: Present: normal bowel sounds, soft, no peritoneal signs. Absent: distended, tenderness - Additional comments: mathew in place - Extremities Exam Extremities exam: Present: warm, radial pulses palpable and symmetrical. Absent : calf tenderness, cyanotic, pedal edema - Back Exam Back exam: Absent: normal inspection (stage 2 sacral decubitus ulcer), tenderness - Neurological Exam Neurological exam: Present: CN II-XII intact, oriented X3, no focal deficits. Absent: pronater drift, facial droop, speech deficit - Psychiatric Psychiatric exam: Present: flat affect, normal mood - Skin Skin exam: Present: dry, erythema (stage 2 sacral decubitus ulcer), intact Internal Medicine: Result - Labs CBC & Chem 7: 07/20/17 05:19 07/20/17 05:19 Labs: Short CBC 07/20/17 Range/Units 05:19 WBC 17.5 H (4.3-11.1) K/mcL Hgb 9.6 L (11.5-15.4) g/dL Hct 28.7 L (35.3-44.9) % Plt Count 273 (140-400) K/mcL Neutrophils # 15.8 H (1.6-8.9) K/mcL BMP 07/20/17 05:19 Sodium 132 L Potassium 4.6 Chloride 100 Carbon Dioxide 25 BUN 21 Creatinine 0.58 L Glucose 276 H Calcium 8.7 - ABG Interpretation ABG results: ABG ABG pH 7.61 pH Units (7.32-7.45) H* 07/11/17 05:37 ABG pCO2 31 mmHg (35-45) L 07/11/17 05:37 ABG pO2 60 mmHg (85-104) L 07/11/17 05:37 ABG O2 Saturation 95 % (95-98) 07/11/17 05:37 PT/INR, D-dimer PT 20.4 Seconds (9.4-12.1) H 07/20/17 05:19 - Pulse Oximetry Interpretation Digit-Finger Pulse Oximetry Readin (2L O2 via NC) - Impressions ITS Impressions Chest X-Ray 07/20/17 08:33 IMPRESSION: Right basilar airspace disease similar to the comparisons, chronic atelectasis versus scarring is favored although a small area of pneumonia cannot be entirely excluded. D/ / Zion Farah MD / Zion Farah MD Interpreting Provider: Zion Farah MD Consult Discharge Plan - Plan Referrals: Valente Rosa MD [Primary Care Provider] - Prescriptions: Aquaphor 1 appl TP Q4HR PRN #1 tube PRN Reason: Dry Skin Furosemide [Lasix] 40 mg PO DAILY #60 tablet levoFLOXacin [Levaquin] 750 mg PO DAILY #1 tablet <Ellis Bocanegra - Last Filed: 07/20/17 15:10> Date of Encounter: 07/20/17 - Assessment and plan (1) DKA (diabetic ketoacidoses) Current Visit: Yes Status: Resolved Qualifiers: Diabetes mellitus type: type 2 Diabetes mellitus complication detail: without coma Qualified Code(s): E11.10 - Type 2 diabetes mellitus with ketoacidosis without coma (2) Lung cancer Current Visit: No Status: Chronic Qualifiers: Laterality: right Lung location: unspecified part of lung Qualified Code( s): C34.91 - Malignant neoplasm of unspecified part of right bronchus or lung (3) DM2 (diabetes mellitus, type 2) Current Visit: No Status: Chronic Qualifiers: Diabetes mellitus assisted insulin use: with assisted use Diabetes mellitus complication status: with hyperglycemia Qualified Code(s): E11.65 - Type 2 diabetes mellitus with hyperglycemia; Z79.4 - FDC (current) use of insulin; Z79.4 - FDC (current) use of insulin; Z79.4 - FDC (current ) use of insulin; Z79.4 - FDC (current) use of insulin (4) Hypokalemia Current Visit: Yes Status: Resolved (5) UTI (urinary tract infection) Current Visit: Yes Status: Acute Qualifiers: Urinary tract infection type: acute cystitis Hematuria presence: without hematuria Qualified Code(s): N30.00 - Acute cystitis without hematuria (6) Hypomagnesemia Current Visit: Yes Status: Resolved (7) HCAP (healthcare-associated pneumonia) Current Visit: Yes Status: Acute (8) A-fib Current Visit: No Status: Chronic Qualifiers: Atrial fibrillation type: chronic Qualified Code(s): I48.2 - Chronic atrial fibrillation (9) Sepsis Current Visit: Yes Status: Resolved Qualifiers: Sepsis type: sepsis due to unspecified organism Qualified Code(s): A41.9 - Sepsis, unspecified organism (10) Altered mental status Current Visit: Yes Status: Resolved Qualifiers: Altered mental status type: disorientation Qualified Code(s): R41.0 - Disorientation, unspecified (11) COPD exacerbation Current Visit: Yes Status: Acute (12) Elevated troponin Current Visit: Yes Status: Acute (13) Respiratory failure Current Visit: Yes Status: Acute Qualifiers: Chronicity: acute on chronic Respiratory failure complication: hypoxia Qualified Code(s): J96.21 - Acute and chronic respiratory failure with hypoxia (14) Constipation Current Visit: Yes Status: Acute Qualifiers: Constipation type: slow transit constipation Qualified Code(s): K59.01 - Slow transit constipation (15) Congestive heart failure Current Visit: Yes Status: Acute Qualifiers: Heart failure type: diastolic Heart failure chronicity: chronic Qualified Code(s): I50.32 - Chronic diastolic (congestive) heart failure (16) Sacral decubitus ulcer, stage II Current Visit: Yes Status: Acute (17) Severe protein-calorie malnutrition Current Visit: Yes Status: Acute (18) Hypophosphatemia Current Visit: Yes Status: Resolved (19) Acute urinary retention Current Visit: Yes Status: Acute - Time Spent With Patient Total time spent is greater than 50% in coordination of care (as documented) at patient's floor/unit and/or counseling patient: - Constitutional Vitals: Temp Pulse Resp BP Pulse Ox 98.1 F 90 16 101/60 95 07/20/17 11:24 07/20/17 11:24 07/20/17 11:24 07/20/17 11:24 07/20/17 11:24 Internal Medicine: Result - Labs CBC & Chem 7: 07/20/17 05:19 07/20/17 05:19 Labs: Short CBC 07/20/17 Range/Units 05:19 WBC 17.5 H (4.3-11.1) K/mcL Hgb 9.6 L (11.5-15.4) g/dL Hct 28.7 L (35.3-44.9) % Plt Count 273 (140-400) K/mcL Neutrophils # 15.8 H (1.6-8.9) K/mcL BMP 07/20/17 05:19 Sodium 132 L Potassium 4.6 Chloride 100 Carbon Dioxide 25 BUN 21 Creatinine 0.58 L Glucose 276 H Calcium 8.7 Urine 07/20/17 Range/Units 12:20 Urine Color Yellow (Yellow) Urine Clarity Clear (Clear) Urine pH 7.0 (5.0-8.0) pH Units Ur Specific [place] 1.018 (1.010-1.025) Urine Protein Negative (Neg-Trace) mg/dL Urine Glucose (UA) >=1000 H (Normal) mg/dL - ABG Interpretation ABG results: ABG ABG pH 7.61 pH Units (7.32-7.45) H* 07/11/17 05:37 ABG pCO2 31 mmHg (35-45) L 07/11/17 05:37 ABG pO2 60 mmHg (85-104) L 07/11/17 05:37 ABG O2 Saturation 95 % (95-98) 07/11/17 05:37 PT/INR, D-dimer PT 20.4 Seconds (9.4-12.1) H 07/20/17 05:19 - Impressions Impressions Chest X-Ray 07/20/17 08:33 IMPRESSION: Right basilar airspace disease similar to the comparisons, chronic atelectasis versus scarring is favored although a small area of pneumonia cannot be entirely excluded. D/ / Zion Farah MD / Zion Farah MD Interpreting Provider: Zion Farah MD - Attending Attestation I examined this patient and my medical decision-making was reviewed with the Resident Physician. I agree with the documented findings, disposition and treatment plan as described except to the extent set forth below. 71 F being managed for acute hypoxic resp failure secondary to COPDE, CHpEF exacerbation, Afib , Sepsis (resolved) secondary to HCAP, DKA (resolved), severe malnutrition, acute urinary retention on Mathew, decubitus sacral ulcer stage II. She complained of being unable to breathe this a.m. She is laying flat in bed in no distress. However, her leukocytosis is worsened, she remained afebrile Physical exam remarkable for a fragile, elderly woman not in any form of distress, CTAB except for bi basilar diminished breath sounds, LSM ( murmur), no pedal edema, and abdomen is soft. Labs and Imaging reviewed. Worsening leukocytosis with left shift (patient is on prednisone since admission), Hypeglycemia, UA with suspected UTI, Chest Xray is unremarkable for new findings Continue current management, add Rocephin, await urine culture final reports Patient is clinically and hemodynamically stable Rest of details as in the resident physician's documentation
[2017-07-20] MEDS: Insulin LISPRO 300 UNITS/3 ML VIAL SQ SCH ×5 (10:55→21:33)
[2017-07-20] MEDS: Furosemide 20 MG/2 ML VIAL IVP SCH (10:55)
[2017-07-20] MEDS: predniSONE 20 MG TABLET PO SCH (10:55)
[2017-07-20] MEDS: Megestrol Acetate 400 MG/10 ML UDC PO SCH (10:55)
[2017-07-20] MEDS: Aspirin Enteric Coated 81 MG Tablet PO SCH (10:55)
[2017-07-20] MEDS: Azelastine 0.1% Nasal Spray 30 ML BOTTLE NS SCH ×2 (10:56→21:33)
[2017-07-20] MEDS: *HR* Amiodarone 200 MG TABLET PO SCH (10:56)
[2017-07-20] MEDS: Lactulose Oral Soln 20 GM/30 ML UDC PO SCH ×4 (10:56→21:32)
[2017-07-20 12:39] LABS: Bilirubin,Urine Negative (Negative); Blood,Urine Negative (Negative); Clarity,Urine Clear (Clear); Color,Urine Yellow (Yellow); Glucose,Urine (UA) >=1000 mg/dL (Normal); Ketones,Urine Negative (Negative); Leukocyte Esterase,Urine Small (Negative); Nitrite,Urine Negative (Negative); Protein,Urine Negative (Neg-Trace); Specific Gravity,Urine 1.018 (1.010-1.025); Urobilinogen,Urine Normal (Normal)
[2017-07-20 12:42] LABS: Bacteria,Urine None Seen per hpf (None-Few); Hyaline Casts,Urine None Seen per lpf (None-Few); Squamous Epithelial Cell,Urine Moderate per lpf (None-Few); WBC,Urine 15-30 per hpf (0-3)
[2017-07-20 13:13] LABS: Yeast,Urine Few per hpf (None Seen)
[2017-07-20] MEDS ORDERED: Insulin LISPRO 300 UNITS/3 ML VIAL SQ ONE ×2 (14:26→14:27)
[2017-07-20] MEDS: cefTRIAXone 1,000 MG in Water for inj. (sterile) 20 ML 10 ML IVP SCH (14:50)
[2017-07-20] MEDS: *HR* Warfarin 3 MG TABLET PO SCH (16:39)
[2017-07-20] MEDS: traMADol 50 MG TABLET PO PRN ×2 (16:43→23:44)
[2017-07-21] MEDS: Ipratropium/Albuterol Neb 3 ML IH SCH ×5 (04:25→20:02)
[2017-07-21 05:59] LABS: Basophils % 0.1 %; Hemoglobin 9.5 g/dL (11.5-15.4); Immature Granulocytes % 0.7 % (0-4); Lymphocytes # 0.6 K/mcL (0.6-4.6); Lymphocytes % 4.7 %; Mean Corpuscular HGB Conc 32.8 g/dL (31.6-35.5); Mean Corpuscular Hemoglobin 30.4 pg (28.0-33.3); Mean Corpuscular Volume 92.9 fL (83.0-100.0); Mean Platelet Volume 9.5 fL (9.4-12.4); Monocytes # 0.8 K/mcL (0.0-1.3); Monocytes % 6.5 %; Neutrophils # 10.8 K/mcL (1.6-8.9); Platelet Count 284 K/mcL (140-400); Red Blood Count 3.12 M/mcL (3.82-4.97); Red Cell Distribution Width 18.6 % (11.5-14.5)
[2017-07-21 06:05] LABS: INR 2.2
[2017-07-21 06:21] LABS: BUN/Creatinine Ratio 52 (6-26); Blood Urea Nitrogen 33 mg/dL (8-23); Calcium 8.5 mg/dL (8.6-10.3); Carbon Dioxide 22 mEq/L (23-29); Chloride 97 mEq/L (98-107); Glucose 488 mg/dL (70-105); Osmolality,Calculated 297 (280-300); Potassium 5.1 mEq/L (3.5-5.1); Sodium 129 mEq/L (136-145); eGFR For African Americans > 60 (> 60); eGFR For Non-African Americans > 60 (> 60)
[2017-07-21] MEDS: predniSONE 20 MG TABLET PO SCH (08:18)
[2017-07-21] MEDS: Aspirin Enteric Coated 81 MG Tablet PO SCH (08:19)
[2017-07-21] MEDS: Lactulose Oral Soln 20 GM/30 ML UDC PO SCH ×4 (08:19→22:46)
[2017-07-21] MEDS: *HR* Amiodarone 200 MG TABLET PO SCH (08:19)
[2017-07-21] MEDS: Furosemide 20 MG/2 ML VIAL IVP SCH (08:20)
[2017-07-21] MEDS: Megestrol Acetate 400 MG/10 ML UDC PO SCH (08:20)
[2017-07-21] MEDS: Azelastine 0.1% Nasal Spray 30 ML BOTTLE NS SCH ×2 (08:20→22:46)
[2017-07-21] MEDS: Insulin DETEMIR 100 UNIT/ML X5UNITS SQ SCH (08:20)
[2017-07-21] MEDS: cefTRIAXone 1,000 MG in Water for inj. (sterile) 20 ML 10 ML IVP SCH (08:21)
[2017-07-21] MEDS: Insulin LISPRO 300 UNITS/3 ML VIAL SQ SCH ×7 (08:23→22:46)
[2017-07-21] MEDS ORDERED: Furosemide 20 MG/2 ML VIAL IVP ONE (09:19)
--- NOTE | 2017-07-21 09:33 | Internal Med Progress Note ---
<Joseph Hernández - Last Filed: 07/21/17 09:52> Date of Encounter: 07/21/17 Time of Encounter: 09:31 - Assessment and plan (1) Congestive heart failure Current Visit: Yes Status: Acute Assessment and plan: Acute on chronic CHF likely due to probably valvular heart disease as well as diastolic CHF. Echo 06/23/17 revealed EF 65-70%, severe aortic and mitral stenosis, and pulmonary HTN Diuresis as blood pressures tolerates. She is not on a beta elias, would not give due to low blood pressures. Monitor. Patient has severe probably valvular heart disease and is unlikely a candidate for TAVR due to her comorbidities. Discussed the case with the patient's son, apparently she was offered a TAVR in the past, but decided to hold off due to her cancer diagnosis. Repeat CXR reveals right basilar airspace disease similar to the comparisons, chronic atelectasis versus scarring is favored although a small area of pneumonia cannot be entirely excluded. Continue diuresis, additional dose of Lasix given today. Qualifiers: Heart failure type: diastolic Heart failure chronicity: chronic Qualified Code(s): I50.32 - Chronic diastolic (congestive) heart failure (2) HCAP (healthcare-associated pneumonia) Current Visit: Yes Status: Acute Assessment and plan: Acute hypoxic respiratory failure due to acute COPD exacerbation from sepsis secondary to HCAP present upon admission Completed Levaquin (10 Days). Blood Cultures showed no growth to date. Discontinued Zyvox, Merrem, and Vancomycin. Taper prednisone Continue bronchodilators. Oxygen supplementation. (3) COPD exacerbation Current Visit: Yes Status: Acute Assessment and plan: Stopped Solumedrol, Levaquin Taper Prednisone Continue bronchodliators (4) Respiratory failure Current Visit: Yes Status: Acute Assessment and plan: Multifactorial resp failure due to healthcare associated pneumonia, acute COPD exacerbation, CHF secondary to probably valvular heart disease, and underlying lung cancer. Continue BiPap prn Qualifiers: Chronicity: acute on chronic Respiratory failure complication: hypoxia Qualified Code(s): J96.21 - Acute and chronic respiratory failure with hypoxia (5) Lung cancer Current Visit: No Status: Chronic Assessment and plan: Status post chemotherapy. No active chemotherapy at this time. Will follow with oncologist to discuss the status of cancer and deciding further plan Last CAT scan of chest showed what appeared to be an increasing left apical mass , as well as lymphadenopathy. Pulmonology follow up outpatient Qualifiers: Laterality: right Lung location: unspecified part of lung Qualified Code( s): C34.91 - Malignant neoplasm of unspecified part of right bronchus or lung (6) Sepsis Current Visit: Yes Status: Resolved Assessment and plan: Sepsis from healthcare associated HCAP pneumonia. Closely monitor. Qualifiers: Sepsis type: sepsis due to unspecified organism Qualified Code(s): A41.9 - Sepsis, unspecified organism (7) A-fib Current Visit: No Status: Chronic Assessment and plan: A-fib without RVR. Continue home medicine. Heart rate controlled. Resumed Coumadin. Continue to monitor. Qualifiers: Atrial fibrillation type: chronic Qualified Code(s): I48.2 - Chronic atrial fibrillation (8) Severe protein-calorie malnutrition Current Visit: Yes Status: Acute Assessment and plan: Loss of subcuticular fat, temporal wasting, loss of muscle mass, BMI 18.8 Resumed home Megace (9) Sacral decubitus ulcer, stage II Current Visit: Yes Status: Acute Assessment and plan: Continue border foam dressings, turn patient q2h PT/OT following (10) UTI (urinary tract infection) Current Visit: Yes Status: Acute Assessment and plan: Leukocytosis Possible CAUTI in the setting of acute urinary retention Continue Day 2 of Rocephin 1g daily (patient has PCN allergy but has received Rocephin in the past) Urine cultures pending Qualifiers: Urinary tract infection type: acute cystitis Hematuria presence: without hematuria Qualified Code(s): N30.00 - Acute cystitis without hematuria (11) DM2 (diabetes mellitus, type 2) Current Visit: No Status: Chronic Assessment and plan: BG elevated likely due to steroids. Adjusted insulin dose due to hyperglycemia Continue SSI and long-acting insulin, caution given the fact that patient is not eating well. Qualifiers: Diabetes mellitus tire cord weaver insulin use: with tire cord weaver use Diabetes mellitus complication status: with hyperglycemia Qualified Code(s): E11.65 - Type 2 diabetes mellitus with hyperglycemia; Z79.4 - nursing home (current) use of insulin; Z79.4 - nursing home (current) use of insulin; Z79.4 - nursing home (current ) use of insulin; Z79.4 - nursing home (current) use of insulin (12) DKA (diabetic ketoacidoses) Current Visit: Yes Status: Resolved Assessment and plan: Triggered by healthcare associated pneumonia Resolved. Patient was transferred to ICU on Insulin drip 07/10/17 Qualifiers: Diabetes mellitus type: type 2 Diabetes mellitus complication detail: without coma Qualified Code(s): E11.10 - Type 2 diabetes mellitus with ketoacidosis without coma (13) Hypokalemia Current Visit: Yes Status: Resolved Assessment and plan: Resolved Continue to monitor (14) Hypomagnesemia Current Visit: Yes Status: Resolved Assessment and plan: Resolved Continue to monitor (15) Hypophosphatemia Current Visit: Yes Status: Resolved Assessment and plan: Resolved Continue to monitor (16) Elevated troponin Current Visit: Yes Status: Acute Assessment and plan: History of CAD. Chronic elevation of troponin. Serial troponins adynamic. Suspect demand ischemia. Continue to monitor. (17) Altered mental status Current Visit: Yes Status: Resolved Assessment and plan: Possible acute metabolic encephalopathy due to sepsis Mental status is improved. CT head was negative for acute process, mass, or bleed Qualifiers: Altered mental status type: disorientation Qualified Code(s): R41.0 - Disorientation, unspecified (18) Constipation Current Visit: Yes Status: Acute Assessment and plan: Repeat CT abd/plv revealed findings of persistent constipation, obstipation, with the prominent fecal ball noted at the rectal vault previously no longer present. Continue Lactulose QID, 1L tap water enemas BID Qualifiers: Constipation type: slow transit constipation Qualified Code(s): K59.01 - Slow transit constipation (19) Acute urinary retention Current Visit: Yes Status: Acute Assessment and plan: Acute urinary retention Mathew cath in place, will need to be discharged with mathew till sacral ulcer heals as patient is incontinent of urine. - Time Spent With Patient Total time spent is greater than 50% in coordination of care (as documented) at patient's floor/unit and/or counseling patient: - Subjective Interval history: Patient seen and examined. Patient reports difficulty breathing, pain in sacral region, and abdominal discomfort. She reports feeling weak today and was encouraged to participate in PT/OT. Will continue diuresis, antibiotics, and bowel regimen. - Constitutional Vitals: Temp Pulse Resp BP Pulse Ox 97.3 F L 92 16 129/65 99 07/21/17 07:03 07/21/17 07:03 07/21/17 07:40 07/21/17 07:03 07/21/17 07:40 General appearance: Present: cachectic, cooperative, mild distress, A&O X 3, answers questions appropriately - Head Head exam: Present: atraumatic, normocephalic - Eye Eye exam: Present: PERRL, conjuntiva pink, sclera anicteric Pupils: Present: PERRL - ENT ENT exam: Present: mucous membranes dry, normal oropharynx - Neck Neck exam general surgery: Present: supple, trachea midline. Absent: lymphadenopathy - Respiratory Respiratory exam: Present: decreased breath sounds (RUL), rales (bibasilar). Absent: accessory muscle use, CTAB, rhonchi, wheezes - Cardiovascular Cardiovascular exam: Present: RRR, +S1, +S2. Absent: diastolic murmur, gallop, rubs, systolic murmur - GI/Abdominal GI/Abdominal exam: Present: normal bowel sounds, soft, tenderness (mild), no peritoneal signs. Absent: distended - Additional comments: mathew in place - Extremities Exam Extremities exam: Present: warm, radial pulses palpable and symmetrical. Absent : calf tenderness, cyanotic, pedal edema - Back Exam Back exam: Present: normal inspection. Absent: tenderness - Neurological Exam Neurological exam: Present: CN II-XII intact, oriented X3, no focal deficits. Absent: pronater drift, facial droop, speech deficit - Psychiatric Psychiatric exam: Present: normal affect, normal mood - Skin Skin exam: Present: dry, intact, normal color (stage 2 sacral decubitus ulcer), warm Internal Medicine: Result - Labs CBC & Chem 7: 07/21/17 05:53 07/21/17 05:53 Labs: Short CBC 07/21/17 Range/Units 05:53 WBC 12.3 H (4.3-11.1) K/mcL Hgb 9.5 L (11.5-15.4) g/dL Hct 29.0 L (35.3-44.9) % Plt Count 284 (140-400) K/mcL Neutrophils # 10.8 H (1.6-8.9) K/mcL BMP 07/21/17 05:53 Sodium 129 L Potassium 5.1 Chloride 97 L Carbon Dioxide 22 L BUN 33 H Creatinine 0.64 Glucose 488 H Calcium 8.5 L Urine 07/20/17 Range/Units 12:20 Urine Color Yellow (Yellow) Urine Clarity Clear (Clear) Urine pH 7.0 (5.0-8.0) pH Units Ur Specific [place] 1.018 (1.010-1.025) Urine Protein Negative (Neg-Trace) mg/dL Urine Glucose (UA) >=1000 H (Normal) mg/dL - ABG Interpretation ABG results: ABG ABG pH 7.61 pH Units (7.32-7.45) H* 07/11/17 05:37 ABG pCO2 31 mmHg (35-45) L 07/11/17 05:37 ABG pO2 60 mmHg (85-104) L 07/11/17 05:37 ABG O2 Saturation 95 % (95-98) 07/11/17 05:37 PT/INR, D-dimer PT 24.0 Seconds (9.4-12.1) H 07/21/17 05:53 - Pulse Oximetry Interpretation Digit-Finger Pulse Oximetry Readin (On 2L O2 via NC) Consult Discharge Plan - Plan Referrals: Valente Rosa MD [Primary Care Provider] - Prescriptions: Aquaphor 1 appl TP Q4HR PRN #1 tube PRN Reason: Dry Skin Furosemide [Lasix] 40 mg PO DAILY #60 tablet levoFLOXacin [Levaquin] 750 mg PO DAILY #1 tablet <Ellis Bocanegra T - Last Filed: 07/21/17 15:11> Date of Encounter: 07/21/17 - Assessment and plan (1) DKA (diabetic ketoacidoses) Current Visit: Yes Status: Resolved Qualifiers: Diabetes mellitus type: type 2 Diabetes mellitus complication detail: without coma Qualified Code(s): E11.10 - Type 2 diabetes mellitus with ketoacidosis without coma (2) Lung cancer Current Visit: No Status: Chronic Qualifiers: Laterality: right Lung location: unspecified part of lung Qualified Code( s): C34.91 - Malignant neoplasm of unspecified part of right bronchus or lung (3) DM2 (diabetes mellitus, type 2) Current Visit: No Status: Chronic Qualifiers: Diabetes mellitus tire cord weaver insulin use: with tire cord weaver use Diabetes mellitus complication status: with hyperglycemia Qualified Code(s): E11.65 - Type 2 diabetes mellitus with hyperglycemia; Z79.4 - nursing home (current) use of insulin; Z79.4 - nursing home (current) use of insulin; Z79.4 - nursing home (current ) use of insulin; Z79.4 - nursing home (current) use of insulin (4) Hypokalemia Current Visit: Yes Status: Resolved (5) UTI (urinary tract infection) Current Visit: Yes Status: Acute Qualifiers: Urinary tract infection type: acute cystitis Hematuria presence: without hematuria Qualified Code(s): N30.00 - Acute cystitis without hematuria (6) Hypomagnesemia Current Visit: Yes Status: Resolved (7) HCAP (healthcare-associated pneumonia) Current Visit: Yes Status: Acute (8) A-fib Current Visit: No Status: Chronic Qualifiers: Atrial fibrillation type: chronic Qualified Code(s): I48.2 - Chronic atrial fibrillation (9) Sepsis Current Visit: Yes Status: Resolved Qualifiers: Sepsis type: sepsis due to unspecified organism Qualified Code(s): A41.9 - Sepsis, unspecified organism (10) Altered mental status Current Visit: Yes Status: Resolved Qualifiers: Altered mental status type: disorientation Qualified Code(s): R41.0 - Disorientation, unspecified (11) COPD exacerbation Current Visit: Yes Status: Acute (12) Elevated troponin Current Visit: Yes Status: Acute (13) Respiratory failure Current Visit: Yes Status: Acute Qualifiers: Chronicity: acute on chronic Respiratory failure complication: hypoxia Qualified Code(s): J96.21 - Acute and chronic respiratory failure with hypoxia (14) Constipation Current Visit: Yes Status: Acute Qualifiers: Constipation type: slow transit constipation Qualified Code(s): K59.01 - Slow transit constipation (15) Congestive heart failure Current Visit: Yes Status: Acute Qualifiers: Heart failure type: diastolic Heart failure chronicity: chronic Qualified Code(s): I50.32 - Chronic diastolic (congestive) heart failure (16) Sacral decubitus ulcer, stage II Current Visit: Yes Status: Acute (17) Severe protein-calorie malnutrition Current Visit: Yes Status: Acute (18) Hypophosphatemia Current Visit: Yes Status: Resolved (19) Acute urinary retention Current Visit: Yes Status: Acute - Time Spent With Patient Total time spent is greater than 50% in coordination of care (as documented) at patient's floor/unit and/or counseling patient: - Constitutional Vitals: Temp Pulse Resp BP Pulse Ox 97.3 F L 92 18 129/65 100 07/21/17 07:03 07/21/17 07:03 07/21/17 11:25 07/21/17 07:03 07/21/17 11:25 Internal Medicine: Result - Labs CBC & Chem 7: 07/21/17 05:53 07/21/17 05:53 Labs: Short CBC 07/21/17 Range/Units 05:53 WBC 12.3 H (4.3-11.1) K/mcL Hgb 9.5 L (11.5-15.4) g/dL Hct 29.0 L (35.3-44.9) % Plt Count 284 (140-400) K/mcL Neutrophils # 10.8 H (1.6-8.9) K/mcL BMP 07/21/17 05:53 Sodium 129 L Potassium 5.1 Chloride 97 L Carbon Dioxide 22 L BUN 33 H Creatinine 0.64 Glucose 488 H Calcium 8.5 L - ABG Interpretation ABG results: ABG ABG pH 7.61 pH Units (7.32-7.45) H* 07/11/17 05:37 ABG pCO2 31 mmHg (35-45) L 07/11/17 05:37 ABG pO2 60 mmHg (85-104) L 07/11/17 05:37 ABG O2 Saturation 95 % (95-98) 07/11/17 05:37 PT/INR, D-dimer PT 24.0 Seconds (9.4-12.1) H 07/21/17 05:53 - Attending Attestation I examined this patient and my medical decision-making was reviewed with the Resident Physician. I agree with the documented findings, disposition and treatment plan as described except to the extent set forth below. 71 F being managed for acute hypoxic resp failure secondary to COPDE, CHpEF exacerbation, Afib , Sepsis (resolved) secondary to HCAP, DKA (resolved), severe malnutrition, acute urinary retention on Mathew, decubitus sacral ulcer stage II. She has no new complains this mrn, she is in no form of distress Physical exam remarkable for a fragile, elderly woman not in any form of distress, CTAB except for bi basilar diminished breath sounds, LSM ( murmur), no pedal edema, and abdomen is soft. Labs and Imaging reviewed. Improving leukocytosis with left shift (patient is on prednisone since admission), Hyperglycemia, UA with suspected UTI, urine culture is pending, Chest Xray is unremarkable for new findings Continue current management, give additional lasix, continue Rocephin, await urine culture final reports Patient is clinically and hemodynamically stable, continue other management Rest of details as in the resident physician's documentation
[2017-07-21] MEDS: *HR* Warfarin 3 MG TABLET PO SCH (17:10)
[2017-07-22] MEDS: Ipratropium/Albuterol Neb 3 ML IH SCH ×5 (00:21→15:15)
[2017-07-22 06:08] LABS: Hematocrit 29.8 % (35.3-44.9); Hemoglobin 9.7 g/dL (11.5-15.4); Mean Corpuscular HGB Conc 32.6 g/dL (31.6-35.5); Mean Corpuscular Hemoglobin 30.6 pg (28.0-33.3); Mean Platelet Volume 9.4 fL (9.4-12.4); Platelet Count 276 K/mcL (140-400); Red Blood Count 3.17 M/mcL (3.82-4.97); Red Cell Distribution Width 18.7 % (11.5-14.5)
[2017-07-22 06:18] LABS: INR 2.5; Prothrombin Time 27.5 Seconds (9.4-12.1)
[2017-07-22 06:31] LABS: BUN/Creatinine Ratio 46 (6-26); Blood Urea Nitrogen 25 mg/dL (8-23); Calcium 8.5 mg/dL (8.6-10.3); Carbon Dioxide 28 mEq/L (23-29); Chloride 100 mEq/L (98-107); Glucose 249 mg/dL (70-105); Osmolality,Calculated 291 (280-300); Potassium 4.6 mEq/L (3.5-5.1); Sodium 134 mEq/L (136-145); eGFR For African Americans > 60 (> 60); eGFR For Non-African Americans > 60 (> 60)
[2017-07-22] MEDS ORDERED: Fluconazole 100 MG TABLET PO SCH (09:00)
[2017-07-22] MEDS: cefTRIAXone 1,000 MG in Water for inj. (sterile) 20 ML 10 ML IVP SCH (09:56)
[2017-07-22] MEDS: Furosemide 20 MG/2 ML VIAL IVP SCH (09:57)
[2017-07-22] MEDS: Insulin LISPRO 300 UNITS/3 ML VIAL SQ SCH ×4 (09:57→12:03)
[2017-07-22] MEDS: Lactulose Oral Soln 20 GM/30 ML UDC PO SCH ×2 (09:57→14:56)
[2017-07-22] MEDS: Insulin DETEMIR 100 UNIT/ML X5UNITS SQ SCH (09:57)
[2017-07-22] MEDS: Megestrol Acetate 400 MG/10 ML UDC PO SCH (09:58)
[2017-07-22] MEDS: Aspirin Enteric Coated 81 MG Tablet PO SCH (09:58)
[2017-07-22] MEDS: predniSONE 20 MG TABLET PO SCH (09:58)
[2017-07-22] MEDS: *HR* Amiodarone 200 MG TABLET PO SCH (09:58)
[2017-07-22] MEDS: Azelastine 0.1% Nasal Spray 30 ML BOTTLE NS SCH (10:00)
[2017-07-22 11:07] VITALS: BP 111/65
[2017-07-22] MEDS ORDERED: Insulin Human Regular 5 UNIT in 0.9 % Sodium Chloride 10 ML IV ONE (11:09)
--- NOTE | 2017-07-22 14:14 | Physician Discharge Referral ---
ExtendedCare Referral Info Transfer To: [facility] Provider in Charge: Valarie Bocanegraju - Transfer Medications Prescriptions: Aquaphor 1 appl TP Q4HR PRN #1 tube PRN Reason: Dry Skin Fluconazole [Diflucan] 200 mg PO DAILY #14 tab Furosemide [Lasix] 40 mg PO DAILY #60 tablet levoFLOXacin [Levaquin] 750 mg PO DAILY #1 tablet Home Medications: Albuterol Neb [Proventil Neb] 2.5 mg IH Q6H PRN 04/30/15 [History] Atorvastatin [Lipitor] 10 mg PO HS 04/30/15 [History] Loratadine [Claritin] 10 mg PO DAILY 04/30/15 [History] Meclizine [Antivert] 25 mg PO BID 04/30/15 [History] Montelukast [Singulair] 10 mg PO DAILY 04/30/15 [History] Omeprazole [PriLOSEC] 20 mg PO BID 04/30/15 [History] Potassium Chloride [K-Tab ER] 20 meq PO DAILY 04/30/15 [History] Roflumilast [Daliresp] 500 mcg PO DAILY 04/30/15 [History] Alendronate Sodium [Fosamax] 70 mg PO WE 10/27/16 [History] Calcium Carbonate/Vitamin D3 [Calcium 600-Vit D3 400 Tablet] 1 each PO BID 11/17 [History] Umeclidinium Brm/Vilanterol Tr [Anoro Ellipta 62.5-25 Mcg INH] 1 puff IH DAILY 11/17/16 [History] Venlafaxine XR (24 HR) [Effexor XR] 75 mg PO DAILY 01/10/17 [History] Beclomethasone Diprop 40mcg [QVAR 40 mcg] 1 puff IH BID 02/21/17 [History] Nitroglycerin [Nitrostat] 0.4 mg SL PRN PRN 02/21/17 [History] Azelastine 0.1% Nasal [place] [Astelin] 2 spray NS BID 03/10/17 [History] Aspirin Enteric Coated [Aspirin EC] 81 mg PO DAILY tablet. 03/29/17 [Rx] Amiodarone [Cordarone] 200 mg PO DAILY 04/20/17 [History] Insulin Glargine,Hum.rec.anlog [Valeriaaglbrandon Chandpen U-100] 10 unit SQ DAILY [History] Sennosides/Docusate Sodium [Senna-Docusate Sodium Tablet] 1 each PO BID PRN 12/06 [History] Warfarin [Coumadin] 3 mg PO 1800 04/29/17 [History] Insulin LISPRO [Humalog] 0 unit SQ AD PRN 05/23/17 [History] Ondansetron HCl 4 mg PO Q8H PRN #60 tablet 05/23/17 [Rx] Prochlorperazine Maleate [Compazine] 10 mg PO Q6HR PRN #90 tablet 05/23/17 [Rx] Megestrol Acetate [Megace] 400 mg PO DAILY 06/14/17 [History] Bisacodyl [Dulcolax] 10 mg RC DAILY PRN supp.rect 06/27/17 [Rx] Docusate [Colace] 100 mg PO BID capsule 06/27/17 [Rx] Enoxaparin [Lovenox] 50 mg SQ Q12HCO syringe 06/27/17 [Rx] HYDROcodone/Acet 10/325 mg [[place] 10-325 mg] 1 tab PO Q6HR PRN 5 Days #10 tablet 06/27/17 [Rx] Aquaphor 1 appl TP Q4HR PRN #1 tube 07/14/17 [Rx] Furosemide [Lasix] 40 mg PO DAILY #60 tablet 07/14/17 [Rx] levoFLOXacin [Levaquin] 750 mg PO DAILY #1 tablet 07/14/17 [Rx] Fluconazole [Diflucan] 200 mg PO DAILY #14 tab 07/22/17 [Rx] Allergies/Adverse Reactions: 3 Allergy/AdvReac Type Severity Reaction Status Date / Time codeine Allergy Hives Verified 06/14/17 08:30 latex Allergy Hives Verified 06/14/17 08:30 Penicillins Allergy Hives Verified 06/14/17 08:30 propoxyphene [From Darvon] Allergy Hives Verified 06/14/17 08:30 shellfish derived Allergy Hives Verified 06/14/17 08:30 - Respiratory Orders Smoking Cessation: Smoking cessation has been advised. For more information, call the [place] Tobacco Quit Line at 2-928-JMDI-NOW. CERTIFICATION: I certify that the transfer of the above named patient to an Extended Care Facility is necessary for the continuing treatment of the diagnosis listed. The above information is true and accurate reflection of patient's current condition. Confidential - Redisclosure prohibited without a patient's written consent.
--- NOTE | 2017-07-22 14:46 | Event Note ---
<Joseph Hernández - Last Filed: 07/22/17 14:43> Date of Encounter: 07/22/17 Time of Encounter: 09:00 Please see corresponding discharge summary and exam dated 07/14/17. Patient found to have leukocytosis with left shift due to UTI and signs of fluid overload, completed 3 days of Rocephin IV, which delayed previous anticipated date of discharge. She was also treated for acute hypoxic resp failure secondary to COPDE, CHpEF exacerbation, Afib, Sepsis (resolved) secondary to HCAP, DKA (resolved), severe malnutrition, acute urinary retention (Erazo to remain in place at discharge), decubitus sacral ulcer stage II. She continued to improved with diuresis and was started on Diflucan for yeast in urine culture prior to discharge back to SNF on 07/22/17. <Ellis Bocanegra - Last Filed: 07/22/17 18:10> Date of Encounter: 07/22/17 Seen and examined at the bedside independently. In addition to above, as stated better resident physician, patient's blood glucose remains difficult to control, due to rapid drops to hypoglycemic range, poor oral intake. Recommend that she continues to take sliding-scale insulin only and low-dose Levemir at the [place]. Rest of the details is as in the discharge summary done on 07/14/17, and the resident's documentation above. Patient has an overall poor prognosis associated valvular stenosis, and poor reserve. She is at risk for readmission.
[2017-07-22] MEDS ORDERED: *HR* Warfarin 2 MG TABLET PO ONE (18:00)
== END 2017-07-22 16:33 | DRG 871 ==
LOC: EMEROO 14:14 → 2NENU 14:14 → SUATTDRO 20:21 → 2NENU 21:13 → ICNU 07-10 18:21 → 2NENU 07-12 06:59
PROVIDERS: ADMIT General Practice; ATTEND Internal Medicine